=== PATIENT | female | born 1990 | race Caucasian/White ===

== ENCOUNTER 2022-02-25 10:29 | Emergency (ER) | payer OTHER, SELFPAY ==
[2022-02-25 10:53] VITALS: BP 141/82; PULSE 115; RESP 18; TEMP 37.3; O2SAT 98; BMI 21.6
[2022-02-25 11:12] LABS: Appearance Urine Slightly Cloudy (Clear); Bilirubin Urine Negative (Negative); Blood Urine 2+ (Negative); Color Urine Yellow (Yellow); Glucose Urine Negative (Negative); Ketones Urine Negative (Negative); Leukocyte Esterase Urine Negative (Negative); Nitrite Urine Negative (Negative); Protein Urine Negative (Negative); Urobilinogen Urine 0.2 (0.2-1.0); pH Urine 6.5 (5.0-8.5)
[2022-02-25 11:22] LABS: RBC Urine 0-2 (0-2); Squamous Epithelial Cell Urine Moderate (None-Few); WBC Urine 0-2 (0-5)
--- NOTE | 2022-02-25 11:33 | CRLHL7_ITS ---
For Patients: As a result of the Century Cures Act, medical imaging exams and procedure reports are released immediately into your electronic medical record. You may view this report before your referring provider. If you have questions, please contact your health care provider. INDICATION: Recent lithotripsy, pain, dysuria. TECHNIQUE: CT abdomen and pelvis without contrast. Coronal and sagittal reformats were generated. COMPARISON: CT of the abdomen and pelvis from 01/26/2019. FINDINGS: Lower chest: Unremarkable. Liver: Unremarkable. Gallbladder and bile ducts: Surgically absent gallbladder. Normal caliber bile ducts. Spleen: Unremarkable. Pancreas: Unremarkable. Adrenal glands: Unremarkable. No nodules. Kidneys and Ureters: Interpolar calcification in the left kidney measures approximately 3 mm (2/54). Punctate calcification lies in the lower pole of the left kidney (3/42). Lymph Nodes and Retroperitoneum: Unremarkable. Vasculature: Unremarkable. GI tract: Unremarkable. Normal in caliber. Normal appendix. Peritoneum/Abdominal Wall: Unremarkable. No free air or free fluid. Pelvic Viscera: The uterus is retroflexed. Bladder: Unremarkable. Bones: Unremarkable for age. IMPRESSION: Left renal calculi. No obstructive uropathy. Please note that all CT scans at this facility use dose modulation, iterative reconstruction, and/or weight-based dosing when appropriate to reduce radiation dose to as low as reasonably achievable. Dictated by Kashif Lanza MD @ 02/25/2022 1:10:32 PM (Electronically Signed)
--- NOTE | 2022-02-25 11:35 | ED.GENADULT ---
HPI - General Adult General Chief complaint: Flank Pain Stated complaint: needs CT after kidney stones surgery Time Seen by Provider: 02/25/22 11:22 History of Present Illness HPI narrative: This 31-year-old female comes in reporting left flank pain and fever. She had lithotripsy done 6 days ago for left-sided ureteral calculus. She states that she developed a fever after this and has been taking a sulfa antibiotic. She contacted her urologist who instructed her to come in for a CT scan today. The patient states that she did have a fever this morning and took some Tylenol. Related Data Home Medications Medication Instructions Recorded Confirmed fluoxetine 10 mg capsule 10 mg PO DAILY 02/25/22 02/25/22 Previous Rx's Medication Instructions Recorded ketorolac 10 mg tablet 10 mg PO TID 5 days #15 tabs 02/25/22 ondansetron HCl 4 mg tablet 4 mg PO Q6H #20 tabs 02/25/22 Allergies Allergy/AdvReac Type Severity Reaction Status Date / Time nitrofurantoin Allergy Mild throat Verified 02/25/22 11:01 swelling Ketorolac tromethamine Allergy Mild ithcy Uncoded 02/25/22 11:01 Review of Systems Status of ROS: Reports: 10 or more systems reviewed and unremarkable except as noted in History and below Narrative: Constitutional: No weight gain or loss. Eyes: No discharge. No vision changes. HENT: No congestion, no sore throat, no ear pain. Cardiovascular: No chest pain, no palpitations. Respiratory: No shortness of breath, no wheezes, no cough. Gastrointestinal: No vomiting, no diarrhea. She reports left-sided flank and abdominal pain. Genitourinary: No dysuria, no hematuria. Musculoskeletal: Normal range of motion. Skin: No rashes, no pruritis. Neurological: No dizziness, weakness, sensory change, speech change. Endo/Heme/Allergies: No bruising or bleeding. No polydipsia. Pysch: no suicidality, no anxiety, no insomnia. All other systems reviewed and are negative. PFSH PFSH Social History Smoking Status: Never smoker How often do you have a drink containing alcohol: never How often do you have six or more drinks on one occasion: Never AUDIT-C Alcohol total score: 0 Non-prescribed substance use: denies use Exam Narrative: Exam Narrative: Constitutional: Well-developed, well-nourished, no acute distress. HEENT: Normocephalic, atraumatic. Neck: Normal range of motion. Nontender. Supple. Heart: Regular. No murmurs. Tachycardia. Intact distal pulses. Lungs: Clear to auscultation. No chest discomfort. No wheezes, rhonchi, or rales. Abdomen: Normal bowel sounds. Left flank and abdominal tenderness. No rebound tenderness. Genitalia: Deferred. Back: No midline tenderness. Normal range of motion. Extremities: Normal range of motion. No injury. Skin: Intact. No rash. Warm. No erythema or pallor. Neurologic: No altered sensation. No weakness. Alert and oriented. Psychiatric: No suicidality. No anxiety or depression. No insomnia. Nursing notes and vitals signs are reviewed. Const: Vital Signs, click to edit/add: Vital Signs - 24 hr 02/25/22 10:53 02/25/22 12:48 Temperature 99.2 F Pulse Rate [Right Pulse Oximeter] 115 H 84 Respiratory Rate 18 Blood Pressure [Ri ght Upper Arm] 141/82 H 116/76 Pulse Oximetry 98 98 Oxygen Delivery Me thod Room Air Room Air Course Vital Signs Vital signs: Initial Vital Signs Temperature 99.2 F 02/25/22 10:53 Temperature Source Temporal Artery Scan 02/25/22 10:53 Pulse Rate 115 H 02/25/22 10:53 Respiratory Rate 18 02/25/22 10:53 Blood Pressure 141/82 H 02/25/22 10:53 Blood Pressure Mean 101 02/25/22 10:53 Blood Pressure Position Sitting 02/25/22 10:53 Pulse Oximetry 98 02/25/22 10:53 Oxygen Delivery Method 02/25/22 10:53 Vital Signs Temperature 99.2 F 02/25/22 10:53 Pulse Rate 115 H 02/25/22 10:53 Respiratory Rate 18 02/25/22 10:53 Blood Pressure 141/82 H 02/25/22 10:53 Pulse Oximetry 98 02/25/22 10:53 Oxygen Delivery Method 02/25/22 10:53 Temperature 99.2 F 02/25/22 10:53 Pulse Rate 84 02/25/22 12:48 Respiratory Rate 18 02/25/22 10:53 Blood Pressure 116/76 02/25/22 12:48 Pulse Oximetry 98 02/25/22 12:48 Oxygen Delivery Method 02/25/22 12:48 Medical Decision Making MDM Narrative Medical decision making narrative: This patient comes in with left flank pain and had lithotripsy done 6 days ago. She is still currently taking a sulfa antibiotic. She does report a fever at home but arrives here with normal temperature. Her heart rate was initially elevated but this settled down to 84 beats per minute. She is not tripping triggers of sepsis. She has normal urinalysis without evidence of infection. CT imaging of the abdomen and pelvis shows no sign of uropathy or obstruction. She does have a few small stones in the left kidney. I did contact the clinic where her urologist works. He is currently in surgery today but I did speak with the nurse to relay this information. Patient is encouraged to make a follow-up appointment with this clinic. I advised her to return if worsening symptoms happen. I did provide prescriptions for Toradol and Zofran. She does have oxycodone that she can use if needed. Lab Data Labs: Lab Results 02/25/22 Range/Units 11:05 Urine Color Yellow (Yellow) Urine Appearance Slightly Cloudy A (Clear) Urine pH 6.5 (5.0-8.5) Ur Specific [place] 1.020 (1.000-1.030) Urine Protein Negative (Negative) Urine Glucose (UA) Negative (Negative) Urine Ketones Negative (Negative) Urine Blood 2+ A (Negative) Urine Nitrite Negative (Negative) Urine Bilirubin Negative (Negative) Urine Urobilinogen 0.2 (0.2-1.0) Ur Leukocyte Esterase Negative (Negative) Urine RBC 0-2 (0-2) Urine WBC 0-2 (0-5) Ur Squamous Epith Cells Moderate A (None-Few) Urine Bacteria None (None) Imaging Data CT scan - abdomen: Radiologist's impression: 1. Moderate-size right pleural effusion and small left pleural effusion. 2. Bilateral nonobstructive nephrolithiasis. No hydronephrosis. 3. Urinary bladder wall thickening and inflammation could be due to infectious or radiation cystitis. Discharge Plan Discharge Clinical Impression: Renal colic on left side Patient Disposition: Home, Self-Care Condition: Stable Additional Instructions: Take medication as needed and indicated. Follow up with urology clinic or return if worsening. Prescriptions: New ondansetron HCl 4 mg tablet 4 mg PO Q6H Qty: 20 0RF ketorolac 10 mg tablet 10 mg PO TID 5 Days Qty: 15 0RF No Action fluoxetine 10 mg capsule 10 mg PO DAILY Follow Up/Referrals: Provider,Not a Local [Referring] - Stand Alone Forms: AEGEA Medical Info Instructions
--- OUTSIDE RECORDS SUMMARY | 2022-02-25 11:50 | XMS_ITS | Encounter Summary ---
:1990 Author Organization [facility] Address [address] [place] [address] Care Team Providers Name Role Phone Unavailable Primary Care Provider Unavailable Reason for Visit Reason Onset Date Comments Testing For Upper Respiratory Virus Symptoms 04/10/2020 Encounter Details Date Type Department Care Team Description 04/10/2020 External Outreach Department of Family Anoop Lo Contact With And Medicine, Benigno Spring D.O. (Suspected) Exposure Building, in [address] COVID-19 ([place], [place] Dx) [address] [facility] [address] [place], [place] [phone] [address] (Work) [phone] Social History Tobacco Use Types Packs/Day Years Used Date Smoking Tobacco: Never Sex Assigned at Date Recorded Not on file documented as of this encounter Progress Notes Rolly Lloyd RAyaan. - 04/10/2020 2:44 PM CST Encounter created for symptomatic infectious disease screening with possible COVID, Influenza, and RSV testing. OCHEMISTRY PROFESSOR documented in this encounter Plan of Treatment Not on filedocumented as of this encounter Procedures Procedure Name Priority Date/Time Associated Diagnosis Comme nts SARS CORONAVIRUS-2 Routine 04/10/2020 3:52 PM Contact With And Results for this RNA, V PHYTOCHEMISTRY PROFESSOR (Suspected) Exposure procedu re are in To COVID-19 the results section. documented in this encounter Results SARS Coronavirus-2 RNA, V Symptomatic (04/10/2020 3:52 PM PHYTOCHEMISTRY PROFESSOR) [facility] Method Time Signature SARS-CoV-2 Swab, 04/11/2020 MKTO Specimen Nasopharynx 1:02 PM PHYTOCHEMISTRY PROFESSOR Source SARS CoV-2 Undetected Undetected 04/11/2020 MKTO RNA, TMA 1:02 PM PHYTOCHEMISTRY PROFESSOR Comment: SARS-CoV-2 RNA absent. This result does not rule out COVID-19 in the patient, as the sensitivity of the test depends o n the timing of the specimen collection and the quality of the specim en. Result should be correlated with patient's history and clinical presentat ion. ----ADDITIONAL INFORMATION---- This molecular amplification test was pe rformed using the Aptima SARS-CoV-2 assay ([employer] on the [employer] tem under emergency use authorization (EUA) by the U.S. Food and Drug Administ ration. Fact sheets for this EUA assay can be fo und at the following links: For Healthcare Providers: https://www.Ey[employer] Surveillance a.gov/media/834033/download For Patients: https://www.fda.gov/media/ 370152/download Specimen Anatomical Collection Method Collection Time Receive d Time (Source) Location / / Volume Laterality Varies 04/10/2020 3:52 PM 2:49 (Nasopharynx) PHYTOCHEMISTRY PROFESSOR AM PHYTOCHEMISTRY PROFESSOR Anoop Lo D.O. LAB MICROBIOLOGY - GENERAL O MAHESH Performing Organization Address City/State/ZIP Code Phon e Number [facility]- [address] [place] [address] [place] [address] System in [address] documented in this encounter Visit Diagnoses Diagnosis Contact With And (Suspected) Exposure To COVID-19 - Primary documented in this encounter Additional Health Concerns Infection Onset Date Last Indicated Resolved Time COVID19 Pending 04/10/2020 04/10/2020 04/11/2020 1:03 PM PHYTOCHEMISTRY PROFESSOR documented as of this encounter
--- OUTSIDE RECORDS SUMMARY | 2022-02-25 11:50 | XMS_ITS | Encounter Summary ---
:1990 Author Organization [facility] Address [address] [place] [address] Care Team Providers Name Role Phone Unavailable Primary Care Provider Unavailable Encounter Details Date Type Department Care Team Description 01/31/2019 Clinical Communication Department of Jocelynn Meyers, Urology in .. [place], [place] [address] [place] [address] [phone] Social History Tobacco Use Types Packs/Day Years Used Date Smoking Tobacco: Never Sex Assigned at Date Recorded Not on file documented as of this encounter Miscellaneous Notes Telephone Encounter - Jocelynn Meyers M.D. - 01/31/2019 9:53 PM DEVIL DOG Outside ED provider called regarding right flank pain the patient has had for a week and a half. Shewas initially treated for pyelonephritis, but cultures did not support this so antibiotics were stopped. CT previously demonstrated non obstructing stones as well as ovarian cyst. She represents with persistent pain. She is AVSS, no leukocytosis, urinalysis without concern for infection. Urine is clear but she reports intermittent gross hematuria. Ultrasound demonstrates bilateral jets, no hydro, no stones. Recommended pain control and outpatient urology follow up. CT urogram may give additional insight if there are any anatomic abnormalities of the collecting system. L DOG documented in this encounter Plan of Treatment Not on filedocumented as of this encounter Visit Diagnoses Not on filedocumented in this encounter
--- OUTSIDE RECORDS SUMMARY | 2022-02-25 11:50 | XMS_ITS | Encounter Summary ---
:1990 Author Organization [facility] Address [address] [place] [address] Care Team Providers Name Role Phone Unavailable Primary Care Provider Unavailable Encounter Details Date Type Department Care Team Description 05/08/2015 Hospital Encounter [facility] Lis Marino D.O. [address], [place] [address] (Wo rk) Social History Tobacco Use Types Packs/Day Years Used Date Smoking Tobacco: Never Assessed Sex Assigned at Date Recorded Not on file documented as of this encounter Last Filed Vital Signs Vital Sign Reading Time Taken Comments Blood Pressure 100/72 05/08/2015 2:03 PM BEESWAX BLEACHER Pulse 102 05/08/2015 2:03 PM BEESWAX BLEACHER Temperature - - Respiratory Rate 18 05/08/2015 2:03 PM BEESWAX BLEACHER Oxygen Saturation - - Inhaled Oxygen Concentration - - Weight 54.9 kg (121 lb 0.5 oz) 05/08/2015 2:03 PM BEESWAX BLEACHER Height - - Body Mass Index - - documented in this encounter Progress Notes Tasha Marino DSophia - 05/08/2015 1:54 PM CST [id number] URGENT CARE NOTE HISTORY OF PRESENT ILLNESS Ongoing sinus issues. HISTORY OF PRESENT ILLNESS This is a 24-year-old female who comes to Urgent Care Clinic today with complaints of ongoing issue.She was seen on a 05/03/2015, diagnosed with sinusitis, treated with amoxicillin. She has been on amoxicillin now for 4 full days today is day 5 and does not feel like she is getting any better. She com plains of ongoing ear fullness, cough, fatigue, maxillary facial pressure and pain, subjective fevers, decreased sleep, decreased appetite. She has been able to get down her fluids okay. Just overall feeling achy and run down and just not good. Throat is also sore and irritated/ she is using uwfo-otm-ponyfio Sudafed with minimal improvement in symptoms. Sleep has been dramatically interrupted secondary to her symptoms. Now she has been sick for about 2-1/2 weeks. VITAL SIGNS Temperature 36.9, pulse 102, respirations 16, blood pressure 100/72, weight is 54.9 kg. PHYSICAL EXAMINATION GENERAL: This is a well-appearing 24-year-old female, who appears to be in no acute distress. HEENT: Head is normocephalic, atraumatic. Ears: External auditory canals are clear. Tympanic membranes are pearly edwards with good light reflex. Nares are congested. Posterior pharynx is erythematous. Mouth: Oropharynx is clear. Mucous membranes are moist. NECK: Supple. Anterior cervical lymphadenopathy. HEART: Regular rate and rhythm. No murmur. LUNGS: Clear to auscultation bilaterally. ABDOMEN: Soft, nontender, and nondistended. Positive bowel sounds heard throughout. SKIN: No rashes or erythema seen. IMPRESSION/REPORT/PLAN ASSESSMENT: Acute maxillary sinusitis. PLAN: We will switch over to doxycycline. We will stop the amoxicillin and add prednisone 40 mg daily for 5 days to her regimen to see if that can help. She can continue to use zvwe-ain-afyjagl cough and cold medicines as desired. Re- evaluation if worsening, change or not improving symptoms over the next 48 to 72 hours. Patient was comfortable with our plan, verbalizes agreement. Tasha Marino D.O./pos Electronically Signed By: TASHA MARINO DO On: 05/09/2015 10:04 AM Source: [facility] MHSDOLBEYNONRADSYS Document Id: [id number] WAX BLEACHER documented in this encounter Miscellaneous Notes Miscellaneous - Alexandria Jauregui RDaishaN. 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 Treated with Amoxicillin. Is getting worse. Feels her ears are worse. [place], Sinus pressure, fatigue, throat irritattion, , body aches, cough, chest congestion Onset of Symptoms : 2.5 weeks. Temperature Core : 36.9 DegC(Converted to: 98.4 DegF) Peripheral Pulse Rate : 102 /min (HI) Respiratory Rate : 18 /min Systolic Blood Pressure : 100 mmHg Diastolic Blood Pressure : 72 mmHg NIBP Mean : 81 mmHg BP Location : Right upper extremity Blood Pressure Cuff Size : Regular Actual Weight : 54.9 kg(Converted to: 121 lb 1 oz) Weight Source : Standing scale Dosing Weight Clinic : 54.9 kg ALEXANDRIA JAUREGUI RN - 05/08/2015 14:03 BEESWAX BLEACHER General Info Information Given By : Patient Preferred Communication Mode : Verbal Languages : Congolese Is Patient Female and 13-50 no hysterectomy : Yes Status : Patient denies Are you ? : No ALEXANDRIA JAUREGUI RN - 05/08/2015 14:03 BEESWAX BLEACHER Subjective Pain Symptoms : No ALEXANDRIA JAUREGUI RN - 05/08/2015 14:03 BEESWAX BLEACHER Dependent Habits Exposure to Tobacco Smoke : Other: NEVER Smoking Status : Never smoker Tobacco 2A : No Tobacco Use/Currently Using : No Tobacco Use/Last 30 Days : No Tobacco Use/Last 12 months : No Alcohol Use : No ALEXANDRIA JAUREGUI RN - 05/08/2015 14:03 BEESWAX BLEACHER Allergy (As Of: 05/08/2015 14:07:25 BEESWAX BLEACHER) Allergies (Active) NKA Estimated Onset Date: Unspecified ; Created By: JOELLE OBREGON RN; Reaction Status: Active; Category: Drug ; Substance: NKA ; Type: Allergy ; Updated By: JOELLE OBREGON RN; Reviewed Date: 05/08/2015 14:02 BEESWAX BLEACHER Source: [facility] POWERCHART Document Id: [id number] BEESWAX BLEACHER!32 WAX BLEACHER documented in this encounter Plan of Treatment Not on filedocumented as of this encounter Visit Diagnoses Not on filedocumented in this encounter
--- OUTSIDE RECORDS SUMMARY | 2022-02-25 11:50 | XMS_ITS | Encounter Summary ---
:1990 Author Organization [facility] Address [address] [place] [address] Care Team Providers Name Role Phone Unavailable Primary Care Provider Unavailable Encounter Details Date Type Department Care Team Description 07/25/2015 Hospital Encounter [facility] Yahir Coleman APRN, C.N.P. [address] [place] [address] (Wo rk) Social History Tobacco Use Types Packs/Day Years Used Date Smoking Tobacco: Never Assessed Sex Assigned at Date Recorded Not on file documented as of this encounter Last Filed Vital Signs Vital Sign Reading Time Taken Comments Blood Pressure 112/60 07/25/2015 2:23 PM CDT Pulse 72 07/25/2015 2:23 PM CDT Temperature - - Respiratory Rate 20 07/25/2015 2:23 PM CDT Oxygen Saturation - - Inhaled Oxygen Concentration - - Weight 55.1 kg (121 lb 7.6 oz) 07/25/2015 2:23 PM CDT Height - - Body Mass Index - - documented in this encounter Progress Notes Yahir Coleman APRN, C.N.P. - 07/25/2015 2:18 PM CDT [id number] URGENT CARE CHIEF COMPLAINT/REASON FOR VISIT Abdominal pain, possible kidney stone. HISTORY OF PRESENT ILLNESS Bernardino is a 24-year-old female, who comes into Urgent Care for evaluation of some abdominal pain thathas been present for a few days, but has been somewhat ongoing as well. Her primary care provider chuyita Good, but she is a current college student here, so she has had some visits here and alsohas been followed up at home. Initially, she was seen in the emergency department here, at least 3 weeks ago for some abdominal pain and at that time it was recommended that she follow up with an president ergonomic consulting since they really did not find much wrong with her. She later went into the emergency department in [place], and had a CT scan done that it sounds like was positive for some kidney stones. She does have an appointment to see a urologist, but this is not until August. She does not believe she was ever given anything to pass stones, but tells me she was even hospitalized for a short period of time with some kidney stones and it was believed that she may have passed a stone at one point during her hospitalization. She tells me just today she got a call from her provider in [place], and was informed that her vaginal exam showed bacterial vaginosis and so she is starting on some metronidazole. Right now, she has pain that she rates a 10/10 in her right back area. This does radiate around somewhat to her abdomen and even makes her feel nauseated because the pain is so bad. She tried some ibuprofen this morning and took 400 mg, this was several hours ago and she has not taken anything sincethen. She did drive herself here. ALLERGIES No known drug allergies. PAST MEDICAL HISTORY No chronic problems are noted in our records, but she does tell me that she had a full workup for this type of pain in the past thinking perhaps it was her gallbladder and all of the tests came back negative. She tells me it is still under discussion if this might still be her gallbladder despite negative tests. She is in contact with her primary care provider for this. She is also currently being cared for these kidney stones and has a urology appointment in August. MEDICATIONS She does have some oxycodone and some hydrocodone that she had from previous visits. She did find the oxycodone to be somewhat helpful, but still is quite uncomfortable. PHYSICAL EXAMINATION GENERAL: Bernardino is a 24-year-old female in no distress. VITAL SIGNS: She is afebrile with a temperature of 36.8, heart rate is 72, respiratory rate is 20, blood pressure is 112/60. She weighs 55.1 kg. As noted, she rates the pain in her right flank or back area a 10 on a 0 to 10 scale. THROAT: Shows no erythema. NECK: Supple. HEART: Regular. LUNGS: Are completely clear. BACK: This area is in the entire right flank area and radiates around no abnormalities are noted, with examination of this area across her back. ABDOMEN: Soft and nontender with positive bowel sounds in all quadrants. There is no organomegaly noted. SKIN: Without rashes or other abnormalities. IMPRESSION/REPORT/PLAN Abdominal pain, possible kidney stones. She really did not want to go to the emergency room this evening and is just wondering what else we can do for her. I did obtain an x-ray of her abdomen to look for any kidney stones and none are noted on x-ray. I also obtained a urinalysis and a urine hCG. Urine hCG was negative. Urinalysis shows just a trace of blood. Discussed these results with her. She wasgiven an injection of Toradol intramuscularly while she was here at the clinic and she knows not to take any more ibuprofen this evening. She does have a few pain pills left from a previous visit and Idid give her another prescription for 15 Percocet that she will use sparingly. In addition to this, I did start her on some Flomax 0.4 mg once daily to see if this helps in relieving her symptoms. She is definitely to keep this appointment with the urologist in August, and follow up with her primary care provider as needed. As noted, she is trying to avoid an the emergency room visit, but I did tell her that if symptoms are still not getting better with this she will need to go to the emergency room for further evaluation. Yahir Coleman APRN, C.N.P./pos Electronically Signed By: YAHIR COLEMAN NP On: 07/26/2015 05:55 PM Source: [facility] MHSDOLBEYNONRADSYS Document Id: [id number] Addendum by YAHIR COLEMAN DUSTING AND BRUSHING MACHINE OPERATOR on July 26, 2015 17:56 CDT 25 minutes with patient; 10 uin counseling and coordination of care. Modified by and Electronically Signed by: YAHIR COLEMAN NP On: 07/26/2015 05:56 PM Source: [facility] POWERCHART Document Id: [id number] documented in this encounter Miscellaneous Notes Miscellaneous - Yahir Coleman APRN, C.N.P. - 07/25/2015 3:25 PM CDT Ambulatory Patient Summary [address] [place], [place] [id number] Visit Information Name: BERNARDINO METCALF [facility] Number: [id number] Current Date: 07/25/2015 15:25:57 Physicians Attending Provider: UNKNOWN1, PROVIDER Primary Care Provider: PCP, KEISHA BERNARDINO METCALF has been given the following list of follow-up instructions, medication list, and patient education materials: Follow-up Instructions Your Medications Here is a list of your medications. It is important to take your medications as directed. Use a pillbox or chart to help remind you to take your medications. Please let your doctor or nurse know if you have problems taking your medications. Medication/Strength How to Take Indications/Special Instructions/Comments/Notes for Patient Medication Changes/Routing acetaminophen (Tylenol 325 mg oral tablet) 2 Tablet(s), Oral, every 4 hours as needed for pain citalopram (citalopram 10 mg oral tablet) 1.5 Tablet(s), Oral, once a day cyanocobalamin (Vitamin B-12 1000 mcg oral tablet) 1 Tablet(s), Oral, once a day oxyCODONE-acetaminophen (Percocet 5/325 oral tablet) 1 Tablet(s), Oral, every 6 hours as needed for Pain No more than 4,000mg acetaminophen/24hrs New Routed to [employer] tamsulosin (Flomax 0.4 mg oral capsule) 1 cap, Oral, once a day [facility] [address] [place] [address] Stop Taking the Following Medications: Medication list as of 07-25-15 15:25 Attention: If you have any medications at home that are not on this list, DO NOT take them until youcontact your provider for clarification. Give a copy of your medication list to your primary care provider. Update your medication list any time medications or doses are changed and carry your medication list at all times in case of emergency. Electronically Signed By: YAHIR COLEMAN NP Signed On:25-JUL-2015 15:25:54 Your Allergies & Intolerances Substance Reaction Symptoms Category Comments No Known Allergies Drug Your Problem List Problem Status Onset Comments No Problems found Your Upcoming Appointments Date Time Location Provider No Appointments found Attention: Contact your local Clinic if further appointment detail needed. Consider Using Patient Online Services Patient Online Services is a secure online and Mobile application that lets you: ?? View lab and test results ?? View portions of your medical record including clinical notes, immunizations and discharge summaries ?? Request an appointment or medication refill ?? Review your appointment schedule ?? Send secure messages to your care team Its easy to create an account if you dont have one. Go to [email or web address] and click on Create Your Account. Then, follow the directions to complete the online form. Youll be asked for your [facility] number which you can find at the top of this document. Your Goals/Additional instructions: Source: [facility] POWERCHART Document Id: [id number] Miscellaneous - Yahir Coleman APRN, C.N.P. - 07/25/2015 3:25 PM CDT Ambulatory Discharge Medication List [address] [id number] Visit Information Name: BERNARDINO METCALF [facility] Number: [id number] Visit Date: 07/25/2015 15:25:57 Attending Provider: UNKNOWN1, PROVIDER Primary Care Provider: PCPKEISHA BERNARDINO ISA has been given the following list of medications: Your Medications It is important to take your medications as directed. Use a pill box or chart to help remind you to take your medications. Please let your doctor or nurse know if you have problems taking your medications. Medication/Strength How to Take Indications/Special Instructions/Comments/Notes for Patient Medication Changes/Routing acetaminophen (Tylenol 325 mg oral tablet) 2 Tablet(s), Oral, every 4 hours as needed for pain citalopram (citalopram 10 mg oral tablet) 1.5 Tablet(s), Oral, once a day cyanocobalamin (Vitamin B-12 1000 mcg oral tablet) 1 Tablet(s), Oral, once a day oxyCODONE-acetaminophen (Percocet 5/325 oral tablet) 1 Tablet(s), Oral, every 6 hours as needed for Pain No more than 4,000mg acetaminophen/24hrs New Routed to [employer] tamsulosin (Flomax 0.4 mg oral capsule) 1 cap, Oral, once a day New Routed to [facility] [address] [place] [address] Stop Taking the Following Medications: Medication list as of 07-25-15 15:25 Attention: If you have any medications at home that are not on this list, DO NOT take them until youcontact your provider for clarification. Give a copy of your medication list to your primary care provider. Update your medication list any time medications or doses are changed and carry your medication list at all times in case of emergency. Electronically Signed By: YAHIR COLEMAN DUSTING AND BRUSHING MACHINE OPERATOR Signed On:25-JUL-2015 15:25:54 Additional Information: Source: [facility] POWERCHART Document Id: [id number] Miscellaneous - Shane Canchola, R.N. 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 Ambulatory Intake Additional Information : CT scan was done in [place] on 07/14/15 Temperature Core : 36.8 DegC(Converted to: 98.2 DegF) Peripheral Pulse Rate : 72 /min Respiratory Rate : 20 /min Systolic Blood Pressure : 112 mmHg Diastolic Blood Pressure : 60 mmHg NIBP Mean : 77 mmHg Actual Weight : 55.1 kg(Converted to: 121 lb 8 oz) Dosing Weight Clinic : 55.1 kg SHANE CANCHOLA LPN - 07/25/2015 14:23 CDT General Info Information Given By : Patient Preferred Communication Mode : Verbal Languages : Georgian Is Patient Female and 13-50 no hysterectomy : Yes Status : Patient denies Are you ? : No SHANE CANCHOLA Marquise [facility] - 07/25/2015 14:23 CDT Subjective Pain Symptoms : Yes SHANE CANCHOLA Marquise [facility] - 07/25/2015 14:23 CDT Pain Scale Pain Scale Verbal 0-10 : Open SHANE CANCHOLA Marquise [facility] - 07/25/2015 14:23 CDT Pain Pain Assessment Grid Pain 1 Location : Lower back Laterality : Right Intensity : 10 SHANE CANCHOLA Marquise [facility] - 07/25/2015 14:23 CDT Dependent Habits Exposure to Tobacco Smoke : Other: NEVERn no alcohol. Smoking Status : Never smoker Tobacco 2A : No Tobacco Use/Currently Using : No Tobacco Use/Last 30 Days : No Tobacco Use/Last 12 months : No Alcohol Use : No SHANE CANCHOLA Marquise [facility] - 07/25/2015 14:23 CDT [facility] Document Id: [id number] CDT!37 documented in this encounter Plan of Treatment Not on filedocumented as of this encounter Procedures Procedure Name Priority Date/Time Associated Comments Diagnosis DX ABDOMEN 1 VIEW Routine 07/25/2015 2:51 PM Resu lts for this CDT procedure are i n the results section. TEST, U Routine 07/25/2015 2:45 PM Resu lts for this CDT procedure are i n the results section. URINALYSIS, ROUTINE Routine 07/25/2015 2:45 PM Re sults for this CDT procedure are i n the results section. URINE MICROSCOPIC Routine 07/25/2015 2:45 PM Resu lts for this CDT procedure are i n the results section. documented in this encounter Results DX Abdomen 1 View (07/25/2015 2:51 PM CDT) Anatomical Region Laterality Modality Abdomen N/A Radiographic Imaging Specimen (Source) Anatomical Collection Method Collection Time Re ceived Time Location / / Volume Laterality 07/25/2015 2:51 PM CDT Addenda Addendum by Provider, Sachi Michaud 07/25/2015 2:51 PM CDT RAD^^^MA XR Abdomen 1 View 07/25/2015 14:51:07 Impressions 07/25/2015 3:06 PM CDT Negative Narrative 07/25/2015 3:06 PM CDT EXAM: XR Abdomen 1 View INDICATION: ? right side kidney stone COMPARISON: None. FINDINGS: Unremarkable bowel gas pattern . No masses or unusual calcifications. Bony structures are inta ct. Radiopaque suture material is noted in the right pelvis. Procedure Note Daquan Esqueda D.O. / ProviderRonald M.D. - 08/02/2016 EXAM: XR Abdomen 1 View INDICATION: ? right side kidney stone COMPARISON: None. FINDINGS: Unremarkable bowel gas pattern . No masses or unusual calcifications. Bony structures are inta ct. Radiopaque suture material is noted in the right pelvis. IMPRESSION: Negative Madelyn Garcia RDaishaTDaisha(R)(CT), R.T.(R) IMG DIAGNOSTIC IM AGING PROCEDURES Urine Microscopic (07/25/2015 2:45 PM CDT) P athologist Signature HXUR WBC. Occ-3 HPF POWERCHART HXUR RBC. Occ-2 HPF POWERCHART Squamous Occ-3 HPF POWERCHART Epithelial Specimen Anatomical Collection Method Collection Time Receive d Time (Source) Location / / Volume Laterality Urine, First 07/25/2015 2:45 PM 6 2:45 Voided CDT PM CDT Yahir Coleman APRN, C.N.P. LAB URINE ORDERABLES Performing Organization Address City/State/ZIP Code Phon e Number POWERCHART Test, Qualitative, Urine (07/25/2015 2:45 PM CDT) Patholo gist Method Time Signature HXBeta-hCG Negative Negative POWERCHART Qualitative Urine Specimen (Source) Anatomical Collection Method Collection Time Re ceived Time Location / / Volume Laterality Urine 07/25/2015 2:45 PM CDT Yahir Coleman APRN, C.N.P. LAB URINE ORDERABLES Performing Organization Address City/[facility]/ZIP Code Phon e Number POWERCHART (ABNORMAL) Urinalysis, Routine (07/25/2015 2:45 PM CDT) [facility] gist Method Time Signature HXUr Color Yellow Colorless POWERCHART Clarity Clear Clear POWERCHART Glucose Negative Negative POWERCHART MGDL HXBILIRUBIN Negative Negative POWERCHART Ketones, QL(U) Negative Negative POWERCHART MGDL Specific >=1.030 POWERCHART Horse Shoe, POCT, U HXBLOOD Trace (A) Negative POWERCHART pH, POCT, Urine 5.5 <5.0 POWERCHART Protein, Ur, Dip Negative Negative POWERCHART MGDL Urobilinogen 0.2 0.2 MGDL POWERCHART HXNITRITE Negative Negative POWERCHART Leukocyte Negative Negative POWERCHART Esterase Specimen (Source) Anatomical Collection Method Collection Time Re ceived Time Location / / Volume Laterality Urine, First 07/25/2015 2:45 PM Voided CDT Yahir Coleman APRN, C.N.P. LAB URINE ORDERABLES Performing Organization Address City/State/ZIP Code Phon e Number POWERCHART documented in this encounter Visit Diagnoses Not on filedocumented in this encounter
--- OUTSIDE RECORDS SUMMARY | 2022-02-25 11:50 | XMS_ITS | Encounter Summary ---
:1990 Author Organization [facility] Address [address] [place] [address] Care Team Providers Name Role Phone Unavailable Primary Care Provider Unavailable Encounter Details Date Type Department Care Team Description 12/18/2012 - Hospital Encounter HX [facility] Kimi Mcadasm PT, M.D. 12/29/2012 [facility] [place] [facility] Eddie carmichael [place], [place] [address] (Wo rk) Social History Tobacco Use Types Packs/Day Years Used Date Smoking Tobacco: Never Assessed Sex Assigned at Date Recorded Not on file documented as of this encounter Plan of Treatment Not on filedocumented as of this encounter Visit Diagnoses Not on filedocumented in this encounter
--- OUTSIDE RECORDS SUMMARY | 2022-02-25 11:50 | XMS_ITS | Clinical Summary ---
:1990 Author Organization [facility] Address [address] [place] [address] Care Team Providers Name Role Phone Unavailable Primary Care Provider Unavailable Source Comments Patient records contain information from all sites at [facility]. For routine questions regarding patient records, call [phone] during business hours, M-F 8:00 AM - 5:00 PM Central Time. Record requests for emergency care only can be directed to [phone] at any time.[facility] Social History Tobacco Use Types Packs/Day Years Used Date Smoking Tobacco: Never Sex Assigned at Date Recorded Not on file Last Filed Vital Signs Vital Sign Reading Time Taken Comments Blood Pressure 118/71 07/28/2016 1:38 PM CDT Pulse 114 07/28/2016 1:38 PM CDT Temperature - - Respiratory Rate 16 07/28/2016 1:38 PM CDT Oxygen Saturation - - Inhaled Oxygen Concentration - - Weight 57.4 kg (126 lb 8.7 oz) 07/28/2016 1:38 PM CDT Height 167.6 cm (5' 6) 04/10/2020 4:35 PM BARREL MARKER Body Mass Index - - Plan of Treatment Health Maintenance Due Date Last Done Comments Cervical Cancer Screening 1990 HIV Screening 1990 Hepatitis C Screening 1990 DTaP,Tdap,and Td Vaccines 11/19/2015 11/18/2005, 11/29/1997 , (7 - Tdap) 04/25/1994, Additional history exists Depression Screening 03/31/2021 (Annual PHQ-2) COVID-19 Vaccine (3 - 06/29/2021 05/04/2021, 04/05/2021 Booster for Pfizer series) Influenza Vaccine (#1) 2021 12/25/2017, 11/29/2017, 04/10/2012, Additional history exists Hepatitis B Vaccines Completed 12/26/1993, 06/22/1993, 02/16/1993 Pneumococcal vaccine (0-64 Aged Out No lo nger eligible years) based on patient 's age to complete this topic Insurance Payer Benefit Plan / Subscriber ID Effective Dates Phone Addre ss Type Group MEDICA MEDICA [id number] 2020-Present [phone] [address] [address] [place] [address]
--- OUTSIDE RECORDS SUMMARY | 2022-02-25 11:50 | XMS_ITS | Encounter Summary ---
:1990 Author Organization [facility] Address [address] [place] [address] Care Team Providers Name Role Phone Unavailable Primary Care Provider Unavailable Encounter Details Date Type Department Care Team Description 04/22/2012 Hospital Encounter HX [facility], M.D. [address] [place], [place] [phone] (Wo rk) Social History Tobacco Use Types Packs/Day Years Used Date Smoking Tobacco: Never Assessed Sex Assigned at Date Recorded Not on file documented as of this encounter Last Filed Vital Signs Vital Sign Reading Time Taken Comments Blood Pressure 122/69 04/22/2012 9:24 PM PARAPROFESSIONAL AIDE TEACHER Pulse 78 04/22/2012 9:24 PM PARAPROFESSIONAL AIDE TEACHER Temperature - - Respiratory Rate 16 04/22/2012 9:24 PM PARAPROFESSIONAL AIDE TEACHER Oxygen Saturation - - Inhaled Oxygen Concentration - - Weight - - Height - - Body Mass Index - - documented in this encounter Discharge Summaries Carol Alexandra, R.N. - 04/22/2012 9:27 PM CST ED Discharge Instructions [address] [address] Name: BERNARDINO METCALF Date of : 1990 12:00 AM Visit Date: 04/22/2012 7:43 PM [facility] Number: [id number] Address: [address] [place] [id number] Primary Care Provider: PCP, KEISHA IMPORTANT: [facility] in [place] would like to thank you for allowing us to assist you with your healthcare needs. The following includes patient education materials and information regarding your injury/illness. Chief Complaint: Closed head injury with LOC; HEAD INJ/BLACKED OUT, FELL IN ROOM Follow-Up Instructions: With: Address: When: Follow up with primary care provider Within 1 week Comments: Call for follow up appointment For recheck With: Address: When: Return to Emergency Department Within As Needed Comments: If symptoms worsen For recheck Patient Education Materials: [id number] HEAD INJURY [no wake-up, Adult] You have had a head injury. It does not appear serious at this time. Sometimes symptoms of a more serious problem (concussion, bruising or bleeding in the brain) may appear later. Therefore, watch for the WARNING SIGNS listed below. HOME CARE: 1. During the next 24 hours someone must stay with you to check for the signs below. It is not necessary to stay awake or be awakened during the night. 2. If you have swelling of the face or scalp, apply an ice pack (ice cubes in a plastic bag, wrappedin a towel) for 20 minutes. Do this every 1-2 hours until the swelling starts to go down. 3. You may use acetaminophen (Tylenol) or ibuprofen (Motrin, Advil) to control pain, unless another pain medicine was prescribed. [NOTE: If you have chronic liver or kidney disease or ever had a stomach ulcer or GI bleeding, talk with your doctor before using these medicines.] Do not take aspirin after a head injury. 4. For the next 24 hours: o Do not take alcohol, sedatives or medicines that make you sleepy. o Do not drive or operate machinery. o Avoid strenuous activities. No lifting or straining. 5. If you have had any symptoms of a concussion today (nausea, vomiting, dizziness, confusion, headache, memory loss or if you were knocked out), do not return to sports or any activity that could result in another head injury until all symptoms are gone and you have been cleared by your doctor. A second head injury before fully recovering from the first one can lead to serious brain injury. FOLLOW UP with your doctor if symptoms are not improving after 24 hours, or as directed. [NOTE: A radiologist will review any X-rays or CT scans that were taken. We will notify you of any new findings that may affect your care.] GET PROMPT MEDICAL ATTENTION if any of the following occur: ?? Repeated vomiting ?? Severe or worsening headache or dizziness ?? Unusual drowsiness, or unable to awaken as usual ?? Confusion or change in behavior or speech, memory loss, blurred vision ?? Convulsion (seizure) ?? Increasing scalp or face swelling ?? Redness, warmth or pus from the swollen area Fluid drainage or bleeding from the nose or ears ?? [id number] [employer], [address] [place] [address]. All rights reserved. This information is not intended as a substitute for professional medical care. Always follow your healthcare professional's instructions. ED Tests and Procedures: Order Status Discharge Prescriptions & Home Medications: Medication/Strength Dose Route Frequency Indications/Special Instructions/Comments No Medications found Comment: Attention: If you have any medications at home not on this list, DO NOT take them until you contact your provider for clarification. Medication Reconciliation: Reconciliation is a process of identifying the most accurate list of all medications a patient is taking - including name, dosage, frequency, and route - and using this list to provide to the patient information about how to take those medications. BERNARDINO METCALF or karissaee has reviewed the home m edications you have listed with us. Review the following instructions: You have NOT received any prescriptions and you have told us you are not currently taking any home medications You have NOT received any prescriptions. You have been provided a discharge medications list and you may CONTINUE taking your medications as previously prescribed by your regular providers. You have received the listed prescriptions and BEGIN all listed prescriptions as directed. Since you have listed no home medications, please check with your family doctor if you are taking any other medications. You have received the listed prescriptions and BEGIN all listed prescriptions as directed. Youhave been provided a discharge medications list and you may CONTINUE all home medications as previously prescribed by your regular providers. You have received the listed prescriptions and BEGIN all listed prescriptions as directed. Youhave been provided a discharge medications list. The following CHANGES have been made to your medication list; Otherwise, CONTINUE all home medications as previously prescribed by your regular provider. IMPORTANT: We examined and treated you today on an emergency basis only. This was not a substitute for, or an effort to provide, complete medical care. In most cases, you must let your doctor check youagain. Tell your doctor about any new or lasting problems. We cannot recognize and treat all injuries or illnesses in one Emergency Department visit. If you had special tests, such as EKG's or X- rays, we will review them again within 24 hours. We will call you if there are any new suggestions. Please follow the instructions above carefully. If you are being transferred to another facility your followup plan of care will be determined by the receiving facility. If you are a patient that is being discharged from the Emergency Department after receiving narcotics or other medications that may impair your judgment you may be a risk to yourself or others if you operate a motor vehicle. We recommend that you arrange a ride home with a responsible constitution party. I, BERNARDINO METCALF , or responsible constitution party have received this information and my questions have been answered. I have discussed any challenges I see with this plan with the nurse or physician. Patient Signature or Responsible Republican/Relationship Date Time Provider Signature Date Time Medication Reconciliation: Reconciliation is a process of identifying the most accurate list of all medications a patient is taking - including name, dosage, frequency, and route - and using this list to provide to the patient information about how to take those medications. BERNARDINO METCALF or designee has reviewed the home m edications you have listed with us. Review the following instructions: You have NOT received any prescriptions and you have told us you are not currently taking any home medications You have NOT received any prescriptions. You have been provided a discharge medications list and you may CONTINUE taking your medications as previously prescribed by your regular providers. You have received the listed prescriptions and BEGIN all listed prescriptions as directed. Since you have listed no home medications, please check with your family doctor if you are taking any other medications. You have received the listed prescriptions and BEGIN all listed prescriptions as directed. Youhave been provided a discharge medications list and you may CONTINUE all home medications as previously prescribed by your regular providers. You have received the listed prescriptions and BEGIN all listed prescriptions as directed. Youhave been provided a discharge medications list. The following CHANGES have been made to your medication list; Otherwise, CONTINUE all home medications as previously prescribed by your regular provider. IMPORTANT: We examined and treated you today on an emergency basis only. This was not a substitute for, or an effort to provide, complete medical care. In most cases, you must let your doctor check youagain. Tell your doctor about any new or lasting problems. We cannot recognize and treat all injuries or illnesses in one Emergency Department visit. If you had special tests, such as EKG's or X- rays, we will review them again within 24 hours. We will call you if there are any new suggestions. Please follow the instructions above carefully. If you are being transferred to another facility your followup plan of care will be determined by the receiving facility. If you are a patient that is being discharged from the Emergency Department after receiving narcotics or other medications that may impair your judgment you may be a risk to yourself or others if you operate a motor vehicle. We recommend that you arrange a ride home with a responsible constitution party. TEA Snyder ADRIA ANNE , or responsible constitution party have received this information and my questions have been answered. I have discussed any challenges I see with this plan with the nurse or physician. Patient Signature or Responsible Republican/Relationship Date Time Provider Signature Date Time This document has images extracted. Please consider using [employer] for all your patient education needs. Source: [facility] POWERCHART Document Id: [id number] PROFESSIONAL AIDE TEACHER Carol Alexandra R.N. - 04/22/2012 9:27 PM CST ED Depart [facility] Emergency Department Clinical Discharge Summary PERSON INFORMATION Name BERNARDINO METCALF Age 21 Years 1990 12:00 AM Sex Female Language [place] PCP PCP, ELSEWHERE Marital Status Single Visit Id Visit Reason Closed head injury with LOC; HEAD INJ/BLACKED OUT, FELL IN ROOM Specialty Enc Type Emergency Med Service Emergency Medicine Referred by Track Group [facility] ED Discharge 04/22/2012 9:27 PM Tracking Id [id number] Checkout 04/22/2012 9:27 PM Checkin 04/22/2012 7:43 PM Acuity 3 -Urgent Dispo Type * Discharged to Home or Self Care Arrival 04/22/2012 7:43 PM Reg Status Complete LOS 000 01:44 Address: [address] [place] [address] Comment: PROVIDER INFORMATION Provider Role Provider Contact Time HUA MYLES MD ED Provider 04/22/12 20:44 CAROL ALEXANDRA LINE CONSTRUCTION SUPERINTENDENT Nurse 04/22/12 20:56 DIAGNOSIS Concussion 850.9 Comment: PATIENT EDUCATION INFORMATION Instructions: HEAD INJURY, No Wake-Up (Adult) Follow up: With: Address: When: Follow up with primary care provider Within 1 week Comments: Call for follow up appointment For recheck With: Address: When: Return to Emergency Department Within As Needed Comments: If symptoms worsen For recheck Source: [facility] POWERCHART Document Id: [id number] PROFESSIONAL AIDE TEACHER documented in this encounter Nursing Notes Carol Alexandra, R.N. - 04/22/2012 9:27 PM CST ED Pain Assessment ED Pain Assessment Entered On: 04/22/2012 21:27 PARAPROFESSIONAL AIDE TEACHER Performed On: 04/22/2012 21:27 PARAPROFESSIONAL AIDE TEACHER by CAROL ALEXANDRA RN Pain Assessment Pain Symptoms : Yes Pain Medication Requested : No CAROL ALEXANDRA RN - 04/22/2012 21:27 PARAPROFESSIONAL AIDE TEACHER Source: [facility] POWERCHART Document Id: [id number] PROFESSIONAL AIDE TEACHER Carol Alexandra R.N. - 04/22/2012 9:21 PM CST ED Primary Assessment ED Primary Assessment Entered On: 04/22/2012 21:23 PARAPROFESSIONAL AIDE TEACHER Performed On: 04/22/2012 21:21 PARAPROFESSIONAL AIDE TEACHER by CAROL ALEXANDRA RN Reason For Visit Diagnoses(Active) Closed head injury with LOC Date: 04/22/2012 ; Diagnosis Type: Reason For Visit ; Confirmation: Complaint of ; Clinical Dx: Closed head injury with LOC ; Classification: Medical ; Clinical Service: Emergency medicine ; Code: PNED ; Probability: 0 ; Diagnosis Code: [id number] Concussion 850.9 Date: 04/22/2012 ; Diagnosis Type: Discharge ; Confirmation: Confirmed ; Clinical Dx: Concussion 850.9 ; Classification: Medical ; Clinical Service: Emergency medicine ; Code: ICD-9-CM; Probability: 0 ; Diagnosis Code: 850.9 Triage Chief Complaint Description : PT hit head on vaulted celing at about 3 pm, pt probable LOC pt woke up lying on floor. PT has bump right side of head. Information Given By : Patient Accompanied By : Friend Mode of Arrival ED : Private vehicle Track : Medical CAROL ALEXANDRA RN - 04/22/2012 21:21 PARAPROFESSIONAL AIDE TEACHER Pain Assessment Pain Symptoms : Yes CAROL ALEXANDRA RN - 04/22/2012 21:21 PARAPROFESSIONAL AIDE TEACHER Pain Pain Assessment Grid Pain 1 Location : Head Intensity : 10 CAROL ALEXANDRA RN - 04/22/2012 21:21 PARAPROFESSIONAL AIDE TEACHER Allergy Allergies (Active) NKA Estimated Onset Date: Unspecified ; Created By: JOELLE OBREGON RN; Reaction Status: Active; Category: Drug ; Substance: NKA ; Type: Allergy ; Updated By: JOELLE OBREGON RN; Reviewed Date: 04/22/2012 21:00 PARAPROFESSIONAL AIDE TEACHER Respiratory Airway : Patent Respirations : Unlabored Respiratory Pattern : Regular CAROL ALEXANDRA RN - 04/22/2012 21:21 PARAPROFESSIONAL AIDE TEACHER Cardiovascular Heart Rhythm : Regular Skin Color : Normal for ethnicity Skin Description : Dry Skin Temperature : Warm CAROL ALEXANDRA RN - 04/22/2012 21:21 PARAPROFESSIONAL AIDE TEACHER Neurological Last Well Time Known : Not applicable Level of Consciousness : Alert Orientation : Oriented x 3 Characteristics of Speech : Appropriate for age Loss of Consciousness : Yes Loss of Consciousness Duration : unknown Neuro Detailed Assessment : Yes CAROL ALEXANDRA RN - 04/22/2012 21:21 PARAPROFESSIONAL AIDE TEACHER Neuro Detailed BLAKE : Yes Facial Symmetry : Normal Extremity Movement : Equal Extremity Sensation : Normal Speech Characteristics : Normal CAROL ALEXANDRA RN - 04/22/2012 21:21 PARAPROFESSIONAL AIDE TEACHER ED Psychosocial Affect/Behavior : Calm, Cooperative, Appropriate Domestic Abuse Concerns : None CAROL ALEXANDRA RN - 04/22/2012 21:21 PARAPROFESSIONAL AIDE TEACHER Gastrointestinal Nutrition ED : Adequate CAROL ALEXANDRA RN - 04/22/2012 21:21 PARAPROFESSIONAL AIDE TEACHER Musculoskeletal Fall Prevention Education Provided : Yes CRAOL ALEXANDRA RN - 04/22/2012 21:21 PARAPROFESSIONAL AIDE TEACHER Social Habits Tobacco Use/Currently Using : No Smoking Status : Unknown if ever smoke CAROL ALEXANDRA RN - 04/22/2012 21:21 PARAPROFESSIONAL AIDE TEACHER Source: [email or web address] Document Id: [id number] PROFESSIONAL AIDE TEACHER documented in this encounter ED Notes Carol Alexandra RKilo - 04/22/2012 9:26 PM CST ED Education ED Education Entered On: 04/22/2012 21:27 PARAPROFESSIONAL AIDE TEACHER Performed On: 04/22/2012 21:26 PARAPROFESSIONAL AIDE TEACHER by CAROL ALEXANDRA RN Education ED Education Grid Topics : Importance of follow-up visits, Medication (Comment: OTC pain medications [CAROL ALEXANDRA MRN - 04/22/2012 21:26 PARAPROFESSIONAL AIDE TEACHER] ) Individuals Taught : Patient Barriers to Learning : None evident Teaching Method : Explanation, Printed materials Teaching Evaluation : Able to teach back CAROL ALEXANDRA RN - 04/22/2012 21:26 PARAPROFESSIONAL AIDE TEACHER Source: [email or web address] Document Id: [id number] PROFESSIONAL AIDE TEACHER Carol Alexandra R.N. - 04/22/2012 9:25 PM CST ED Disposition Summary ED Disposition Summary Entered On: 04/22/2012 21:26 PARAPROFESSIONAL AIDE TEACHER Performed On: 04/22/2012 21:25 PARAPROFESSIONAL AIDE TEACHER by CAROL ALEXANDRA LINE CONSTRUCTION SUPERINTENDENT Disposition Summary Accompanied By : Friend Mode of Discharge : Ambulatory Transportation : Private vehicle Printed Discharge Instructions Given to Patient : Yes Patient Status at Discharge from ED : Improved CAROL ALEXANDRA RN - 04/22/2012 21:25 PARAPROFESSIONAL AIDE TEACHER Source: [facility] POWERCHART Document Id: [id number] PROFESSIONAL AIDE TEACHER Hua Myles M.D. - 04/22/2012 8:59 PM CST Closed head injury with LOC Patient: BERNARDINO METCALF Age: 21 years Sex: Female : 1990 Author: HUA MYLES MD Attachments: None Associated Diagnosis: Concussion 850.9 Basic Information Additional information: Chief Complaint from Nursing Triage Note : Chief Complaint Description. 04/22/2012 19:48 PARAPROFESSIONAL AIDE TEACHER Chief Complaint Description Pt states she hit head on vaulted ceiling. Pt states she had positive LOC for few seconds. PT c/o headache now and nausea. History of Present Illness The patient presents with head injury. The onset was 5 hours ago. Type of injury: direct blow. The character of symptoms is pain. Loss of consciousness unknown. Location: right. The course/duration of symptoms is constant and improving. The location where the incident occurred was at home. Risk factors consist of none. Prior episodes: rare. Therapy today: none. Associated symptoms: nausea and now resolved. Associated injury none. Additional history: none. Review of Systems Constitutional symptoms: Negative except as documented in HPI. Skin symptoms: Negative except as documented in HPI. Eye symptoms: Negative except as documented in HPI. ENMT symptoms: Negative except as documented in HPI. Respiratory symptoms: Negative except as documented in HPI. Cardiovascular symptoms: Negative except as documented in HPI. Gastrointestinal symptoms: Negative except as documented in HPI. Genitourinary symptoms Musculoskeletal symptoms: Negative except as documented in HPI. Neurologic symptoms: Negative except as documented in HPI. Hematologic/Lymphatic symptoms: Negative except as documented in HPI. Additional review of systems information: All other systems reviewed and otherwise negative. Health Status Allergies: . Allergic Reactions (Selected) NKA Past Medical/ Family/ Social History Medical history: Negative. Surgical history: . No active procedure history items have been selected or recorded. Family history: Not significant. 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 Physical Examination Vital Signs Vital Signs. 04/22/2012 19:48 PARAPROFESSIONAL AIDE TEACHER Temperature Core 36.7 C Peripheral Pulse Rate 87 /min Respiratory Rate 18 /min SpO2 96 % Systolic Blood Pressure 109 mmHg Diastolic Blood Pressure 83 mmHg Mean Arterial Pressure 92 mmHg SpO2. 04/22/2012 19:48 PARAPROFESSIONAL AIDE TEACHER SpO2 96 % General: Alert and no acute distress. Skin: Warm, dry, pink, intact and no rash. Head: Normocephalic and atraumatic. Neck: Supple, trachea midline and no tenderness. Eye: Pupils are equal, round and reactive to light, extraocular movements are intact and normal conjunctiva. Ears, nose, mouth and throat: Oral mucosa moist. Cardiovascular: Normal peripheral perfusion. Respiratory: Respirations are non-labored and Symmetrical chest wall expansion. Gastrointestinal: Soft, Nontender and Non distended. Back: Nontender, Normal range of motion, Normal alignment and no step-offs. Neurological: Alert and oriented to person, place, time, and situation, No focal neurological deficit observed, CN II-XII intact, normal sensory observed, normal motor observed, normal speech observed,normal coordination observed,steady gait and cerebellar function intact. Psychiatric: Cooperative and appropriate mood & affect. Impression and Plan Diagnosis Concussion 850.9 (Discharge, Emergency medicine, Medical) Plan Condition: Stable. Disposition: Discharged: to home. Patient was given the following educational materials: HEAD INJURY, No Wake-Up (Adult), HEAD INJURY,No Wake-Up (Adult). Follow up with: ; Follow up with primary care provider Within 1 week Call for follow up appointment For recheck; Return to Emergency Department Within As Needed If symptoms worsen For recheck. Counseled: Patient, Regarding diagnosis, Regarding diagnostic results, Regarding treatment plan, Regarding prescription, Patient indicated understanding of instructions, Pt stood up abruptly in her dorm room, hit head on angled ceiling, unclear LOC but cannot recall a brief period of time, unwitnessed. This was 5- 6hrs ago. Had some nausea as well, resolved now, no emesis. Exam as above overall reassuring. Discussed role of imaging in these cases, risks/benefits, and we agree that CT at this time notin her best interest. Safe for d/c home, restrictions and importance of f/u for recheck emphasized, no return to play until cleared by PCP and all symptoms resolved. Return indications emphasized. Notes: Home cares, meds, return indications and f/u discussed at length. . Electronically Signed By: HUA MYLES MD On: 04/23/2012 12:29 AM Modified by and Electronically Signed by: HUA MYLES MD On: 04/23/2012 12:29 AM Source: [facility] POWERCHART Document Id: [id number]} PROFESSIONAL AIDE TEACHER Conversion, Historical Provider Ser - 04/22/2012 7:48 PM CST ED Triage Assessment ED Triage Assessment Entered On: 04/22/2012 19:49 PARAPROFESSIONAL AIDE TEACHER Performed On: 04/22/2012 19:48 PARAPROFESSIONAL AIDE TEACHER by JOELLE OBREGON RN Reason For Visit Diagnoses(Active) Closed head injury with LOC Date: 04/22/2012 ; Diagnosis Type: Reason For Visit ; Confirmation: Complaint of ; Clinical Dx: Closed head injury with LOC ; Classification: Medical ; Clinical Service: Emergency medicine ; Code: PNED ; Probability: 0 ; Diagnosis Code: [id number] Triage Chief Complaint Description : Pt states she hit head on vaulted ceiling. Pt states she had positive LOC for few seconds. PT c/o headache now and nausea. Information Given By : Patient Accompanied By : Alone Mode of Arrival ED : Private vehicle Track : Medical Vital Signs Assessed : Yes JOELLE OBREGON RN - 04/22/2012 19:48 PARAPROFESSIONAL AIDE TEACHER Vital Signs Temperature Core : 36.7C(Converted to: 98.1DegF) Peripheral Pulse Rate : 87/min Respiratory Rate : 18/min Systolic Blood Pressure : 109mmHg Diastolic Blood Pressure : 83mmHg NIBP Mean : 92mmHg SpO2 : 96% Oxygen Therapy : Room air JOELLE OBREGON RN - 04/22/2012 19:48 PARAPROFESSIONAL AIDE TEACHER Pain Assessment Pain Symptoms : Yes JOELLE OBREGON RN - 04/22/2012 19:48 PARAPROFESSIONAL AIDE TEACHER Pain Pain Assessment Grid Pain 1 Location : Head Intensity : 10 JAYA OBREGONRonald Pfeiffer RN - 04/22/2012 19:48 PARAPROFESSIONAL AIDE TEACHER ALEX ALEX Level 1 : No ALXE Level 2 : No ALEX Level 3 : Many JAYA OBREGONRonald Margarette RN - 04/22/2012 19:48 PARAPROFESSIONAL AIDE TEACHER DCP GENERIC CODE Tracking Acuity : 3 -Urgent Tracking Group : [facility] JOELLE Pfeiffer RN - 04/22/2012 19:48 PARAPROFESSIONAL AIDE TEACHER Allergy Allergies (Active) NKA Estimated Onset Date: Unspecified ; Created By: JOELLE OBREGON RN; Reaction Status: Active; Category: Drug ; Substance: NKA ; Type: Allergy ; Updated By: JOELLE OBREGON RN; Reviewed Date: 04/22/2012 19:49 PARAPROFESSIONAL AIDE TEACHER ID Screen Drug Resistant Organism : Carmella JOELLE OBREGON RN - 04/22/2012 19:48 PARAPROFESSIONAL AIDE TEACHER Source: [facility] [employer] Document Id: [id number] documented in this encounter Miscellaneous Notes Miscellaneous - Carol Alexandra RDaishaNDaisha - 04/22/2012 9:27 PM CST Valuables/Belongings Valuables/Belongings Entered On: 04/22/2012 21:27 PARAPROFESSIONAL AIDE TEACHER Performed On: 04/22/2012 21:27 PARAPROFESSIONAL AIDE TEACHER by CAROL ALEXANDRA RN Valuables/Belongings Belongings Sent Home With : pt CAROL ALEXANDRA RN - 04/22/2012 21:27 PARAPROFESSIONAL AIDE TEACHER Source: [facility] [employer] Document Id: [id number] PROFESSIONAL AIDE TEACHER Miscellaneous - Carol Alexandra RKilo - 04/22/2012 7:43 PM CST Facility Charge Ticket Facility Charge Ticket Entered On: 04/22/2012 21:27 PARAPROFESSIONAL AIDE TEACHER Performed On: 04/22/2012 19:43 PARAPROFESSIONAL AIDE TEACHER by CAROL ALEXANDRA RN Facility Charge TVL Level for Facility Charge Ticket : Level 4 Mode of Arrival ED : Private vehicle [place]x Mode of Arrival Interpreted : Standard [place] Process Management : None [place] Order Management : None 30 Minutes Critical Care : No [place] Nursing Assessment : Triage and 1-2 nursing assessments Lynx Disposition : Discharge Lynx Total Points with Diagnosis Control : 7 Lynx Visit Level : 43237 Level 3 CAROL ALEXANDRA RN - 04/22/2012 21:27 PARAPROFESSIONAL AIDE TEACHER Source: [facility] [employer] Document Id: [id number] PROFESSIONAL AIDE TEACHER documented in this encounter Plan of Treatment Not on filedocumented as of this encounter Visit Diagnoses Not on filedocumented in this encounter
--- OUTSIDE RECORDS SUMMARY | 2022-02-25 11:50 | XMS_ITS | Encounter Summary ---
:1990 Author Organization [facility] Address [address] [place] [address] Care Team Providers Name Role Phone Unavailable Primary Care Provider Unavailable Reason for Visit Reason Comments Constipation Encounter Details Date Type Department Care Team Description 02/06/2021 Nurse Triage Department of [facility] Desire Coffey, Constipation Medicine in [facility] [address] [place] [address] [place] [address] [place] [address] Social History Tobacco Use Types Packs/Day Years Used Date Smoking Tobacco: Never Sex Assigned at Date Recorded Not on file documented as of this encounter Miscellaneous Notes Telephone Encounter - Desire Coffey, R.N. - 02/06/2021 11:40 AM ENVIRONMENTAL HEALTH AND SAFETY INTERN Chief Complaint / Reason for Call Patient is a 30 y.o. female calling regarding Constipation. Assessment Concern: Seen yesterday at [facility]. Today only passed small amount of liquid stool after doing enema. Has felt shaky and weak the last 3 hours since doing the enema Present for: Has not had a regular BM for about a month Home cares tried: States yesterday was told to take Mag. Citrate and was told do enema and take 2 tabs senna today if no BM yesterday. Calling to request: Advice The recommended disposition is Go to ED Now (or PCP Triage). Intermittent stomach pain, chest pain and back pain since taking mag citrate last night. Reason for Disposition ? ? [1] Chest pain lasts > 5 minutes AND [2] occurred in past 3 days (72 hours) (Exception: feelsexactly the same as previously diagnosed heartburn and has accompanying sour taste in mouth) Protocols used: CHEST CXRE-PRZRA-YV Care Advice Patient/Caregiver understands and will follow care advice?: Yes, able to teach back GO TO ED NOW (OR PCP TRIAGE): * Have a driver guide. RONMENTAL HEALTH AND SAFETY INTERN documented in this encounter Plan of Treatment Not on filedocumented as of this encounter Visit Diagnoses Not on filedocumented in this encounter
--- OUTSIDE RECORDS SUMMARY | 2022-02-25 11:50 | XMS_ITS | Encounter Summary ---
:1990 Author Organization [facility] Address [address] [place] [address] Care Team Providers Name Role Phone Unavailable Primary Care Provider Unavailable Encounter Details Date Type Department Care Team Description 05/03/2015 Hospital [facility] Calli Bravo, D.ODaisha [address] [facility] [address] [place] [address] (Wo rk) Social History Tobacco Use Types Packs/Day Years Used Date Smoking Tobacco: Never Assessed Sex Assigned at Date Recorded Not on file documented as of this encounter Last Filed Vital Signs Vital Sign Reading Time Taken Comments Blood Pressure 108/58 05/03/2015 2:18 PM SENIOR ANALYST Pulse 68 05/03/2015 2:18 PM SENIOR ANALYST Temperature - - Respiratory Rate - - Oxygen Saturation - - Inhaled Oxygen Concentration - - Weight 56.1 kg (123 lb 10.9 oz) 05/03/2015 2:18 PM SENIOR ANALYST Height - - Body Mass Index - - documented in this encounter Progress Notes Jamel Taveras, D.O. - 05/03/2015 2:10 PM CST [id number] CHIEF COMPLAINT/REASON FOR VISIT Left ear pain and sinus pressure. 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 Now she has developed left-sided ear pain, sinus pressure and also sore throat. She has not had any feverswith this. She has no comorbidities, is not a smoker and has no medical problems. She is on no medications. PHYSICAL EXAMINATION GENERAL: She is in no apparent distress. VITALS: Stable per nurse's notes today. HEENT: TMs are intact bilaterally without erythema. Mucous membranes moist. Pharynx is noninjected. Pain with palpation over left maxillary sinus. NECK: Supple without adenopathy or thyromegaly. HEART: Had a regular rate and rhythm. LUNGS: Clear to auscultation. IMPRESSION/REPORT/PLAN Left maxillary sinusitis. PLAN: Will treat her with a Z-Tristan as she is allergic to AMOXICILLIN. Strep screen today was negative. Encouraged to use a humidifier and push plenty of fluids. Jamel Taveras D.O./pos Electronically Signed By: JAMEL TAVERAS DO On: 05/08/2015 07:47 PM Source: [facility] MHSDOLBEYNONRADSYS Document Id: [id number] OR ANALYST documented in this encounter Miscellaneous Notes Miscellaneous - Tasha Marino D.O. - 05/05/2015 5:56 PM CST Normal Results Letter 05 May 2015 [facility]F [address] [facility] [id number] Dear BERNARDINO METCALF, At your recent visit to the urgent care center, a rapid strep test was done and was negative. Because of that, a throat culture was done as a more definitive study. There was no indication of a Streptococcus A infection on the culture. If you were started on an antibiotic during your visit, please complete it as prescribed and continue the plan of care discussed during your visit. If you have any further questions or problems, please contact our department directly by calling [phone]. Thank you for the opportunity to serve you. Result Name Current Result Rapid Strep Confirmation Review 05/03/2015 Sincerely, TASHA MARINO [address] [facility] [place] [address] Electronic Signature Electronically Signed By: TASHA MARINO DO On: 05 May 2015 This document has images extracted. Source: [facility] POWERCHART Document Id: [id number] Electronically signed by Cesar [facility] Insurance Salesman [id number] at 08/24/2016 9:35 AM CDT Miscellaneous - Vic Campbell M.D. - 05/05/2015 8:39 AM CST Custom Result Letter 05 May 2015 BERNARDINO METCALF [address] [facility] [id number] Dear BERNARDINO METCALF, At your recent visit to the urgent care center, a rapid strep test was done and was negative. Because of that, a throat culture was done as a more definitive study. Please finish the amoxicillin because of the sinus infection you have. There was no indication of a Streptococcus A infection on the culture. If you have any further questions or problems, please contact us or your primary care provider. Thank you for the opportunity to serve you. Sincerely, VIC CAMPBELL [address] [place] [address] Electronic Signature Electronically Signed By: VIC CAMPBELL MD On: 05 May 2015 This document has images extracted. Source: [facility] POWERCHART Document Id: [id number] Miscellaneous - Jamel Taveras DDaishaODaisha - 05/03/2015 2:34 PM CST Ambulatory Patient Summary [facility] [address] [place], [place] [id number] Visit Information Name: BERNARDINO METCALF [facility] Number: [id number] Current Date: 05/03/2015 14:34:06 Physicians Attending Provider: UNKNOWN1, PROVIDER Primary Care Provider: PCP, KEISHA MASONBERNARDINO MAC has been given the following list of [...] every 4 hours as needed for pain amoxicillin (Amoxil 875 mg oral tablet) 1 Tablet(s), Oral, two times a day x 10 day(s) [facility] [address] [place] [address] citalopram (citalopram 10 mg oral tablet) 1.5 Tablet(s), Oral, once a day cyanocobalamin (Vitamin B-12 1000 mcg oral tablet) 1 Tablet(s), Oral, once a day Stop Taking the Following Medications: Medication list as of 05-03-15 14:34 Attention: If you have any medications at home that are not on this list, DO NOT take them until youcontact your provider for clarification. Give a copy of your medication list to your primary care provider. Update your medication list any time medications or doses are changed and carry your medication list at all times in case of emergency. Electronically Signed By: JAMEL TAVERAS DO Signed On:03-MAY-2015 14:33:59 Your Allergies & Intolerances Substance Reaction Symptoms [...] if you dont have one. Go to [email or web address] and click on Create Your Account. Then, follow the directions to complete the online form. Youll be asked for your [facility] number which you can find at the top of this document. Your Goals/Additional instructions: Source: [facility] POWERCHART Document Id: [id number] OR ANALYST Miscellaneous - Jamel Taveras D.O. - 05/03/2015 2:34 PM CST Ambulatory Discharge Medication List [address] [id number] Visit Information Name: BERNARDINO METCALF [facility] Number: [id number] Visit Date: 05/03/2015 14:34:04 Attending Provider: UNKNOWN1, PROVIDER Primary Care Provider: [...] every 4 hours as needed for pain amoxicillin (Amoxil 875 mg oral tablet) 1 Tablet(s), Oral, two times a day x 10 day(s) [facility] [address] [place] [address] citalopram (citalopram 10 mg oral tablet) 1.5 Tablet(s), Oral, once a day cyanocobalamin (Vitamin B-12 1000 mcg oral tablet) 1 Tablet(s), Oral, once a day Stop Taking the Following Medications: Medication list as of 05-03-15 14:34 Attention: If you have any medications at home that are not on this list, DO NOT take them until youcontact your provider for clarification. Give a copy of your medication list to your primary care provider. Update your medication list any time medications or doses are changed and carry your medication list at all times in case of emergency. Electronically Signed By: JAMEL TAVERAS DO Signed On:03-MAY-2015 14:33:59 Additional Information: Source: [facility] POWERCHART Document Id: [id number] OR ANALYST Miscellaneous - Jose Ramon Obando, L.P.N. - 05/03/2015 2:18 PM CST Adult Registered Midwife Intake/History Adult Registered Midwife Intake/History Entered On: 05/03/2015 14:21 SENIOR ANALYST Performed On: 05/03/2015 14:18 SENIOR ANALYST by ESCALANTE-WAHAB, JOSE RAMON C QUALITY ASSURANCE TECHNICIAN Intake Chief Complaint : started 1 wk ago, headaches, left ear pain, sore throat, sinus pressure on left, prone to sinus infections. 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 fever x 2 days. Temperature Core : 37.0 DegC(Converted to: 98.6 DegF) Peripheral Pulse Rate : 68 /min Systolic Blood Pressure : 108 mmHg Diastolic Blood Pressure : 58 mmHg NIBP Mean : 75 mmHg BP Location : Right upper extremity Actual Weight : 56.1 kg(Converted to: 123 lb 11 oz) Dosing Weight Clinic : 56.1 kg JOSE RAMON OBANDO LPN - 05/03/2015 14:18 SENIOR ANALYST General Info Information Given By : Patient Preferred Communication Mode : Verbal Languages : Serbian Is Patient Female and 13-50 no hysterectomy : Yes Status : Patient denies Are you ? : No JOSE RAMON OBANDO LPN - 05/03/2015 14:18 SENIOR ANALYST Subjective Pain Symptoms : Yes JOSE RAMON OBANDO LPN - 05/03/2015 14:18 SENIOR ANALYST Pain Scale Pain Scale Verbal 0-10 : Open JOSE RAMON OBANDO LPN - 05/03/2015 14:18 SENIOR ANALYST Pain Pain Assessment Grid Pain 1 Location : Throat (Comment: head and ear [JOSE RAMON OBANDO LPN - 05/03/2015 14:18 SENIOR ANALYST] ) Laterality : Left Intensity : 8 JOSE RAMON OBANDO LPN - 05/03/2015 14:18 SENIOR ANALYST Dependent Habits Smoking Status : Never smoker Tobacco 2A : No Tobacco Use/Currently Using : No Tobacco Use/Last 30 Days : No Tobacco Use/Last 12 months : No JOSE RAMON OBANDO LPN - 05/03/2015 14:18 SENIOR ANALYST [facility] [employer] Document Id: [id number] SENIOR ANALYST!34 OR ANALYST documented in this encounter Plan of Treatment Not on filedocumented as of this encounter Procedures Procedure Name Priority Date/Time Associated Diagnosis Comme nts RAPID STREP A Routine 05/03/2015 2:26 PM Results for this SCREEN SENIOR ANALYST procedure are i n the results section. RAPID STREP A Routine 05/03/2015 2:26 PM Results for this SCREEN SENIOR ANALYST procedure are i n the results section. documented in this encounter Results Rapid Strep A Screen (05/03/2015 2:26 PM SENIOR ANALYST) [facility] Method Time Signature HXRapid Strep POWERCHART Confirmation HXPre Negative for POWERCHART Group A Strep by culture. HXFinal Negative for POWERCHART Group A Strep by culture. Specimen Anatomical Collection Method Collection Time Receive d Time (Source) Location / / Volume Laterality Throat 05/03/2015 2:26 PM 6 2:26 SENIOR ANALYST PM SENIOR ANALYST Kevin Kahn D.O. LAB MICROBIOLOGY - GENERAL O RDIZABELLA Performing Organization Address City/[facility] Code Phon e Number POWERCHART Rapid Strep A Screen (05/03/2015 2:26 PM SENIOR ANALYST) [facility] Method Time Signature HXStrep A POWERCHART Screen Rapid HXFinal Negative for POWERCHART Strep Group A by rapid screen. HXFinal Culture POWERCHART confirmation to follow. Specimen (Source) Anatomical Collection Method Collection Time Re ceived Time Location / / Volume Laterality Throat 05/03/2015 2:26 PM SENIOR ANALYST Kevin Kahn D.O. LAB MICROBIOLOGY - GENERAL O RDIZABELLA Performing Organization Address City/State/[facility] Code Phon e Number POWERCHART documented in this encounter Visit Diagnoses Not on filedocumented in this encounter
--- OUTSIDE RECORDS SUMMARY | 2022-02-25 11:50 | XMS_ITS | Encounter Summary ---
:1990 Author Organization [facility] Address [address] [place] [address] Care Team Providers Name Role Phone Unavailable Primary Care Provider Unavailable Encounter Details Date Type Department Care Team Description 04/10/2020 Admin Visit Department of Family Medicine, [address] [address] [facility] [phone] Social History Tobacco Use Types Packs/Day Years Used Date Smoking Tobacco: Never Sex Assigned at Date Recorded Not on file documented as of this encounter Last Filed Vital Signs Vital Sign Reading Time Taken Comments Blood Pressure - - Pulse - - Temperature - - Respiratory Rate - - Oxygen Saturation - - Inhaled Oxygen Concentration - - Weight - - Height 167.6 cm (5' 6) 04/10/2020 4:35 PM VENDING MACHINE FILLER Body Mass Index - - documented in this encounter Plan of Treatment Not on filedocumented as of this encounter Visit Diagnoses Not on filedocumented in this encounter Additional Health Concerns Infection Onset Date Last Indicated Resolved Time COVID19 Pending 04/10/2020 04/10/2020 04/11/2020 1:03 PM VENDING MACHINE FILLER documented as of this encounter
--- OUTSIDE RECORDS SUMMARY | 2022-02-25 11:50 | XMS_ITS | Encounter Summary ---
:1990 Author Organization [facility] Address [address] [place] [address] Care Team Providers Name Role Phone Unavailable Primary Care Provider Unavailable Encounter Details Date Type Department Care Team Description 05/19/2013 Hospital Encounter HX [facility] Josh Kimble M.D. [address] [place], [place] [address] (Wo rk) Social History Tobacco Use Types Packs/Day Years Used Date Smoking Tobacco: Never Assessed Sex Assigned at Date Recorded Not on file documented as of this encounter Plan of Treatment Not on filedocumented as of this encounter Procedures Procedure Name Priority Date/Time Associated Comments Diagnosis POCT MONONUCLEOSIS Routine 05/19/2013 4:49 PM Res ults for this SCREEN BANQUET SET UP PERSON procedure are i n the results section. documented in this encounter Results Mononucleosis Screen, POCT (05/19/2013 4:49 PM BANQUET SET UP PERSON) [facility] Method Time Signature Infectious POWERCHART [place] Test, S HXFinal Negative POWERCHART HXFinal Reference: POWERCHART Negative Specimen (Source) Anatomical Collection Method Collection Time Re ceived Time Location / / Volume Laterality Blood 05/19/2013 4:49 PM BANQUET SET UP PERSON Historical Provider LAB POCT ORDERABLES-MANUAL Performing Organization Address City/State/ZIP Code Phon e Number POWERCHART documented in this encounter Visit Diagnoses Not on filedocumented in this encounter
--- OUTSIDE RECORDS SUMMARY | 2022-02-25 11:50 | XMS_ITS | Encounter Summary ---
:1990 Author Organization [facility] Address [address] [place] [address] Care Team Providers Name Role Phone Unavailable Primary Care Provider Unavailable Encounter Details Date Type Department Care Team Description 07/28/2016 Hospital Encounter HX NO MAPPING Kathy Moss M.D. [address] [place] [address] [place], [place] [address] (Wo rk) Social History Tobacco Use Types Packs/Day Years Used Date Smoking Tobacco: Never Sex Assigned at Date Recorded Not on file documented as of this encounter Miscellaneous Notes Miscellaneous - Conversion, Historical Provider Ser - 07/28/2016 11:59 PM CDT Coding Summary-Paper Based CODING DATE: 08/07/2016 FINAL [facility] STATUS: * Discharged to Home or Self Care PAYOR: Commercial Insurance ADMIT DX: REASON FOR VISIT DX: FINAL DX: PRINCIPAL: J02.9 Acute pharyngitis, unspecified SECONDARY: PROCEDURES DOCTOR NAME DATE NOTE: The code number assigned matches the documented diagnosis and / or procedure in the patient's chart. However, the narrative phrase printed from the coding software may appear abbreviated, or result in slightly different terminology. Coded By: KALPESH IQBAL Date Saved: 08/07/2016 11:05 am Source: [facility] Document Id: [id number] documented in this encounter Plan of Treatment Not on filedocumented as of this encounter Visit Diagnoses Not on filedocumented in this encounter
--- OUTSIDE RECORDS SUMMARY | 2022-02-25 11:50 | XMS_ITS | Encounter Summary ---
:1990 Author Organization [facility] Address [address] [place] [address] Care Team Providers Name Role Phone Unavailable Primary Care Provider Unavailable Encounter Details Date Type Department Care Team Description 03/08/2021 Admin Visit Department of Family Medicine, [address] [address] [facility] [phone] Social History Tobacco Use Types Packs/Day Years Used Date Smoking Tobacco: Never Sex Assigned at Date Recorded Not on file documented as of this encounter Plan of Treatment Not on filedocumented as of this encounter Visit Diagnoses Not on filedocumented in this encounter Additional Health Concerns Infection Onset Date Last Indicated Resolved Time COVID19 Pending 03/07/2021 03/08/2021 03/08/2021 10:04 PM CONTACT ASSEMBLER documented as of this encounter
--- OUTSIDE RECORDS SUMMARY | 2022-02-25 11:50 | XMS_ITS | Encounter Summary ---
:1990 Author Organization [facility] Address [address] [place] [address] Care Team Providers Name Role Phone Unavailable Primary Care Provider Unavailable Reason for Visit Reason Comments COVID Inquiry Encounter Details Date Type Department Care Team Description 04/10/2020 Clinical Communication Central Appointment [facility] Office in [address] [address] Social History Tobacco Use Types Packs/Day Years Used Date Smoking Tobacco: Never Sex Assigned at Date Recorded Not on file documented as of this encounter Miscellaneous Notes Telephone Encounter - Abhishek Chambers - 04/10/2020 2:40 PM CST COVID-19 Nurse Line Screening ASSESSMENT Combo COVID + Upper Respiratory Infection (URI) Screening Select the most appropriate pathway: : Adult Have you had close contact* with a person who has a LABORATORY CONFIRMED case of COVID-19 in the past 14 days?: No (Continue Screening) In the last 48 hours, have you had a fever* OR symptoms that are unrelated to a preexisting illness?: New chills, New headache, New cough, Fever, New sore throat Have you received a COVID-19 vaccine in the last 72 hours? : No vaccine received (Continue Screening) Do you have any of the following urgent symptoms?: No urgent symptoms noted (Continue Screening) Do you have any of the following respiratory syntonical virus (RSV) complications? : No complications noted (Continue Screening) Are all the following symptoms present: temperature of 100.0 degrees Fahrenheit or greater, muscle aches or headache AND a cough?: No all symptoms are not present (End Screening) Symptom Onset Date of symptom onset: 04/08/20 Testing Recommendation Endpoint Is testing recommended? : Recommended to test PLAN Endpoint recommendation: Screening positive, testing indicated, advised to be swabbed for COVID-19 Only , sent to [facility] at [address] [place] [address]. The entrance is on the north side of the building. You must schedule an appointment for testing at this location. Please call [phone] during the hours of 7am to 7:30 pm (M-F) or 8am to 4:30pm (Sat and Sun) for an appointment time. Testing hours are Daily 9 am to 5 pm. When you arrive at the testing site: Remain in your vehicle and check-in by phone using the same appointment line number. and Please avoid using public transportation per CDC recommendation. If you do not have personal transportation please self-quarantine until a personal transpo rtation option is available. Care Points: -Wash hands frequently with soap and water for at least 20 seconds -If soap and water are not available, use a hand office support clerk -Avoid touching your eyes, nose and mouth. -Clean and disinfect high-touch surfaces routinely. -Wear a mask over your nose and mouth. A cloth face cover is not a substitute for social distancing -Continue to keep about 6 feet between yourself and others. -Avoid public areas and public transportation. -Find new ways to connect with family and friends, get support and share feelings. -Seek emergent care if any of the following occur Trouble breathing Bluish lips or face Persistent pain or pressure in the chest New confusion or inability to rouse. -Notify your regular care provider of any new or worsening symptoms. Symptomatic Carepoints: Separate yourself from others and stay in a specific sick room if able. Avoid sharing personal or household items. Rest. Hydrate. Take Acetaminophen/Ibuprofen as needed to control fever and muscles aches. Use over the counter medications as needed for other symptoms. Education: Not applicable Patient agreeable to plan of care: Yes The following references were used: [facility] novel coronavirus (COVID- 19) resources OSIVE OPERATOR documented in this encounter Plan of Treatment Not on filedocumented as of this encounter Visit Diagnoses Not on filedocumented in this encounter
--- OUTSIDE RECORDS SUMMARY | 2022-02-25 11:50 | XMS_ITS | Encounter Summary ---
:1990 Author Organization [facility] Address [address] [place] [address] Care Team Providers Name Role Phone Unavailable Primary Care Provider Unavailable Encounter Details Date Type Department Care Team Description 07/03/2015 Hospital Encounter HX [facility], M.D. [address] [place] [address] [phone] (Wo rk) Social History Tobacco Use Types Packs/Day Years Used Date Smoking Tobacco: Never Assessed Sex Assigned at Date Recorded Not on file documented as of this encounter Last Filed Vital Signs Vital Sign Reading Time Taken Comments Blood Pressure 117/72 07/03/2015 8:02 PM CDT Pulse 79 07/03/2015 4:33 PM CDT Temperature - - Respiratory Rate 20 07/03/2015 4:33 PM CDT Oxygen Saturation - - Inhaled Oxygen Concentration - - Weight 54.7 kg (120 lb 9.5 oz) 07/03/2015 4:33 PM CDT Height - - Body Mass Index - - documented in this encounter Discharge Summaries Yola Ambrose R.N. - 07/03/2015 8:35 PM CDT ED Discharge Instructions [facility] [address] [place] [address] Name: BERNARDINO METCALF Date of : 1990 12:00 AM Visit Date: 07/03/2015 4:28 PM [facility] Number: [id number] Address: [address] [place] [phone] Primary Care Provider: PCP, ELSEWHERE IMPORTANT: [facility] in [place] would like to thank you for allowing us to assist you with your healthcare needs. The following includes patient education materials and information regarding your injury/illness. Diagnosis: Cervicitis Follow-Up Instructions: With: Address: When: АННА WALKER [address] [place] [address] [phone] [facility] (1) Within As Needed With: Address: When: ELSEWHERE PCP Within As Needed Your Upcoming Appointments: Date Time Location Provider No Appointments found Patient Education Materials: Irregular Vaginal Bleeding This is a condition in which bleeding occurs at unexpected times of the month. The bleeding may be heavier or advance agent than usual. Heavy bleeding may lead to anemia. If severe enough, anemia may cause you to look pale and feel weak or fatigued. You might have shortness of breath even with little exertion. The female hormones produced in your body every month may be out of balance. This imbalance leads tobleeding. Causes could include an ovarian cyst, emotional stress, pelvic infection. Failure to ovulate during your last cycle may also cause this problem. Home Care: ?? If bleeding is heavy, rest and avoid heavy exertion. ?? You may use acetaminophen (Tylenol) or ibuprofen (Motrin, Advil) to control pain, unless another pain medicine was prescribed. [NOTE: If you have chronic liver or kidney disease or ever had a stomach ulcer or GI bleeding, talk with your doctor before using these medicines.] ?? Iron supplements may be prescribed for anemia. It takes about 4-6 weeks for the iron to correct the anemia. Take the medicine as directed. See your doctor for a repeat blood test after you finish the iron treatment. ?? If hormones were prescribed to control your bleeding, take them exactly as directed. If you were prescribed a medicine called Provera (medroxyprogesterone), the bleeding should stop while you are taking it. Another period will start a few days after you finish the medicine. Follow Up with your doctor, or as advised, within the next 1-2 days if heavy bleeding continues. Otherwise, follow up within the next 1-2 weeks. Get Prompt Medical Attention if any of the following occur: ?? Bleeding becomes heavy (soaking one pad an hour for three hours) ?? Fever of 100.4?F (38?C) or higher, or as directed by your healthcare provider ?? Increase in abdominal pain ?? Weakness, dizziness or fainting ?? [phone] Donald Cardoza, [address] [place] [address], [place] [address]. All rights reserved. This information is not intended as a substitute for professional medical care. Always follow your healthcare professional's instructions. STD, (Cervicitis) [Female, Chlamydia Vs Gc: Treated] You have an infection in the cervix (the opening to the uterus). This is due to an infection with a bacteria (either Chlamydia or Gonorrhea). This is a sexually transmitted disease (STD) and is highly contagious. It is passed by sexual contact with an infected partner. Women with an infection in the cervix, may have no symptoms or only mild symptoms early in the disease. Therefore, it is possible to pass this infection without knowing you have it. When symptoms do occur, they usually appear 2 days to 3 weeks after exposure. There may be a vaginaldischarge. There may also be pain or burning when passing urine. If the infection spreads to the Fallopian tubes it causes pelvic inflammatory disease (PID). PID causes symptoms of lower abdominal pain and fever. If not treated, Chlamydia or Gonorrhea can cause infertility (unable to have children) by scarring the Fallopian tubes. PID also increases the risk of ectopic in the future. This infection can be treated and cured. A culture test may be taken to confirm the diagnosis. Treatment is with antibiotic medicine. Home Care: Your sexual partner must be treated at the same time, even if there are no symptoms. Your partner should contact their own doctor or go to an urgent care clinic or the Public Health Department to be examined and treated. Avoid sexual activity until both you and your partner have completed all antibiotic medicine, and you have been told by your doctor that you are no longer contagious. Take all medicines until they are finished; otherwise, symptoms may recur. Learn about safe sex practices and use these in the future. The safest sex is with a partner who hastested negative and only has sex with you. Condoms offer protection from spreading some sexually transmitted diseases including Gonorrhea, Chlamydia and HIV, but are not a guarantee. Follow Up with your doctor or as advised by our staff. If a culture test was taken, you may call us in three days for the results, or as directed. Another culture test should be taken 4-6 weeks after treatment to be sure the infection has cleared. Follow up with your doctor or the Public Health Department for complete STD screening, including HIV testing. For more information about STD's, contact the National STD Hotline: . Get Prompt Medical Attention if any of the following occur: ?? No improvement after three days of treatment ?? New or increasing lower abdominal pain or back pain ?? Unexpected vaginal bleeding ?? Weakness, dizziness or fainting ?? Repeated vomiting ?? Inability to urinate due to pain ?? Rash or joint pain ?? Painful open sores around the outer vagina ?? Enlarged painful lymph nodes (lumps) in the groin ?? [id number] Donald Cardoza, [address] [place] [address]. All rights reserved. This information is not intended as a substitute for professional medical care. Always follow your healthcare professional's instructions. Consider Using Patient Online Services Patient Online [...] if you dont have one. Go to [email or web address] click on Create Your Account. Then, follow the directions to complete the online form. Youll be asked for your [facility] number which you can find at the top of this document. ED Tests and Procedures: Order Status Automated Diff-5 Part Completed US Pelvic Canceled Comprehensive Metabolic Panel Completed Beta hCG Qualitative Urine Completed Chlamydia/GC by Nucleic Acid Amp Ordered Chlamydia by Nucleic Acid Amp Ordered GC by Nucleic Acid Amp Ordered Urinalysis with Microscopic Completed Wet Prep Examination Completed CBC (includes Auto Differential) Completed US Pelvic And Endovaginal Completed Discharge Prescriptions & Home Medications: Medication/Strength Dose Route Frequency Indications/Special Instructions/Comments/Notes ondansetron (Zofran ODT 4 mg oral tablet, disintegrating) 4 mg Oral every 8 hours as needed for Nausea HYDROcodone-acetaminophen (HYDROcodone-acetaminophen 5 mg-325 mg oral tablet) 1 to 2 tablets Oral every 6 hours as needed for Pain No more than 4,000mg acetaminophen/24hrs cyanocobalamin (Vitamin B-12 1000 mcg oral tablet) 1,000 mcg Oral once a day citalopram (citalopram 10 mg oral tablet) 15 mg Oral once a day acetaminophen (Tylenol 325 mg oral tablet) 2 tab(s) Oral every 4 hours as needed for pain Comment: Attention: If you have any medications at home not on this list, DO NOT take them until you contact your provider for clarification. Give a copy of your medication list to your primary care provider. Update your medication list any time medications or doses are changed and carry your medication list at all times in case of emergency. IMPORTANT: We examined and treated you today [...] nurse or physician. Patient Signature or Responsible Libertarian/Relationship Date Time Provider Signature Date Time IMPORTANT: We examined and treated you today [...] nurse or physician. Patient Signature or Responsible Libertarian/Relationship Date Time Provider Signature Date Time This document has images extracted. Please consider using [employer] for all your patient education needs. Source: [facility] POWERCHART Document Id: [id number] Yola Ambrose R.N. - 07/03/2015 8:35 PM CDT ED Depart Summary [facility] Emergency Department Clinical Discharge Summary PERSON INFORMATION Name BERNARDINO METCALF Age 24 Years 1990 12:00 AM Sex Female Language [place] PCP PCP, ELSEWHERE Marital Status Single Visit Id Visit Reason Abdominal pain; ABDOMINAL PAIN Specialty Enc Type Emergency Med Service Emergency Medicine Referred by Barbie ONOFRE ED Discharge 07/03/2015 8:20 PM Tracking Id [id number] Checkout 07/03/2015 8:20 PM Checkin 07/03/2015 4:28 PM Acuity 3 -Urgent Dispo Type * Discharged to Home or Self Care Arrival 07/03/2015 4:28 PM Reg Status Complete LOS 000 03:52 Address: [address] [place] [address] [phone] Comment: PROVIDER INFORMATION Provider Role Provider Contact Time MARCO RIVERS ED [employer] Operator 07/03/15 16:48 CHRISTINA ARRIAGA MAILING JOGGER Nurse 07/03/15 16:52 BORA FAJARDO MD ED Provider 07/03/15 17:05 YOLA AMBROSE MAILING JOGGER Nurse 07/03/15 19:05 SAIDA ALMARAZ ED Gas Pumping Station Operator 07/03/15 19:08 DIAGNOSIS Cervicitis Comment: PATIENT EDUCATION INFORMATION Instructions: DYSFUNCTIONAL UTERINE BLEEDING; CERVICITIS (STD), Treated Follow up: With: Address: When: АННА WALKER [address] [place] [phone] Business (1) Within As Needed With: Address: When: ELSEWHERE PCP Within As Needed Source: [employer] Document Id: [id number] LUBRICATOR documented in this encounter ED Notes Yola Ambrose R.N. - 07/03/2015 8:34 PM CDT ED Pain Assessment ED Pain Assessment Entered On: 07/03/2015 20:34 CDT Performed On: 07/03/2015 20:34 CDT by YOLA AMBROSE RN Pain Assessment Pain Symptoms : No YOLA AMBROSE RN - 07/03/2015 20:34 CDT Source: [employer] Document Id: [id number] CDT!3 Yola Ambrose R.N. - 07/03/2015 8:33 PM CDT ED Disposition Summary ED Disposition Summary Entered On: 07/03/2015 20:33 CDT Performed On: 07/03/2015 20:33 CDT by YOLA AMBROSE RN ED Disposition Summary Present in Room During Exam/Procedure : Significant other Mode of Discharge : Ambulatory Transportation : Private vehicle Printed Discharge Instructions Given to Patient : Yes YOLA AMBROSE RN - 07/03/2015 20:33 CDT Source: [employer] Document Id: [id number] CDT!6 Yola Ambrose R.N. - 07/03/2015 8:33 PM CDT ED Education ED Education Entered On: 07/03/2015 20:34 CDT Performed On: 07/03/2015 20:33 CDT by YOLA AMBROSE RN Education ED Education Grid Topics : Medication, Nutrition/Diet, Pain management, Plan of care Individuals Taught : Patient Barriers to Learning : None evident Teaching Method : Explanation, Printed materials Teaching Evaluation : Able to teach back, Verbalizes understanding YOLA AMBROSE RN - 07/03/2015 20:33 CDT Source: [employer] Document Id: [id number] CDT!9 Yola Ambrose R.N. - 07/03/2015 7:53 PM CDT ED Nurse Reassess ED Nurse Reassess Entered On: 07/03/2015 20:56 CDT Performed On: 07/03/2015 19:53 CDT by YOLA AMBROSE RN Pain Assessment Pain Symptoms : No YOLA AMBROSE RN - 07/03/2015 20:54 CDT /OB Reassess /OB Note : denies pain or nausea. pt is resting. pt tolerated po challenge with water. [facility] RN - 07/03/2015 20:54 CDT Source: [employer] Document Id: [id number] CDT!5 Christina Arriaga R.N. - 07/03/2015 6:56 PM CDT ED Nurse Reassess ED Nurse Reassess Entered On: 07/03/2015 18:56 CDT Performed On: 07/03/2015 18:56 CDT by CHRISTINA ARRIAGA RN Pain Assessment Pain Symptoms : Yes CHRISTINA ARRIAGA RN - 07/03/2015 18:56 CDT GI Reassess GI Patient Stated Symptoms : Abdominal pain, Nausea CHRISTINA ARRIAGA RN - 07/03/2015 18:56 CDT Source: [facility] [employer] Document Id: [id number] CDT!5 Christina Arriaga R.N. - 07/03/2015 6:00 PM CDT ED Treatments and Procedures ED Treatments and Procedures Entered On: 07/03/2015 18:00 CDT Performed On: 07/03/2015 18:00 CDT by CHRISTINA ARRIAGA RN Peripheral IV Peripheral IV Assess/Intervention Grid Peripheral IV #1 IV Activity : Start, Saline lock Number of Attempts : 1 Date of Insertion : 07/03/2015 CDT IV Site : Wrist Laterality : Left Catheter Size : 20 Catheter Type : Over the needle Site Condition : No complications Drainage Description : None CHRISTINA ARRIAGA RN - 07/03/2015 18:00 CDT [facility] Document Id: [id number] CDT!13 Bora Fajardo M.D. - 07/03/2015 5:13 PM CDT Abdominal pain Document Contains Addenda Patient: BERNARDINO METCALF Age: 24 years Sex: Female : 1990 Author: BORA FAJARDO MD Attachments: None I, Madelin Perez, am scribing for and in the presence of, Bora Fajardo MD Basic Information Time seen: Date & time 07/03/2015 17:11:00. History source: Patient. Arrival mode: Private vehicle. History limitation: None. Additional information: Chief Complaint from Nursing Triage Note : Chief Complaint Description 07/03/2015 16:33 CDT Chief Complaint Description had menses for 2 days which was unusal, scheduled for US tomorrow but feels pain increased today and notes when urinating has had brownish flecks, cramping snce tues, and increased pain noted sat also . History of Present Illness The patient presents with abdominal pain. The onset was 1 weeks ago. The course/duration of symptomsis constant and worsening. The degree at onset was minimal. The Location of pain at onset was left, lower and abdominal. The degree at present is moderate. The Location of pain at present is left, lower and abdominal. Radiating pain: none. The exacerbating factor is none. The relieving factor is none.Therapy today: none. Risk factors consist of none. Associated symptoms: nausea, diarrhea, denies chest pain, denies vomiting, denies back pain, denies shortness of breath, denies fever and denies chills. Patient reports one week of LLQ abdominal pain and was seen for this on 06/28. States that labs obtained at that time, however, no US or or pelvic exam done. Patient was referred to this ED due to continued pain and for possible US, notes brownish colored discharge when wiping and states menses was very short in duration. Patient has had a past hx of renal lithiasis and ovarian cysts noted upon imaging at that time, denies any urinary sxs. Patient is currently on oral contraceptives and denies any concerns for STI or . Patient does note L adnexal discomfort w/ insertion of tampon. Review of Systems Constitutional symptoms: No fever or no chills. Respiratory symptoms: No shortness of breath. Cardiovascular symptoms: No chest pain. Gastrointestinal symptoms: Abdominal pain, nausea and diarrhea (last week, not at present), but no vomiting or no constipation. Genitourinary symptoms: Dysuria, but no vaginal bleeding or no vaginal discharge. Additional review of systems information: All other systems reviewed and otherwise negative. Health Status Allergies: Allergic Reactions (Selected) NKA. Menstrual history: Last menstrual period: Date 06/27/2015. Past Medical/ Family/ Social History Medical history: renal lithiasis, non-symptomatic ovarian cysts. Surgical history: Negative. Family history: Not significant. Social history: Alcohol use: Denies, Tobacco use: Denies, Drug use: Denies, Family/social situation:Unmarried. Physical Examination Vital Signs: Vital Signs 07/03/2015 16:33 CDT Temperature Core 37.0 DegC Peripheral Pulse Rate 79 /min Respiratory Rate 20 /min SpO2 98 % Systolic Blood Pressure 134 mmHg Diastolic Blood Pressure 80 mmHg Mean Arterial Pressure 98 mmHg BP Location Left upper , Measurements 07/03/2015 16:33 CDT Dosing Weight 54.70 kg Actual Weight 54.7 kg Weight Source Standing scale , SpO2 07/03/2015 16:33 CDT SpO2 98 % . General: Alert and no acute distress. Skin: Warm, dry and intact. Head: Normocephalic and atraumatic. Neck: Supple and trachea midline. Eye: Extraocular movements are intact and normal conjunctiva. Ears, nose, mouth and throat: Oral mucosa moist. Cardiovascular: Regular rate and rhythm. Respiratory: Lungs are clear to auscultation, respirations are non-labored, breath sounds are equal and Symmetrical chest wall expansion. Gastrointestinal: Soft and Nontender. Genitourinary: Speculum exam: Cervix (closed, circumferential erythema, mild CMT), L adnexal tenderness w/ no mass or lesions noted. Neurological: Alert and oriented to person, place, time, and situation and No focal neurological deficit observed. Psychiatric: Cooperative and appropriate mood & affect. Medical Decision Making Documents reviewed:Emergency department nurses' notes (triage records from current visit), prior records. Results review:Lab results : Lab View 07/03/2015 18:34 CDT UA Color Yellow UA Clarity Clear UA Spec Grav 1.023 UA pH 7.0 UA Protein Negative UA Glucose Negative UA Ketones Negative UA Bili Negative UA Urobilinogen 1.0 mg/dL UA Blood Trace UA Nitrite Negative UA Leuk Est Negative UR WBC None Seen /HPF UR RBC None Seen /HPF UR Squamous Epi Cells Occ-3 /HPF U Beta-hCG Ql Negative 07/03/2015 17:59 CDT Wet Prep Review 07/03/2015 17:36 CDT Hgb 13.8 g/dL Hct 41.3 % WBC 5.7 x10(9)/L RBC 4.72 x10(12)/L MCV 87.5 fL RDW 11.6 % LOW Platelet 263 x10(9)/L Neutro Absolute 3.15 10(9)/L Lymph Absolute 1.84 x10(9)/L [place] Absolute 0.49 x10(9)/L Eos Absolute 0.17 x10(9)/L Baso Absolute 0.01 x10(9)/L Sodium Lvl 139 mmol/L Potassium Lvl 4.1 mmol/L Chloride 102 mmol/L CO2 26 mmol/L AGAP 11 mmol/L Alkaline Phosphatase 46 U/L Glucose Lvl 97 mg/dL Creatinine 0.7 mg/dL EGFR (MDRD) >60 mL/min/SA EGFR (MDRD) >60 mL/min/SA BUN 13 mg/dL Calcium Lvl 9.7 mg/dL Protein Total 8.0 g/dL HI Albumin Lvl 4.5 g/dL AST 27 U/L ALT 25 U/L Bili Total 0.2 mg/dL . Radiology results:Ultrasound, ABDOMEN/PELVIS, reviewed radiologist's report, interpretation: FINDINGS: The uterus appears to be both anteverted and anteflexed, measuring about 7.8 x 5.1 x 2.7 cm. The myometrium is normal in appearance. The endometrial stripe has a normal homogeneous appearance and a normal thickness of 5 mm or less. A trace amount of free fluid is present in pelvic cul-de-sac, likely physiologic. Both ovaries are normal in size / appearance and contain normal Doppler flow. Several presumed physiologic tiny subcentimeter bilateral ovarian follicles are observed. IMPRESSION: No acute process identified. Signature Line Final Dictated: 07/03/2015 6:59 pm JORGE COTTON MD. Impression and Plan Plan Condition: Stable. Counseled: Patient, Regarding diagnosis, Regarding diagnostic results, Regarding treatment plan, Patient indicated understanding of instructions. Patient is a 24-year-old female presenting with pelvic pain, left adnexal discomfort. Laboratory studies show no significant abnormalities, normal white blood cell count, normal liver tests, lipase study, urine negative for infection, test negative, wet prep was also negative. Clinical examin ation shows evidence of cervicitis, and erythema in a circumferential nature on the patient's cervix, minimal tenderness, left adnexal tenderness. Patient does have small amount of brown clotting discharge in the vaginal vault. Ultrasound findings showed no acute alternative etiology of her symptoms, no evidence of hemorrhage from ovary, endometrial thickness, and no evidence of ovarian torsion. Patient does have small cyst on bilateral ovaries, unclear significance. At this time a chlamydia and gonorrhea testing are pending, we did empirically treat with intramuscular Rocephin and oral azithromycin, we have encouraged her outpatient OB followup with her OB doctor for definitive outpatient care management, she received pain control in the emergency department, Toradol, Vicodin, and Zofran for nausea control, discharged home with Vicodin and Zofran with plan for outpatient followup. FINAL DIAGNOSIS: Cervicitis, dysfunctional uterine bleeding. Disposition: Home with outpatient DIRECT CARE PROVIDER followup. Addendum I personally performed the services described in this documentation and as scribed in my presence; it is both accurate and complete. Electronically Signed By: BORA FAJARDO MD On: 07/03/2015 08:00 PM Modified by and Electronically Signed by: MADELIN PEREZ On: 07/03/2015 06:02 PM Source: [facility] POWERCHART Document Id: [id number]} Christina Arriaga R.N. - 07/03/2015 5:03 PM CDT ED Primary Assessment Document Has Been Updated ED Primary Assessment Entered On: 07/03/2015 17:11 CDT Performed On: 07/03/2015 17:03 CDT by CHRISTINA ARRIAGA RN Reason For Visit (As Of: 07/03/2015 17:11:43 CDT) Diagnoses(Active) Abdominal pain Date: 07/03/2015 ; Diagnosis Type: Reason For Visit ; Confirmation: Complaint of ; Clinical Dx: Abdominal pain ; Classification: Medical ; Clinical Service: Emergency medicine ; Code: PNED ; Probability: 0 ; Diagnosis Code: [id number] Triage Mode of Arrival ED : Private vehicle Track : Medical Languages : [place] [employer] Assessed : Yes Treatments Prior to Arrival : None Are you ? : No Is Patient Female and 13-50 no hysterectomy : Yes Status : Patient denies CHRISTINA ARRIAGA RN - 07/03/2015 17:03 CDT Ramana Coma Eye Opening Response [place] : Spontaneously Best Verbal Response Ramana : Oriented Best Motor Response [place] : Obeys simple commands Ramana Coma Score : 15 CHRISTINA ARRIAGA RN - 07/03/2015 17:03 CDT Pain Assessment Pain Symptoms : Yes CHRISTINA ARRIAGA RN - 07/03/2015 17:03 CDT Pain Scale Pain Scale Verbal 0-10 : Open CHRISTINA ARRIAGA RN - 07/03/2015 17:03 CDT Pain Pain Assessment Grid Pain 1 Location : Abdomen Intensity : 8 CHRISTINA ARRIAGA RN - 07/03/2015 17:03 CDT Respiratory Airway : Patent Respirations : Unlabored Respiratory Pattern : Regular Oxygen Therapy : Room air Respiratory Detailed Assessment : Yes CHRISTINA ARRIAGA RN - 07/03/2015 17:03 CDT Resp Detailed Respiratory Patient Stated Symptoms : None Distress : None Cough : None Respiratory Note : denies fevr or chills, resp even and easy. CHRISTINA ARRIAGA RN - 07/03/2015 17:03 CDT Cardiovascular Heart Rhythm : Regular Skin Color : Normal for ethnicity Skin Description : Normal Skin Temperature : Warm Cardiovascular Detailed Assessment : Yes CHRISTINA ARRIAGA RN - 07/03/2015 17:03 CDT CV Detailed CV Patient Stated Symptoms : Chest pain Nail Bed Color : [place] Capillary Refill : Less than 2 seconds CHRISTINA ARRIAGA RN - 07/03/2015 17:03 CDT Neurological Last Well Time Known : Not applicable Level of Consciousness : Alert Orientation : Oriented x 3 Characteristics of Speech : Appropriate for age Neuro Patient Stated Symptoms : None Gait : Steady CHRISTINA ARRIAGA RN - 07/03/2015 17:03 CDT ED Psychosocial Affect/Behavior : Calm, Cooperative, Appropriate Domestic Abuse Concerns : None Behavioral Health Screen/Safety Assmt : No CHRISTINA ARRIAGA RN - 07/03/2015 17:03 CDT Gastrointestinal Nutrition ED : Adequate GI Detailed Assessment : Yes CHRISTINA ARRIAGA RN - 07/03/2015 17:03 CDT GI Detailed GI Patient Stated Symptoms : Nausea CHRISTINA ARRIAGA RN - 07/03/2015 17:03 CDT /OB Assessment Patient Stated Symptoms : None Sexually Active : Yes Contraception Used : Yes Note : pt statesshe seen her PMD in [place] on as she got her mense on friday and itcontinued until with lots of cramping and left sided throbbing pain. states her menses are usually regular,. and she usually only has cramping one day. c/o (Comment: feeling nauseated and tired. states she could not get in for an US unitl tomorrow and her PMD stated if the pain got worse, which pt states it did to go to the ED. patient also reports her urine is Different, its like flaky and hot. denies burning, states it does not feel like a UTI. states she had been on control up until 6 months ago to try to regulate her menses. [CHRISTINA ARRIAGA JRN - 07/03/2015 17:03 CDT] ) CHRISTINA ARRIAGA RN - 07/03/2015 17:03 CDT Musculoskeletal Fall Prevention Education Provided : NA Activity Jonathan : Walks frequently Ambulatory Devices : None Musculoskeletal Patient Stated Symptoms : None CHRISTINA ARRIAGA RN - 07/03/2015 17:03 CDT Social Habits Exposure to Tobacco Smoke : Other: NEVER Smoking Status : Never smoker Tobacco 2A : No Tobacco Use/Currently Using : No Tobacco Use/Last 30 Days : No Tobacco Use/Last 12 months : No CHRISTINA ARRIAGA RN - 07/03/2015 17:03 CDT Source: [facility] POWERCHART Document Id: [id number] CDT!78 Alysia Kaminski R.N. - 07/03/2015 4:33 PM CDT ED Triage Assessment Document Has Been Updated ED Triage Assessment Entered On: 07/03/2015 16:37 CDT Performed On: 07/03/2015 16:33 CDT by ALYSIA KAMINSKI RN Reason For Visit (As Of: 07/03/2015 16:37:44 CDT) Diagnoses(Active) Abdominal pain Date: 07/03/2015 ; Diagnosis Type: Reason For Visit ; Confirmation: Complaint of ; Clinical Dx: Abdominal pain ; Classification: Medical ; Clinical Service: Emergency medicine ; Code: PNED ; Probability: 0 ; Diagnosis Code: [id number] Triage Chief Complaint Description : had menses for 2 days which was unusal, scheduled for US tomorrow but feels pain increased today and notes when urinating has had brownish flecks, cramping snce tues, and increased pain noted sat also Information Given By : Patient Present in Room During Exam/Procedure : Alone Mode of Arrival ED : Private vehicle Track : Medical Languages : [place] Vital Signs Assessed : Yes GCS Assessed : Yes Treatments Prior to Arrival : None Are you ? : No Is Patient Female and 13-50 no hysterectomy : Yes Status : Patient denies ALYSIA KAMINSKI RN - 07/03/2015 16:33 CDT Vital Signs Temperature Core : 37.0 DegC(Converted to: 98.6 DegF) Peripheral Pulse Rate : 79 /min Respiratory Rate : 20 /min Systolic Blood Pressure : 134 mmHg Diastolic Blood Pressure : 80 mmHg NIBP Mean : 98 mmHg BP Location : Left upper extremity SpO2 : 98 % Oxygen Therapy : Room air Actual Weight : 54.7 kg Actual Weight Conversion to Pounds : 120.34 lb Weight Source : Standing scale ALYSIA KAMINSKI RN - 07/03/2015 16:33 CDT Ramana Coma Eye Opening Response Ramana : Spontaneously Best Verbal Response Ramana : Oriented Best Motor Response Ramana : Obeys simple commands Ramana Coma Score : 15 ALYSIA KAMINSKI RN - 07/03/2015 16:33 CDT Pain Assessment Pain Symptoms : Yes ALYSIA KAMINSKI RN - 07/03/2015 16:33 CDT Pain Scale Pain Scale Verbal 0-10 : Open ALYSIA KAMINSKI RN - 07/03/2015 16:33 CDT Pain Pain Assessment Grid Pain 1 Location : Abdomen Intensity : 8 ALYSIA KAMINSKI RN - 07/03/2015 16:33 CDT ALEX ALEX Level 1 : No ALEX Level 2 : No ALEX Level 3 : Many Vital Signs ALEX : No ALYSIA KAMINSKI RN - 07/03/2015 16:33 CDT DCP GENERIC CODE Tracking Acuity : 3 -Urgent Tracking Group : [facility] ALYSIA KAMINSKI RN - 07/03/2015 16:33 CDT Allergy (As Of: 07/03/2015 16:37:44 CDT) Allergies (Active) NKA Estimated Onset Date: Unspecified ; Created By: JOELLE OBREGON RN; Reaction Status: Active; Category: Drug ; Substance: NKA ; Type: Allergy ; Updated By: JOELLE OBREGON RN; Reviewed Date: 05/08/2015 14:02 CAR LUBRICATOR ID Screen Drug Resistant Organism : No ALYSIA KAMINSKI RN - 07/03/2015 16:33 CDT Immunizations Immunizations Current : Yes Influenza : None ALYSIA KAMINSKI RN - 07/03/2015 16:33 CDT Source: [facility] [employer] Document Id: [id number] CDT!54 documented in this encounter Miscellaneous Notes Miscellaneous - Yola Ambrose R.N. - 07/03/2015 8:34 PM CDT Valuables/Belongings Valuables/Belongings Entered On: 07/03/2015 20:34 CDT Performed On: 07/03/2015 20:34 CDT by YOLA AMBROSE RN Valuables/Belongings Comment : all belongings sent home with patient YOLA AMBROSE RN - 07/03/2015 20:34 CDT Source: [facility] [employer] Document Id: [id number] CDT!3 Miscellaneous - Conversion, Historical Provider Ser - 07/03/2015 8:20 PM CDT Coding Summary-Paper Based CODING DATE: 07/11/2015 FINAL [facility] STATUS: * Discharged to Home or Self Care PAYOR: Commercial Insurance ADMIT DX: R10.32 Left lower quadrant pain REASON FOR VISIT DX: R10.32 Left lower quadrant pain FINAL DX: PRINCIPAL: N72 Inflammatory disease of cervix uteri SECONDARY: N93.8 Other specified abnormal uterine and vaginal bleeding R19.7 Diarrhea, unspecified R30.0 Dysuria PROCEDURES DOCTOR NAME DATE NOTE: The code number assigned matches the documented diagnosis and / or procedure in the patient's chart. However, the narrative phrase printed from the coding software may appear abbreviated, or result in slightly different terminology. Coded By: REANNA MAI Date Saved: 07/11/2015 10:00 pm Source: [facility] POWERCHART Document Id: [id number] Miscellaneous - Yola Ambrose, RDaishaN. - 07/03/2015 4:28 PM CDT Facility Charge Ticket 2.0 11.0 DX Facility Charge Ticket 2.0 11.0 DX Entered On: 07/03/2015 20:35 CDT Performed On: 07/03/2015 16:28 CDT by YOLA AMBROSE RN Facility Charge Ticket 2.0 11.0 DX ED Other Charges : Standard ED Encounter TVL Level Translated RTF : Abdominal pain TVL:4 TVL Level for Facility Charge Ticket : Level 4 Arrival Mode Calc : 1 Mode of Arrival ED : Private vehicle [facility] Mode of Arrival Interpreted : Standard [facility] Process Management : None Order Management RTF : Laboratory Comprehensive Metabolic Panel,07/03/15 17:17,BORA FAJARDO MD Completed Beta hCG Qualitative Urine,07/03/15 17:17,BORA FAJARDO MD Completed Urinalysis with Microscopic,07/03/15 17:17,BORA FAJARDO MD Completed Wet Prep Examination,07/03/15 17:17,BORA FAJARDO MD Completed CBC (includes Auto Differential),07/03/15 17:18,BORA FAJARDO MD Completed Automated Diff-5 Part,07/03/15 17:41,BORA FAJARDO MD Completed Chlamydia/GC by Nucleic Acid Amp,07/03/15 17:17,BORA FAJARDO MD Ordered Chlamydia by Nucleic Acid Amp,07/03/15 17:17,BORA FAJARDO MD Ordered GC by Nucleic Acid Amp,07/03/15 17:17,BORA FAJARDO MD Ordered CT / MRI / Ultrasound US Pelvic And Endovaginal,07/03/15 18:08,BORA FAJARDO MD Completed [facility] Order Management : CT/MRI/Ultrasound, Lab tests 30 Minutes Critical Care : No Nursing Notes RTF : Triage Forms ED Triage Assessment,07/03/15 16:33,ALYSIA KAMINSKI RN Nursing Notes ED Primary Assessment,07/03/15 17:03,CHRISTINA ARRIAGA MAILING JOGGER Nurse Reassess,07/03/15 18:56,CHRISTINA ARRIAGA MAILING JOGGER Pain Assessment,07/03/15 20:34,YOLA AMBROSE RN [facility] Nursing Assessment : Triage and 3-5 nursing assessments [facility] Disposition : Discharge [facility] Total Points with Diagnosis Control : 11 [facility] Visit Level : 00996 Level 4 Treatments Prior to Arrival : None YOLA AMBROSE RN - 07/03/2015 20:34 CDT Source: [facility] POWERCHART Document Id: [id number] CDT!18 documented in this encounter Plan of Treatment Not on filedocumented as of this encounter Procedures Procedure Name Priority Date/Time Associated Comments Diagnosis TEST, U Routine 07/03/2015 6:34 PM Resu lts for this CDT procedure are i n the results section. URINALYSIS WITH Routine 07/03/2015 6:34 PM Result s for this MICROSCOPIC CDT procedure are i n the results section. US PELVIS TRANSVAGINAL Routine 07/03/2015 6:19 PM Results for this AND TRANSABDOMINAL CDT procedure are in the results section. CHLAMYDIA/GONORRHOEAE Routine 07/03/2015 5:59 PM Results for this AMPLIFIED RNA CDT procedure are in the results section. CHLAMYDIA TRACHOMATIS Routine 07/03/2015 5:59 PM Results for this AMPLIFIED RNA CDT procedure are in the results section. WET PREP EXAM, Routine 07/03/2015 5:59 PM Results for this UROGENITAL CDT procedure are i n the results section. AUTOMATED DIFFERENTIAL, Routine 07/03/2015 5:36 PM Results for this B CDT procedure are i n the results section. CBC WITH DIFFERENTIAL, Routine 07/03/2015 5:36 PM Results for this B CDT procedure are i n the results section. COMPREHENSIVE METABOLIC Routine 07/03/2015 5:36 PM Results for this PANEL, S/P CDT procedure are i n the results section. documented in this encounter Results (ABNORMAL) Urinalysis, Complete, Includes Microscopic (07/03/2015 6:34 PM CDT) [facility] Method Time Signature HXUr Color Yellow Yellow POWERCHART Clarity Clear Clear POWERCHART Glucose Negative Negative POWERCHART HXBILIRUBIN Negative Negative POWERCHART Ketones, QL(U) Negative Negative POWERCHART Specific 1.023 1.001 - POWERCHART Clay, POCT, U 1.035 HXBLOOD Trace (A) Negative POWERCHART pH, POCT, Urine 7.0 POWERCHART Protein, Ur, Dip Negative Negative POWERCHART Urobilinogen 1.0 0.2 MGDL POWERCHART HXNITRITE Negative Negative POWERCHART Leukocyte Negative Negative POWERCHART Esterase HXUR WBC. None Seen None Seen POWERCHART HPF HXUR RBC. None Seen None Seen POWERCHART HPF Squamous Occ-3 (A) None Seen POWERCHART Epithelial HPF Specimen (Source) Anatomical Collection Method Collection Time Re ceived Time Location / / Volume Laterality Urine, First 07/03/2015 6:34 PM Voided CDT Bora Fajardo M.D. LAB URINE ORDERABLES Performing Organization Address City/State/ZIP Code Phon e Number POWERCHART Test, Qualitative, Urine (07/03/2015 6:34 PM CDT) [facility] gist Method Time Signature HXBeta-hCG Negative Negative POWERCHART Qualitative Urine Specimen (Source) Anatomical Collection Method Collection Time Re ceived Time Location / / Volume Laterality Urine 07/03/2015 6:34 PM CDT Bora Fajardo M.D. LAB URINE ORDERABLES Performing Organization Address City/State/ZIP Code Phon e Number POWERCHART US Pelvis Transvaginal and Transabdominal (07/03/2015 6:19 PM CDT) Anatomical Region Laterality Modality Pelvis N/A Ultrasound Specimen (Source) Anatomical Collection Method Collection Time Re ceived Time Location / / Volume Laterality 07/03/2015 6:19 PM CDT Addenda Addendum by Provider, Sachi Michaud 07/03/2015 6:19 PM CDT RAD^^^MA US Pelvic And Endovaginal 07/03/2015 18:19:07 Impressions 07/03/2015 7:06 PM CDT No acute process identified. Narrative 07/03/2015 7:06 PM CDT HISTORY: Left adnexal pain. Technique: Transabdominal and transvagin al grayscale and Doppler pelvic ultrasound imaging was performed. COMPARISON: None. FINDINGS: The uterus appears to be both anteverted and anteflexed, measuring about 7.8 x 5.1 x 2.7 cm. The myometrium is normal in appearance. The endometrial stripe has a normal homogene ous appearance and a normal thickness of 5 mm or less. A trace amount of free fluid is present in pelvic cul-de-sac, likely physiologic. Both ovaries are normal in size / appearance and contain normal Doppler flow. Several presumed ph ysiologic tiny subcentimeter bilateral ovarian follicles are observed . Procedure Note Jorge Cotton M.D. / Provider, Cailin tovar M.D. - 08/02/2016 HISTORY: Left adnexal pain. Technique: Transabdominal and transvagin al grayscale and Doppler pelvic ultrasound imaging was performed. COMPARISON: None. FINDINGS: The uterus appears to be both anteverted and anteflexed, measuring about 7.8 x 5.1 x 2.7 cm. The myometrium is normal in appearance. The endometrial stripe has a normal homogene ous appearance and a normal thickness of 5 mm or less. A trace amount of free fluid is present in pelvic cul-de-sac, likely physiologic. Both ovaries are normal in size / appearance and contain normal Doppler flow. Several presumed ph ysiologic tiny subcentimeter bilateral ovarian follicles are observed . IMPRESSION: No acute process identified. Elenita Sterling R.V.T., RKevinMDaishaS. IMG US PROCEDURES Chlamydia / Gonorrhoeae Amplified RNA (07/03/2015 5:59 PM CDT) Component Value Ref Test Analysis Performed At [employer] Method Time Signature HX GC by Nucleic POWERCHART Acid Amplification HXFinal Negative for POWERCHART Neisseria gonorrhea by RNA amplification . HXFinal Reference: POWERCHART Negative HXFinal If you POWERCHART submitted a female urine sample, please note it is a Laboratory Developed Test. Specimen (Source) Anatomical Collection Method Collection Time Re ceived Time Location / / Volume Laterality Cervix/Endocervix 07/03/2015 5:59 PM CDT Bora aFjardo M.D. LAB MICROBIOLOGY - GENERAL O RDERABLES Performing Organization Address City/State/ZIP Code Phon e Number POWERCHART Chlamydia Trachomatis Amplified RNA (07/03/2015 5:59 PM CDT) Component Value Ref Test Analysis Performed At [facility] Method Time Signature HXChlamydia by POWERCHART Nucleic Acid Amplification HXFinal Negative for POWERCHART Chlamydia trachomatis by RNA amplification. HXFinal Reference: POWERCHART Negative HXFinal If you POWERCHART submitted a female urine sample, please note it is a Laboratory Developed Test. Specimen (Source) Anatomical Collection Method Collection Time Re ceived Time Location / / Volume Laterality Cervix/Endocervix 07/03/2015 5:59 PM CDT Bora Fajardo M.D. LAB MICROBIOLOGY - GENERAL O RDERABLES Performing Organization Address [facility] Phon e Number POWERCHART Wet Prep Exam, Urogenital (07/03/2015 5:59 PM CDT) P athologist Signature HXWet Prep POWERCHART HXFinal No yeast, POWERCHART Trichomonas , clue cells, or sperm seen. Specimen (Source) Anatomical Collection Method Collection Time Re ceived Time Location / / Volume Laterality Vagina 07/03/2015 5:59 PM CDT Bora Fajardo M.D. LAB MICROBIOLOGY - GENERAL O RDERABLES Performing Organization Address [facility] Phon e Number POWERCHART (ABNORMAL) CBC with Differential (07/03/2015 5:36 PM CDT) Analysis Performed At Patho logist Time Signature Leukocytes 5.7 3.5 - 10.5 POWERCHART X109L Erythrocytes 4.72 3.90 - POWERCHART 5.03 [id number] Hemoglobin 13.8 12.0 - POWERCHART 15.5 GDL Hematocrit 41.3 34.9 - POWERCHART 44.5 MCV 87.5 81.6 - POWERCHART 98.3 FL HX RDW 11.6 (L) 11.9 - POWERCHART 15.5 Platelet Count 263 150 - 450 POWERCHART X109L Specimen (Source) Anatomical Collection Method Collection Time Re ceived Time Location / / Volume Laterality Blood 07/03/2015 5:36 PM CDT Bora Fajardo M.D. LAB BLOOD ADD-ON Performing Organization Address [facility] Phon e Number POWERCHART Automated Differential (07/03/2015 5:36 PM CDT) P athologist Signature Absolute 3.15 1.70 - POWERCHART Neutrophils 7.00 109L Lymphocytes 1.84 0.90 - POWERCHART 2.90 X109L Monocytes 0.49 0.30 - POWERCHART 0.90 X109L Eosinophils 0.17 0.05 - POWERCHART 0.50 X109L Absolute 0.01 0.00 - POWERCHART Basophil 0.30 X109L Specimen Anatomical Collection Method Collection Time Receive d Time (Source) Location / / Volume Laterality Blood 07/03/2015 5:36 PM 6 5:36 CDT PM CDT Bora Fajardo M.D. LAB BLOOD ADD-ON Performing Organization Address City/State/ZIP Code Phon e Number POWERCHART (ABNORMAL) CMP (Comprehensive Metabolic Panel) (07/03/2015 5:36 PM CDT) [facility] gist Method Time Signature Total Protein, S 8.0 (H) 6.3 - 7.9 POWERCHART GDL Albumin, S 4.5 3.5 - 5.2 POWERCHART GDL CO2 Total 26 22 - 29 POWERCHART MMOLL Glucose 97 70 - 140 POWERCHART MGDL BUN (Blood Urea 13 6 - 24 POWERCHART Nitrogen), S MGDL Creatinine 0.7 0.6 - 1.1 POWERCHART MGDL Calcium, Total, S 9.7 8.6 - 10.3 POWERCHART MGDL Alkaline 46 35 - 105 POWERCHART Phosphatase, S UL Aspartate 27 8 - 43 UL POWERCHART Aminotransferase (AST), S Alanine 25 7 - 45 UL POWERCHART Amniotransferase, LD Bilirubin, Total, S 0.2 <=1.2 MGDL POWERCHAR T Anion Gap 11 7 - 15 POWERCHART MMOLL Sodium, S 139 135 - 145 POWERCHART MMOLL Potassium, S 4.1 3.5 - 5.1 POWERCHART MMOLL Chloride, S 102 98 - 107 POWERCHART MMOLL eGFR Black/ >60 >=60 POWERCHART Japanese MLMINSA HXeGFR (MDRD) >60 >=60 POWERCHART MLMINSA Comment: Results are in mL/min/1.73m squared CKD Stage I: ? GFR > 90 CKD Stage II: ?GFR 60 to 89 CKD Stage III: ? GFR 30 to 59 CKD Stage IV: ? GFR 15 to 29 CKD Stage V: ?GFR < 15 or Dialysi s Specimen (Source) Anatomical Collection Method Collection Time Re ceived Time Location / / Volume Laterality Blood 07/03/2015 5:36 PM CDT Bora Fajardo M.D. LAB BLOOD ADD-ON Performing Organization Address City/State/ZIP Code Phon e Number POWERCHART documented in this encounter Visit Diagnoses Not on filedocumented in this encounter
--- OUTSIDE RECORDS SUMMARY | 2022-02-25 11:50 | XMS_ITS | Encounter Summary ---
:1990 Author Organization [facility] Address [address] [place] [address] Care Team Providers Name Role Phone Unavailable Primary Care Provider Unavailable Encounter Details Date Type Department Care Team Description 07/28/2016 Hospital Encounter HX [facility] Bennie Moss M.D. [address] [place] [address] [address] [place], [place] [address] (Wo rk) Social History Tobacco Use [...] 8.7 oz) 07/28/2016 1:38 PM CDT Height - - Body Mass Index - - documented in this encounter Progress Notes Blayne Moss M.D. - 07/28/2016 1:32 PM CDT [id number] CHIEF COMPLAINT/REASON FOR VISIT Sore throat. HISTORY OF PRESENT ILLNESS Blayne is a very pleasant 25-year-old woman with no significant past medical history who presents forevaluation of 5 days of sore throat. She reports that about 5 days ago, she began to have a sore throat associated with whole body myalgias. Additionally, she has had a nonproductive cough. She feels that the sore throat is getting worse. She has also had some nonproductive cough. She has had subjective fever in the past couple days with a T-max of 100.2 degrees Fahrenheit. She also reports some night sweats. No weight loss. She reports mild maxillary sinus pain/pressure, although denies headaches or tooth pain. She has been able to tolerate oral intake just fine. She denies any abdominal pain or di arrhea. She has taken Advil Cold/Sinus and Tylenol, which has not helped much. 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 She did not get a flu shot this year. SYSTEMS REVIEW Fourteen-point review of system was done and was negative except as in HPI. MEDICATIONS Reviewed in the EMR. ALLERGIES No known drug allergies. VITAL SIGNS Temperature 36.9, pulse 114, blood pressure 118/71, weight 57.4 kg, saturating 99% on room air. PHYSICAL EXAMINATION GENERAL: She is a young, age-appropriate appearing woman in no apparent distress. EYES: No scleral icterus. ENT: Moist mucous membranes. Tympanic membranes visualized and are normal. There is mild tonsillar erythema without exudates. LYMPHATIC: No lymphadenopathy appreciated. HEART: Regular rate and rhythm. LUNGS: Clear to auscultation bilaterally without wheeze or crackles. ABDOMEN: Soft, nontender, nondistended, normoactive bowel sounds present. EXTREMITIES: There is no lower extremity edema present. NEUROLOGIC: No gross abnormalities noted. PSYCHIATRIC: Alert and oriented x3, normal affect. DIAGNOSTICS Obtained a rapid stress test, which was negative. IMPRESSION/REPORT/PLAN Viral pharyngitis. I believe that her symptoms and physical exam is consistent with viral pharyngitis. Considering that she has had symptoms for the past 5 days, I do believe that the rapid strep test is a true negative considering the amount of time that she has had symptoms. Additionally, due to hermyalgias, I believe that this is most likely viral in origin rather than bacterial. We discussed symptomatic measures including ongoing Tylenol intake, ibuprofen as needed on a limited basis, increase fluid intake. Discussed with her that if she begins to have a fever, she should not go to work at daycare. She should come back for evaluation in the next 5 to 7 days if her symptoms do not improve or sh e begins to have a fever. She understands and agrees with above plan. PATIENT EDUCATION Ready to learn, no apparent learning barriers were identified; learning preferences include listening. Explained diagnosis and treatment plan; patient expressed understanding of the content. Blayne Moss M.D./aos Electronically Signed By: BLAYNE MOSS MD On: 07/30/2016 11:21 AM Source: [facility] MHSDOLBEYNONRADSYS Document Id: [id number] documented in this encounter Procedure Notes Jessy Torres L.P.N. - 07/28/2016 1:46 PM CDT Rapid Strep A Screen POC Rapid Strep A Screen POC Entered On: 07/28/2016 13:49 CDT Performed On: 07/28/2016 13:46 CDT by JESSY TORRES LPN Rapid Strep A Screen POC Rapid Strep A Screen POC : Negative Internal Positive QC : Pass JESSY TORRES LPN - 07/28/2016 13:46 CDT Source: [facility] POWERCHART Document Id: [id number]!4 documented in this encounter Nursing Notes Blayne Moss M.D. - 07/28/2016 1:59 PM CDT Ambulatory Patient Education The following Patient Education Materials have been given to the patient: Patient Education Materials: Ambulatory PHARYNGITIS, Viral Ambulatory Viral Pharyngitis (Sore Throat) Your throat pain is due to an infection called Viral Pharyngitis, commonly known as Sore Throat.This is a contagious illness. It is spread through the air by coughing, kissing or by touching others after touching your mouth or nose. Symptoms include throat pain worse with swallowing, aching all over, headache and fever. Unlike strep throat, which is a bacterial infection, this illness does not require treatment with an antibiotic. Home Care: If your symptoms are severe, rest at home for the first 2-3 days. Children: Use acetaminophen (Tylenol) for fever, fussiness or discomfort. In infants over six monthsof age, you may use ibuprofen (Children's Motrin) instead of Tylenol. [NOTE: If your child has chronic liver or kidney disease or ever had a stomach ulcer or GI bleeding, talk with your génesis doctor before using these medicines.] (Aspirin should never be used in anyone under 18 years of age who is ill with a fever. It may cause severe liver damage.) Adults: You may use acetaminophen (Tylenol) or ibuprofen (Motrin, Advil) to control pain or fever, unless another medicine was prescribed. [NOTE: If you have chronic liver or kidney disease or ever hada stomach ulcer or GI bleeding, talk with your doctor before using these medicines.] Throat lozenges or sprays (Chloraseptic and others) will reduce pain. Gargling with warm salt water will also reduce throat pain. Dissolve 1/2 teaspoon of salt in 1 glass of warm water. This is especially useful just before meals. Follow Up with your doctor or as directed by our staff if you are not improving over the next week. Get Prompt Medical Attention if any of the following occur: ?? Fever over 100.5??F (38.0??C) oral, or over 101.5??F (38.6??C) rectal for more than three days ?? New or worsening ear pain, sinus pain or headache ?? Painful lumps in the back of your neck ?? Unable to swallow liquids or open your mouth wide due to throat pain ?? Trouble breathing or noisy breathing ?? Muffled voice ?? New rash ?? [id number] [place] [address]. All rights reserved. This information is not intended as a substitute for professional medical care. Always follow your healthcare professional's instructions. This document has images extracted. Please consider using [employer] for all your patient education needs. Source: [facility] POWERCHART Document Id: [id number] documented in this encounter Miscellaneous Notes Miscellaneous - Blayne Moss M.D. - 07/28/2016 1:59 PM CDT Ambulatory Patient Summary [address] [id number] Visit Information Name: BLAYNE METCALF [facility] Number: [id number] Current Date: 07/28/2016 13:59:28 Physicians Attending Provider: BLAYNE MOSS MD Primary Care Provider: PCPKEISHA BLAYNE METCALF has been given the following list [...] Take Indications/Special Instructions/Comments/Notes for Patient Medication Changes/Routing *acetaminophen (Tylenol 325 mg oral tablet) 2 Tablet(s), Oral, every 4 hours as needed for pain citalopram (citalopram 10 mg oral tablet) 1.5 Tablet(s), Oral, once a day *cyanocobalamin (Vitamin B-12 1000 mcg oral tablet) 1 Tablet(s), Oral, once a day *oxyCODONE-acetaminophen (Percocet 5/325 oral tablet) 1 Tablet(s), Oral, every 6 hours as needed forPain No more than 4,000mg acetaminophen/24hrs *tamsulosin (Flomax 0.4 mg oral capsule) 1 cap, Oral, once a day * You have let us know that you are not taking this medication as listed. Please talk with your primary care provider or the health care provider who prescribed the medication as soon as possible. Stop Taking the Following Medications: Medication list as of 07-28-16 13:59 Attention: If you have any medications at home that are not on this list, DO NOT take them until youcontact your provider for clarification. Give a copy of your medication list to your primary care provider. Update your medication list any time medications or doses are changed and carry your medication list at all times in case of emergency. Electronically Signed By: Signed On: Your Allergies & Intolerances Substance Reaction Symptoms Category Comments No Known Allergies Drug Your Problem List Problem Status Onset Comments No Problems found Your Upcoming Appointments Date Time Location Provider No Appointments found Attention: Contact your local Clinic if further appointment detail needed. Viral Pharyngitis (Sore Throat) Your throat pain is due to an infection called Viral Pharyngitis, commonly known as Sore Throat.This is a contagious illness. It is spread through the air by coughing, kissing or by touching others after touching your mouth or nose. Symptoms include throat pain worse with swallowing, aching all over, headache and fever. Unlike strep throat, which is a bacterial infection, this illness does not require treatment with an antibiotic. lainHome Care: If your symptoms are severe, rest at home for the first 2-3 days. Children: Use acetaminophen (Tylenol) for fever, fussiness or discomfort. In infants over six monthsof age, you may use ibuprofen (Children's Motrin) instead of Tylenol. [NOTE: If your child has chronic liver or kidney disease or ever had a stomach ulcer or GI bleeding, talk with your génesis doctor before using these medicines.] (Aspirin should never be used in anyone under 18 years of age who is ill with a fever. It may cause severe liver damage.) Adults: You may use acetaminophen (Tylenol) or ibuprofen (Motrin, Advil) to control pain or fever, unless another medicine was prescribed. [NOTE: If you have chronic liver or kidney disease or ever hada stomach ulcer or GI bleeding, talk with your doctor before using these medicines.] Throat lozenges or sprays (Chloraseptic and others) will reduce pain. Gargling with warm salt water will also reduce throat pain. Dissolve 1/2 teaspoon of salt in 1 glass of warm water. This is especially useful just before meals. Follow Up with your doctor or as directed by our staff if you are not improving over the next week. Get Prompt Medical Attention if any of the following occur: ?? Fever over 100.5?F (38.0?C) oral, or over 101.5?F (38.6?C) rectal for more than threedays ?? New or worsening ear pain, sinus pain or headache ?? Painful lumps in the back of your neck ?? Unable to swallow liquids or open your mouth wide due to throat pain ?? Trouble breathing or noisy breathing ?? Muffled voice ?? New rash ?? [id number] [facility], [address] [place] [address], [place] [address]. All rights reserved. This information is not [...] if you dont have one. Go to [email or web address] and click on Create Your Account. Then, follow the directions to complete the online form. Youll be asked for your [facility] number which you can find at the top of this document. Your Goals/Additional instructions: This document has images extracted. Please consider using [employer] for all your patient education needs. Source: [facility] POWERCHART Document Id: [id number] Miscellaneous - Blayne Moss M.D. - 07/28/2016 1:59 PM CDT Ambulatory Discharge Medication List [address] [id number] Visit Information Name: BLAYNE METCALF [facility] Number: [id number] Current Date: 07/28/2016 13:59:28 Attending Provider: BLAYNE MOSS MD Primary Care Provider: PCP, IGLESIA HERNÁNDEZEllie MOSS has been given the following list of medications: Your Medications It is important to take your medications as directed. Use a pill box or chart to help remind you to take your medications. Please let your doctor or nurse know if you have problems taking your medications. Medication/Strength How to Take Indications/Special Instructions/Comments/Notes for Patient Medication Changes/Routing *acetaminophen (Tylenol 325 mg oral tablet) 2 Tablet(s), Oral, every 4 hours as needed for pain citalopram (citalopram 10 mg oral tablet) 1.5 Tablet(s), Oral, once a day *cyanocobalamin (Vitamin B-12 1000 mcg oral tablet) 1 Tablet(s), Oral, once a day *oxyCODONE-acetaminophen (Percocet 5/325 oral tablet) 1 Tablet(s), Oral, every 6 hours as needed forPain No more than 4,000mg acetaminophen/24hrs *tamsulosin (Flomax 0.4 mg oral capsule) 1 cap, Oral, once a day * You have let us know that you are not taking this medication as listed. Please talk with your primary care provider or the health care provider who prescribed the medication as soon as possible. Stop Taking the Following Medications: Medication list as of 07-28-16 13:59 Attention: If you have any medications at home that are not on this list, DO NOT take them until youcontact your provider for clarification. Give a copy of your medication list to your primary care provider. Update your medication list any time medications or doses are changed and carry your medication list at all times in case of emergency. Electronically Signed By: Signed On: Additional Information: Source: [facility] POWERCHART Document Id: [id number] Miscellaneous - Jessy Torres L.P.N. 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 Entered On: 07/28/2016 13:41 CDT Performed On: 07/28/2016 13:38 CDT by JESSY TORRES LPN Intake Chief Complaint : sore throat Onset of Symptoms : 5 days Temperature Oral : 36.9 DegC(Converted to: 98.4 DegF) Peripheral Pulse Rate : 114 /min (HI) Respiratory Rate : 16 /min Systolic Blood Pressure : 118 mmHg Diastolic Blood Pressure : 71 mmHg NIBP Mean : 87 mmHg BP Location : Right upper extremity Blood Pressure Cuff Size : Regular SpO2 : 99 % Actual Weight : 57.4 kg(Converted to: 126 lb 9 oz) Dosing Weight Clinic : 57.4 kg JESSY TORRES LPN - 07/28/2016 13:38 CDT General Info Information Given By : Patient Preferred Communication Mode : Verbal Languages : Macanese Is Patient Female and 13-50 no hysterectomy : Yes Status : Patient denies Are you ? : No JESSY TORRES LPN - 07/28/2016 13:38 CDT Subjective Pain Symptoms : Yes JESSY TORRES LIZZY - 07/28/2016 13:38 CDT Pain Scale Pain Scale Verbal 0-10 : Open JESSY TORRES LIZZY - 07/28/2016 13:38 CDT Pain Pain Assessment Grid Pain 1 Location : Throat JESSY TORRES LIZZY - 07/28/2016 13:38 CDT Dependent Habits Exposure to Tobacco Smoke : Other: NEVERn no alcohol. Smoking Status : Never smoker Tobacco 2A : No Tobacco Use/Currently Using : No Tobacco Use/Last 30 Days : No Tobacco Use/Last 12 months : No JESSY TORRES LIZZY - 07/28/2016 13:38 CDT Source: [facility] POWERCHART Document Id: [id number] documented in this encounter Plan of Treatment Not on filedocumented as of this encounter Procedures Procedure Name Priority Date/Time Associated Diagnosis Comme nts RAPID STREP A Routine 07/28/2016 1:45 PM Results for this SCREEN CDT procedure are i n the results section. documented in this encounter Results Rapid Strep A Screen (07/28/2016 1:45 PM CDT) [facility] Method Time Signature HXRapid Strep POWERCHART Confirmation HXPre Negative for POWERCHART Group A Strep by culture. HXFinal Negative for POWERCHART Group A Strep by culture. Specimen (Source) Anatomical Collection Method Collection Time Re ceived Time Location / / Volume Laterality Throat 07/28/2016 1:45 PM CDT Blayne Moss M.D. LAB MICROBIOLOGY - GENERAL O RDERABLES Performing Organization Address City/State/ZIP Code Phon e Number POWERCHART documented in this encounter Visit Diagnoses Not on filedocumented in this encounter
--- OUTSIDE RECORDS SUMMARY | 2022-02-25 11:50 | XMS_ITS | Encounter Summary ---
:1990 Author Organization [facility] Address [address] [place] [address] Care Team Providers Name Role Phone Unavailable Primary Care Provider Unavailable Encounter Details Date Type Department Care Team Description 07/25/2020 Orders Only [facility] Sa vera Olsen M.D. [address] [place] [address] [phone] (Wo rk) Social History Tobacco Use Types Packs/Day Years Used Date Smoking Tobacco: Never Sex Assigned at Date Recorded Not on file documented as of this encounter Plan of Treatment Not on filedocumented as of this encounter Visit Diagnoses Not on filedocumented in this encounter
--- OUTSIDE RECORDS SUMMARY | 2022-02-25 11:51 | XMS_ITS | Clinical Summary ---
:1990 Author Organization [employer] [facility] [place] [address] Care Team Providers Name Role Phone Terri Sullivan Primary Care Provider [phone] Allergies Active Allergy Reactions Severity Noted Date Comments Nitrofurantoin Throat Swelling/Closing High 06/19/2020 Ketorolac Itching Low 04/24/2016 Itch with IV To radol. Does fine with Octavia sands Medications Medication Sig Dispensed Refills Start Date End Date Status FLUoxetine (PROZAC) Take 1 Capsule (10 90 Capsule 0 02/05/2022 Active 10 mg mg) by mouth once capsuleIndications: daily. Anxiety PNV 19/iron Take by mouth. 0 Act kamilla ps,heme/folic/dha ( MV & MIN ORAL) oxyCODONE-acetaminoph Take 1 Tablet by 12 Tablet 0 02/19/2022 Active en (PERCOCET) 5-325 mouth every 6 mg per hours if needed tabletIndications: for Pain. Max Bilateral acetaminophen nephrolithiasis dose: 4000mg in 24 hrs. oxybutynin XL Take 1 Tablet (10 10 Tablet 0 02/19/2022 Active (DITROPAN XL) 10 mg mg) by mouth once CR tabletIndications: daily. Bilateral nephrolithiasis tamsulosin (FLOMAX) Take 1 Capsule 10 Capsule 0 02/19/2022 Active 0.4 mg (0.4 mg) by mouth capsuleIndications: once daily after a Bilateral meal. nephrolithiasis trimethoprim-sulfamet Take 1 Tablet by 6 Tablet 0 02/22/2022 Active hoxazole, 160-800 mg, mouth two times 2 (BACTRIM DS, SEPTRA daily for 3 days. DS) tabIndications: Acute cystitis without hematuria phenazopyridine Take 1 Tablet (200 6 Tablet 0 02/19/202201/30 (PYRIDIUM) 200 mg mg) by mouth three 2 tabletIndications: times daily for 2 Bilateral days. nephrolithiasis Active Problems Problem Noted Date Chiari malformation type I 01/26/2015 Overview: Mild per MRI on 12/25/14 Anxiety 10/12/2014 Bilateral nephrolithiasis Resolved Problems Problem Noted Date Resolved Date Depression 10/12/2014 01/14/2022 Right shoulder subacromial bursitis 06/24/201212/29 Long head biceps tendinitis on right 06/24/2012 Cervical disk inflammation with radicular pain 06/24/2012 01/14/2022 Trochanteric bursitis 10/30/2009 01/14/2022 Popliteal Artery Entrapment 03/08/2009 01/14/2022 Lumbago 01/04/2009 01/14/2022 LEG PAIN 12/08/2008 01/14/2022 Encounters Date Type Specialty Care Team Description 02/25/2022 Telephone Terri Sullivan Procedure ( CT OF KIDNEYS) BETTY Feng 02/22/2022 Orders Only Kiel Hagan <No scans a ttached> MD Jaspreet 02/19/2022 Anesthesia Event Grant Jimenez MD [facility], [facility] 02/19/2022 Surgery Zander Gallegos CYSTOSCOPY, LE FT MD Alex URETEROSCOPY, l aser stby 02/19/2022 Hospital Encounter Zander Gallegos l nephrolithiasis MD Alex (Primary Dx) 02/19/2022 Travel 02/18/2022 Travel 02/15/2022 Orders Only Lab, [facility] 02/15/2022 Nurse/Clinic Staff Testing ( Preop covid) Only 02/15/2022 Travel 02/05/2022 Ancillary Procedure 02/05/2022 Office Visit Terri Sullivan Anxiety (Di scBETTY Arriaga medication opti ons); Preoperative Ex am (Kidney stones) 02/05/2022 Travel 01/14/2022 Office Visit Terri Sullivan Urinary Pro blem (BETTY Torres hard color and bad odor. Noticed some bl ood) 01/14/2022 Travel 12/28/2021 Refill Terri Sullivan Refill Requ BETTY Yates (Topiramate) from Last 3 Months Immunizations Name Administration Dates Next Due DTP 11/29/1997, 04/25/1994, 06/22/1993, 04/16/1993, 02/16/1993 DTaP 11/18/2005 Hepatitis B, Unspecified 12/26/1993, 06/22/1993, 02/16/1993 Hib Conjugate, Unspecified 04/25/1994, 06/22/1993, 4, 02/16/1993 Human Papilloma Virus Vaccine 04/06/2013, 09/08/2012, 2011 Influenza, IIV3 (Age >=3 years) 04/10/2012 Influenza, IIV4 11/29/2017 Influenza, IIV4 (=>6mos) MDV 12/25/2017 MMR 11/29/1997, 04/25/1994 Meningococcal Vaccine (Menveo) 03/27/2012 Oral Polio Vaccine 11/29/1997, 12/26/1993, 04/16/1993, 02/16/1993 Polio Virus, Unspecified 11/29/1997, 12/26/1993, 04/16/1993, 02/16/1993 Varicella Vaccine 03/31/1994 Family History Medical History Relation Name Comments Good Health Father Heart Disease Maternal Grandfather Good Health Mother Cancer Paternal Aunt stomach Heart Disease Paternal Grandfather Cancer-breast Paternal Grandmother Relation Name Status Comments Father Maternal Grandfather Mother Paternal Aunt Paternal Grandfather Paternal Grandmother Social History Tobacco Use Types Packs/Day Years Used Date Never Smoker Smokeless Tobacco: Never Used Tobacco Cessation: Counseling Given: Yes Alcohol Use Standard Drinks/Week Comments Yes 0 (1 standard drink = 0.6 oz pure alcoho l) Alcohol Habits Answer Date Recorded How often do you have a drink containing alcohol? 2-4 times a month 11/08/2019 How many drinks containing alcohol do you have on a 1 or 2 11/08/2019 typical day when you are drinking? How often do you have six or more drinks on one Never 11/08/2019 occasion? Comment: Not asked Sex Assigned at Date Recorded Not on file COVID-19 Exposure Response Date Recorded In the last 10 days, have you been in contact with No / Unsu re 02/19/2022 5:46 AM PARK MANAGER someone who was confirmed or suspected to have Coronavirus/COVID-19? Obstetrics History Para Term AB IAB SAB Ectopic Multiple Living Live Births 0 0 0 0 0 0 0 0 0 0 0 Last Filed Vital Signs Vital Sign Reading Time Taken Comments Blood Pressure 132/78 02/19/2022 12:00 PM PARK MANAGER Pulse 86 02/19/2022 12:00 PM PARK MANAGER Temperature 36.6 ??C (97.9 ??F) 02/19/2022 12:00 PM PARK MANAGER Respiratory Rate 16 02/19/2022 12:00 PM PARK MANAGER Oxygen Saturation 92% 02/19/2022 12:00 PM PARK MANAGER Inhaled Oxygen Concentration - - Weight 59 kg (130 lb) 02/19/2022 7:00 AM PARK MANAGER Height 165.1 cm (5' 5) 02/19/2022 7:00 AM PARK MANAGER Body Mass Index 21.63 02/19/2022 7:00 AM PARK MANAGER Plan of Treatment Upcoming Encounters Date Type Specialty Care Team Description 03/12/2022 Office Visit Terri Sullivan PA [address] [facility] [place] [address] (Wo rk) Health Maintenance Due Date Last Done Comments Tdap 12/18/2003 Tetanus booster 2012 COVID-19 vaccine series (3 - 06/29/2021 05/04/2021, 022 Booster for Pfizer series) Influenza for age 9-49 11/29/2021 12/25/2017, 11/29/2017, 04/10/2012 BMI (ht and wt on same day) for 01/01/2022 01/01/2021, 10/2020, age 18+ 06/14/2020, Additional history exists Pap test for age 21-65 02/03/2022 02/03/2019, 07/20/2015 Depression screening for age 12+ 10/09/2022 10/09/2021, 03/2019, 09/29/2019, Additional history exists HIV for age 15-65 Completed 12/06/2020, 04/06/2013, 09/08/2012 Hepatitis C screening for age Completed 12/06/2020 18-79 Medical Devices Implanted Type Area Carbon Coater Machine Operator Device Shelf Model / Identifier Expiration Serial / Date Lot Stent Uret [id number] Marcos - [id number] Right: A pplied Medical 08/20/2021 [id number] / Implanted: Qty: 1 on 04/05/2019 by Zander Gallegos MD at [facility] [employer] / [id number] Procedures Procedure Name Priority Date/Time Associated Comments Diagnosis XR RETROGRADE Routine 02/19/2022 8:22 AM Results for this PYELOGRAM W/WO KUB PARK MANAGER procedure are in the results section. STONE ANALYSIS Today 02/19/2022 8:09 AM Results for this PARK MANAGER procedure are i n the results section. ENDOTRACHEAL TUBE Routine 02/19/2022 7:55 AM Resu lts for this PARK MANAGER procedure are i n the results section. ENDOTRACHEAL TUBE Routine 02/19/2022 7:55 AM Resu lts for this PARK MANAGER procedure are i n the results section. ENDOTRACHEAL TUBE Routine 02/19/2022 7:55 AM Resu lts for this PARK MANAGER procedure are i n the results section. CYSTOSCOPY Tier 2 02/19/2022 7:22 AM Kidney Stones RETROGRADES PARK MANAGER Case Notes C-ARM, HOLMIUM, FLEXIBLE URE TEROSCOPE URETEROSCOPY Tier 2 02/19/2022 7:22 AM PARK MANAGER Kidney Stones Case Notes C-ARM, HOLMIUM, FLEXIBLE URE TEROSCOPE URINE Preop 02/19/2022 6:13 AM Result s for this PARK MANAGER procedure are i n the results section. HCG BETA Routine 02/15/2022 9:50 AM Preop examination Resu lts for this QUANT, PARK MANAGER procedure ar e in the results section. COVID 19 Routine 02/15/2022 9:30 AM Preop general Results for this PARK MANAGER physical exam procedure are in the results section. COVID 19 COLLECTION Routine 02/15/2022 9:30 AM Preop general R esults for this PARK MANAGER physical exam procedure are in the results section. CT ABDOMEN PELVIS YULI 02/05/2022 10:02 AM Flank pain Res ults for this STONE PROTOCOL WO PARK MANAGER procedure are in the results section. URINE Routine 02/05/2022 8:28 AM Flank pain Result s for this PARK MANAGER procedure are i n the results section. URINE CULTURE Add On 01/14/2022 1:57 PM Acute UTI Results for this CDT procedure are i n the results section. URINALYSIS Routine 01/14/2022 1:57 PM Abnormal urine color R esults for this MICROSCOPIC CDT procedure are i n the results section. UA W/ SEDIMENT EXAM Routine 01/14/2022 1:57 PM Abnormal urine color Results for this REFLEXED PER CDT procedure are i n CRITERIA the results section. from Last 3 Months Results XR RETROGRADE PYELOGRAM W/WO KUB (02/19/2022 8:22 AM PARK MANAGER) Anatomical Region Laterality Modality KIDNEYS, Abdomen Digital Radiography Specimen (Source) Anatomical Location Collection Method / Collectio n Time Received Time / Laterality Volume Narrative 02/19/2022 7:52 AM PARK MANAGER 30 seconds fluoroscopy time was provided. ??See operative/procedure report for further information. Zander Gallegos MD GENERAL IMAGING STONE ANALYSIS (02/19/2022 8:09 AM PARK MANAGER) P athologist Signature Source Comment 02/25/2022 [facility] 10:08 AM [facility] (CET) Comment: Left Kidney Color Brown 02/25/2022 10:08 AM PARK MANAGER [facility] (CET) Size 2x1 mm 02/25/2022 10:08 AM PARK MANAGER [facility] (CET) Comment: Multiple pieces received. ??Dimensions o f the largest piece reported. Weight 5 mg 02/25/2022 10:08 AM PARK MANAGER [facility] (CE T) Composition Comment 02/25/2022 10:08 AM PARK MANAGER LAB ORP [facility] (CE T) Comment: Percentage (Represents the % co mposition) Calcium Oxalate Monoh 50 % 02/25/2022 10:08 A M PARK MANAGER [facility] (CET) Calcium Oxalate Dihyd 30 % 02/25/2022 10:08 A M [facility] Hydroxyapatite 20 % 02/25/2022 10:08 AM [facility] (CET) Comment Comment 02/25/2022 10:08 AM [facility] (CET) Comment: Stone was not received cleaned or dry: S tone embedded in gel. Calcium phosphate (hydroxyl form) includ es hydroxyapatite, amorphous calcium phosphate, and whitloc kite. Hydroxyapatite is the most common of the calcium phosph ate salts found in human kidney stones. Comment Comment 02/25/2022 10:08 AM [facility] (CE T) Comment: Calculus received wet. Wet calculi must be dried before analysis, which delays reporting of resu lts. Leaving calculi wet (such as water, saline, blood, urine ) may lead to changes in composition. Photo Comment 02/25/2022 10:08 AM [facility] (CET) Comment: Photograph will follow under a separate cover Comment: Comment 02/25/2022 10:08 AM [facility] (CE T) Comment: Physician questions regarding Calculi An alysis contact [facility] at: [phone]. Please note: Comment 02/25/2022 10:08 AM [facility] LAB [facility] (CE T) Comment: Calculi report will follow via computer, mail or gym attendant delivery. Disclaimer: Comment 02/25/2022 10:08 AM [facility] Comment: This test was developed and its performa nce characteristics determined by [facility]. ??It has not been cleared or approved by the Food and Drug Administration. Specimen Anatomical Collection Method Collection Time Receive d Time (Source) Location / / Volume Laterality Calculi (stone) CALCULUS SPECIMEN Non-Blood / 02/19/2022 8:09 AM 1 04/21/2021 8:32 / Unknown Unknown PARK MANAGER AM [facility] Narrative [facility] (CET) - 02/25/2022 10:08 AM [facility] Performed at: ??01 - [facility] [address] [place] [address] Erlinda Barba, [place] ??[id number] Senior Cyber Intelligence Analyst: Vinh Torres PhD, Phone: ?? [phone] Zander Gallegos MD SEND OUTS Performing Organization Address City/State/ZIP Code Phon e Number [facility] [address], [place] [address] ESOTERIC TESTING (CET) HCHG TUBE PR1, HCHG STYLET PR1, HCHG MOUTHPIECE PR1 (02/19/2022 7:55 AM PARK MANAGER) Narrative Luigi Chakraborty CRNA - 02/19/2022 7 :55 AM PARK MANAGER Luigi Chakraborty CRNA ? 02/19/2022 ??7:55 AM Procedure: ETT Patient location during procedure: OR ETT Properties Mask Ventilation: easy Final Technique: direct laryngoscopy Type: straight Location: oral Cuffed: yes Tube Size: 7.0 mm Stylet: yes Laryngoscope Blade: Wynn Blade Size: 2 Cormack-Lehane Grade View: 1 Insertion Attempts: 1 Placement Verification: auscultation, en d tidal CO2 and symmetrical chest wall movement Assessment: pharynx clear, atraumatic an d dentition unchanged Secured at: 22 Measured From: teeth Tooth guard used and removed: yes Difficulty: 0 (not difficult) Electronically signed by Luigi Chakraborty CRNA ? Luigi Chakraborty CRNA ANESTHESIA PX NOTE ORDERABLE S Urine (02/19/2022 6:13 AM PARK MANAGER)Only the most recent of2 resultswithin the time period is included. Analysis Performed At Patho logist Time Signature ,URIN Negative Negative 02/19/2022 [facility] 6:43 AM PARK MANAGER LABORATORY-TEVIN TRAL LABORATORY Specimen Anatomical Collection Method Collection Time Receive d Time (Source) Location / / Volume Laterality Urine URINE SPECIMEN / Non-Blood / 02/19/2022 6:13 AM 02/19 6:34 Unknown Unknown PARK MANAGER AM PARK MANAGER Jenelle HERNÁNDEZ URINE Performing Organization Address City/State/ZIP Code Phon e Number [facility] [address] [place] [address] LABORATORY-CENTRAL 2000 LABORATORY HCG BETA QUANT, (02/15/2022 9:50 AM PARK MANAGER) athologist Signature HCG BETA <1 mIU/mL 02/17/2022 [facility] QUANT,PREGNANC 2:19 PM PARK MANAGER LABORATORY-CE NT Y RAL LABORATORY Specimen Anatomical Collection Method / Collection Time Recei erica Time (Source) Location / Volume Laterality Blood BLOOD SPECIMEN / Venipuncture / 02/15/2022 9:50 2021 9:50 Unknown Unknown AM PARK MANAGER AM PARK MANAGER Narrative [facility] LABORATORY-CENTRAL LABORAT ORY - 02/17/2022 2:19 PM PARK MANAGER Expected Value for Healthy Non- premenopausal women <5mIU/mL ? FOR GESTATIONAL ASSESSMENT-See Range Table Below ? Weeks Post LMP ?Approximate HCG Range: ? (Last Menstrual Period) ?3-4 ?? Weeks ? (9-130) ?4-5 ?? Weeks ? (75-2600) ?5-6 ?? Weeks ? (850-52679) ?6-7 ?? Weeks ? (4000-261885) ?7-12 ??Weeks ? (01689-071464) ?12-16 Weeks ? (83710-452766) ?16-29 Weeks ? (1400-57258) ?29-41 Weeks ? ([phone]) Terri HERNÁNDEZ CHEMISTRY Performing Organization Address City/State/[facility] Code Phon e Number [facility] [address] [place] [address] LABORATORY-CENTRAL 2000 LABORATORY COVID 19 (02/15/2022 9:30 AM PARK MANAGER) Analysis Performed At [facility] Time Signature COVID 19 Negative Negative 02/17/2022 [facility] 1:23 AM PARK MANAGER LABORATORY-TEVIN MOLECULAR TRAL LABORATORY Specimen Anatomical Location / Collection Method Collection Esdras e Received Time (Source) Laterality / Volume Other SPECIMEN FROM Non-Blood / 02/15/2022 9:30 02/16/2022 7:13 NASOPHARYNGEAL Unknown AM PARK MANAGER AM PARK MANAGER STRUCTURE / Unknown Narrative [facility] LABORATORY-CENTRAL LABORAT ORY - 02/17/2022 1:23 AM PARK MANAGER All PCR tests are subject to false negative result due to variability in viral load and collection te chnique. A negative result does not rule out a SARS-CoV-2 infection. Clinical correlation required. This test has been authorized by FDA und er an Emergency Use Authorization (EUA). This test is only authorized for the duration of time the declaration that circumstances exist justifying the authorizati on of the emergency use of in vitro diag nostic tests for detection of SARS-CoV-2 virus and/or diagnosis of COVID-19 infection under section 564(b)(1) of the Act, 21 U.S.C. 360bbb-3(b) (1), unless the authorization is terminated or revoked sooner. Terri EHRNÁNDEZ MICROBIOLOGY Performing Organization Address City/State/ZIP Code Phon e Number [facility] [address] [place] [address] LABORATORY-CENTRAL 2000 LABORATORY COVID 19 COLLECTION (02/15/2022 9:30 AM PARK MANAGER) [facility] gist Method Time Signature TESTING [facility] 02/16/2022 [facility] LABORATORY Laboratory 7:13 AM PARK MANAGER LABORATORY-CE NTRAL LABORATORY Comment: Specimen submitted to [facility] for testing. Specimen Anatomical Location / Collection Method Collection Esdras e Received Time (Source) Laterality / Volume Other SPECIMEN FROM Non-Blood / 02/15/2022 9:30 02/15/2022 NASOPHARYNGEAL Unknown AM PARK MANAGER 10:03 AM PARK MANAGER STRUCTURE / Unknown Terri HERNÁNDEZ SEND OUTS Performing Organization Address City/[facility]/ZIP Code Phon e Number [facility] [address] [place] [address] LABORATORY-CENTRAL [address] ABDOMEN PELVIS STONE PROTOCOL WO (02/05/2022 10:02 AM PARK MANAGER) Anatomical Region Laterality Modality Abdomen, Pelvis, AORTA, LIVER, SPLEEN Co mputed Tomography Specimen (Source) Anatomical Collection Method Collection Time Re ceived Time Location / / Volume Laterality 02/05/2022 11:34 AM PARK MANAGER Impressions 02/05/2022 11:34 AM PARK MANAGER 1. Two stable 3 mm nonobstructing left renal stones. 2. Postsurgical change right upper quadr ant and right lower quadrant. 3. Possible colonic constipation. 4. Mild upper lumbar curve convex toward s the right may be partly positional. Please note that all CT scans at this [facility] use dose modulation, iterative reconstruction, and/or weight-based dosing when appropriate to reduce radiation dose to as low as reasonably achievable. Dictated by Toan Nickerson MD @ Nov ??8 2 022 11:34AM (Electronically Signed) ?? Narrative 02/05/2022 11:34 AM PARK MANAGER For Patients: ??As a result of the 21st Century Cures Act, medical imaging exams and procedure report s are released immediately into your [facility] medical record. ??You may view this report before your referring provider. ??If you have questions, please contact your health care provider. INDICATION: Flank pain. Suspected kidney stone. Prio r history of urinary tract calculi and previous stone removal. Prior cholecystectomy and appendectomy. TECHNIQUE: Noncontrast CT of the abdomen and pelvis . COMPARISON: October 09, 2021. FINDINGS: Again noted are 2 tiny adjacent nonobstr ucting stones mid-lower left kidney measuring up to 3 mm, image 66 and 67 series 300 entirely unchanged. No stones in the right kidney. No stones along the course of the ureters or urinary bladder. Absent appendix and gallbladder. The unenhanced liver, spleen, pancreas, and adrenal glands are unremarkable. Normal caliber abdominal aorta and iliac arteries. Normal inferior vena cava. There is no evidence for small or large bowel obstruction or ileus. There may be mild colonic constipation. Please correlate clinically. There is no evidence for lymphadenopathy . Minimal free pelvic fluid on the right l ikely physiologic. Normal uterus and ovaries. No adnexal masses. Calcified pelvic phleboliths. Clinically the lung bases Procedure Note Toan Nickerson MD - 02/05/2022Formatti ng of this note might be different from the original. For Patients: As a result of the ntury Cures Act, medical imaging exams and procedure reports are released immediately into your electronic medical record. You may view this report before your referring provider. If you have questions, please contact [facility] care provider. INDICATION: Flank pain. Suspected kidney stone. Prio r history of urinary tract calculi and previous stone removal. Prior cholecystectomy and appendectomy. TECHNIQUE: Noncontrast CT of the abdomen and pelvis . COMPARISON: October 09, 2021. FINDINGS: Again noted are 2 tiny adjacent nonobstr ucting stones mid-lower left kidney measuring up to 3 mm, image 66 and 67 series 300 entirely unchanged. No stones in the right kidney. No stones along the course of the ureters or urinary bladder. Absent appendix and gallbladder. The unenhanced liver, spleen, pancreas, and adrenal glands are unremarkable. Normal caliber abdominal aorta and iliac arteries. Normal inferior vena cava. There is no evidence for small or large bowel obstruction or ileus. There may be mild colonic constipation. Please correlate clinically. There is no evidence for lymphadenopathy . Minimal free pelvic fluid on the right l ikely physiologic. Normal uterus and ovaries. No adnexal masses. Calcified pelvic phleboliths. Clinically the lung bases IMPRESSION: 1. Two stable 3 mm nonobstructing left r enal stones. 2. Postsurgical change right upper quadr ant and right lower quadrant. 3. Possible colonic constipation. 4. Mild upper lumbar curve convex toward s the right may be partly positional. Please note that all CT scans at this [facility] use dose modulation, iterative reconstruction, and/or weight-based dosing when appropriate to reduce radiation dose to as low as reasonably achievable. Dictated by Toan Nickerson MD @ Feb 05 11:34AM (Electronically Signed) Terri HERNÁNDEZ CT (ABNORMAL) URINALYSIS MICROSCOPIC (01/14/2022 1:57 PM CDT) [facility] gist Method Time Signature RBC 3-5 (A) 0-2, None 01/14/2022 [facility] Seen /HPF 2:16 PM CDT [facility] WBC 6-10 (A) 0-2, 3-5, 01/14/2022 [facility] None Seen 2:16 PM CDT [facility] BACTERIA Moderate (A) None 01/14/2022 [facility] Seen, 2:16 PM CDT [facility] Rare, Few CLINIC Bacteria/ HPF EPITHELIAL Moderate (A) None 01/14/2022 [facility] CELLS Seen, Few 2:16 PM CDT [facility] Epi/HPF CLINIC Mucus Present 01/14/2022 [facility] 2:16 PM CDT [facility] Specimen Anatomical Collection Method Collection Time Receive d Time (Source) Location / / Volume Laterality Urine URINE SPECIMEN / Non-Blood / 01/14/2022 1:57 PM 01/14 2:03 Unknown Unknown CDT PM CDT Terri HERNÁNDEZ URINE Performing Organization Address City/State/ZIP Code Phon e Number [facility] [address] [place] [address] URINE CULTURE (01/14/2022 1:57 PM CDT) athologist Signature CULTURE No growth 01/16/2022 [facility] (<1,000 11:20 AM CDT LABORATORY-CENT CFU/mL) RAL LABORATORY Specimen Anatomical Collection Method Collection Time Receive d Time (Source) Location / / Volume Laterality Urine URINE SPECIMEN / Non-Blood / 01/14/2022 1:57 PM 01/14 2:03 Unknown Unknown CDT PM CDT Terri HERNÁNDEZ MICROBIOLOGY Performing Organization Address City/State/ZIP Code Phon e Number [facility] [address] [place] [address] LABORATORY-CENTRAL 1999 LABORATORY (ABNORMAL) UA W/ SEDIMENT EXAM REFLEXED PER CRITERIA (01/14/2022 1:57 PM CDT) [facility] Method Time Signature COLOR Yellow Yellow Color 01/14/2022 [facility] 2:16 PM T [facility] CLARITY Slightly Clear 01/14/2022 [facility] Cloudy (A) Clarity 2:16 PM [facility] SPECIFIC 1.025 1.010, 01/14/2022 [facility] GRAVITY,URINE 1.015, 2:16 PM [facility] 1.020, 1.025 [facility] PH,URINE 6.5 6.0, 7.0, 01/14/2022 [facility] 8.0, 5.5, 2:16 PM [facility] 6.5, 7.5, CLINIC 8.5 UROBILINOGEN, Normal Normal EU/dl 01/14/2022 [facility] H QUALITATIVE 2:16 PM [facility] PROTEIN, 30 (A) Negative 01/14/2022 [facility] URINE mg/dL 2:16 PM [facility] GLUCOSE, Negative Negative 01/14/2022 [facility] URINE mg/dL 2:16 PM [facility] KETONES,URINE 15 (A) Negative 01/14/2022 [facility] mg/dL 2:16 PM [facility] BILIRUBIN,URI Abnormal (A) Negative 01/14/2022 [facility] H NE 2:16 PM [facility] Comment: A variety of metabolites and/or medications may result in a positive bilirubin result. Clinical correlation i s recommended. OCCULT BLOOD,URINE Negative Negative 01/14/2022 2:16 PM [facility] NITRITE Negative Negative 01/14/2022 2:16 PM [facility] LEUKOCYTE ESTERASE Negative Negative 01/14/2022 2:16 PM [facility] Specimen Anatomical Collection Method Collection Time Receive d Time (Source) Location / / Volume Laterality Urine URINE SPECIMEN / Non-Blood / 01/14/2022 1:57 PM 01/14 2:03 Unknown Unknown CDT PM CDT Terri HERNÁNDEZ URINE Performing Organization Address City/State/ZIP Code Phon e Number [facility] [address] [facility] [place] [address] from Last 3 Months Insurance Payer Benefit Plan / Subscriber ID Effective Dates Phone Addre ss Type Group MEDICA MEDICA CHOICE [id number] 2019-Present [address] [address] [place] [address] (Home) [place] [id number] Advance Directives Latest Code Status on File Code Status Date Activated Date Inactivated Comments Full Code 02/19/2022 6:23 AM 02/19/2022 2:50 PM Code Status Discussion: Unable to Assess Preferences, Provid er to review later Full Code 04/08/2019 6:00 PM 04/09/2019 8:16 PM Full Code 04/08/2019 6:00 PM 04/08/2019 6:00 PM Full Code 04/05/2019 8:10 AM 04/05/2019 4:19 PM Care Teams Registration Rep Relationship Specialty Start Date End Date Terri Sullivan PA PCP - General Family Practice 09/05/10 [address] [facility] [place] [address]
--- OUTSIDE RECORDS SUMMARY | 2022-02-25 11:51 | XMS_ITS ---
:1990 Author Allergies Code Code System Name Reaction Severity Status Onset NKDA ? Medications Name Status Start Date Stop Date ? ? cephalexin 500 mg capsule Completed ? 2020 citalopram 10 mg tablet Active ? Not avai lable TAKE 1 TABLET BY MOUTH EVERY MORNING IN ADDITION TO 20 MG TABLET FOR TOTAL OF 30 MG citalopram 20 mg tablet Active ? Not avai lable TAKE 1 TABLET BY MOUTH EVERY MORNING IN ADDITION TO 10 MG TABLET FOR TOTAL OF 30 MG DAILY clindamycin HCl 300 mg capsule Completed ? 0 10/10/2020 cyclobenzaprine 10 mg tablet Completed ? TAKE 1 TABLET BY MOUTH AT BEDTIME NEEDED FOR MUSCLE SPASM Estarylla 0.25 mg-35 mcg tablet Active ? Not available TAKE 1 TABLET BY MOUTH EVERY DAY fluconazole 150 mg tablet Completed ? 2020 TK 1 T PO NOW THEN TK 1 T IN 3 DAYS hydroxyzine HCl 25 mg tablet Completed ? TK 1 T PO HS PRA ketorolac 10 mg tablet Completed ? Lessina 0.1 mg-20 mcg tablet Active ? Not available TAKE 1 TABLET BY MOUTH EVERY DAY lorazepam 0.5 mg tablet Completed ? 10/11/19 21 TAKE 1 OR 2 TABLETS BY MOUTH ONE TIME F OR 1 DOSE TAKE 1/2 TO 1 HOURS BEFORE MRI methylprednisolone 4 mg tablets in a dose pack Completed ? 10/10/2020 [facility] nitrofurantoin monohydrate/macrocrystals 100 mg capsule Complete d ? 10/10/2020 prednisone 20 mg tablet Completed ? 10/11/19 21 sulfamethoxazole 800 mg-trimethoprim 160 mg tablet Completed ? 10/10/2020 TK 1 T PO Q 12 H topiramate 25 mg tablet Active ? Not avai lable tretinoin 0.025 % topical gel Completed ? APPLY EXTERNALLY TO THE AFFECTED AREA AT BEDTIME Problems None recorded. Procedures Date Name Performed by ? 03/31/2017 Open Stone Operation on Kidney or Renal Information not available Pelvis 03/31/2017 Tonsillectomy Information not avai lable 03/31/2014 Lumpectomy of Breast Information not stepahny ilable 03/31/2014 Cholecystectomy Information not avai lable 03/31/2010 Appendectomy Information not avai lable 03/31/2009 Reconstruction of Popliteal Artery Infor segundo not available Notes: PAES 03/31/2007 Extraction of [place] Tooth Information n ot available 10/19/2020 US, Pelvis, Transabdominal + Transvagina l [id number] [place] [address] (Work Place) Results Lab Results Date Name Specimen Result Interpretation Description Value Range Status Address ? 10/10/2020 Pap, LB + CERVIX&CERVIX ? Case Report see ? Complete [place] [facility] hr note [facility] - Lab: [address], [place] ? Hemoglobin ? Fingerstick 12.6 12 ? [id number] (Hb), Hemoglobin g/dL .0 ale_bu rnsvil Fingerstick, -1 le: [address] [facility] Blood 5. [place] [address] [place] [address]/ [address], [place] Past Encounters 10/19/2020 Break-through Bleeding Luz Duffy MD: [address] [facility] Jess goodman, [address] [address], Ph. 10/19/2020 Abnormal Uterine Bleeding Luz Duffy MD: [address] [facility] [address] [phone], Ph. 10/10/2020 Gynecologic Examination; Surveillance of Contraception; Break-through Bleeding Kimmy Cortez CNM: [address] [facility] Jess gilbert, [address] [address], Ph. Social History Tobacco Smoking Status Never Smoker Vaccine List None recorded. Plan of Care Reminders Provider Appointments None recorded. ? ? Lab None recorded. ? ? Referral None recorded. ? ? Procedures None recorded. ? ? Surgeries None recorded. ? ? Imaging None recorded. ? ? Vitals 10/19/2020 09:30AM G_OFFICE VISIT Height Weight BMI Blood Pressure 5 ft 6 in 124 lbs 20 kg/m2 106/72 mm[Hg] 10/10/2020 03:45PM G_NEW PT ANNUAL Height Weight BMI Blood Pressure 5 ft 6 in 122.4 lbs 19.8 kg/m2 110/72 mm[Hg]
[2022-02-25 12:48] VITALS: BP 116/76; PULSE 84; O2SAT 98
--- NOTE | 2022-02-25 12:49 | ED.NURSE ---
Pt reports 8/10 LLQ abd pain. Pt states she does not want anything for the pain at this time.
== END 2022-02-25 14:14 | disposition home or self-care (01) ==
PROVIDERS: Emergency Provider Emergency Medicine Emergency Medical Services; PCP Physician Assistant Medical
DX: N23 Unspecified renal colic (principal)
CPT/HCPCS: 74176; 81001; 99284

== ENCOUNTER 2022-04-29 12:38 | Outpatient (CLI) | payer OTHER, SELFPAY ==
--- NOTE | 2022-04-29 13:00 | CRLHL7_ITS ---
For Patients: As a result of the Century Cures Act, medical imaging exams and procedure reports are released immediately into your electronic medical record. You may view this report before your referring provider. If you have questions, please contact your health care provider. INDICATION: Evaluate size and dates TECHNIQUE: Ultrasound OB pelvis transvaginal. Real time edwards scale imaging of the pelvis was performed. COMPARISON: None FINDINGS: Present within the endometrial canal is a 0.4 millimeter oval hypoechoic area with a thick echogenic rim. Findings most likely represents a gestational sac. No evidence for yolk sac or pole. No cardiac activity demonstrated. No evidence for subchorionic hemorrhage. The cervix is closed. The myometrium appears normal. The ovaries are of normal size. Small amount of free fluid in the pelvis. IMPRESSION: 4.4 millimeter intrauterine gestational sac. No evidence for yolk sac or pole. No evidence for cardiac activity. Gestational sac size consistent with a gestational age of 5 weeks 0 days and estimated due date of 12/30/2022. Correlate with beta HCG levels and serial ultrasounds for further evaluation. Dictated by Alfonzo Lima MD @ 04/30/2022 8:36:15 AM (Electronically Signed)
== END 2022-04-29 12:39 | disposition home or self-care (01) ==
LOC: US 12:39
PROVIDERS: PCP Physician Assistant Medical; Visit Provider Advanced Practice Midwife
DX: Z34.91 Encounter for supervision of normal pregnancy, unspecified, first trimester (principal); Z3A.01 Less than 8 weeks gestation of pregnancy
CPT/HCPCS: 76817; 84702; 87491; 87591

== ENCOUNTER 2022-05-01 08:25 | Outpatient (CLI) | payer OTHER, SELFPAY ==
[2022-05-01 11:34] LABS: Hepatitis B Surface Antigen* Negative (Negative)
[2022-05-01 11:45] LABS: HIV 1/2/P24 Combo Screen* Negative (Negative)
[2022-05-01 11:51] LABS: Hepatitis C Virus Antibody* Negative (Negative)
[2022-05-03 02:25] LABS: Rapid Plasma Reagin (RPR) Non Reactive (Non Reactive)
[2022-05-03 02:32] LABS: Varicella-Zoster Virus Ab, IgG 526.9 IV
[2022-05-03 02:37] LABS: Rubella Antibody IgG 64.4 IU/mL
== END 2022-05-01 08:26 | disposition home or self-care (01) ==
PROVIDERS: Advanced Practice Midwife; PCP Physician Assistant Medical; Visit Provider Advanced Practice Midwife
DX: Z34.81 Encounter for supervision of other normal pregnancy, first trimester (principal); Z3A.09 9 weeks gestation of pregnancy
CPT/HCPCS: 84702; 86592; 86703; 86762; 86787; 86803; 86850; 86900; 86901; 87086; 87340

== ENCOUNTER 2022-05-13 12:58 | Outpatient (CLI) | payer OTHER, SELFPAY ==
--- NOTE | 2022-05-13 13:00 | CRLHL7_ITS ---
For Patients: As a result of the Cures Act, medical imaging exams and procedure reports are released immediately into your electronic medical record. You may view this report before your referring provider. If you have questions, please contact your health care provider. INDICATION: Dating and viability. COMPARISON: OB ultrasound 04/29/2022. TECHNIQUE: Real-time edwards-scale imaging of the pelvis was performed. FINDINGS: Sonographic imaging demonstrates a single living intrauterine gestation. The embryo has a regular cardiac rate measuring 128 beats per minute. The embryo`s crown-rump length measurement of 0.8 cm corresponds to a gestational age of 6 weeks 5 days with a sonographic due date of 01/01/2023. There is a normal-appearing yolk sac. The placenta has not yet developed. No evidence of a perigestational hemorrhage. The right ovary measures 2.8 x 2.5 x 2.6 cm and the left ovary measures 3.4 x 1.6 x 2.4 cm. There is a 2.8 cm corpus luteum in the right ovary. No free fluid in the cul-de-sac. IMPRESSION: Single living intrauterine gestation with crown rump length 0.8 cm which corresponds to a gestational age of 6 weeks 5 days with a sonographic due date of 01/01/2023. Dictated by Gabbie Berrios MD @ 05/13/2022 10:42:39 PM (Electronically Signed)
== END 2022-05-13 12:59 | disposition home or self-care (01) ==
LOC: US 12:58
PROVIDERS: PCP Physician Assistant Medical; Visit Provider Advanced Practice Midwife
DX: Z34.91 Encounter for supervision of normal pregnancy, unspecified, first trimester (principal); Z3A.01 Less than 8 weeks gestation of pregnancy
CPT/HCPCS: 76817

== ENCOUNTER 2022-07-16 09:45 | Outpatient (CLI) | payer OTHER, SELFPAY | END 2022-07-16 09:46 | disposition home or self-care (01) | LOC: NFLDREF 09:47 | PROVIDERS: PCP Physician Assistant Medical; Visit Provider Obstetrics & Gynecology | DX: Z34.92 Encounter for supervision of normal pregnancy, unspecified, second trimester (principal); Z3A.16 16 weeks gestation of pregnancy | CPT/HCPCS: 87086 ==

== ENCOUNTER 2022-09-13 10:06 | Outpatient (CLI) | payer OTHER, SELFPAY ==
--- NOTE | 2022-09-13 10:00 | CRLHL7_ITS ---
For Patients: As a result of the Century Cures Act, medical imaging exams and procedure reports are released immediately into your electronic medical record. You may view this report before your referring provider. If you have questions, please contact your health care provider. CLINICAL HISTORY: Pain and swelling right lower extremity TECHNIQUE: A compression venous ultrasound exam was performed of the right lower extremity using edwards-scale imaging, color Doppler and spectral Doppler analysis. FINDINGS: Sonographic imaging of the right lower extremity demonstrates normal compressibility and color Doppler venous blood flow within the common femoral vein, deep femoral vein, and the proximal greater saphenous vein. Within the thigh, the femoral vein is patent and compressible. At a lower level, the popliteal and posterior tibial veins also show normal compressibility and color Doppler venous blood flow. Limited imaging of the contralateral groin demonstrates a normal spectral waveform and color Doppler venous blood flow within the left common femoral vein. IMPRESSION: Normal venous ultrasound exam. No evidence of deep vein thrombosis within the right lower extremity. Dictated by Maty Mcdonnell MD @ 09/13/2022 11:30:30 AM (Electronically Signed)
== END 2022-09-13 10:07 | disposition home or self-care (01) ==
LOC: US 10:07
PROVIDERS: PCP Physician Assistant Medical; Visit Provider Obstetrics & Gynecology
DX: R60.0 Localized edema (principal)
CPT/HCPCS: 93971

== ENCOUNTER 2022-10-11 08:49 | Outpatient (CLI) | payer OTHER, SELFPAY ==
--- NOTE | 2022-10-11 09:30 | CRLHL7_ITS ---
For Patients: As a result of the Century Cures Act, medical imaging exams and procedure reports are released immediately into your electronic medical record. You may view this report before your referring provider. If you have questions, please contact your health care provider. INDICATION: Third trimester scan, evaluate growth. COMPARISON: 08/13/2022 TECHNIQUE: Real time edwards scale imaging of the fetus was performed. FINDINGS: Sonographic imaging demonstrates a single living intrauterine gestation. Fetus demonstrates a regular cardiac rate of 142 beats per minute. Fetus has a breech position. The placenta lies anteriorly. Amniotic fluid volume appears normal and there is a single deepest vertical pocket: 4.2 cm. The estimated weight is 1222gm which lies at the 36th %. On the prior OB ultrasound exam dated 08/13/2022 the estimated weight was at the 74th%. BPD 68th percentile. HC 74th percentile. AC 42nd percentile. FL 17th percentile. The HC/AC ratio measures 1.15 range (0.99-1.21). IMPRESSION: Sonographic gestational age 29 weeks 0 days and sonographic due date 12/27/2022. Sonographic age 4 days ahead of the clinical age. Estimated weight 36th percentile. Abdominal circumference 42nd percentile. Previously noted area of increased echogenicity adjacent to the internal cervical os is no longer present. Dictated by Alfonzo Dee MD @ 10/11/2022 10:14:52 AM (Electronically Signed)
== END 2022-10-11 08:50 | disposition home or self-care (01) ==
LOC: US 08:49
PROVIDERS: PCP Physician Assistant Medical; Visit Provider Obstetrics & Gynecology
DX: Z34.93 Encounter for supervision of normal pregnancy, unspecified, third trimester (principal); Z3A.29 29 weeks gestation of pregnancy
CPT/HCPCS: 76816; 86592

== ENCOUNTER 2022-10-23 09:24 | Emergency (ER) | payer OTHER, SELFPAY ==
[2022-10-23] VITALS (8 sets, daily range): BP systolic 103–118; BP diastolic 67–76; PULSE 81–93; RESP 12–18; TEMP 36.9; O2SAT 97–100; BMI 24.5
--- NOTE | 2022-10-23 09:55 | CRLHL7_ITS ---
For Patients: As a result of the Century Cures Act, medical imaging exams and procedure reports are released immediately into your electronic medical record. You may view this report before your referring provider. If you have questions, please contact your health care provider. INDICATION: Shortness of breath, TECHNIQUE: CT chest PE was acquired with 95 cc Isovue 370 intravenous contrast. COMPARISON: None. FINDINGS: Heart and vasculature: Contrast opacification of the pulmonary arterial tree is adequate. No sign of pulmonary embolism. Heart size is normal. Thoracic aorta and pulmonary artery are normal in caliber. Lungs and pleural: No suspicious nodules or infiltrates. No pleural effusions, pleural thickening, or pneumothorax. Lymph nodes/mediastinum: No mediastinal, hilar, or axillary adenopathy. Chest wall: No masses. Upper abdomen: Status post cholecystectomy. Bones: Unremarkable for age. IMPRESSION: Unremarkable chest CTA. No evidence of pulmonary embolus. Please note that all CT scans at this facility use dose modulation, iterative reconstruction, and/or weight-based dosing when appropriate to reduce radiation dose to as low as reasonably achievable. Dictated by Dar Vail MD @ 10/23/2022 11:25:43 AM (Electronically Signed)
--- NOTE | 2022-10-23 10:01 | ED.GENADULT ---
HPI - General Adult General Time Seen by Provider: 10:01 Date Seen: 10/23/22 Chief complaint: Chest Pain Stated complaint: chest pain, 30weeks+1day Time Seen by Provider: 10/23/22 09:25 Source: patient Mode of arrival: ambulatory Limitations: no limitations History of Present Illness HPI narrative: Patient is a pleasant 31-year-old female G1 para 0 who presents with 30 and half weeks estimated gestational age with decreased movement, some anterior substernal chest discomfort that is somewhat tender to palpation that radiates through to her upper back. She stated today this started about 730, she did not wake up with it, came on fairly suddenly. She has had no diaphoresis no nausea vomiting. She has had no history of bleeding or clotting problems. Does have history of anxiety, and pelvic pain. She sees Dr. Siddiqui present in fact saw Dr. Solares yesterday and things are going well with the . She denies a contraction feeling, vaginal discharge or bleeding. She has do not notice decreased movement as well but some moves movement. Doppler tones are 130-140. Patient has had no cardiac history or pulmonary history. She has had no cough fever chills. She does not feel more stress or anxiety than baseline. Related Data Home Medications Medication Instructions Recorded Confirmed citalopram 20 mg tablet 20 mg PO QDAY 04/29/22 10/21/22 prenat.vits,javi,[id number] 1 tab PO QDAY 04/29/22 10/21/22 docusate sodium 100 mg capsule 100 mg PO BID PRN 07/04/22 10/21/22 (Colace) Allergies Allergy/AdvReac Type Severity Reaction Status Date / Time ketorolac [From Toradol] Allergy Mild Rash Verified 10/23/22 10:48 nitrofurantoin Allergy Mild throat Verified 10/23/22 10:48 swelling Review of Systems Status of ROS: Reports: 6 or more systems reviewed and unremarkable except as noted in History and below [facility] Medical History 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 - Other specified disorders of arteries and arterioles (ICD-10) Multiple kidney stones ?N20.0 - Calculus of kidney (ICD-10) Migraine headache ?G43.909 - Migraine, unspecified, not intractable, without status migrainosus (ICD-10) Calculus of kidney ?N20.0 - Calculus of kidney (ICD-10) Surgical History History of lumpectomy of left breast ?Z98.890 - Other specified postprocedural states (ICD-10) History of cholecystectomy ?Z90.49 - Acquired absence of other specified parts of digestive tract (ICD-10) History of appendectomy ?Z90.49 - Acquired absence of other specified parts of digestive tract (ICD-10) Family History Father Alcohol dependence Paternal Grandmother Breast cancer Maternal Grandmother Heart disease Stroke Maternal Grandfather Heart disease Social History Smoking Status: Never smoker Do you use any of these nicotine containing products: None Second hand tobacco smoke exposure: No How often do you have a drink containing alcohol: never How often do you have six or more drinks on one occasion: Never AUDIT-C Alcohol total score: 0 Non-prescribed substance use: denies use Little interest or pleasure in doing things: not at all Feeling down, depressed, or hopeless: not at all service: No Exam Narrative: Exam Narrative: Objective: Vital signs unremarkable O2 sat is 98% on room air In general patient is alert oriented noncyanotic appears to be in no distress Chest is clear no rales or wheezing Heart rhythm regular heart murmur There is palpable chest pain along her sternum Abdomen is gravid, she reports mildly ?tense?. Nontender. heart tones are 130-140 as mention check by nursing staff Extremities are no edema Neurologic nonfocal Const: Vital Signs, click to edit/add: Vital Signs - 24 hr 10/23/22 09:28 10/23/22 09:32 10/23/22 10:00 Temperature 98.4 F Pulse Rate Pulse Rate [Pulse Oximeter] 93 92 Respiratory Rate 18 18 Blood Pressure Blood Pressure [Le ft Upper Arm] 118/76 Pulse Oximetry 98 98 98 Oxygen Delivery Me thod Room Air Room Air 10/23/22 10:31 10/23/22 11:02 10/23/22 11:30 Temperature Pulse Rate 87 85 87 Pulse Rate [Pulse Oximeter] Respiratory Rate 14 12 Blood Pressure 109/71 103/67 Blood Pressure [Le ft Upper Arm] Pulse Oximetry 97 98 100 Oxygen Delivery Me thod 10/23/22 11:45 10/23/22 12:00 Temperature Pulse Rate 81 84 Pulse Rate [Pulse Oximeter] Respiratory Rate Blood Pressure Blood Pressure [Le ft Upper Arm] Pulse Oximetry 100 99 Oxygen Delivery Me thod Course Vital Signs Vital signs: Initial Vital Signs Temperature 98.4 F 10/23/22 09:28 Temperature Source Temporal Artery Scan 10/23/22 09:28 Pulse Rate 93 10/23/22 09:28 Pulse Rhythm Regular 10/23/22 09:28 Respiratory Rate 18 10/23/22 09:28 Blood Pressure Position Supine 10/23/22 09:28 Pulse Oximetry 98 10/23/22 09:28 Oxygen Delivery Method Room Air 10/23/22 09:28 Vital Signs Temperature 98.4 F 10/23/22 09:28 Pulse Rate 93 10/23/22 09:28 Respiratory Rate 18 10/23/22 09:28 Pulse Oximetry 98 10/23/22 09:28 Oxygen Delivery Method Room Air 10/23/22 09:28 Temperature 98.4 F 10/23/22 09:28 Pulse Rate 84 10/23/22 12:00 Respiratory Rate 12 10/23/22 11:02 Blood Pressure 103/67 10/23/22 11:02 Pulse Oximetry 99 10/23/22 12:00 Oxygen Delivery Method Room Air 10/23/22 10:00 Medical Decision Making MDM Narrative Medical decision making narrative: [age] year white female primary with 30 and half weeks estimated gestational age with decreased movement, chest pain radiating to the back slight shortness of breath. I think at this point after discussing with Dr. Chen FANG we will manage and rule out PE, rule out acute coronary syndrome, and have OB nurse come down and do a nonstress test. I will discuss with Dr. Solares again at completion of her workup. Risks and benefits of CT scanning and radiation exposure discussed with mom and she was willing to proceed. Will do a cardiac enzyme as well. Cardiac monitoring. Addendum: 12:04 p.m.. Patient seems to be feeling a bit better, she had a reassuring NST. Her CT scan of her chest was negative for PE or other pathology. Her electrolytes and labs look reassuring. At this point I think it is safer to go home, recheck with Dr. Chen kearney was in agreement and she can return any problems or concerns. I recommend she engage in light activity today, drink plenty of fluids, and update OB in the next 2-3 days with symptoms or problems, return to ED sooner if issues or concerns. Lab Data Labs: Lab Results 10/23/22 10/23/22 Range/Units 10:10 11:40 WBC 8.74 (4.50-11.00) K/uL RBC 3.92 L (4.00-5.20) m/uL Hgb 12.2 (12.0-16.0) gm/dL Hct 34.9 (33.0-51.0) % MCV 89 (80-100) fL MCH 31 (26-34) pg MCHC 35 (32-36) gm/dL RDW Coeff of John 12.3 (11.5-15.5) % Plt Count 202 (140-440) K/uL Neut % (Auto) 76.9 H (42.0-72.0) % Lymph % (Auto) 14.8 L (20-44) % [place] % (Auto) 6.6 (0.0-11.0) % Eos % (Auto) 0.7 (0.0-7.0) % Baso % (Auto) 0.1 (0.0-3.0) % Neut # (Auto) 6.70 (1.7-7.0) K/uL Lymph # (Auto) 1.30 (0.90-2.90) K/uL [place] # (Auto) 0.60 (0.00-0.90) K/UL Eos # (Auto) 0.06 (0.00-0.50) K/uL Baso # (Auto) 0.01 (0.00-0.30) K/uL Abs Immat Gran (auto) 0.08 (0.00-0.30) K/uL Imm/Tot Granulo (auto) 0.9 % Sodium 134 L (135-149) mmol/L Potassium 3.6 (3.6-5.1) mmol/L Chloride 106 (96-114) mmol/L Carbon Dioxide 21 (20-32) mmol/L BUN 4 L (5-24) mg/dL Creatinine 0.5 (0.5-1.5) mg/dL Estimated Creat Clear 149.39 Estimated GFR 130 ml/min Glucose 100 (60-115) mg/dL Calcium 8.4 (8.4-10.6) mg/dL Total Bilirubin 0.3 (0.1-1.5) mg/dL Direct Bilirubin 0.0 (0.0-0.5) mg/dL AST 24 (12-35) U/L ALT 16 (4-35) U/L Alkaline Phosphatase 81 (40-150) U/L Troponin I < 0.01 L (0.01-0.04) ng/mL C-Reactive Protein 0.9 (0.5-1.0) mg/dL Total Protein 6.1 (6.0-8.3) g/dL Albumin 3.2 L (3.3-5.0) g/dL POC Troponin I 0.01 0.01 (0.01-0.04) ng/ml Discharge Plan Discharge Clinical Impression: Decreased movement, Chest pain Patient Disposition: Home, Self-Care Condition: Stable Additional Instructions: Light activity today, drink plenty of fluids, Tylenol as needed for discomfort, update OB in the next 2-3 days problems or concerns, return to ED any time any issues. Activity Level: Light activity Discharge Diet: Regular Prescriptions: No Action prenat.vits,javi,[id number]-blyhj Tablet 1 tab PO QDAY citalopram 20 mg tablet 20 mg PO QDAY docusate sodium [Colace] 100 mg capsule 100 mg PO BID PRN Follow Up/Referrals: Terri Sullivan PA-C [Primary Care Provider] - Stand Alone Forms: [facility] Info Instructions
[2022-10-23] MEDS: 0.9 % SODIUM CHLORIDE 1000 ml 1,000 ML 1200 ML IV (10:15)
[2022-10-23 10:32] LABS: Troponin, Point-of-Care* 0.01 ng/ml (0.01-0.04)
[2022-10-23 10:33] LABS: Basophils Absolute Auto 0.01 K/uL (0.00-0.30); Basophils Percent Auto 0.1 % (0.0-3.0); Eosinophils Absolute Auto 0.06 K/uL (0.00-0.50); Eosinophils Percent Auto 0.7 % (0.0-7.0); Hematocrit 34.9 % (33.0-51.0); Hemoglobin* 12.2 gm/dL (12.0-16.0); Immature Granulocytes Abs Auto 0.08 K/uL (0.00-0.30); Immature Granulocytes Pct Auto 0.9 %; Lymphocytes Percent Auto 14.8 % (20-44); Mean Corpuscular HGB Conc 35 gm/dL (32-36); Mean Corpuscular Hemoglobin 31 pg (26-34); Mean Corpuscular Volume 89 fL (80-100); Monocytes Percent Auto 6.6 % (0.0-11.0); Neutrophils Percent Auto 76.9 % (42.0-72.0); Platelet Count* 202 K/uL (140-440); RDW Coefficient of Variation % 12.3 % (11.5-15.5); Red Blood Count 3.92 m/uL (4.00-5.20); White Blood Count* 8.74 K/uL (4.50-11.00)
[2022-10-23 10:35] LABS: Slide Review Reflex No
[2022-10-23 10:48] LABS: Albumin* 3.2 g/dL (3.3-5.0); Chloride* 106 mmol/L (96-114)
[2022-10-23 10:49] LABS: Potassium* 3.6 mmol/L (3.6-5.1); Sodium* 134 mmol/L (135-149)
[2022-10-23 10:51] LABS: Creatinine* 0.5 mg/dL (0.5-1.5); Est. Creatinine Clearance* 149.39; Estimated Glomerular Filt Rate 130 ml/min
[2022-10-23 10:52] LABS: Alanine Aminotransferase* 16 U/L (4-35); Alkaline Phosphatase* 81 U/L (40-150); Aspartate Amino Transferase* 24 U/L (12-35); Bilirubin Total* 0.3 mg/dL (0.1-1.5); Blood Urea Nitrogen* 4 mg/dL (5-24); Calcium* 8.4 mg/dL (8.4-10.6); Carbon Dioxide* 21 mmol/L (20-32); Glucose* 100 mg/dL (60-115); Total Protein* 6.1 g/dL (6.0-8.3)
[2022-10-23 10:55] LABS: C Reactive Protein* 0.9 mg/dL (0.5-1.0)
[2022-10-23 11:21] LABS: Troponin I* < 0.01 ng/mL (0.01-0.04)
--- NOTE | 2022-10-23 11:40 | ED.NURSE ---
OB RN at bedside.
[2022-10-23 11:55] LABS: Troponin, Point-of-Care* 0.01 ng/ml (0.01-0.04)
--- NOTE | 2022-10-23 12:35 | PC.OBNST ---
NST Note NST Note Start: 10/23/22 12:27 Freq: ONCE Status: Active Protocol: Document 10/23/22 12:34 AMY (Rec: 10/23/22 12:35 Tayler [id number]) NST Note 1 EDC 12/31/22 Gestational Age In Weeks & Days 30 Weeks & 1 Days Patient Presented with Complaint(s) of Other Other Complaints In ED for SOB, chest pain and decreased FM. Reactive Yes Appropriate for Gestational Age Yes SUDEEP Andrew RN Date 10/23/22 Reactive Yes Appropriate for Gestational Age Yes SUDEEP Hartman RNC Date 10/23/22 OB NST charge Yes Complete NST Note via Write Note Yes The provider's electronic signature indicates the NST is reactive/appropriate for gestational age. *Note to provider: If an addendum is required, open the patient's chart and click on the note under the Nurse/Allied Health tab.
== END 2022-10-23 12:10 | disposition home or self-care (01) ==
PROVIDERS: Emergency Provider Family Medicine; PCP Physician Assistant Medical
DX: O36.8130 Decreased fetal movements, third trimester, not applicable or unspecified (principal); R07.9 Chest pain, unspecified; Z3A.30 30 weeks gestation of pregnancy
CPT/HCPCS: 36415; 59025; 71260; 80048; 80076; 84484; 85025; 86140; 93005; 94761; 96360; 99284; 99285; J7030; Q9967

== ENCOUNTER 2022-11-13 10:52 | Outpatient (CLI) | payer OTHER, SELFPAY ==
[2022-11-13 11:08] VITALS: PULSE 94; O2SAT 97
[2022-11-13 11:13] VITALS: BP 124/74; PULSE 87; RESP 16; TEMP 36.8
[2022-11-13] MEDS: NIFEdipine 10 MG CAPSULE PO (11:26)
[2022-11-13 12:25] LABS: Appearance Urine Slightly Cloudy (Clear); Bilirubin Urine Negative (Negative); Blood Urine 1+ (Negative); Color Urine Yellow (Yellow); Glucose Urine Negative (Negative); Ketones Urine Negative (Negative); Leukocyte Esterase Urine 3+ (Negative); Nitrite Urine Negative (Negative); Protein Urine Trace (Negative); pH Urine 6.5 (5.0-8.5)
[2022-11-13 12:32] LABS: Amphetamine Screen Urine Negative (Negative); Barbiturate Screen Urine Negative (Negative); Benzodiazepines Screen Urine Negative (Negative); Cannabinoid Screen Urine Negative (Negative); Cocaine Screen Urine Negative (Negative); Methadone Screen Urine Negative (Negative); Methamphetamines Screen Urine Negative (Negative); Opiate Screen Urine Negative (Negative); Oxycodone Screen Urine Negative (Negative); Phencyclidine Screen Urine Negative (Negative); Tricyclic Antidepressant Urine Negative (Negative)
[2022-11-13 12:33] LABS: RBC Urine 0-2 (0-2); Squamous Epithelial Cell Urine Few (None-Few)
--- NOTE | 2022-11-13 14:15 | PC.OBNST ---
NST Note NST Note Start: 11/13/22 11:08 Freq: ONCE Status: Active Protocol: Document 11/13/22 14:12 EGM (Rec: 11/13/22 14:14 EG [id number]) NST Note 1 Para (# of births) 0 EDC 12/31/22 Gestational Age In Weeks & Days 33 Weeks & 1 Days Patient Presented with Complaint(s) of Contractions/cramping Other Complaints R/O labor Reactive Yes Appropriate for Gestational Age Yes SUDEEP Gould, RN Date 11/13/22 Reactive Yes Appropriate for Gestational Age Yes SUDEEP Carranza, SUDEEP Date 11/13/22 OB NST charge Yes Complete NST Note via Write Note Yes The provider's electronic signature indicates the NST is reactive/appropriate for gestational age. *Note to provider: If an addendum is required, open the patient's chart and click on the note under the Nurse/Allied Health tab.
--- NOTE | 2022-11-13 22:04 | PM.OBLDTN ---
OB - Triage/Final Diagnosis Visit Information Date Seen: 11/13/22 Date of evaluation: 11/13/22 Narrative: The patient is a 31 year old 1 para 0 at 33 1/7 weeks gestation by certain LMP, who presents with contractions and newly diagnosed cervical change. She was sent over to the clinic for further monitoring, IV fluid hydration, and UA/UC. A wet prep it already been done in the clinic, which was negative. A fibronectin swab was also obtained in the clinic, which was negative. She received betamethasone 12 mg IM in the clinic before being sent to the center. Please see my clinic note dated 11/13/2022 for details. Reason for evaluation: threatened labor (Pre term) Evaluation Cervical dilation (cm): 1 Cervical effacement (%): 20 Laboratory results: Laboratory Tests 11/13/22 11/13/22 Range/Units 12:07 11:08 Urine Color Yellow (Yellow) Urine Appearance Slightly Cloudy A (Clear) Urine pH 6.5 (5.0-8.5) Ur Specific Clark 1.020 (1.000-1.030) Urine Protein Trace A (Negative) Urine Glucose (UA) Negative (Negative) Urine Ketones Negative (Negative) Urine Blood 1+ A (Negative) Urine Nitrite Negative (Negative) Urine Bilirubin Negative (Negative) Urine Urobilinogen 1.0 (0.2-1.0) Ur Leukocyte Esterase 3+ A (Negative) Urine RBC 0-2 (0-2) Urine WBC 10-25 A (0-5) Ur Squamous Epith Cells Few (None-Few) Urine Bacteria None (None) Urine Opiates Screen Negative (Negative) Ur Oxycodone Screen Negative (Negative) Urine Methadone Screen Negative (Negative) Ur Propoxyphene Screen Negative (Negative) Ur Barbiturates Screen Negative (Negative) U Tricyclic Antidepress Negative (Negative) Ur Phencyclidine Scrn Negative (Negative) Ur Amphetamines Screen Negative (Negative) U Methamphetamines Scrn Negative (Negative) U Benzodiazepines Scrn Negative (Negative) Urine Cocaine Screen Negative (Negative) U Marijuana (THC) Screen Negative (Negative) Vital signs: Vital Signs - 24 hr 11/13/22 11:08 11/13/22 11:13 11/13/22 11:13 Temperature 98.3 F Pulse Rate 87 Respiratory Rate 16 Blood Pressure 124/74 Pulse Oximetry 97 Fetus (Single) Heart Rate Baseline: 140 Senior Care Variability: Moderate (6-25) Monitor Accelerations: Present Monitor Decelerations: None Station: -3 Final Diagnosis (1) UTI in : Status: Acute Problem details: Will empirically treat with amoxicillin 500 mg p.o. t.i.d. while urine culture is pending. (2) labor in third trimester: Status: Acute Problem details: Signs symptoms of labor were reviewed. fibronectin negative. Prescription sent for nifedipine 10 mg q.6 hours. Follow-up in [facility] tomorrow for 2nd betamethasone injection and re-evaluation.
--- NOTE | 2023-01-01 18:31 | PC.OBNST ---
NST Note NST Note Start: 11/13/22 11:08 Freq: ONCE Status: Discharge Protocol: Document 11/13/22 14:12 EGM (Rec: 11/13/22 14:14 EG [id number]) NST Note 1 Para (# of births) 0 EDC 12/31/22 Gestational Age In Weeks & Days 33 Weeks & 1 Days Patient Presented with Complaint(s) of Contractions/cramping Other Complaints R/O labor Reactive Yes Appropriate for Gestational Age Yes SUDEEP Gould, RN Date 11/13/22 Reactive Yes Appropriate for Gestational Age Yes SUDEEP Carranza, SUDEEP Date 11/13/22 OB NST charge Yes Complete NST Note via Write Note Yes The provider's electronic signature indicates the NST is reactive/appropriate for gestational age. *Note to provider: If an addendum is required, open the patient's chart and click on the note under the Nurse/Allied Health tab.
== END 2022-11-13 13:15 | disposition home or self-care (01) ==
LOC: OB OUT 10:53 → OB 10:54
PROVIDERS: PCP Physician Assistant Medical; Visit Provider Obstetrics & Gynecology
DX: O60.03 Preterm labor without delivery, third trimester (principal); O23.43 Unspecified infection of urinary tract in pregnancy, third trimester; Z3A.33 33 weeks gestation of pregnancy
CPT/HCPCS: 59025; 80306; 81003; 81015; 84112; 87086; 99213; A9270

== ENCOUNTER 2022-11-14 11:40 | Outpatient (CLI) | payer OTHER, SELFPAY ==
[2022-11-14 12:44] LABS: Fetal Fibronectin* Negative (Negative)
== END 2022-11-14 11:41 | disposition home or self-care (01) ==
LOC: NFLDREF 11:40
PROVIDERS: PCP Physician Assistant Medical; Visit Provider Physician Assistant
DX: O60.03 Preterm labor without delivery, third trimester (principal)
CPT/HCPCS: 84112

== ENCOUNTER 2022-11-18 10:09 | Outpatient (CLI) | payer OTHER, SELFPAY ==
[2022-11-18 11:29] LABS: Fetal Fibronectin* Negative (Negative)
== END 2022-11-18 10:10 | disposition home or self-care (01) ==
LOC: NFLDREF 10:09
PROVIDERS: PCP Physician Assistant Medical; Visit Provider Obstetrics & Gynecology
DX: O60.03 Preterm labor without delivery, third trimester (principal)
CPT/HCPCS: 84112

== ENCOUNTER 2022-11-22 13:22 | Outpatient (CLI) | payer OTHER, SELFPAY ==
[2022-11-22 13:32] VITALS: RESP 16; TEMP 36.8
[2022-11-22 13:33] VITALS: PULSE 112; O2SAT 96
[2022-11-22 13:38] VITALS: PULSE 102; O2SAT 97
[2022-11-22 13:43] VITALS: BP 124/77; PULSE 102
[2022-11-22 13:53] VITALS: BP 134/88; PULSE 115
[2022-11-22 14:26] LABS: Appearance Urine Clear (Clear); Bilirubin Urine Negative (Negative); Blood Urine Negative (Negative); Color Urine Yellow (Yellow); Glucose Urine Negative (Negative); Ketones Urine Negative (Negative); Leukocyte Esterase Urine 3+ (Negative); Nitrite Urine Negative (Negative); Protein Urine 1+ (Negative); Specific Gravity Urine 1.025 (1.000-1.030)
[2022-11-22 14:39] LABS: Bacteria Urine Moderate; RBC Urine 0-2 (0-2); Squamous Epithelial Cell Urine Few (None-Few); WBC Clumps Urine Few
[2022-11-22 14:40] LABS: Amorphous Sediment Urine Few; Fine Granular Casts Urine Few
--- NOTE | 2022-11-22 15:01 | CRLHL7_ITS ---
For Patients: As a result of the Cures Act, medical imaging exams and procedure reports are released immediately into your electronic medical record. You may view this report before your referring provider. If you have questions, please contact your health care provider. INDICATION: History of nephrolithiasis. . TECHNIQUE: Ultrasound renal and bladder complete. Isaac-scale and color Doppler sonographic images were acquired of the kidneys and urinary bladder. COMPARISON: 01/31/2019. FINDINGS: Right kidney: 10.7 x 4.4 x 5.1 cm. 1.1 cm renal cortical thickness. Left kidney: 11.9 x 5.0 x 4.1 cm. 1.1 cm renal cortical thickness. Normal echotexture and cortex. No suspicious masses, stones, or hydronephrosis. Bladder: No significant incidental findings. Color Doppler images demonstrate bilateral ureteral jets. IMPRESSION: No evidence of nephrolithiasis or hydronephrosis. Dictated by Doni Oconnell MD @ 11/22/2022 4:04:18 PM (Electronically Signed)
[2022-11-22] MEDS: NIFEdipine 10 MG CAPSULE PO (15:07)
[2022-11-22] MEDS: LACTATED RINGERS 1000 ML 1,000 ML IV (15:19)
[2022-11-22 15:45] LABS: Blood Urea Nitrogen* 9 mg/dL (5-24); Creatinine* 0.5 mg/dL (0.5-1.5); Estimated Glomerular Filt Rate 130 ml/min
--- NOTE | 2023-01-01 18:25 | PC.OBNST ---
NST Note NST Note Start: 11/22/22 13:28 Freq: ONCE Status: Discharge Protocol: Document 11/22/22 16:38 MMB (Rec: 11/22/22 16:39 MMB [id number]) NST Note 1 Para (# of births) 0 EDC 12/31/22 Gestational Age In Weeks & Days 34 Weeks & 3 Days Patient Presented with Complaint(s) of Contractions/cramping Reactive Yes Appropriate for Gestational Age Yes RN Margarette Montoya RN Date 11/22/22 Reactive Yes Appropriate for Gestational Age Yes RN Ronald Rao RN Date 11/22/22 OB NST charge Yes Complete NST Note via Write Note Yes The provider's electronic signature indicates the NST is reactive/appropriate for gestational age. *Note to provider: If an addendum is required, open the patient's chart and click on the note under the Nurse/Allied Health tab.
== END 2022-11-22 16:25 | disposition home or self-care (01) ==
LOC: OB OUT 13:23 → OB 13:23
PROVIDERS: PCP Physician Assistant Medical; Visit Provider Obstetrics & Gynecology
DX: O47.03 False labor before 37 completed weeks of gestation, third trimester (principal); Z3A.33 33 weeks gestation of pregnancy
CPT/HCPCS: 36415; 59025; 76775; 81003; 81015; 82565; 84520; 87086; 99213; A9270; J7120

== ENCOUNTER 2022-11-28 08:43 | Outpatient (CLI) | payer OTHER, SELFPAY ==
--- NOTE | 2022-11-28 08:45 | CRLHL7_ITS ---
For Patients: As a result of the Century Cures Act, medical imaging exams and procedure reports are released immediately into your electronic medical record. You may view this report before your referring provider. If you have questions, please contact your health care provider. INDICATION: HX LABOR COMPARISON: 08/13/2022 TECHNIQUE: Real time edwards scale imaging of the fetus was performed. FINDINGS: Sonographic imaging demonstrates a single living intrauterine gestation. Fetus demonstrates a regular cardiac rate of 131 beats per minute. Fetus has a vertex position. The placenta lies anteriorly. Amniotic fluid volume appears normal and there is a single deepest vertical pocket: 7.7 cm. The estimated weight is 2481gm which lies at the 30th %. On the prior OB ultrasound exam dated 08/13/2022 the estimated weight was at the 74th%. The BPD 67th percentile. HC 33rd percentile. AC 58th percentile. FL less than 3rd percentile. The HC/AC ratio measures 1.02 range (0.93-1.11). Endovaginal measurements of the cervix performed which measures 3.8 cm. No funneling with pressure. IMPRESSION: Sonographic gestational age 34 weeks 6 days and sonographic due date 01/03/2023. Good correlation with dates. Estimated weight 30th percentile. Abdominal circumference 58th percentile. Cervix is closed and measures 3.8 cm. Femur length less than 3rd percentile. Dictated by Alfonzo Dee MD @ 11/28/2022 3:27:04 PM (Electronically Signed)
== END 2022-11-28 08:44 | disposition home or self-care (01) ==
LOC: US 08:44
PROVIDERS: PCP Physician Assistant Medical; Visit Provider Obstetrics & Gynecology
DX: O09.213 Supervision of pregnancy with history of pre-term labor, third trimester (principal); Z3A.34 34 weeks gestation of pregnancy
CPT/HCPCS: 76816; 76817; 87081; 87653

== ENCOUNTER 2022-12-09 14:00 | Inpatient (IN) | payer OTHER, SELFPAY ==
[2022-12-09] VITALS (8 sets, daily range): BP systolic 112–136; BP diastolic 56–84; PULSE 71–100; RESP 16–18; TEMP 36.6–37.1; O2SAT 98
[2022-12-09 10:50] LABS: Amnisure Rom* Negative
[2022-12-09 11:47] LABS: Hematocrit 39.5 % (33.0-51.0); Hemoglobin* 13.4 gm/dL (12.0-16.0); Mean Corpuscular HGB Conc 34 gm/dL (32-36); Mean Corpuscular Hemoglobin 30 pg (26-34); Mean Corpuscular Volume 89 fL (80-100); Platelet Count* 222 K/uL (140-440); Red Blood Count 4.45 m/uL (4.00-5.20); White Blood Count* 10.88 K/uL (4.50-11.00)
[2022-12-09 11:49] LABS: Slide Review Reflex No
[2022-12-09 12:13] LABS: INR 0.89 (0.91-1.10); Prothrombin Time 12.6 Seconds
[2022-12-09 12:14] LABS: Fibrinogen* 511 mg/dL (200-450); Partial Thromboplastin Time* 26 Seconds (23-33)
[2022-12-09] MEDS: hydrOXYzine pamoate 25 MG CAPSULE 100 MG PO (21:05)
[2022-12-10 02:41] VITALS: BP 129/73; PULSE 74; RESP 12; TEMP 36.7
[2022-12-10 06:55] VITALS: BP 106/58; PULSE 90; RESP 16; TEMP 37
--- NOTE | 2022-12-10 08:35 | W.PM.LDBA ---
Subjective History of Present Illness Time Seen by Provider: 12:00 Date Seen: 12/09/22 Narrative: Patient is being admitted to Labor and Delivery for vaginal bleeding, regular contractions and possible rupture of membrane. She is a 31 year old at 36w6d gestation. Patient's has been complicated by labor requiring previous admission. She received BMZ x2 on 11/13/2022. She was also on a short course of nifedipine for tocolysis. She stopped this at 35 weeks. Since then, she's been having frequent contractions. Currently, she alfred q 3 minutes. She's coming in because she lost her mucous plug with small amount of bleeding associated with it. She did not have a big gush of fluid but reports everything felt wet. Continued active movement. Denies abnormal vaginal discharge. Specific Issues/Plans G1 : Isai 1. Anxiety Managed by Lorin Deal at [facility], declined therapy referral at [facility]. Citalopram 20mg daily Dosage increased to 40 mg p.o. daily on 12/04/2022 2. Hx of Migraines w/o aura 3. Hx of lumpectomy in left breast 4. FAS: Inderterminate area of hypoechoic material within the gestational sac adjacent to the internal cervical os measuring 2.0 cm. Follow-up in the 3rd trimester recommended. - Plan to repeat US at 28 weeks: 10/11/2022: Breech, single deepest pocket of amniotic fluid 4.2 cm, BPD: 68 percentile, HC: 74 percentile, AC: 42 percentile, FL: 17 percentile, EFW: 1222 g, 36 percentile. No evidence of hypoechoic material within gestational sac adjacent to internal os seen on previous ultrasound. - 11/28/2022 single deepest pocket of amniotic fluid 7.7 cm, BPD: 67 percentile, HC: 33 percentile, AC: A 58th percentile, femur length less than the 3rd percentile, EFW 2481 g, 30th percentile 5. Pre term contractions. Cervical change noted on 11/13/2022 UA/UC obtained on 11/13/2022: UA suspicious for UTI. Empiric antibiotic therapy initiated with amoxicillin 500 mg p.o. t.i.d.. fibronectin negative on 11/13/2022. Betamethasone 12 mg IM administered on 11/13/2022. Second dose to be administered on 11/14/2022. Nifedipine 10 mg p.o. q.6 hours prescribed on 11/13/2022. Continue until 35 weeks gestation. Pap due COVID: fully vaccinated, not boosted Flu: declines TDAP given 10/21/22 OB - Problem Based A/P Additional Plan (1) Vaginal bleeding in : Status: Acute Plan - Suspect that vaginal bleeding related to cervical change and labor - Will admit overnight for continuous monitoring due to frequency of contraction and patient's discomfort. Recheck in the AM to assess labor progression or PRN per clinical situation. - Will draw CBC and coag Delivery/Labor/Induction Plan Plan: expectant management OB Result Labs Labs: - Amnisure negative OB Exam Physical Exam Vital signs: Temp Pulse Resp BP Pulse Ox 98.6 F 90 16 106/58 L 98 12/10/22 06:55 12/10/22 06:55 12/10/22 06:55 12/10/22 06:55 12/09/22 10:19 Detailed Labor and Delivery Exam Patient Gravid: Yes Dilation (cm): 2 Effacement (%): 50 Cervix position: mid Consistency: medium Contraction Frequency: Q3 minutes Contraction intensity: Moderate Fetus (Single) Station: -3 Amniotic Membrane Status: intact Heart Rate Baseline: 130 Monitor Accelerations: Present Monitor Decelerations: None Clinical Product Manager Variability: Moderate (6-25) Additional Findings Additional findings: Membrane palpably intact. Moderate amount of blood/mucous on glove after cervical exam. No brisk bleeding
--- NOTE | 2022-12-10 10:43 | W.PM.OBO ---
OB Outpatient HPI History of Present Illness Date Seen: 12/10/22 History of Present Illness: 31 year old at 37.0 weeks gestation by LMP, LEE , presents with questionable leaking fluid last evening. After her cervical check she did have an increase in vaginal bleeding so it was decided to observe overnight. She does have a history of contractions with cervical change at 33 weeks. She was started on Nifedipine which was discontinued at 35 weeks. Over night she did continue to contract but was able to sleep with Vistaril. She states that after she woke up the contractions felt stronger. We had a lengthy discussion about vaginal bleeding at the end of , early labor vs active labor, when to be seen and evaluated, and when an elective IOL would be appropriate. I did encourage her to call or be seen for concerns or changes. Her partner had questions about work restrictions. We discussed normal precautions. She does desire to continue working as she is able and feels that her work will be able to accommodate if needed. 1. Anxiety Managed by Lorin Deal at [facility], declined therapy referral at [facility]. Citalopram 20mg daily Dosage increased to 40 mg p.o. daily on 12/04/2022 2. Hx of Migraines w/o aura 3. Hx of lumpectomy in left breast 4. FAS: Indeterminate area of hypoechoic material within the gestational sac adjacent to the internal cervical os measuring 2.0 cm. Follow-up in the 3rd trimester recommended. - Plan to repeat US at 28 weeks: 10/11/2022: Breech, single deepest pocket of amniotic fluid 4.2 cm, BPD: 68 percentile, HC: 74 percentile, AC: 42 percentile, FL: 17 percentile, EFW: 1222 g, 36 percentile. No evidence of hypoechoic material within gestational sac adjacent to internal os seen on previous ultrasound. - 11/28/2022 single deepest pocket of amniotic fluid 7.7 cm, BPD: 67 percentile, HC: 33 percentile, AC: A 58th percentile, femur length less than the 3rd percentile, EFW 2481 g, 30th percentile 5. Pre term contractions. Cervical change noted on 11/13/2022 UA/UC obtained on 11/13/2022: UA suspicious for UTI. Empiric antibiotic therapy initiated with amoxicillin 500 mg p.o. t.i.d.. fibronectin negative on 11/13/2022. Betamethasone 12 mg IM administered on 11/13/2022. Second dose to be administered on 11/14/2022. Nifedipine 10 mg p.o. q.6 hours prescribed on 11/13/2022. Continue until 35 weeks gestation. Baby moving naturally: Yes Bleeding: No (no longer bleeding. Old brown blood noted with SVE but no bright red blood ) Contractions: Yes Leaking fluid: No Discharge: No Meds Home Medications and Allergies Home Medications Medication Instructions Recorded Confirmed Type prenat.vits,javi,nyq-oyyb-vorkn 1 tab PO QDAY 04/29/22 12/09/22 History docusate sodium 100 mg capsule 100 mg PO BID PRN 07/04/22 12/09/22 History (Colace) Allergies Allergy/AdvReac Type Severity Reaction Status Date / Time ketorolac [From Toradol] Allergy Mild Rash Verified 12/09/22 16:31 nitrofurantoin Allergy Mild throat Verified 12/09/22 16:31 swelling [facility] Medical History 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 - Other specified disorders of arteries and arterioles (ICD-10) Multiple kidney stones ?N20.0 - Calculus of kidney (ICD-10) Migraine headache ?G43.909 - Migraine, unspecified, not intractable, without status migrainosus (ICD-10) Calculus of kidney ?N20.0 - Calculus of kidney (ICD-10) Surgical History History of lumpectomy of left breast ?Z98.890 - Other specified postprocedural states (ICD-10) History of cholecystectomy ?Z90.49 - Acquired absence of other specified parts of digestive tract (ICD-10) History of appendectomy ?Z90.49 - Acquired absence of other specified parts of digestive tract (ICD-10) Family History Father Alcohol dependence Paternal Grandmother Breast cancer Maternal Grandmother Heart disease Stroke Maternal Grandfather Heart disease Social History Smoking Status: Never smoker Do you use any of these nicotine containing products: None Second hand tobacco smoke exposure: No How often do you have a drink containing alcohol: never How often do you have six or more drinks on one occasion: Never AUDIT-C Alcohol total score: 0 Non-prescribed substance use: denies use Little interest or pleasure in doing things: not at all Feeling down, depressed, or hopeless: not at all service: No History History 1 Elective abortions 0 Para 0 Spontaneous abortions 0 Hx # Term Pregnancies 0 Ectopic pregnancies Hx # Pregnancies 0 Multiple births Number of Living Children 0 OB - H&P: Exam Physical Exam Vital signs: Temp Pulse Resp BP Pulse Ox 98.6 F 90 16 106/58 L 98 12/10/22 06:55 12/10/22 06:55 12/10/22 06:55 12/10/22 06:55 12/09/22 10:19 Narrative: Psychiatric:? Alert and oriented x3? HEENT:? Normocephalic, atraumatic? Neck:? Supple without adenopathy or thyromegaly? Lungs:? Clear to auscultation bilaterally? Heart:? Regular rate and rhythm, no murmur, rub or gallop? Abdomen:? Soft, nontender, and gravid? Extremities:? No edema or erythema? Pelvic: SVE unchanged from pervious exams? Membrane status:? intact? Labs Labs Laboratory Tests 12/09/22 12/09/22 Range/Units 11:36 10:33 WBC 10.88 (4.50-11.00) K/uL RBC 4.45 (4.00-5.20) m/uL Hgb 13.4 (12.0-16.0) gm/dL Hct 39.5 (33.0-51.0) % MCV 89 (80-100) fL MCH 30 (26-34) pg MCHC 34 (32-36) gm/dL Plt Count 222 (140-440) K/uL INR 0.89 L (0.91-1.10) APTT 26 (23-33) Seconds Fibrinogen 511 H (200-450) mg/dL Membrane Rupture Negative Assessment and Plan Assessment and plan (1) Vaginal bleeding in : Problem comment: not bleeding at discharge Status: Acute (2) : Status: Acute Plan Discharge home. Labor and bleeding precaution reviewed. Follow up with previously schedule appointment.
--- NOTE | 2022-12-10 16:42 | PC.OBNST ---
NST Note NST Note Start: 12/09/22 10:01 Freq: ONCE Status: Cancelled Protocol: Document 12/10/22 09:00 JARAD (Rec: 12/10/22 16:42 JARAD [id number]) NST Note 1 Para (# of births) 0 EDC 12/31/22 Gestational Age In Weeks & Days 37 Weeks & 0 Days Patient Presented with Complaint(s) of Vaginal bleeding Reactive Yes Appropriate for Gestational Age Yes SUDEEP Crawford RN Date 12/10/22 Reactive Yes Appropriate for Gestational Age Yes SUDEEP Hicks RN Date 12/10/22 OB NST charge Yes Complete NST Note via Write Note Yes The provider's electronic signature indicates the NST is reactive/appropriate for gestational age. *Note to provider: If an addendum is required, open the patient's chart and click on the note under the Nurse/Allied Health tab.
== END 2022-12-10 09:05 | disposition home or self-care (01) | DRG 831 ==
LOC: OB OUT 16:38 → OB 16:38
PROVIDERS: Admitting Provider Obstetrics & Gynecology; PCP Physician Assistant Medical; Visit Provider Obstetrics & Gynecology
DX: O46.93 Antepartum hemorrhage, unspecified, third trimester (principal); O60.03 Preterm labor without delivery, third trimester; O99.343 Other mental disorders complicating pregnancy, third trimester; F41.9 Anxiety disorder, unspecified; Z3A.36 36 weeks gestation of pregnancy
CPT/HCPCS: 36415; 59025; 84112; 85027; 85384; 85610; 85730; A9270

== ENCOUNTER 2022-12-11 09:14 | Outpatient (CLI) | payer OTHER, SELFPAY ==
--- NOTE | 2022-12-11 09:59 | CRLHL7_ITS ---
For Patients: As a result of the Century Cures Act, medical imaging exams and procedure reports are released immediately into your electronic medical record. You may view this report before your referring provider. If you have questions, please contact your health care provider. INDICATION: History of labor COMPARISON: 11/28/2022 TECHNIQUE: Real-time edwards-scale imaging of the pelvis was performed. FINDINGS: heart rate 157 beats per minute. Single deepest pocket amniotic fluid 7.5 cm. Placenta is anterior. position is cephalic. IMPRESSION: Normal amniotic fluid. Normal anterior placenta. Dictated by Alfonzo Dee MD @ 12/11/2022 10:55:51 AM (Electronically Signed)
[2022-12-11 10:17] LABS: Amnisure Rom* Negative
--- NOTE | 2022-12-11 12:00 | PC.OBNST ---
NST Note NST Note Start: 12/11/22 09:44 Freq: ONCE Status: Active Protocol: Document 12/11/22 11:35 CUDDYH (Rec: 12/11/22 11:59 CUDDY [id number]) NST Note 1 Para (# of births) 0 EDC 12/31/22 Gestational Age In Weeks & Days 37 Weeks & 1 Days Patient Presented with Complaint(s) of Contractions/cramping,Leaking fluid,Decreased movement Reactive Yes Appropriate for Gestational Age Yes RN Anais Rao RN Date 12/11/22 Reactive Yes Appropriate for Gestational Age Yes SUDEEP Santos RN Date 12/11/22 OB NST charge Yes Complete NST Note via Write Note Yes The provider's electronic signature indicates the NST is reactive/appropriate for gestational age. *Note to provider: If an addendum is required, open the patient's chart and click on the note under the Nurse/Allied Health tab.
== END 2022-12-11 11:35 | disposition home or self-care (01) ==
LOC: NFLDREF 09:15 → OB 11:18 → NFLDREF 11:23 → OB 11:23
PROVIDERS: PCP Physician Assistant Medical; Visit Provider Obstetrics & Gynecology
DX: Z34.93 Encounter for supervision of normal pregnancy, unspecified, third trimester (principal); Z3A.37 37 weeks gestation of pregnancy
CPT/HCPCS: 59025; 76815; 84112; 85384; 99213

== ENCOUNTER 2022-12-25 07:01 | Inpatient (IN) | payer OTHER, SELFPAY ==
[2022-12-25] VITALS (73 sets, daily range): BP systolic 110–150; BP diastolic 57–89; PULSE 65–116; RESP 16; TEMP 36.6–37.1; O2SAT 95–100; BMI 25.7
--- NOTE | 2022-12-25 07:54 | P.LDBA_ITS ---
Subjective History of Present Illness Time Seen by Provider: 07:54 Date Seen: 12/25/22 Narrative: Patient is being admitted to Labor and Delivery for elective induction of labor. She is a 32 year old at 39w1d gestation. Her full history and physical was dictated by Dr. Vieyra on 12/11/2022. Please see this for details. Blayne is feeling well today with no acute concerns. Notes ongoing intermittent contractions. No vaginal bleeding or leaking of fluids. Endorses active movement. Specific Issues/Plans H&P by [facility] on 12/11/22- heart/lung exam done at 38 week visit. G1 : Isai 1. Anxiety * Managed by Lorin Deal at [facility], declined therapy referral at [facility]. * Citalopram 20mg daily * Dosage increased to 40 mg p.o. daily on 12/04/2022 2. Hx of Migraines w/o aura 3. Hx of lumpectomy in left breast 4. FAS: Inderterminate area of hypoechoic material within the gestational sac adjacent to the internal cervical os measuring 2.0 cm. Follow-up in the 3rd trimester recommended. - Plan to repeat US at 28 weeks: 10/11/2022: Breech, single deepest pocket of amniotic fluid 4.2 cm, BPD: 68 percentile, HC: 74 percentile, AC: 42 percentile, FL: 17 percentile, EFW: 1222 g, 36 percentile. No evidence of hypoechoic material within gestational sac adjacent to internal os seen on previous ultrasound. - 11/28/2022 single deepest pocket of amniotic fluid 7.7 cm, BPD: 67 percentile, HC: 33 percentile, AC: A 58th percentile, femur length less than the 3rd percentile, EFW 2481 g, 30th percentile 5. Pre term contractions. Cervical change noted on 11/13/2022 * UA/UC obtained on 11/13/2022: UA suspicious for UTI. Empiric antibiotic therapy initiated with amoxicillin 500 mg p.o. t.i.d.. * fibronectin negative on 11/13/2022. * Betamethasone 12 mg IM administered on 11/13/2022. Second dose to be administered on 11/14/2022. * Nifedipine 10 mg p.o. q.6 hours prescribed on 11/13/2022. Continue until 35 weeks gestation. Pap due COVID: fully vaccinated, not boosted Flu: declines TDAP given 10/21/22 OB - Problem Based A/P Additional Plan (1) : Problem details: Frequent contractions without active labor Status: Acute (2) Anxiety: Status: Acute (3) contractions: Status: Acute Plan - Admit to Labor and delivery for induction of labor. Start induction with Pitocin per exam by Dr. Celestin on 12/23. - Plan to start penicillin for GBS prophylaxis. Patient notes history of nausea with antibiotics, thus we will proceed with Zofran prophylactically. - BT A positive - Anticipate next exam in 4 hours, sooner as clinically indicated. Discussed likely plan to proceed with amniotomy at that time. Patient seen and evaluated alongside Dr. Vieyra who is in agreement with the above assessment and plan. OB Result Labs Labs: Blood type A positive GBS positive OB Exam Physical Exam Vital signs: Pulse BP Pulse Ox 100 124/89 97 12/25/22 07:18 12/25/22 07:18 12/25/22 07:18 Narrative: General: Alert and oriented, in no acute distress Abdomen: Gravid Pelvic: Exam deferred as recently completed by Dr. Celestin. 380/-2 by her exam on 12/23. NST: Reactive. Baseline of 135 beats per minute, accelerations present. Decelerations absent. Annabel about once every 10 minutes per toco.
[2022-12-25] MEDS: ONDANSETRON 2 MG/ML inj 4 MG IV ×3 (08:46→16:47)
[2022-12-25] MEDS: AMPICILLIN 2 GM in 0.9 % SODIUM CHLORIDE Mini-bag 100 ML IVPB (08:48)
[2022-12-25] MEDS: LACTATED RINGERS 1000 ML 1,000 ML 125 ML IV ×2 (08:49→12:20)
[2022-12-25] MEDS: OXYTOCIN 30 unit/500 ML in NS 30 UNIT/500 ML BAG IVPB (09:24)
[2022-12-25] MEDS: ROPIVACAINE 0.2% 100 ml 100 ML 12 MG EPIDURAL (12:15)
--- NOTE | 2022-12-25 12:26 | P.ANBPRC_ITS ---
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 - Other specified disorders of arteries and arterioles (ICD-10) Multiple kidney stones ?N20.0 - Calculus of kidney (ICD-10) Migraine headache ?G43.909 - Migraine, unspecified, not intractable, without status migrainosus (ICD-10) Calculus of kidney ?N20.0 - Calculus of kidney (ICD-10) Surgical History History of lumpectomy of left breast ?Z98.890 - Other specified postprocedural states (ICD-10) History of cholecystectomy ?Z90.49 - Acquired absence of other specified parts of digestive tract (ICD- 10) History of appendectomy ?Z90.49 - Acquired absence of other specified parts of digestive tract (ICD- 10) Family History Father Alcohol dependence Paternal Grandmother Breast cancer Maternal Grandmother Heart disease Stroke Maternal Grandfather Heart disease Social History What is your current living situation?: I presently have a place to live Problems where you live: no known problems In the past 12 months, utilities in danger of being shut off: no In past 12 months, lack of transportation kept you from medical appts, meetings, work, or getting things needed for daily living: no In the past 12 mos, have been you worried that your food would run out before you had money to buy more?: never true In the past 12 mos, the food you bought just didn't last and you didn't have money to buy more?: never true Smoking Status: Never smoker Do you use any of these nicotine containing products: None Second hand tobacco smoke exposure: No How often do you have a drink containing alcohol: never How often do you have six or more drinks on one occasion: Never AUDIT-C Alcohol total score: 0 Non-prescribed substance use: denies use How often does anyone, including family, friends and others, physically hurt you : never How often does anyone, including family, friends and others, insult or talk down to you: never How often does anyone, including family, friends and others, threaten you with harm: never How often does anyone, including family, friends and others, scream or curse at you: never Little interest or pleasure in doing things: not at all Feeling down, depressed, or hopeless: not at all service: No Meds Home Medications and Allergies Home Medications Medication Instructions Recorded Confirmed Type prenat.vits,javi,gek-[id number] 1 tab PO QDAY 04/29/22 12/25/22 History docusate sodium 100 mg capsule 100 mg PO BID PRN 07/04/22 12/25/22 History (Colace) Allergies Allergy/AdvReac Type Severity Reaction Status Date / Time ketorolac [From Toradol] Allergy Mild Rash Verified 12/23/22 08:09 nitrofurantoin Allergy Mild throat Verified 12/23/22 08:09 swelling Results Vital Signs Vital Signs: Last Vital Signs Temp 98 F 12/25/22 11:26 Pulse 98 12/25/22 12:25 BP 133/84 12/25/22 12:25 Pulse Ox 98 12/25/22 12:21 Weight: 70.216 kg Height: 165.1 cm Anesthesia Procedures Epidural Insertion Patient Location: OB Start Time: 11:45 Stop Time: 12:15 Start Date: 12/25/22 Stop Date: 12/25/22 Reason for Block: procedure for pain Patient Position: sitting Performed By: Lucina Stout Preanesthetic Checklist: IV checked, risks and benefits discussed, monitors and equipment checked, timeout performed and anesthesia consent Prep: chlorhexidine gluconate Monitoring: blood pressure monitoring, continuous pulse oximetry and heart rate Approach: midline Vertebral Space: lumbar (1-5) Epidural Technique: BLADIMIR saline Needle Type: Tuohy needle Injection Technique: continuous catheter Needle gauge: 17 Needle Length (cm): 10 cm Needle Insertion Depth (cm): 6 Catheter Gauge: 19 Catheter Type: multi-orifice Catheter at skin depth (cm): 12 Test Dose Result: negative and lidocaine 1.5% with epinephrine 1 to 200,000
[2022-12-25] MEDS: AMPICILLIN 1 GM in 0.9 % SODIUM CHLORIDE Mini-bag 100 ML IVPB ×2 (12:47→16:48)
--- NOTE | 2022-12-25 14:37 | PM.OBPNL ---
Subjective Time Seen by Provider: 13:10 Date Seen: 12/25/22 Narrative: Okay, comfortable with epidural Objective Vital Signs: Last Vital Signs Temp 98 F 12/25/22 11:26 Pulse 75 12/25/22 14:25 BP 113/71 12/25/22 14:25 Pulse Ox 98 12/25/22 13:51 Pelvic Exam Dilation (cm): 5 Effacement (%): 90 Station: -1 Contractions Monitor mode: External Contraction pattern: Regular Contraction intensity: Moderate Pitocin Rate (mU/min): 5 Assessment Assessment: induction ongoing Station: -1 Amniotic Membrane Status: AROM Status: Category l Heart Rate Baseline: 130 Monitor Accelerations: Present Monitor Decelerations: None Plan Plan: 1. Continue Oxytocin titration. 2. Continue antibiotics per protocol 3. Comfortable with epidural. 4. Will re check cervix in 4 hours, sooner if any significant clinical changes
--- NOTE | 2022-12-25 18:07 | W.PM.OBVAGDE ---
OB Procedure Vag Delivery Mother Details Mother Details: The patient is a 32 year-old, 1, Para 0, admitted on 12/25/22 at 39 1/7 weeks Days gestation for elective IOL. GBS positive status, received 2 doses of antibiotics prior to delivery. : 1 Para: 1 Weeks Gestation: 39.1 Admission Date: 12/25/22 Additional Details Amniotic Membrane Status: AROM Amniotic Membrane Rupture Date: 12/25/22 Amniotic Membrane Rupture Time: 13:08 Amniotic Membrane Fluid Description: Clear Analgesia/Anesthesia Type: Epidural Waterbirth: No Pitcoin: Yes Intrapartal Events: Labor Induction Induction Method: per pitocin protocol and AROM Delivery augmentation: pitocin Labor Onset: 13:00 Complete: 17:01 Pushin:15 Heart: heart tones during second stage were category, with pushing we had a couple of contractions where heart rate dipped to the 70s, oxytocin was stopped, patient was moved towards a side and scalp stimulation performed with excellent recovery/accelerations afterwards. Delivery Details Delivery Date: 12/25/22 Delivery Time: 17:33 Route of delivery: Gender: Female Viability: Alive; Heart Rate Present Position at Delivery: OA Delivery Details: Delivered over intact perineum via spontaneous vaginal delivery. was placed on maternal abdomen.? Cord was clamped and cut after a 30-60 second delay. Nose and mouth were bulb suctioned.? Infant weight pending. 1 Minute Interval Total Score: 7 5 Minute Interval Total Score: 9 Additional Details Shoulder Dystocia: No Placenta Delivery Time: 17:40 Placental Delivery Description: Spontaneous Delivery repair: Vicryl Procedure Done: Global Blood Loss: 218 Laceration: Vaginal - 2nd Degree Episiotomy Description: None Blood Loss Measurement Type: QBL Bakri Used: No Sponge/Need Count Correct: Yes Cord Vessel Description: 3 Vessels, Nuchal Cord and Delivered through Event Summary Status: Mother and infant were stable after delivery. Disposition: floor
[2022-12-25] MEDS: IBUPROFEN 600 MG TABLET PO ×2 (19:15→23:27)
[2022-12-25 19:30] LABS: Basophils Percent Auto 0.1 % (0.0-3.0); Eosinophils Percent Auto 0.2 % (0.0-7.0); Hematocrit 38.9 % (33.0-51.0); Immature Granulocytes Pct Auto 0.3 %; Lymphocytes Percent Auto 7.5 % (20-44); Mean Corpuscular HGB Conc 33 gm/dL (32-36); Mean Corpuscular Hemoglobin 30 pg (26-34); Mean Corpuscular Volume 89 fL (80-100); Monocytes Percent Auto 5.9 % (0.0-11.0); Platelet Count* 228 K/uL (140-440); RDW Coefficient of Variation % 12.5 % (11.5-15.5); Red Blood Count 4.36 m/uL (4.00-5.20); White Blood Count* 21.88 K/uL (4.50-11.00)
[2022-12-25 19:40] LABS: Slide Review Reflex No
[2022-12-25 19:46] LABS: Alanine Aminotransferase* 18 U/L (4-35); Aspartate Amino Transferase* 30 U/L (12-35); Blood Urea Nitrogen* 6 mg/dL (5-24); Creatinine* 0.6 mg/dL (0.5-1.5); Est. Creatinine Clearance* 123.37; Estimated Glomerular Filt Rate 124 ml/min
[2022-12-25] MEDS: ACETAMINOPHEN 500 MG TABLET 1000 MG PO (22:03)
[2022-12-26] MEDS: CITALOPRAM HYDROBROMIDE 20 MG TABLET 40 MG PO ×2 (00:03→21:43)
[2022-12-26 04:10] VITALS: PULSE 88; RESP 16; TEMP 36.6; O2SAT 97
[2022-12-26] MEDS: ACETAMINOPHEN 500 MG TABLET 1000 MG PO ×2 (04:13→16:30)
[2022-12-26 07:38] LABS: Hemoglobin* 12.4 gm/dL (12.0-16.0)
[2022-12-26 08:19] VITALS: BP 121/80; PULSE 75; RESP 16
[2022-12-26] MEDS: IBUPROFEN 600 MG TABLET PO ×3 (09:20→21:44)
[2022-12-26] MEDS: DOCUSATE SODIUM 100 MG CAPSULE PO (09:21)
--- NOTE | 2022-12-26 10:10 | P.OBPN_ITS ---
OB - PN:Subj Subjective Time Seen by Provider: 10:10 Date Seen: 12/26/22 Patient comments OB post-: no complaints, pain well controlled, tolerating diet and flatus present infant status: and doing well [place] feeding status: exclusively Narrative: Patient feeling well this morning, able to sleep between feedings overnight but does still feels slightly tired, lochia minimal, with some difficulty on latching and continues to work with nursing and staff, mood stable, voiding spontaneously, no headache, changes or blurriness in spots in vision, no upper abdominal pain OB - PN: Obj Exam Physical Exam: Vital signs: Temp Pulse Resp BP Pulse Ox O2 Del Method 97.9 F 75 16 121/80 97 Room Air 12/26/22 04:10 12/26/22 08:19 12/26/22 08:19 12/26/22 08:19 12/26/22 04:10 12/26/22 08:19 Constitutional: Constitutional: no acute distress and cooperative Routine Abdominal Exam: Abdominal: Present distended and soft; Absent guarding or tenderness Fundus: Present firm Routine Extremities Exam: Extremities: Present pedal edema Routine Psychiatric Exam: Psychiatric: Present normal affect and normal thought process OB - PN: Obj Data Labs Labs: Laboratory Results - last 24 hr 12/25/22 12/26/22 19:14 06:56 WBC 21.88 H RBC 4.36 Hgb 13.0 12.4 Hct 38.9 MCV 89 MCH 30 MCHC 33 RDW Coeff of John 12.5 Plt Count 228 Neut % (Auto) 86.0 H Lymph % (Auto) 7.5 L Amador % (Auto) 5.9 Eos % (Auto) 0.2 Baso % (Auto) 0.1 Neut # (Auto) 18.80 H Lymph # (Auto) 1.60 Amador # (Auto) 1.30 H Eos # (Auto) 0.00 Baso # (Auto) 0.00 Abs Immat Gran (auto) 0.10 Imm/Tot Granulo (auto) 0.3 BUN 6 Creatinine 0.6 Estimated Creat Clear 123.37 Estimated GFR 124 AST 30 ALT 18 OB - PN: A/P Delivery Assessment and Plan (1) : Problem details: Delivered Status: Acute (2) Anxiety: Problem details: Stable Status: Acute Assessment and Plan: Continue citalopram (3) (normal spontaneous vaginal delivery): Status: Acute Plan 32-year-old now 001 day 1 status post , uncomplicated Plan day: 1 Plan: routine care Comments: Plan discharge home on day 2
[2022-12-26 12:27] VITALS: BP 113/75; PULSE 87; RESP 16
[2022-12-26 16:21] VITALS: BP 120/77; RESP 16
[2022-12-27 01:00] VITALS: BP 124/79; PULSE 87; RESP 16; TEMP 36.6; O2SAT 98
[2022-12-27] MEDS: ACETAMINOPHEN 500 MG TABLET 1000 MG PO ×2 (05:19→11:27)
[2022-12-27 08:00] VITALS: BP 117/83; PULSE 76; RESP 16; TEMP 36.8; O2SAT 97
[2022-12-27] MEDS: IBUPROFEN 600 MG TABLET PO (08:54)
[2022-12-27] MEDS: DOCUSATE SODIUM 100 MG CAPSULE PO (08:55)
--- NOTE | 2022-12-27 10:01 | PM.OBDSVD1 ---
DS: Providers Provider Time Seen by Provider: 10:02 Date Seen: 12/27/22 Date of admission: 12/25/22 07:01 Primary care physician: Terri Sullivan PA-C Admitting Clinician: Christy Vieyra MD Consults: Anesthesiology Attending Physician on discharge: Christy Vieyra MD Date of Discharge: 12/27/22 DS: Diagnosis Discharge Diagnosis (1) (normal spontaneous vaginal delivery): Status: Acute (2) Anxiety: Status: Acute Problem details: Stable, continue home citalopram Exam Const: Vital Signs, click to edit/add: Vital Signs - 24 hr 12/26/22 12:27 12/26/22 16:21 12/27/22 01:00 Temperature 97.9 F Pulse Rate [Pulse Oximeter] 87 87 Respiratory Rate 16 16 16 Blood Pressure [Ri ght Arm] 113/75 120/77 124/79 Pulse Oximetry 98 Oxygen Delivery Me thod Room Air Room Air Room Air Common normals: no apparent distress and oriented x3 General appearance: cooperative, comfortable and well kempt GI: Common normals: soft to palpation and non-tender Inspection: abdominal distension Palpation: soft; no guarding Other: Fundus firm below umbilicus Neuro: Common normals: oriented x3 Psych: Appearance: well kempt OB - DS: Summary Hospital Course Hospital Course: The patient is a 32 year old G 1 P 0 at 39 weeks 3 days gestation that was admitted to the Center on 12/25/22 for induction of labor. She had an uncomplicated vaginal delivery, see delivery summary for details. She delivered a viable female infant. She is breast feeding with some formula supplementation due to difficulty latching, working with and will follow up outpatient. the patient has done well. Mood stable on home citalopram. On day 2 she was meeting all goals for discharge home with . Peripartum Data Infant delivery method: Vaginal Laceration description: Perineal - 2nd Degree Episiotomy description: None complications: none [place] Gender: Female Infant Discharge Plan: Home Status at Discharge Functional status at discharge: independent ambulation Overall status at discharge: patient is progressing back to baseline Time Spent with Patient Time attestation: Total time spent providing and/or coordinating discharge services: Time spent: Greater than 30 minutes Discharge Plan Discharge Disposition: Home, Self-Care Date of Admission: 12/25/22 07:01 Attending Provider on Discharge: Bora Miller Primary Care Provider: Terri Sullivan Condition: Stable Anticipated Discharge Date/Time: 12/27/22 11:06 Discharge Medications: New acetaminophen 500 mg Tablet 1,000 mg PO Q6H PRNQty: 30 0RF ibuprofen 600 mg Tablet 600 mg PO Q6H PRNQty: 30 0RF Continued prenat.vits,javi,tgs-wjit-ncigs Tablet 1 tab PO QDAY docusate sodium [Colace] 100 mg capsule 100 mg PO BID PRN citalopram 40 mg tablet 40 mg PO QDAY Qty: 90 1RF Discontinued hydroxyzine pamoate [Vistaril] 25 mg capsule 25 - 50 mg PO QHS Qty: 14 0RF Discharge Orders: Discharge Order (Routine); Ordered 12/27/22 Ordered By: Bora Miller Patient Education: OB Over the Counter Medication Information, OB Vaginal/Breast Feeding Additional Instructions: Schedule follow-up appointment in clinic at 2 weeks and 6 weeks after discharge from the hospital Nothing in the vagina for 6 weeks: No sex, no tampons, use only a pad. Call for vaginal bleeding soaking more than 1 pad per hour for more than 2 hours, fevers 100.4F or higher for more than 1 hour, foul-smelling discharge, increasing pain and cramping not controlled by pain medications, persistent nausea vomiting, signs of preeclampsia including unrelenting headache, spots or sparkles in vision, constant upper abdominal pain, signs of heart conditions including while at rest persistent dizziness, shortness of breath, chest pressure, chest pain, palpitations, signs of mood disorders including persistent feelings of sadness, hopelessness, depression, anxiety for more than 2 weeks. Discharge Diet: Regular Follow Up Appointments: Terri Sullivan, PABrennenC [Primary Care Provider] - Forms: MyHealth Info Instructions DS:Data Additional Comments Additional comments: Hemoglobin 12 point
[2022-12-27 11:28] VITALS: BP 114/77; PULSE 83; RESP 16; TEMP 36.7
== END 2022-12-27 13:01 | disposition home or self-care (01) | DRG 807 ==
PROVIDERS: Admitting Provider Obstetrics & Gynecology; PCP Physician Assistant Medical; Visit Provider Obstetrics & Gynecology
DX: O99.824 Streptococcus B carrier state complicating childbirth (principal); Z37.0 Single live birth; O60.23X0 Term delivery with preterm labor, third trimester, not applicable or unspecified; O70.1 Second degree perineal laceration during delivery; R03.0 Elevated blood-pressure reading, without diagnosis of hypertension; O99.344 Other mental disorders complicating childbirth; F41.9 Anxiety disorder, unspecified; Z3A.39 39 weeks gestation of pregnancy
CPT/HCPCS: 01967; 36415; 82565; 84450; 84460; 84520; 85018; 85025; A9270; J0290; J2371; J2405; J2795; J7120; S0020

== ENCOUNTER 2023-01-01 12:22 | Outpatient (CLI) | payer OTHER, SELFPAY ==
--- NOTE | 2023-01-01 17:00 | W.PM.LAC.MC ---
Consult Note - Mom Date of Visit Date of visit: 01/01/23 engineering consultant: Mary Lucio Visit Code: Visit Patient's Information Phone number: [phone] : 1 Para: 1 Allergies ketorolac [From Toradol] Allergy (Mild, Verified 01/07/23 13:09) Rash nitrofurantoin Allergy (Mild, Verified 01/07/23 13:09) throat swelling Mother's Medical History: Medical History Delivery Information Delivery type: Vaginal Weeks Gestation: 39.1 Gestational Age: AGA Weight: 2.985 kg Discharge Weight: 2.776 kg Baby's Information Baby's Age at Visit: 7 days Baby's Provider or Clinic: Dr. Nicole Jaundice: No Reason for Consult Reason for Consult: nipple shield, concern for choking at breast, pumping questions Past Experience Past Experience: No Current Frequency of Day Feedings: every 2.5 - 3 hours Frequency of Night Feedings: every 2 - 2.5 hours Both Breasts: Yes (mom offers) Suck: fairly strong Latch: wide Length of Time: 15 - 30 minutes Pumping Pumping: No Supplementing EMB Supplement: No Formula Supplement: No Baby Elimination Number of Wet Diapers a Day: every feeding Number of BM a Day: at least every other feeding, yellow and seedy Breast/Nipple Condition Breast Information: WNL Maternal Nipple Condition - Left: Short Maternal Nipple Condition - Right: Short Sore Nipples: No Onsite Pre-Feed weight: 2.872 kg Post-Feed weight: 2.946 kg Milk Transferred (mL): 74 Assessments/Interventions Assessments/Interventions: Met with mom and this now 7 day old ex- term AGA baby for consult. Mom is using a nipple shield and has concerns baby sometimes has a hard time with her flow, as she chokes and comes off the breast. She also has questions re: pumping. Mom reports baby nurses every 2 - 3 hours and she offers both sides, but recently baby has only wanted one side. Nursing sessions last 15 - 30 minutes and mom reports she sees milk in the shield after feeding. Mom hasn't started pumping or offering bottles. Breasts WNL- symmetrical with rounded lower quadrants, intramammary distance < 1.5 inches. Nipples are somewhat short but everted and don't flatten or retract on compression, no damage noted. Baby has lost weight since her NB visit on 12/31 (38 grams) but she's only 4% below BW at 7 DOL. Mom denies any caput/cephalohematoma at delivery and reports baby has equal ROM when turning her head and moving her extremities. Baby's upper frenulum is a little thick and tight as it's hard to flange her upper lip and her gums beverley, no suck blister noted. Her palate is WNL, she has a fairly strong suck on a finger. Her tongue consistently extends past the gum line but there is some canoeing when lateralizing. The lower frenulum appears to be WNL. Mom latched baby to the right side with the shield and baby had a wide latch, taking in almost all of the areola. After about a minute the shield was removed and mom was verbally coached on how to hold baby in the cross cradle position and sandwich her breast, pointing nipple to nose. Baby was unable to latch without the shield however, so after a few minutes mom reapplied it and baby finished nursing. We tried again on the left side without success. Baby finished the session on the left side, transferring 74 ml. Baby didn't have trouble with mom's flow at this feeding, but mom was given suggestions to help slow the flow. Mom was measured and a smaller flange size was suggested. Handout given. Plan: 1. Suggested mom continue nursing ALD but not to let baby go past 3 - 4 hours. Try nursing her without the shield a few times/day but if she or baby get frustrated ok to finish the feeding with it. Encouraged her to offer both sides at each feeding and reviewed the importance of seeing milk in the shield after nursing. 2. No medical need to supplement and suggested she wait about a month before introducing a bottle, especially b/c she's using a nipple shield. 3. No medical need to pump, can start pumping once/day or every few days when baby is about a month old. 4. Reviewed with mom different stretches she can do for herself and baby. 5. Reviewed that the difference/loss in weight is most likely d/t different scales and since the baby nursed so well there's no need for concern. Baby will f/u in two weeks for another pre and post weight check. Meds Home Medications and Allergies Home Medications Medication Instructions Recorded Confirmed Type prenat.vits,javi,fbg-ivps-plcut 1 tab PO QDAY 04/29/22 01/07/23 History Allergies Allergy/AdvReac Type Severity Reaction Status Date / Time ketorolac [From Toradol] Allergy Mild Rash Verified 01/07/23 13:09 nitrofurantoin Allergy Mild throat Verified 01/07/23 13:09 swelling
== END 2023-01-01 12:23 | disposition home or self-care (01) ==
LOC: OB LAC 12:22
PROVIDERS: PCP Physician Assistant Medical; Visit Provider Obstetrics & Gynecology
DX: Z39.1 Encounter for care and examination of lactating mother (principal)
CPT/HCPCS: 99211

== ENCOUNTER 2023-07-16 19:04 | Emergency (ER) | payer BC, SELFPAY ==
[2023-07-16 19:11] VITALS: BP 135/70; PULSE 89; RESP 18; TEMP 36.9; O2SAT 99; BMI 20.8
[2023-07-16 19:49] LABS: Appearance Urine Clear (Clear); Bilirubin Urine Negative (Negative); Blood Urine Negative (Negative); Color Urine Yellow (Yellow); Glucose Urine Negative (Negative); Ketones Urine Negative (Negative); Leukocyte Esterase Urine Negative (Negative); Nitrite Urine Negative (Negative); Protein Urine Negative (Negative); Specific Gravity Urine 1.025 (1.000-1.030); Urobilinogen Urine 0.2 (0.2-1.0)
[2023-07-16 19:59] LABS: RBC Urine 0-2 (0-2); Squamous Epithelial Cell Urine Few (None-Few)
[2023-07-16 20:09] VITALS: RESP 16; O2SAT 99
--- NOTE | 2023-07-16 20:09 | US_ITS ---
Patient: BERNARDINO GARCIA Facility:?[facility] Patient ID:?[id number] Site Patient ID:?[id number]. Site :?[id number] Study:?US-Pelvis PELVIS TV-07/16/2023 9:44:53 PM Ordering Physician:?SONAL CHAN M.D. Final Report: INDICATION: Lower abdominal pain, spotting. TECHNIQUE: Ultrasound pelvis transvaginal for better assessment or to better visualize the endometrium. Real-time sonographic images with spectral and color Doppler imaging of the ovaries were obtained. COMPARISON: None. FINDINGS: Uterus: 7.7 x 4.5 x 5.5 cm. Mildly heterogenous echotexture of the myometrium, can be seen in the setting of adenomyosis. No masses. Multiple echogenic foci in the lower uterine segment may represent foci of air or calcifications. Endometrium: Transvaginal imaging was performed to better evaluate the endometrium. Endometrial thickness measures 5 mm. No sign of endometrial mass or fluid. Right ovary measures 5.3 x 2.0 x 3.6 cm and left ovary measures 2.5 x 1.3 x 1.8 cm. There is a right ovarian complex cyst measuring 4.5 x 1.9 x 1.9 cm. Normal arterial and venous blood flow is demonstrated in both ovaries. Cul-de-sac: Moderate free fluid. IMPRESSION: 1. Complex right adnexal cyst measuring 4.5 cm, likely hemorrhagic cyst. Give the free fluid in the pelvis, this may have ruptured. 2. Multiple echogenic foci in the lower uterine segment may be related to foci of gas or small calcifications. 3. Heterogenous echotexture of the myometrium. Can be seen in the setting of adenomyosis but is non-specific. 4. AT a minimum, recommend ultrasound in 14 days to ensure evolution of hemorrhagic cyst. Dictated by Carlos Alberto Blanc MD @ 07/16/2023 10:32:30 PM Signed by:?Carlos Alberto Blanc MD @07/16/2023 10:32:30 PM (Electronic Signature)
[2023-07-16 20:15] VITALS: TEMP 36.9
[2023-07-16] MEDS: KETOROLAC 10 MG TABLET PO (20:15)
[2023-07-16] MEDS: diphenhydrAMINE 25 MG CAPSULE PO (20:15)
[2023-07-16 20:23] LABS: Ur HCG Qualitative* Negative (Negative)
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
--- OUTSIDE RECORDS SUMMARY | 2023-07-16 20:36 | XMS_ITS | Clinical Summary ---
Author Name Unknown Organization [employer] [facility] Address [place], [place] [address] Care Team Providers Care Healthcare Management Name Role Phone Terri Sullivan Primary Care Provider Allergies Active Allergy Reactions Criticality Noted Date Comments Nitrofurantoin Throat Swelling/Closing High 06/20/19 21 Ketorolac Itching Low 04/24/2016 Itch with IV Toradol. Does fine with Benadryl Medications Medication Sig Dispensed Refills Start Date End Date Status PNV 19/iron ps,heme/folic/dha ( MV & MIN ORAL) Take by mouth. Active citalopram (CELEXA) 40 mg tabletIndications:Anx iety Take 1 Tablet (40 mg) by mouth every morning. 90 Tablet 3 05/20/2023 Active busPIRone (BUSPAR) 10 mg tabletIndications:Anx iety Take 1 Tablet (10 mg) by mouth two times daily. 180 Tablet 1 05/20/2023 Active levonorgestrel-ethiny l estrad, 0.1mg-20mcg, (ALESSE-28) 0.1-20 mg-mcg tabletIndications:Men orrhagia with irregular cycle Take 1 Tablet by mouth once daily. 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 [address] [place] [address] 06/24/2023 Travel 06/18/[address] [facility] [address] [place] [address] Jenelle Cohn, R.T. (ARRT) <No scans attached> 05/30/[address] [facility] [address] [place] [address] Terri Sullivan PA Questions 05/20/2023 8:10 AM LITHOGRAPHING MACHINE OPERATOR Office Visit [facility] [address] [place] [address] Terri Sullivan PA Vaginal Problem (Heavy bleeding and cramping x 6 weeks, has now stopped x 2 weeks but still having cramping) 05/20/2023 Travel from Last 3 Months Immunizations Name Administration Dates Next Due DTP 11/29/1997, 5,06/22/1993,04/16/1993, 02/16/1993 DTaP 11/18/2005 Hepatitis B, Unspecified 12/26/1993,06/22/1993,1 1992 Hib Conjugate, Unspecified 04/25/1994,06/22/1993 ,04/16/1993,02/16/1993 Human Papilloma Virus Vaccine 04/06/2013, 013,03/27/2012 Influenza, IIV3 (Age >=3 years) 04/10/2012 Influenza, IIV4 11/29/2017 Influenza, IIV4 (=>6mos) MDV 12/25/2017 MMR 11/29/1997,04/25/1994 Meningococcal Vaccine (Menveo) 03/27/2012 Oral Polio Vaccine 11/29/1997,12/26/1993, 994,02/16/1993 Polio Virus, Unspecified 11/29/1997,12/26/1993,0 04/16/1993,02/16/1993 Varicella Vaccine 03/31/1994 Family History Medical History Relation Name Comments Good Health Father Heart Disease Maternal Grandfather Good Health Mother Cancer Paternal Aunt stomach Heart Disease Paternal Grandfather Cancer-breast Paternal Grandmother Relation Name Status Comments Father Maternal Grandfather Mother Paternal Aunt Paternal Grandfather Paternal Grandmother Social History Tobacco Use Types Packs/Day Years Used Date Smoking Tobacco: Never Smokeless Tobacco: Never Tobacco Cessation:Counseling Given: Yes Alcohol Use Standard Drinks/Week Comments Yes 0 (1 standard drink = 0.6 oz pur e alcohol) PHQ-2 Answer Date Recorded PHQ-2 TOTAL SCORE 0 10/09/2021 Social Connections Answer Date Recorded Frequency of Communication with Friends and Fami ly 0 05/20/2023 Financial Resource Strain Answer Date R ecorded Difficulty of Paying Living Expenses 3 05/20/2023 Difficulty of Paying Living Expenses Not on file 05/20/2023 Food Insecurity Answer Date Recorded Worried About Running Out of Food in the Last Ye ar 1 05/20/2023 Transportation Needs Answer Date Record ed Lack of Transportation (Medical) 1 05/20/2023 Housing Stability Answer Date Recorded Unable to Pay for Housing in the Last Year 1 05/20/2023 Sex and Gender Information Value Date Recorded Sex Assigned at Not on file Gender Identity Not on file Sexual Orientation Not on file Obstetrics History Para Term AB IAB SAB Ectopic Multiple Livin g Live Births 0 0 0 0 0 0 0 0 0 0 0 Last Filed Vital Signs Vital Sign Reading Time Taken Comments Blood Pressure 103/71 05/20/2023 8:09 AM LITHOGRAPHING MACHINE OPERATOR Pulse 98 05/20/2023 8:09 AM LITHOGRAPHING MACHINE OPERATOR Temperature 36.6 ??C (97.9 ??F) 02/19/2022 12:[address] Respiratory Rate 16 02/19/2022 12:00 PM LITHOGRAPHING MACHINE OPERATOR Oxygen Saturation 98% 04/14/2023 2:09 PM LITHOGRAPHING MACHINE OPERATOR Inhaled Oxygen Concentration - - Weight 58.5 kg (129 lb) 05/20/2023 8:09 AM LITHOGRAPHING MACHINE OPERATOR Height 165.1 cm (5' 5) 02/19/2022 7:00 AM LITHOGRAPHING MACHINE OPERATOR Body Mass Index 21.47 02/19/2022 7:00 AM LITHOGRAPHING MACHINE OPERATOR Plan of Treatment Health Maintenance Due Date Last Done Comments Tdap 12/18/2003 Tetanus booster 2012 BMI (ht and wt on same day) for age 18+ 01/01/2022 01/01/2021, 12/06/2020, 06/14/2020, Additional history exists Depression screening for age 12+ 10/09/2022 10/09/2021, 09/29/2019, 09/29/2019, Additional history exists COVID-19 vaccine series (2022- season) 2022 05/04/2021, 04/05/2021 Influenza for age 9-49 11/30/2023 8, 11/29/2017, 04/10/2012 Pap test for age 21-65 02/11/2026 3, 02/11/2023, 02/03/2019, Additional history exists HIV for age 15-65 Completed 12/06/2020, , 09/08/2012 Hepatitis C screening for age 18-79 Completed 12/06/2020 Pneumococcal series for age 6-64 Aged Out No longer eligible based on patient's age to complete this topic Medical Devices Implanted Type Area Chart Computer Device Identifier Shelf Expiration Date Model / Serial / Lot Stent Uret [id number] [employer] - [id number] Implanted:Qty: 1 on 04/05/2019 by Zander Gallegos MD at [facility] Right: [employer] 08/20/2021 [id number] / / [id number] Procedures Procedure Name Priority Date/Time Associated Diagnosis Comments US PELVIS COMPLETE TA AND TV Routine 06/24/2023 11:52 AM CDT Pelvic pain Dyspareunia in female FLOAT PHLEBOTOMIST THIN PREP PAP SCREEN IMAGED Routine 02/11/2023 12:00 PM LITHOGRAPHING MACHINE OPERATOR ANTI HIV 1/2 Routine 12/06/2020 4:18 PM CDT Screen for STD (sexually transmitted disease) ANTI HCV Routine 12/06/2020 4:18 PM CDT Screen for STD (sexually transmitted disease) from Last 3 Months or Most Recently Relevant to Health Maintenance Results * US PELVIS COMPLETE TA AND TV (06/24/2023 11:52 AM CDT) Anatomical Region Laterality Modality Pelvis Ultrasound 06/25/2023 6:43 AM CDT Impressions 06/25/2023 6:43 AM CDT Right ovarian simple cyst. Normal blood flow to both ovaries. Minimal amount of free fluid in the pelvis. Dictated by Taylor Ayala MD @ 06/25/2023 6:43:03 AM (Electronically Signed) Narrative 06/25/2023 6:43 AM CDT For Patients: ??As a result of the Cures Act, medical imaging exams and procedure reports are released immediately into your electronic medical record. ??You may view this report before your referring provider. ??If you have questions, please contact your health care provider. CLINICAL HISTORY: Pelvic pain TECHNIQUE: Real time, edwards scale images were acquired of the pelvis using a transabdominal and transvaginal approach. Color Doppler analysis was performed of the ovaries. FINDINGS: The uterus measures 6.2 x 3.9 x 5.4 centimeters endometrium measures 3 millimeters. The right ovary measures 3.5 x 2.3 x 2.2 centimeters a 1.8 centimeters simple right ovarian cyst. Normal blood flow to the right ovary. Left ovary measures 2.9 x 1.2 x 2.1 centimeters normal blood flow a color Doppler to the left ovary. Minimal amount of free fluid. Procedure Note Taylor Ayala MD - 06/25/2023 For Patients: As a result of the Cures Act, medical imagingexams and procedure reports are released immediately into your electronicmedical record. You may view this report before your referring provider.If you have questions, please contact your health care provider. CLINICAL HISTORY: Pelvic pain TECHNIQUE: Real time, edwards scale images were acquired of the pelvis using atransabdominal and transvaginal approach. Color Doppler analysis wasperformed of the ovaries. FINDINGS: The uterus measures 6.2 x 3.9 x 5.4 centimeters endometrium measures 3millimeters. The right ovary measures 3.5 x 2.3 x 2.2 centimeters a 1.8 centimeterssimple right ovarian cyst. Normal blood flow to the right ovary. Leftovary measures 2.9 x 1.2 x 2.1 centimeters normal blood flow a colorDoppler to the left ovary. Minimal amount of free fluid. IMPRESSION: Right ovarian simple cyst. Normal blood flow to both ovaries. Minimalamount of free fluid in the pelvis. Dictated by Taylor Ayala MD @ 06/25/2023 6:43:03 AM (Electronically Signed) Terri HERNÁNDEZ * FLOAT PHLEBOTOMIST THIN PREP PAP SCREEN IMAGED (02/11/2023 12:00 PM LITHOGRAPHING MACHINE OPERATOR) Case Report Gynecologic Cytology Report ? Case: [id number] ? Authorizing Provider: ??Christy Vieyra ??Collected: ? 02/11/2023 1200 ? MD Margarette ? Ordering Location: ? [facility] ?Received: ?02/13/2023 0846 ? First Screen: ?Silvestre Young ? Rescreen: ?Ambreen Coleman ? Specimen: ?FLOAT PHLEBOTOMIST ThinPrep Vial Screening, Cervical ? 02/26/2023 12:40 PM [facility] INTERPRETATION/ RESULT NEGATIVE FOR INTRAEPITHELIAL LESION OR MALIGNANCY (NIL) (none) 02/26/2023 12:40 PM [facility] IMEN ADEQUACY Satisfactory for evaluation Endocervical component present 02/26/2023 12:40 PM LITHOGRAPHING MACHINE OPERATOR [facility] HPV REQUEST HPV and PAP 02/26/2023 12:40 PM LITHOGRAPHING MACHINE OPERATOR [facility] Last Pap Date 02/03/2019 02/26/2023 12:40 PM [facility] Last Pap Result NIL 12:40 PM LITHOGRAPHING MACHINE OPERATOR [facility] Abnormal Pap or Dexter Bx in last 5 years No 02/26/2023 12:40 PM LITHOGRAPHING MACHINE OPERATOR [facility] Menstrual Status 02/26/2023 12:40 PM [facility] Dexter Bx Done Today No 02/26/2023 12:40 PM [facility] Additional Information 02/26/2023 12:40 PM [facility] Comment: Interpreted at [facility] - [address], [place] [address] Automated Review Successful 02/26/2023 12:40 PM LITHOGRAPHING MACHINE OPERATOR [facility] Comment:Specimen processed s uccessfully by automated client integration manager device, ThinPrep Imaging System, [employer] ANCILLARY TESTING FLOAT PHLEBOTOMIST HPV Ordered, Please see separate report 02/26/2023 12:40 PM LITHOGRAPHING MACHINE OPERATOR [facility] Note The pap test is a screening technique, not a diagnostic procedure. It is used primarily to screen for squamous cancers and precursor lesions. Published studies have shown that it is subject to both false negative and false positive results. The pap test should not be used as the sole means to diagnose or exclude pre-malignant and malignant lesions. 02/26/2023 12:40 PM LITHOGRAPHING MACHINE OPERATOR [facility] Other (Cervical) 02/11/2023 12:00 PM LITHOGRAPHING MACHINE OPERATOR 02/13/2023 8:46 AM LITHOGRAPHING MACHINE OPERATOR Christy Vieyra MD PATHOLOGY/ CYTOLOGY [facility] [address] [place] [address], [place] * ANTI HCV (12/06/2020 4:18 PM CDT) HEPATITIS C ANTIBODY Non-React kamilla Non-React kamilla 12/07/2020 3:20 PM CDT [facility] Comment:Antibodies to HCV no t detected; does not exclude the possibility of exposure to HCV. Blood BLOOD SPECIMEN / Unknown Butterfly / Unknown 12/06/2020 4:18 PM CDT 12/06/2020 4:18 PM CDT Andres Peterson MD SEND OUTS [facility] [address] [place] [address], * ANTI HIV 1/2 (12/06/2020 4:18 PM CDT) HIV-1/HIV-2 ANTIBODY Non-Reacti ve Non-Reacti ve 12/07/2020 3:23 PM CDT [facility] Comment:HIV-1 p24 and HIV-1/ HIV-2 Ab not detected. Blood BLOOD SPECIMEN / Unknown Butterfly / Unknown 12/06/2020 4:18 PM CDT 12/06/2020 4:18 PM CDT Andres Peterson MD SEND OUTS [facility] [address] [place] [address], from Last 3 Months or Most Recently Relevant to Health Maintenance Advance Directives * Full Code (Latest Code Status on File) Date Activated Date Inactivated Comments 02/19/2022 6:23 AM 02/19/2022 2:50 PM Question Answer Comments Code Status Discussion: Unable to Assess Preferences, Provider to review later * Full Code Date Activated Date Inactivated Comments 04/08/2019 6:00 PM 04/09/2019 8:16 PM * Full Code Date Activated Date Inactivated Comments 04/08/2019 6:00 PM 04/08/2019 6:00 PM * Full Code Date Activated Date Inactivated Comments 04/05/2019 8:10 AM 04/05/2019 4:19 PM Care Teams Healthcare Management Relationship Specialty Start Date End Date Terri Sullivan PA [address] [place] [address] PCP - General Family Practice 09/05/10
--- NOTE | 2023-07-16 21:44 | ED.GENADULT ---
HPI - General Adult General Chief complaint: Unspecified Complaint, Adult Stated complaint: Sudden Cramping, bleeding, pain Time Seen by Provider: 07/16/23 19:23 History of Present Illness HPI narrative: This 32-year-old female comes in reporting rather sudden onset of severe pain in her lower abdomen that occurred about an hour prior to arrival. She also reports some small amount of spotting midcycle. She delivered a baby 6 months ago and is not . She did have some midcycle symptoms a month or 2 ago. She did have an ultrasound and there was evidence of a follicle on the right ovary. She does have a history of kidney stones but denies any dysuria or flank pain. Related Data Home Medications Medication Instructions Recorded Confirmed buspirone 10 mg tablet 10 mg PO BID 07/16/23 07/16/23 Previous Rx's Medication Instructions Recorded citalopram 40 mg tablet 40 mg PO QDAY #90 tabs 12/04/22 acetaminophen 500 mg tablet 1,000 mg (2 x 500 mg) PO Q6H PRN 12/27/22 #30 tabs ibuprofen 600 mg tablet 600 mg PO Q6H PRN #30 tabs 12/27/22 norethindrone (contraceptive) 0.35 0.35 mg PO QDAY #84 tabs 05/06/23 mg tablet Allergies Allergy/AdvReac Type Severity Reaction Status Date / Time ketorolac [From Toradol] Allergy Mild Rash Verified 07/16/23 19:14 nitrofurantoin Allergy Mild throat Verified 07/16/23 19:14 swelling Review of Systems Status of ROS: Reports: 10 or more systems reviewed and unremarkable except as noted in History and below Narrative: Constitutional: No fevers, no weight gain or loss. Eyes: No discharge. No vision changes. HENT: No congestion, no sore throat, no ear pain. Cardiovascular: No chest pain, no palpitations. Respiratory: No shortness of breath, no wheezes, no cough. Gastrointestinal: No vomiting, no diarrhea. Abdominal pain as described above. Genitourinary: No dysuria, no hematuria. Musculoskeletal: Normal range of motion. Skin: No rashes, no pruritis. Neurological: No dizziness, weakness, sensory change, speech change. Endo/Heme/Allergies: No bruising or bleeding. No polydipsia. Pysch: no suicidality, no anxiety, no insomnia. All other systems reviewed and are negative. 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 - Other specified disorders of arteries and arterioles (ICD-10) Multiple kidney stones ?N20.0 - Calculus of kidney (ICD-10) Migraine headache ?G43.909 - Migraine, unspecified, not intractable, without status migrainosus (ICD-10) Calculus of kidney ?N20.0 - Calculus of kidney (ICD-10) Surgical History History of lumpectomy of left breast ?Z98.890 - Other specified postprocedural states (ICD-10) History of cholecystectomy ?Z90.49 - Acquired absence of other specified parts of digestive tract (ICD-10) History of appendectomy ?Z90.49 - Acquired absence of other specified parts of digestive tract (ICD-10) Family History Father Alcohol dependence Paternal Grandmother Breast cancer Maternal Grandmother Heart disease Stroke Maternal Grandfather Heart disease Social History What is your current living situation?: I presently have a place to live Problems where you live: no known problems In the past 12 months, utilities in danger of being shut off: no In past 12 months, lack of transportation kept you from medical appts, meetings, work, or getting things needed for daily living: no In the past 12 mos, have been you worried that your food would run out before you had money to buy more?: never true In the past 12 mos, the food you bought just didn't last and you didn't have money to buy more?: never true Smoking Status: Never smoker Do you use any of these nicotine containing products: None Second hand tobacco smoke exposure: No How often do you have a drink containing alcohol: never How often do you have six or more drinks on one occasion: Never AUDIT-C Alcohol total score: 0 Non-prescribed substance use: denies use How often does anyone, including family, friends and others, physically hurt you: never How often does anyone, including family, friends and others, insult or talk down to you: never How often does anyone, including family, friends and others, threaten you with harm: never How often does anyone, including family, friends and others, scream or curse at you: never Little interest or pleasure in doing things: not at all Feeling down, depressed, or hopeless: several days service: No Exam Narrative: Exam Narrative: Constitutional: Well-developed, well-nourished, no acute distress. HEENT: Normocephalic, atraumatic. Neck: Normal range of motion. Nontender. Supple. Heart: Regular. No murmurs. Normal rate. Intact distal pulses. Lungs: Clear to auscultation. No chest discomfort. No wheezes, rhonchi, or rales. Abdomen: Normal bowel sounds. Nontender. No rebound tenderness. Genitalia: Deferred. Back: No midline tenderness. Normal range of motion. Extremities: Normal range of motion. No injury. Skin: Intact. No rash. Warm. No erythema or pallor. Neurologic: No altered sensation. No weakness. Alert and oriented. Psychiatric: No suicidality. No anxiety or depression. No insomnia. Nursing notes and vitals signs are reviewed. Const: Vital Signs, click to edit/add: Vital Signs - 24 hr 07/16/23 19:11 07/16/23 20:15 Temperature 98.5 F 98.5 F Pulse Rate [Right Pulse Oximeter] 89 Respiratory Rate 18 Blood Pressure [Ri ght Upper Arm] 135/70 Pulse Oximetry 99 Oxygen Delivery Me thod Room Air Course Vital Signs Vital signs: Initial Vital Signs Temperature 98.5 F 07/16/23 19:11 Temperature Source Temporal Artery Scan 07/16/23 19:11 Pulse Rate 89 07/16/23 19:11 Respiratory Rate 18 07/16/23 19:11 Blood Pressure 135/70 07/16/23 19:11 Blood Pressure Mean 91 07/16/23 19:11 Blood Pressure Position Sitting 07/16/23 19:11 Pulse Oximetry 99 07/16/23 19:11 Oxygen Delivery Method Room Air 07/16/23 19:11 Vital Signs Temperature 98.5 F 07/16/23 19:11 Pulse Rate 89 07/16/23 19:11 Respiratory Rate 18 07/16/23 19:11 Blood Pressure 135/70 07/16/23 19:11 Pulse Oximetry 99 07/16/23 19:11 Oxygen Delivery Method Room Air 07/16/23 19:11 Temperature 98.5 F 07/16/23 20:15 Pulse Rate 89 07/16/23 19:11 Respiratory Rate 18 07/16/23 19:11 Blood Pressure 135/70 07/16/23 19:11 Pulse Oximetry 99 07/16/23 19:11 Oxygen Delivery Method Room Air 07/16/23 19:11 Medications Administered Medications: Generic Name Dose Route Start Last Admin Trade Name Mike PRN Reason Stop Dose Admin Diphenhydramine HCl 25 mg 07/16/23 20:11 07/16/23 20:15 Diphenhydramine 25 Mg Capsule PO 07/16/23 20:12 25 mg ONCE ONE Administration Ketorolac Tromethamine 10 mg 07/16/23 20:09 07/16/23 20:15 Ketorolac 10 Mg Tablet PO 07/16/23 20:10 10 mg ONCE ONE Administration Medical Decision Making [facility] Narrative Medical decision making narrative: This patient comes in with lower abdominal pain and that is suspicious for hemorrhagic ovarian cyst. Urinalysis is obtained and shows no sign of infection or hematuria. The patient has normal vital signs. She did receive an oral dose of Toradol and Benadryl. This provided some minimal relief. An ultrasound of the pelvis is obtained transvaginally and shows evidence of free fluid in the cul-de-sac typical of a hemorrhagic cyst. The patient is okay to return home and did receive [facility] prescriptions for Toradol and [place]. I advised her to follow-up with OBGYN Clinic for ongoing management return if worsening. Lab Data Labs: Lab Results 07/16/23 07/16/23 Range/Units 19:43 20:09 Urine Color Yellow (Yellow) Urine Appearance Clear (Clear) Urine pH 7.0 (5.0-8.5) Ur Specific Milnor 1.025 (1.000-1.030) Urine Protein Negative (Negative) Urine Glucose (UA) Negative (Negative) Urine Ketones Negative (Negative) Urine Blood Negative (Negative) Urine Nitrite Negative (Negative) Urine Bilirubin Negative (Negative) Urine Urobilinogen 0.2 (0.2-1.0) Ur Leukocyte Esterase Negative (Negative) Urine RBC 0-2 (0-2) Urine WBC 2-5 (0-5) Ur Squamous Epith Cells Few (None-Few) Urine Bacteria None (None) Urine HCG, Qual Negative (Negative) Discharge Plan Discharge Clinical Impression: Ovarian cyst rupture Patient Disposition: Home, Self-Care Condition: Stable Additional Instructions: Take medication as needed and indicated. Follow-up with OBGYN clinic or return if symptoms are persistent or worsening. Prescriptions: No Action citalopram 40 mg tablet 40 mg PO QDAY Qty: 90 1RF acetaminophen 500 mg Tablet 1,000 mg PO Q6H PRNQty: 30 0RF ibuprofen 600 mg Tablet 600 mg PO Q6H PRNQty: 30 0RF buspirone 10 mg tablet 10 mg PO BID norethindrone (contraceptive) 0.35 mg tablet 0.35 mg PO QDAY Qty: 84 0RF Follow Up/Referrals: Terri Sullivan PA-C [Primary Care Provider] - Stand Alone Forms: [employer] Info Instructions
[2023-07-16 21:46] VITALS: TEMP 36.9
[2023-07-16 22:00] VITALS: BP 125/68; PULSE 74; RESP 18; TEMP 36.9; O2SAT 99
[2023-07-16 22:01] VITALS: BP 125/68; PULSE 74; RESP 18; TEMP 36.9
== END 2023-07-16 22:01 | disposition home or self-care (01) ==
PROVIDERS: Emergency Provider Emergency Medicine Emergency Medical Services; PCP Physician Assistant Medical
DX: N83.201 Unspecified ovarian cyst, right side (principal)
CPT/HCPCS: 76830; 81001; 81025; 93976; 99284; A9270

== ENCOUNTER 2023-07-25 08:42 | Outpatient (CLI) | payer BC, SELFPAY ==
--- OUTSIDE RECORDS SUMMARY | 2023-07-25 08:45 | XMS_ITS | Clinical Summary ---
Author Name Unknown Organization [facility] Address [place], [place] [address] Care Team Providers Care Stable Helper Name Role Phone Terri Sullivan Primary Care [...] Encounters Date Type Department Care Team Description 07/18/2023 Orders Only [facility] Staff, Other Clinical 1 scan: (1-Ord) [facility] 07/18/2023 Orders Only [facility] Staff, Other Clinical 1 scan: (1-Ord) [facility] 07/16/2023 Orders Only [facility] Scanner 1 scan: (1-Ord) [place], PELVIC TRANSVAGINAL, 07/16/2023 06/24/2023 11:15 AM CDT Ancillary Procedure [facility] [address] [place] [address] 06/24/2023 Travel 06/18/2023 Orders Only [address] [address] Jenelle Cohn, R.TDaisha (ARRT) <No scans attached> 05/30/[address] [address] Terri Sullivan PA Questions 05/20/2023 8:10 AM BEVEL MILL OPERATOR Office Visit [facility] [address] [place] [address] Terri Sullivan PA Vaginal Problem (Heavy bleeding [...] Comments Blood Pressure 103/71 05/20/2023 8:09 AM BEVEL MILL OPERATOR Pulse 98 05/20/2023 8:09 AM BEVEL MILL OPERATOR Temperature 36.6 ??C (97.9 ??F) 02/19/2022 12:[address] Respiratory Rate 16 02/19/2022 12:00 PM BEVEL MILL OPERATOR Oxygen Saturation 98% 04/14/2023 2:09 PM BEVEL MILL OPERATOR Inhaled Oxygen Concentration - - Weight 58.5 kg (129 lb) 05/20/2023 8:09 AM BEVEL MILL OPERATOR Height 165.1 cm (5' 5) 02/19/2022 7:00 AM BEVEL MILL OPERATOR Body Mass Index 21.47 02/19/2022 7:00 AM BEVEL MILL OPERATOR Plan of Treatment Health Maintenance Due Date Last Done Comments Tdap 12/18/2003 Tetanus booster 2012 BMI (ht and wt on same day) for age 18+ 01/01/2022 01/01/2021, 12/06/2020, 06/14/2020, Additional history exists Depression screening for age 12+ 10/09/2022 10/09/2021, 09/29/2019, 09/29/2019, Additional history exists COVID-19 vaccine series ( season) 2022 05/04/2021, 04/05/2021 Influenza for age 9-49 11/30/2023 8, 11/29/2017, 04/10/2012 Pap test for age 21-65 02/11/2026 3, 02/11/2023, 02/03/2019, Additional history exists HIV for age 15-65 Completed 12/06/2020, , 09/08/2012 Hepatitis C screening for age 18-79 Completed 12/06/2020 Pneumococcal series for age 6-64 Aged Out No longer eligible based on patient's age to complete this topic Medical Devices Implanted Type Area Metal Organ Pipe Maker Device Identifier Shelf Expiration Date Model / Serial / Lot Stent Uret [id number] [facility] [id number] Implanted:Qty: 1 on 04/05/2019 by Zander Gallegos MD at [facility] Right: [employer] 08/20/2021 [id number] / / [id number] Procedures Procedure Name Priority Date/Time Associated Diagnosis Comments SCAN CORRESP-LABORATORY RESULTS 07/18/2023 9:15 AM CDT SCAN CORRESP-IMAGING 07/18/2023 9:15 AM CDT SCAN-ULTRASOUND REPORT 07/16/2023 12:00 AM CDT US PELVIS COMPLETE TA AND TV Routine 06/24/2023 11:52 AM CDT Pelvic pain Dyspareunia in female MANAGER INTERVENTIONAL THIN PREP PAP SCREEN IMAGED Routine 02/11/2023 12:00 PM BEVEL MILL OPERATOR ANTI HIV 1/2 Routine 12/06/2020 4:18 PM CDT Screen for STD (sexually transmitted disease) ANTI HCV Routine 12/06/2020 4:18 PM CDT Screen for STD (sexually transmitted disease) from Last 3 Months or Most Recently Relevant to Health Maintenance Results * SCAN CORRESP-LABORATORY RESULTS (07/18/2023 9:15 AM CDT) Narrative 07/18/2023 9:15 AM CDT Ordered by an unspecified provider. Other Clinical Staff OTHER * SCAN CORRESP-IMAGING (07/18/2023 9:15 AM CDT) Anatomical Region Laterality Modality Other Narrative 07/18/2023 9:15 AM CDT Ordered by an unspecified provider. Other Clinical Staff OTHER * SCAN-ULTRASOUND REPORT (07/16/2023 12:00 AM CDT) Anatomical Region Laterality Modality Other Scanner OTHER * US PELVIS COMPLETE TA AND TV [...] 06/25/2023 6:43:03 AM (Electronically Signed) Terri HERNÁNDEZ US * MANAGER INTERVENTIONAL THIN PREP PAP SCREEN IMAGED (02/11/2023 12:00 PM BEVEL MILL OPERATOR) Case Report Gynecologic Cytology Report ? Case: [id number] ? Authorizing Provider: ??Christy Vieyra ??Collected: ? 02/11/2023 1200 ? M, MD ? Ordering Location: ? [facility] ?Received: ?02/13/2023 0846 ? First Screen: ?Silvestre Young ? Rescreen: ?Ambreen Coleman ? Specimen: ?MANAGER INTERVENTIONAL ThinPrep Vial Screening, Cervical ? 02/26/2023 12:40 PM BEVEL MILL OPERATOR [facility] INTERPRETATION/ RESULT NEGATIVE FOR INTRAEPITHELIAL LESION OR MALIGNANCY (NIL) (none) 02/26/2023 12:40 PM [facility] IMEN ADEQUACY Satisfactory for evaluation Endocervical component present 02/26/2023 12:40 PM BEVEL MILL OPERATOR [facility] HPV REQUEST HPV and PAP 02/26/2023 12:40 PM BEVEL MILL OPERATOR [facility] Last Pap Date 02/03/2019 02/26/2023 12:40 PM [facility] Last Pap Result NIL 12:40 PM BEVEL MILL OPERATOR [facility] Abnormal Pap or [place] Bx in last 5 years No 02/26/2023 12:40 PM [facility] Menstrual Status 02/26/2023 12:40 PM [facility] [place] Bx Done Today No 02/26/2023 12:40 PM [facility] Additional Information 02/26/2023 12:40 PM [facility] Comment: Interpreted at [facility], Central Laboratory - [address], [place] [address] Automated Review Successful 02/26/2023 12:40 PM [facility] Comment:Specimen processed s uccessfully by automated asbestos worker device, ThinPrep Imaging System, [employer] ANCILLARY TESTING MANAGER INTERVENTIONAL HPV Ordered, Please see separate report 02/26/2023 12:40 PM [facility] Note The pap test is a screening technique, not a diagnostic procedure. It is used primarily to screen for squamous cancers and precursor lesions. Published studies have shown that it is subject to both false negative and false positive results. The pap test should not be used as the sole means to diagnose or exclude pre-malignant and malignant lesions. 02/26/2023 12:40 PM BEVEL MILL OPERATOR [facility] Other (Cervical) 02/11/2023 12:00 PM BEVEL MILL OPERATOR 02/13/2023 8:46 AM BEVEL MILL OPERATOR Christy Vieyra MD PATHOLOGY/ CYTOLOGY [facility] [address] [place] [address], [place] * ANTI HCV (12/06/2020 4:18 PM CDT) HEPATITIS C ANTIBODY Non-React kamilla Non-React kamilla 12/07/2020 3:20 PM CDT [facility] Comment:Antibodies to HCV no t detected; does not exclude the possibility of exposure to HCV. Blood BLOOD SPECIMEN / Unknown Butterfly / Unknown 12/06/2020 4:18 PM CDT 12/06/2020 4:18 PM CDT Andres Peterson MD SEND OUTS Performing Organization Address City/[facility]/ZIP Co de Phone Number [facility] [address] [place] [address], [place] * ANTI HIV 1/2 (12/06/2020 4:18 PM CDT) Pathologist [facility] HIV-1/HIV-2 ANTIBODY Non-Reacti ve Non-Reacti ve 12/07/2020 3:23 PM CDT [facility] Comment:HIV-1 p24 and HIV-1/ HIV-2 Ab not detected. Blood BLOOD SPECIMEN / Unknown Butterfly / Unknown 12/06/2020 4:18 PM CDT 12/06/2020 4:18 PM CDT Andres Peterson MD SEND OUTS [facility] [address] [place] [address], [place] from Last 3 Months or Most Recently [...] 8:10 AM 04/05/2019 4:19 PM Care Teams Stable Helper Relationship Specialty Start Date End Date Terri Sullivan PA [address] [place] [address] PCP - General Family Practice 09/05/10
--- OUTSIDE RECORDS SUMMARY | 2023-07-25 08:45 | XMS_ITS | Data Portability ---
Author Name Unknown Address [address] [place], [place] [address] Phone [phone] Organization [facility] API DEVELOPER, [id number] Address [address] [place] [address] Assessment Encounter Date Assessment Date Assessment LastModified [...] (Hb), fingerstick , blood 2020 021 [email or web address] [id number] , [address] [place] [address], [address], [place], [address], 17:57:16 pap, LB + reflex HR HPV 2020 021 [facility], [address] [place], [address], 13:21:35 Referral None recorded. Procedures None recorded. Surgeries None recorded. Imaging US, pelvis, transabdomi nal + transvagina l 2020 021 [email or web address] [id number] venita_carina, [address], [place], [address], 11:32:49 Medication Orders Sprintec (28) 0.25 mg-35 mcg tablet 2020 021 [id number], [address] [place], [place], [id number], 13:10:36 Patient TargetsNo targets recorded. Patient InstructionsNo instructions recorded. Reason for Referral None Reported. Results Created Date Observation Date Name Description Value Unit Range Abnormal Flag LastModifiedBy Organization Detail LastModifiedTime 10/10/2020 hemog lobin (Hb), finge rstic k, blood fingerstick hemoglobin 12.6 g/dL 12.0-1 5.0 Not Available [id number] le_tyrone [address] [facility] [address], [place], [address], 10/10/2020 16:29:09 10/11/19 21 10/10/2020 PAP TEST WITH HPV-H R REFLE X case report see note Not Available [facility] [address] [place], [address], 10/23/2020 13:21:35 10/20/1910/19/2020 US, pelvi s, trans abdom inal + trans vagin al No observ ation record ed. tereso Ron [address], [place], [address], 10/26/2020 09:21:21 Result Notes None recorded. Procedures Surgical History Date Name Laterality Status Provider Name and Address Organization Details Recorded Time 10/11/19 21 Date of Last Pap Smear completed JIMMIE Rosales API DEVELOPER 10/23/2020 13:39:08 03/31/19 18 Tonsillectomy completed JIMMIE Dominguez API DEVELOPER 10/10/2020 16:21:42 03/31/19 18 open stone operation on kidney or renal pelvis completed Mary Will null, [facility] 10/10/2020 16:30:10 03/31/19 15 Cholecystectomy completed Mary Will null, [facility] 10/10/2020 16:21:08 03/31/19 15 lumpectomy of breast completed Mary Will null, [facility] 10/10/2020 16:22:02 03/31/19 11 Appendectomy completed Mary Will null, [facility] 10/10/2020 16:20:54 03/31/19 10 reconstruction of popliteal artery completed Mary Will null, [facility] 10/10/2020 16:31:34 03/31/19 08 extraction of wisdom tooth completed Mary Will null, [facility] 10/10/2020 16:21:51 Imaging Results Imaging Date Name Status LastModified by Organization Details LastModified Time 10/19/2020 US, pelvis, transabdominal + transvaginal completed uepfel [address], [place], [address], 10/26/2020 09:21:21 Procedure Notes None recorded. Medical [...] Address Organization Details Last Updated DateTime 10/10/2020 02400.71 g 19.8 kg/m2 167.64 cm 110 mm[Hg] 72 mm[Hg] JIMMIE Dominguez API DEVELOPER 16:29:05 Date Recorded Body height Body mass index (BMI) Body weight Systolic blood pressure Diastolic blood pressure Provider Name and Address Organization Details Last Updated DateTime 10/19/2020 167.64 cm 20 kg/m2 05339.45 g 106 mm[Hg] 72 mm[Hg] JIMMIE Dominguez API DEVELOPER 10:41:00 Social History Question Answer Notes LastModified by Organizat ion Details LastModified Time Tobacco Smoking Status Never Smoker JIMMIE Dominguez - Prempriti API DEVELOPER 10/10/2020 16:25:27 Do You Have An Advance [...] Encounter Closed Date Diagnosis/Indication Diagnosis SNOMED-CT Code [id number] JIMMIE BUCHANAN CNM [id number] [facility] [address] [facility] ,[address] JIMMIE [place]ORES [id number] 10/10/2020 16:02:51 10/16/2020 11:02:25 Gynecologic examination [id number] Surveillan ce of contraception [id number] Break-thro ugh bleeding [id number] FATOUMATA SANTA MD [id number] [place] [address] [facility] ,[address] JIMMIE [place] [id number] 10/19/2020 09:52:23 10/19/2020 11:32:49 Abnormal uterine bleeding [id number] FATOUMATA SANTA MD [id number] [place] [address] [place] ,[address] JIMMIE FLORES [address] 10/19/2020 10:37:32 10/19/2020 14:28:34 Break-through bleeding [id number] Health Concerns Section Related Observation LastModified by Organization Detai ls LastModified Time None Recorded Concern Status LastModified by Organization Details LastModified Time None Recorded Advance Directives Directive N: Payers Encounter Date Sequence Insurance Name Policy Number Policy Tabares Covered Member ID Tabares Member ID Guarantor Name 10/19/2020 1 [employer] - [employer] - CHOICE PLUS ([place]) [id number] Blayne Keenan [id number] Blayne Keenan 10/19/2020 1 [employer] - [employer] - CHOICE PLUS [place]) [id number] Blayne Keenan [id number] Blayne Keenan 10/10/2020 1 [employer] CHO[employer] - [employer] - CHOICE PLUS (POS) [id number] Blayne Keenan [id number] Blayne Keenan Notes Date Note Type Note [...] has no additional complaints. JIMMIE BUCHANAN CNM [address] [facility],[address], [place], [address], General Blood API DEVELOPER 10/14/2020 20:39:33 10/19/2020 text/html HPI Notes: 29yo [...] [place] [address] [facility],[address], [place], [address], General Blood API DEVELOPER 10/19/2020 13:15:35 OBGyn Episode No OBEpisode recorded.
--- NOTE | 2023-07-25 09:00 | US_ITS ---
Patient: BERNARDINO GARCIA Facility:?[facility] Patient ID:?[id number] Site Patient ID:?[id number]. Site :?1992 Study:?US-Pelvis TV-07/25/2023 9:31:42 AM Ordering Physician:Sue Beltran Final Report: INDICATION: Follow up ovarian cyst TECHNIQUE: Transabdominal and transvaginal scanning was performed. Transvaginal scanning was performed to optimally evaluate the endometrium and adnexa. Ovarian blood flow was evaluated with color-flow and pulsed Doppler. COMPARISON: Pelvic ultrasound of 07/16/2023 FINDINGS: The uterus is normal in size and shape. The uterus measures 6.5 x 5.1 x 4.0 cm. No myometrial mass is evident. The endometrial stripe is normal in thickness at 4 mm. A mildly complicated 2.3 x 1.6 x 1.5 cm right ovarian cyst is demonstrated, decreased from 4.5 x 1.9 x 1.9 cm previously. The right ovary measures 3.4 x 3.1 x 2.1 cm and left 3.3 x 1.6 x 1.5 cm. Ovarian blood flow is demonstrated with color-flow and pulsed Doppler. No adnexal mass is evident. A trace of free fluid is noted in the cul-de-sac. IMPRESSION: Mildly complicated 2.3 x 1.6 x 1.5 cm right ovarian cyst, decreased from 4.5 x 1.9 x 1.9 cm previously. Dictated by Alex Garcia MD @ 07/25/2023 3:50:36 PM Signed by:?Alex Garcia MD @07/25/2023 3:50:36 PM (Electronic Signature)
== END 2023-07-25 08:43 | disposition home or self-care (01) ==
LOC: US 08:43
PROVIDERS: PCP Physician Assistant Medical; Visit Provider Obstetrics & Gynecology
DX: N83.201 Unspecified ovarian cyst, right side (principal)
CPT/HCPCS: 76830; 93976

== ENCOUNTER 2023-07-28 13:16 | Outpatient (CLI) | payer BC, SELFPAY ==
--- OUTSIDE RECORDS SUMMARY | 2023-07-28 13:17 | XMS_ITS | Clinical Summary ---
Author Name Unknown Organization [facility] Address [place], [place] [address] Care Team Providers Care Firefighter Name Role Phone Terri Sullivan Primary Care [...] Department Care Team Description 07/18/2023 Orders Only [facility] Staff, Other Clinical 1 scan: (1-Ord) [facility] 07/18/2023 Orders Only [facility] Staff, Other Clinical 1 scan: (1-Ord) [facility] 07/16/2023 Orders Only [facility] Scanner 1 scan: (1-Ord) [place], PELVIC TRANSVAGINAL, 07/16/2023 06/24/2023 11:15 AM CDT Ancillary Procedure [facility] [address] [place] [address] 06/24/2023 Travel 06/18/2023 Orders Only [address] [address] Jenelle Cohn, R.TDaisha (ARRT) <No scans attached> 05/30/[address] [address] Terri Sullivan PA Questions 05/20/2023 8:10 AM PHYSICAL SECURITY SPECIALIST Office Visit [facility] [address] [place] [address] Terri Sullivan PA Vaginal Problem (Heavy bleeding [...] Comments Blood Pressure 103/71 05/20/2023 8:09 AM PHYSICAL SECURITY SPECIALIST Pulse 98 05/20/2023 8:09 AM PHYSICAL SECURITY SPECIALIST Temperature 36.6 ??C (97.9 ??F) 02/19/2022 12:[address] Respiratory Rate 16 02/19/2022 12:00 PM PHYSICAL SECURITY SPECIALIST Oxygen Saturation 98% 04/14/2023 2:09 PM PHYSICAL SECURITY SPECIALIST Inhaled Oxygen Concentration - - Weight 58.5 kg (129 lb) 05/20/2023 8:09 AM PHYSICAL SECURITY SPECIALIST Height 165.1 cm (5' 5) 02/19/2022 7:00 AM PHYSICAL SECURITY SPECIALIST Body Mass Index 21.47 02/19/2022 7:00 AM PHYSICAL SECURITY SPECIALIST Plan of Treatment Health Maintenance Due Date [...] this topic Medical Devices Implanted Type Area Manager Patient Device Identifier Shelf Expiration Date Model / Serial / Lot Stent Uret [id number] [facility] - [id number] Implanted:Qty: 1 on 04/05/2019 by Zander Gallegos MD at [facility] Right: [employer] 08/20/2021 [id number]# / / [id number] Procedures Procedure Name Priority Date/Time Associated Diagnosis Comments SCAN CORRESP-LABORATORY RESULTS 07/18/2023 9:15 AM CDT SCAN CORRESP-IMAGING 07/18/2023 9:15 AM CDT SCAN-ULTRASOUND REPORT 07/16/2023 12:00 AM CDT US PELVIS COMPLETE TA AND TV Routine 06/24/2023 11:52 AM CDT Pelvic pain Dyspareunia in female MEDIA MARKETING MANAGER THIN PREP PAP SCREEN IMAGED Routine 02/11/2023 12:00 PM PHYSICAL SECURITY SPECIALIST ANTI HIV 1/2 Routine 12/06/2020 4:18 PM [...] AM (Electronically Signed) Terri HERNÁNDEZ US * MEDIA MARKETING MANAGER THIN PREP PAP SCREEN IMAGED (02/11/2023 12:00 PM PHYSICAL SECURITY SPECIALIST) Case Report Gynecologic Cytology Report ? Case: [id number] ? Authorizing Provider: ??Christy Vieyra ??Collected: ? 02/11/2023 1200 ? M, MD ? Ordering Location: ? [facility] ?Received: ?02/13/2023 0846 ? First Screen: ?Silvestre Young ? Rescreen: ?Ambreen Coleman ? Specimen: ?MEDIA MARKETING MANAGER ThinPrep Vial Screening, Cervical ? 02/26/2023 12:40 PM PHYSICAL SECURITY SPECIALIST [facility] INTERPRETATION/ RESULT NEGATIVE FOR INTRAEPITHELIAL LESION OR MALIGNANCY (NIL) (none) 02/26/2023 12:40 PM [facility] IMEN ADEQUACY Satisfactory for evaluation Endocervical component present 02/26/2023 12:40 PM PHYSICAL SECURITY SPECIALIST [facility] HPV REQUEST HPV and PAP 02/26/2023 12:40 PM PHYSICAL SECURITY SPECIALIST [facility] Last Pap Date 02/03/2019 02/26/2023 12:40 PM [facility] Last Pap Result NIL 12:40 PM PHYSICAL SECURITY SPECIALIST [facility] Abnormal Pap or [employer] Bx in last 5 years No 02/26/2023 12:40 PM [facility] Menstrual Status 02/26/2023 12:40 PM [facility] [employer] Bx Done Today No 02/26/2023 12:40 PM [facility] Additional Information 02/26/2023 12:40 PM [facility] Comment: Interpreted at [facility], Central Laboratory - [address], [place] [address] Automated Review Successful 02/26/2023 12:40 PM [facility] Comment:Specimen processed s uccessfully by automated wind turbine installer device, ThinPrep Imaging System, [employer] ANCILLARY TESTING MEDIA MARKETING MANAGER HPV Ordered, Please see separate report 02/26/2023 12:40 PM [facility] Note The pap test is a screening technique, not a diagnostic procedure. It is used primarily to screen for squamous cancers and precursor lesions. Published studies have shown that it is subject to both false negative and false positive results. The pap test should not be used as the sole means to diagnose or exclude pre-malignant and malignant lesions. 02/26/2023 12:40 PM PHYSICAL SECURITY SPECIALIST [facility] Other (Cervical) 02/11/2023 12:00 PM PHYSICAL SECURITY SPECIALIST 02/13/2023 8:46 AM PHYSICAL SECURITY SPECIALIST Christy Vieyra MD PATHOLOGY/ CYTOLOGY [facility] [address] [place] [address], [place] * ANTI HCV (12/06/2020 4:18 PM CDT) HEPATITIS C ANTIBODY Non-React kamilla Non-React kamilla 12/07/2020 3:20 PM CDT [facility] Comment:Antibodies to HCV no t detected; does not exclude the possibility of exposure to HCV. Blood BLOOD SPECIMEN / Unknown Butterfly / Unknown 12/06/2020 4:18 PM CDT 12/06/2020 4:18 PM CDT Andres Peterson MD SEND OUTS Performing Organization Address City/[facility]/ZIP Co de Phone Number [facility] [address] [place] [address], [place] * ANTI HIV 1/2 (12/06/2020 4:18 PM CDT) Pathologist [facility] HIV-1/HIV-2 ANTIBODY Non-Reacti ve Non-Reacti ve 12/07/2020 3:23 PM CDT [facility] Comment:HIV-1 p24 and HIV-1/ HIV-2 Ab not detected. Blood BLOOD SPECIMEN / Unknown Butterfly / Unknown 12/06/2020 4:18 PM CDT 12/06/2020 4:18 PM CDT Andres Peterson MD SEND OUTS [facility] [address] [place] [address], [place] from Last 3 Months or Most [...] 8:10 AM 04/05/2019 4:19 PM Care Teams Firefighter Relationship Specialty Start Date End Date Terri Sullivan PA [address] [place] [address] PCP - General Family Practice 09/05/10
[2023-07-28 16:04] LABS: Chlamydia DNA Amplified* NOT DETECTED (No Detected); GC DNA Amplified* NOT DETECTED (No Detected)
== END 2023-07-28 13:17 | disposition home or self-care (01) ==
LOC: NFLDREF 13:16
PROVIDERS: PCP Physician Assistant Medical; Visit Provider Obstetrics & Gynecology
DX: R10.2 Pelvic and perineal pain (principal)
CPT/HCPCS: 87491; 87591

== ENCOUNTER 2024-04-30 10:01 | Emergency (ER) | payer BC, SELFPAY ==
--- OUTSIDE RECORDS SUMMARY | 2024-04-30 10:03 | XMS_ITS | Clinical Summary ---
Author Organization [employer] [facility] [employer] Address [place], [place] [address] Care Team Providers Care Chicken Boner Name Role Phone Terri Sullivan Primary Care Provider Allergies Active Allergy Reactions Criticality Noted Date Comments Nitrofurantoin Throat Swelling/Closing High 06/20/19 21 Ketorolac Itching Low 04/24/2016 Itch with IV Toradol. Does fine with Benadryl Medications PNV 19/iron ps,heme/folic/dh a ( MV & MIN ORAL) Take by mouth. Active citalopram (CELEXA) 40 mg tabletIndication s:Anxiety Take 1 Tablet (40 mg) by mouth every morning. 90 Tablet 3 05/20/2023 Active busPIRone (BUSPAR) 10 mg tabletIndication s:Anxiety Take 1 Tablet (10 mg) by mouth two times daily. 180 Tablet 1 05/20/2023 Active levonorgestrel-e thinyl estrad, 0.1mg-20mcg, (ALESSE-28) 0.1-20 mg-mcg tabletIndication s:Menorrhagia with irregular cycle Take 1 Tablet by mouth once daily. 84 Tablet 3 05/20/2023 Active Active Problems Problem Noted Date Diagnosed Date Chiari malformation type I 01/26/2015 Overview (01/26/2015): Mild per MRI on 12/25/14 Anxiety 10/12/2014 Bilateral nephrolithiasis Resolved Problems Problem Noted Date Diagnosed Date Resolved Date Depression 10/12/2014 01/14/2022 Right shoulder subacromial bursitis 06/24/2012 01/14/2022 Long head biceps tendinitis on right 06/24/2012 01/14/2022 Cervical disk inflammation w ith radicular pain 06/24/2012 01/14/2022 Trochanteric bursitis 10/30/20092021 Popliteal Artery Entrapment 03/08/2009 01/14/2022 Lumbago 01/04/2009 01/14/2022 LEG PAIN 12/08/2008 01/14/2022 Immunizations Name Administration Dates Next Due DTP 11/29/1997, 5,06/22/1993,04/16,02/16/1993 DTaP 11/18/2005 Hepatitis B, Unspecified 12/26/1993,06/22/1993,1 1992 Hib Conjugate, Unspecified 04/25/1994,,04/16/1993,02/16 Human Papilloma Virus Vaccine 04/06/2013, 013,03/27/2012 Influenza, IIV3 (Age >=3 years) 04/10/2012 Influenza, IIV4 11/29/2017 Influenza, IIV4 (=>6mos) MDV 12/25/2017 MENINGOCOCCAL VACCINE 2 VIAL 2MO-55YO (MENVEO) 03/27/2012 MMR 11/29/1997,04/25/1994 Oral Polio Vaccine 11/29/1997, 4,04/16/1993,02/16 Polio Virus, Unspecified 11/29/1997,11/30,04/16/1993,02/16 Varicella Vaccine 03/31/1994 Family History Medical History [...] 0 10/09/2021 Social Connections Answer Date Recorded Do you often feel lonely or isolated from those around you? 0 05/20/2023 Financial Resource Strain Answer Date R ecorded Difficulty of Paying Living Expenses 3 05/20/2023 Difficulty of Paying Living Expenses Not on file 05/20/2023 Food Insecurity Answer Date Recorded Do you worry your food will run out before you are able to buy more? 1 05/20/2023 Transportation Needs Answer Date Record ed Does lack of transportation keep you from medica l appointments? 1 05/20/2023 Does lack of transportation keep you from work, meetings or getting things that you need? 1 05/20/2023 Housing Stability Answer Date Recorded What is your housing situation today? 1 05/20/2023 Utilities Answer Date Recorded Do you have trouble paying f or utilities (for example, heat, electricity, water, phone)? 1 05/20/2023 Comments No Sex and Gender Information Value Date Recorded Sex Assigned at Not on file Legal Sex Female 5:26 AM OFFICE ADMINISTRATOR Gender Identity Not on file Sexual Orientation Not on file Obstetrics History Para Term AB IAB SAB Ectopic Multiple Livin g Live Births 0 0 0 0 0 0 0 0 0 0 0 Last Filed Vital Signs Vital Sign Reading Time Taken Comments Blood Pressure 103/71 05/20/2023 8:09 AM OFFICE ADMINISTRATOR Pulse 98 05/20/2023 8:09 AM OFFICE ADMINISTRATOR Temperature 36.6 C (97.9 F) 02/19/2022 12:00 PM OFFICE ADMINISTRATOR Respiratory Rate 16 02/19/2022 12:00 PM OFFICE ADMINISTRATOR Oxygen Saturation 98% 04/14/2023 2:09 PM OFFICE ADMINISTRATOR Inhaled Oxygen Concentration - - Weight 58.5 kg (129 lb) 05/20/2023 8:09 AM OFFICE ADMINISTRATOR Height 165.1 cm (5' 5) 02/19/2022 7:00 AM OFFICE ADMINISTRATOR Body Mass Index 21.47 02/19/2022 7:00 AM OFFICE ADMINISTRATOR Plan of Treatment Health Maintenance Due Date Last Done Comments Tdap 12/18/2003 Tetanus booster 2012 BMI (ht and wt on same day) for age 18+ 01/01/2022 01/01/2021, 12/06/2020, 06/14/2020, Additional history exists Depression screening for age 12+ 10/09/2022 10/09/2021, 09/29/2019, 09/29/2019, Additional history exists COVID-19 vaccine series ( season) 2023 05/04/2021, 04/05/2021 Influenza for age 9-49 11/30/2023 8, 11/29/2017, 04/10/2012 Pap test for age 21-65 02/11/2026 3, 02/11/2023, 02/03/2019, Additional history exists HIV for age 15-65 Completed 12/06/2020, , 09/08/2012 Hepatitis C screening for age 18-79 Completed 12/06/2020 Pneumococcal series for age 6-49 Aged Out No longer eligible based on patient's age to complete this topic Medical Devices Implanted Type Area Silviculture Forester Device Identifier Shelf Expiration Date Model / Serial / Lot Stent Uret [id number] Silhouette - [id number] Implanted:Qty: 1 on 04/05/2019 by Zander Gallegos MD at [facility] Right: [employer] 08/20/2021 [id number] / / [id number] Procedures Procedure Name Priority Date/Time Associated Diagnosis Comments CLAIM ANALYST THIN PREP PAP SCREEN IMAGED Routine 02/11/2023 12:00 PM OFFICE ADMINISTRATOR ANTI HIV 1/2 Routine 12/06/2020 4:18 PM CDT Screen for STD (sexually transmitted disease) ANTI HCV Routine 12/06/2020 4:18 PM CDT Screen for STD (sexually transmitted disease) from Last 3 Months or Most Recently Relevant to Health Maintenance Results * CLAIM ANALYST THIN PREP PAP SCREEN IMAGED (02/11/2023 12:00 PM OFFICE ADMINISTRATOR) Case Report Gynecologic Cytology Report Case: [id number] Authorizing Provider: Christy Vieyra Collected: 02/11/2023 1200 MMD Ordering Location: [facility] Received: 02/13/2023 0846 First Screen: Silvestre Young Rescreen: Ambreen Coleman Specimen: CLAIM ANALYST ThinPrep Vial Screening, Cervical 02/26/2023 12:40 PM OFFICE ADMINISTRATOR [facility] Campus Shift [facility] INTERPRETATION/ RESULT NEGATIVE FOR INTRAEPITHELIAL LESION OR MALIGNANCY (NIL) (none) 02/26/2023 12:40 PM OFFICE ADMINISTRATOR [facility] IMEN ADEQUACY Satisfactory for evaluation Endocervical component present 02/26/2023 12:40 PM OFFICE ADMINISTRATOR [facility] HPV REQUEST HPV and PAP 02/26/2023 12:40 PM OFFICE ADMINISTRATOR [facility] Last Pap Date 02/03/2019 02/26/2023 12:40 PM OFFICE ADMINISTRATOR [facility] Last Pap Result NIL 12:40 PM OFFICE ADMINISTRATOR [facility] Abnormal Pap or [place] Bx in last 5 years No 02/26/2023 12:40 PM OFFICE ADMINISTRATOR [facility] Menstrual Status 02/26/2023 12:40 PM OFFICE ADMINISTRATOR [facility] [place] Bx Done Today No 02/26/2023 12:40 PM OFFICE ADMINISTRATOR [facility] Additional Information 02/26/2023 12:40 PM OFFICE ADMINISTRATOR [facility] Comment: Interpreted at [facility], Central Laboratory - [address], [place] [address] Automated Review Successful 02/26/2023 12:40 PM OFFICE ADMINISTRATOR [facility] Comment:Specimen processed s uccessfully by automated business consultant device, ThinPrep Imaging System, [employer] ANCILLARY TESTING CLAIM ANALYST HPV Ordered, Please see separate report 02/26/2023 12:40 PM OFFICE ADMINISTRATOR [facility] Note The pap test is a screening technique, not a diagnostic procedure. It is used primarily to screen for squamous cancers and precursor lesions. Published studies have shown that it is subject to both false negative and false positive results. The pap test should not be used as the sole means to diagnose or exclude pre-malignant and malignant lesions. 02/26/2023 12:40 PM OFFICE ADMINISTRATOR [facility] Campus Shift [facility] Other (Cervical) 02/11/2023 12:00 PM OFFICE ADMINISTRATOR 02/13/2023 8:46 AM OFFICE ADMINISTRATOR us Christy Vieyra MD PATHOLOGY/CYTOLOGY Final Result [facility] [address] [place] [address], * ANTI HCV (12/06/2020 4:18 PM CDT) HEPATITIS C ANTIBODY Non-React kamilla Non-React kamilla 12/07/2020 3:20 PM CDT [facility] Comment:Antibodies to HCV no t detected; does not exclude the possibility of exposure to HCV. Blood BLOOD SPECIMEN / Unknown Butterfly / Unknown 12/06/2020 4:18 PM CDT 12/06/2020 4:18 PM CDT us Andres Peterson MD SEND OUTS Final Re sult Performing Organization Address City/[facility]/ZIP Co de Phone Number [facility] [address] [place] [address], * ANTI HIV 1/2 (12/06/2020 4:18 PM CDT) HIV-1/HIV-2 ANTIBODY Non-Reacti ve Non-Reacti ve 12/07/2020 3:23 PM CDT [facility] Comment:HIV-1 p24 and HIV-1/ HIV-2 Ab not detected. Blood BLOOD SPECIMEN / Unknown Butterfly / Unknown 12/06/2020 4:18 PM CDT 12/06/2020 4:18 PM CDT us Andres Peterson MD SEND OUTS Final Re sult [facility] [address] [place] [address], from Last 3 Months or Most Recently Relevant to Health Maintenance Insurance [address] [place] [id number] [facility] Advance Directives * Full Code (Latest Code [...] 8:10 AM 04/05/2019 4:19 PM Care Teams Chicken Boner Relationship Specialty Start Date End Date Terri Sullivan [place] [address] [place] [address] PCP - General Family Practice 09/05/10
[2024-04-30 10:40] VITALS: BP 120/80; PULSE 96; RESP 16; TEMP 37.3; O2SAT 100; BMI 20.8
[2024-04-30 11:18] LABS: Appearance Urine Clear (Clear); Bilirubin Urine Negative (Negative); Blood Urine Negative (Negative); Color Urine Yellow (Yellow); Glucose Urine Negative (Negative); Ketones Urine Negative (Negative); Leukocyte Esterase Urine Trace (Negative); Nitrite Urine Negative (Negative); Protein Urine Trace (Negative); Specific Gravity Urine >= 1.030 (1.000-1.030); Urobilinogen Urine 0.2 (0.2-1.0)
[2024-04-30 11:41] LABS: Bacteria Urine Moderate; Mucus Urine Many; RBC Urine 0-2 (0-2); Squamous Epithelial Cell Urine Many (None-Few)
[2024-04-30 12:52] LABS: Lactate* 0.7 mmol/L (0.5-1.9)
--- OUTSIDE RECORDS SUMMARY | 2024-04-30 12:53 | XMS_ITS | Clinical Summary ---
Author Organization [employer] Address [place], [place] [address] Care Team Providers Care Commercial Loan Coordinator Name Role Phone Terri Sullivan Primary Care [...] on file Legal Sex Female 5:26 AM RETANNED LEATHER ROLLER Gender Identity Not on file Sexual Orientation Not on file Obstetrics History Para Term AB IAB SAB Ectopic Multiple Livin g Live Births 0 0 0 0 0 0 0 0 0 0 0 Last Filed Vital Signs Vital Sign Reading Time Taken Comments Blood Pressure 103/71 05/20/2023 8:09 AM RETANNED LEATHER ROLLER Pulse 98 05/20/2023 8:09 AM RETANNED LEATHER ROLLER Temperature 36.6 C (97.9 F) 02/19/2022 12:00 PM RETANNED LEATHER ROLLER Respiratory Rate 16 02/19/2022 12:00 PM RETANNED LEATHER ROLLER Oxygen Saturation 98% 04/14/2023 2:09 PM RETANNED LEATHER ROLLER Inhaled Oxygen Concentration - - Weight 58.5 kg (129 lb) 05/20/2023 8:09 AM RETANNED LEATHER ROLLER Height 165.1 cm (5' 5) 02/19/2022 7:00 AM RETANNED LEATHER ROLLER Body Mass Index 21.47 02/19/2022 7:00 AM RETANNED LEATHER ROLLER Plan of Treatment Health Maintenance Due Date [...] this topic Medical Devices Implanted Type Area Forming Operator Device Identifier Shelf Expiration Date Model / Serial / Lot Stent Uret [id number] Silhouette - [id number] Implanted:Qty: 1 on 04/05/2019 by Zander Gallegos MD at [facility] Right: [employer] 08/20/2021 [id number] / / [id number] Procedures Procedure Name Priority Date/Time Associated Diagnosis Comments SEALING MACHINE OPERATOR THIN PREP PAP SCREEN IMAGED Routine 02/11/2023 12:00 PM RETANNED LEATHER ROLLER ANTI HIV 1/2 Routine 12/06/2020 4:18 PM CDT Screen for STD (sexually transmitted disease) ANTI HCV Routine 12/06/2020 4:18 PM CDT Screen for STD (sexually transmitted disease) from Last 3 Months or Most Recently Relevant to Health Maintenance Results * SEALING MACHINE OPERATOR THIN PREP PAP SCREEN IMAGED (02/11/2023 12:00 PM RETANNED LEATHER ROLLER) Case Report Gynecologic Cytology Report Case: [id number] Authorizing Provider: Christy Vieyra Collected: 02/11/2023 1200 MMD Ordering Location: [facility] Received: 02/13/2023 0846 First Screen: Silvestre Young Rescreen: Ambreen Coleman Specimen: SEALING MACHINE OPERATOR ThinPrep Vial Screening, Cervical 02/26/2023 12:40 PM RETANNED LEATHER ROLLER [facility] [employer] [facility] INTERPRETATION/ RESULT NEGATIVE FOR INTRAEPITHELIAL LESION OR MALIGNANCY (NIL) (none) 02/26/2023 12:40 PM RETANNED LEATHER ROLLER [facility] IMEN ADEQUACY Satisfactory for evaluation Endocervical component present 02/26/2023 12:40 PM RETANNED LEATHER ROLLER [facility] HPV REQUEST HPV and PAP 02/26/2023 12:40 PM RETANNED LEATHER ROLLER [facility] Last Pap Date 02/03/2019 02/26/2023 12:40 PM RETANNED LEATHER ROLLER [facility] Last Pap Result NIL 12:40 PM RETANNED LEATHER ROLLER [facility] Abnormal Pap or [place] Bx in last 5 years No 02/26/2023 12:40 PM RETANNED LEATHER ROLLER [facility] Menstrual Status 02/26/2023 12:40 PM RETANNED LEATHER ROLLER [facility] [place] Bx Done Today No 02/26/2023 12:40 PM RETANNED LEATHER ROLLER [facility] Additional Information 02/26/2023 12:40 PM RETANNED LEATHER ROLLER [facility] Comment: Interpreted at [facility], Central Laboratory - [address], [place] [address] Automated Review Successful 02/26/2023 12:40 PM RETANNED LEATHER ROLLER [facility] Comment:Specimen processed s uccessfully by automated propellant charge loader device, ThinPrep Imaging System, [facility] ANCILLARY TESTING SEALING MACHINE OPERATOR HPV Ordered, Please see separate report 02/26/2023 12:40 PM RETANNED LEATHER ROLLER [facility] Note The pap test is [...] pre-malignant and malignant lesions. 02/26/2023 12:40 PM RETANNED LEATHER ROLLER [facility] [employer] [facility] Other (Cervical) 02/11/2023 12:00 PM RETANNED LEATHER ROLLER 02/13/2023 8:46 AM RETANNED LEATHER ROLLER us Christy Vieyra MD PATHOLOGY/CYTOLOGY Final Result [facility] [address] [place] [address], * ANTI HCV (12/06/2020 4:18 PM CDT) [...] OUTS Final Re sult Performing Organization Address City/[facility]/ZIP Co de Phone Number [facility] [address] [place] [address], * ANTI HIV 1/2 (12/06/2020 4:18 PM CDT) HIV-1/HIV-2 ANTIBODY Non-Reacti ve Non-Reacti ve 12/07/2020 3:23 PM CDT [facility] Comment:HIV-1 p24 and HIV-1/ HIV-2 Ab not detected. Blood BLOOD SPECIMEN / Unknown Butterfly / Unknown 12/06/2020 4:18 PM CDT 12/06/2020 4:18 PM CDT us Andres Peterson MD SEND OUTS Final Re sult [facility] [address] [place] [address], from Last 3 Months or Most Recently Relevant to Health Maintenance Insurance [address] [place] [id number] [facility] Advance Directives * Full Code (Latest Code [...] 8:10 AM 04/05/2019 4:19 PM Care Teams Commercial Loan Coordinator Relationship Specialty Start Date End Date Terri Sullivan PA [address] [place] [address] PCP - General Family Practice 09/05/10
[2024-04-30 12:56] LABS: Basophils Absolute Auto 0.02 K/uL (0.00-0.30); Basophils Percent Auto 0.3 % (0.0-3.0); Eosinophils Percent Auto 1.5 % (0.0-7.0); Hematocrit 39.3 % (33.0-51.0); Lymphocytes Absolute Auto 2.05 K/uL (0.90-2.90); Lymphocytes Percent Auto 30.5 % (20-44); Mean Corpuscular HGB Conc 33 gm/dL (32-36); Mean Corpuscular Hemoglobin 29 pg (26-34); Mean Corpuscular Volume 87 fL (80-100); Monocytes Percent Auto 6.7 % (0.0-11.0); Neutrophils Absolute Auto 4.11 K/uL (1.7-7.0); Platelet Count* 304 K/uL (140-440); RDW Coefficient of Variation % 11.9 % (11.5-15.5); Red Blood Count 4.53 m/uL (4.00-5.20); White Blood Count* 6.73 K/uL (4.50-11.00)
[2024-04-30 12:57] LABS: Slide Review Reflex No
--- NOTE | 2024-04-30 13:01 | ED.GENADULT ---
HPI - General Adult General Chief complaint: Back Injury/Pain Stated complaint: Possible ectopic preg, or kidney stone Time Seen by Provider: 04/30/24 11:54 Source: patient Mode of arrival: ambulatory Limitations: no limitations History of Present Illness HPI narrative: 33-year-old female presenting today with right-sided flank pain. Pain started approximately 2 weeks ago when it comes and goes. Sometimes radiates a little bit into the anterior abdomen but rarely. Does not radiate into the groin. Patient is she believes around 7 weeks . Has not had her 1st OB appointment yet she denies any vaginal bleeding or discharge. She denies any suprapubic discomfort. No diarrhea or constipation. Patient does have a history of kidney stones with her last episode approximately 2 years ago. Patient takes citalopram, no other medications. She denies any fevers or chills. She endorses nausea but no vomiting. 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 - Other specified disorders of arteries and arterioles (ICD-10) Multiple kidney stones ?N20.0 - Calculus of kidney (ICD-10) Migraine headache ?G43.909 - Migraine, unspecified, not intractable, without status migrainosus (ICD-10) Calculus of kidney ?N20.0 - Calculus of kidney (ICD-10) Surgical History History of lumpectomy of left breast ?Z98.890 - Other specified postprocedural states (ICD-10) History of cholecystectomy ?Z90.49 - Acquired absence of other specified parts of digestive tract (ICD-10) History of appendectomy ?Z90.49 - Acquired absence of other specified parts of digestive tract (ICD-10) Family History Father Alcohol dependence Paternal Grandmother Breast cancer Maternal Grandmother Heart disease Stroke Maternal Grandfather Heart disease Social History What is your current living situation?: I presently have a place to live Problems where you live: no known problems In the past 12 months, utilities in danger of being shut off: no In past 12 months, lack of transportation kept you from medical appts, meetings, work, or getting things needed for daily living: no In the past 12 mos, have been you worried that your food would run out before you had money to buy more?: never true In the past 12 mos, the food you bought just didn't last and you didn't have money to buy more?: never true Smoking Status: Never smoker Do you use any of these nicotine containing products: None Second hand tobacco smoke exposure: No How often do you have a drink containing alcohol: never How often do you have six or more drinks on one occasion: Never AUDIT-C Alcohol total score: 0 Non-prescribed substance use: denies use How often does anyone, including family, friends and others, physically hurt you: never How often does anyone, including family, friends and others, insult or talk down to you: never How often does anyone, including family, friends and others, threaten you with harm: never How often does anyone, including family, friends and others, scream or curse at you: never service: No Exam Narrative: Exam Narrative: Well-nourished well-developed patient in no acute distress. Alert and oriented. Answers questions appropriately. Mood and affect are appropriate. Thoughts are goal oriented and rational. No tangential or magical thinking noted. Patient speaks in full sentences without needing to catch her breath. HEENT: Normocephalic atraumatic. Pupils are equally round reactive to light. Extraocular muscles are intact. Conjunctivae are moist without any icterus noted. Moist mucous membranes. Cardiovascular: Heart is regular rate and rhythm S1 and S2 are present without any murmurs. Lungs: Clear to auscultation bilaterally no wheezes rhonchi or rales are appreciated. Patient takes deep breaths without any discomfort. Abdomen: Soft and nontender nondistended with normal bowel sounds. She does have right-sided CVA tenderness. Extremities: Bilateral lower extremities are without edema. Skin: Well perfused without any obvious rashes. Const: Vital Signs, click to edit/add: Vital Signs - 24 hr 04/30/24 10:40 Temperature 99.1 F Pulse Rate [Right Pulse Oximeter] 96 Respiratory Rate 16 Blood Pressure [Ri ght Upper Arm] 120/80 Pulse Oximetry 100 Oxygen Delivery Me thod Room Air Course Course ED Course: CBC is entirely normal. Normal lactate. A UA shows trace protein and trace leukocyte esterase with many squamous epithelial cells. Chemistries are normal. Normal CRP. Ob ultrasound shows an early at around 5 weeks gestation and a right-sided ovarian cyst. Renal ultrasound does not show any evidence of hydronephrosis. Discussed results with patient. At this time recommend symptomatic treatment with gentle heat, Tylenol and fluid hydration. Vital Signs Vital signs: Initial Vital Signs Temperature 99.1 F 04/30/24 10:40 Temperature Source Temporal Artery Scan 04/30/24 10:40 Pulse Rate 96 04/30/24 10:40 Pulse Rhythm Regular 04/30/24 10:40 Respiratory Rate 16 04/30/24 10:40 Blood Pressure 120/80 04/30/24 10:40 Blood Pressure Mean 93 04/30/24 10:40 Blood Pressure Position Sitting 04/30/24 10:40 Pulse Oximetry 100 04/30/24 10:40 Oxygen Delivery Method Room Air 04/30/24 10:40 Vital Signs Temperature 99.1 F 04/30/24 10:40 Pulse Rate 96 04/30/24 10:40 Respiratory Rate 16 04/30/24 10:40 Blood Pressure 120/80 04/30/24 10:40 Pulse Oximetry 100 04/30/24 10:40 Oxygen Delivery Method Room Air 04/30/24 10:40 Temperature 99.1 F 04/30/24 10:40 Pulse Rate 96 04/30/24 10:40 Respiratory Rate 16 04/30/24 10:40 Blood Pressure 120/80 04/30/24 10:40 Pulse Oximetry 100 04/30/24 10:40 Oxygen Delivery Method Room Air 04/30/24 10:40 Medical Decision Making MDM Narrative Medical decision making narrative: 33-year-old female with flank pain, history of kidney stones, currently . Differential diagnoses includes renal stones, musculoskeletal discomfort. Discussed symptomatic treatment and reasons for follow-up. Lab Data Lab results reviewed: Yes I reviewed the patient's lab results Labs: Lab Results 04/30/24 04/30/24 Range/Units 10:49 12:46 WBC 6.73 (4.50-11.00) K/uL RBC 4.53 (4.00-5.20) m/uL Hgb 13.0 (12.0-16.0) gm/dL Hct 39.3 (33.0-51.0) % MCV 87 (80-100) fL MCH 29 (26-34) pg MCHC 33 (32-36) gm/dL RDW Coeff of John 11.9 (11.5-15.5) % Plt Count 304 (140-440) K/uL Neut % (Auto) 61.0 (42.0-72.0) % Lymph % (Auto) 30.5 (20-44) % Daniels % (Auto) 6.7 (0.0-11.0) % Eos % (Auto) 1.5 (0.0-7.0) % Baso % (Auto) 0.3 (0.0-3.0) % Neut # (Auto) 4.11 (1.7-7.0) K/uL Lymph # (Auto) 2.05 (0.90-2.90) K/uL Daniels # (Auto) 0.50 (0.00-0.90) K/UL Eos # (Auto) 0.10 (0.00-0.50) K/uL Baso # (Auto) 0.02 (0.00-0.30) K/uL Abs Immat Gran (auto) 0.00 (0.00-0.30) K/uL Imm/Tot Granulo (auto) 0.0 % Sodium 136 (135-149) mmol/L Potassium 3.5 L (3.6-5.1) mmol/L Chloride 105 (96-114) mmol/L Carbon Dioxide 23 (20-32) mmol/L Anion Gap 8 (7-15) mEq/L BUN 8 (5-24) mg/dL Creatinine 0.6 (0.5-1.5) mg/dL Estimated Creat Clear 121.60 Estimated GFR 123 ml/min Glucose 95 (60-115) mg/dL Lactate 0.7 (0.5-1.9) mmol/L Calcium 9.0 (8.4-10.6) mg/dL Total Bilirubin 0.3 (0.1-1.5) mg/dL Direct Bilirubin 0.1 (0.0-0.5) mg/dL AST 20 (12-35) U/L ALT 23 (4-35) U/L Alkaline Phosphatase 53 (40-150) U/L C-Reactive Protein < 0.5 L (0.5-1.0) mg/dL Total Protein 7.2 (6.0-8.3) g/dL Albumin 4.2 (3.3-5.0) g/dL Urine Color Yellow (Yellow) Urine Appearance Clear (Clear) Urine pH 6.0 (5.0-8.5) Ur Specific Olpe >= 1.030 (1.000-1.030) Urine Protein Trace A (Negative) Urine Glucose (UA) Negative (Negative) Urine Ketones Negative (Negative) Urine Blood Negative (Negative) Urine Nitrite Negative (Negative) Urine Bilirubin Negative (Negative) Urine Urobilinogen 0.2 (0.2-1.0) Ur Leukocyte Esterase Trace A (Negative) Urine RBC 0-2 (0-2) Urine WBC 5-10 A (0-5) Ur Squamous Epith Cells Many A (None-Few) Urine Bacteria Moderate A (None) Urine Mucus Many A (None) Imaging Data OB ultrasound: Attestation: I have reviewed the pertinent imaging results. Radiologist's impression: Transvaginal pelvic ultrasound. COMPARISON: None. FINDINGS: Intrauterine cystic focus suggesting gestational sac with mean sac diameter of 7 mm corresponding to 5 weeks 3 days. No yolk sac, pole or living intrauterine at this time. Uterus is otherwise homogeneous in echotexture. Right ovary is 5.7 x 2.2 x 3.5 cm. Cystic lesion in the right ovary measuring up to 2.6 cm with peripheral vascularity suggest corpus luteum cyst. Left ovary is 2.9 x 1.4 x 2.4 cm and is within normal limits. Normal-appearing color flow in the left ovary. Small amount of pelvic free fluid. IMPRESSION: 1. Findings suggestive of early intrauterine . No yolk sac or a living intrauterine at this time. Continued beta HCG and ultrasound follow-up recommended as indicated. 2. Suspected corpus luteum cyst in the right ovary measures 2.6 cm. 3. Small pelvic free fluid. Renal ultrasound: Attestation: I have reviewed the pertinent imaging results. Radiologist's impression: INDICATION: Right flank pain TECHNIQUE: Ultrasound renal and bladder complete. Isaac-scale and color Doppler sonographic images were acquired of the kidneys and urinary bladder. COMPARISON: Renal ultrasound 11/22/2022 FINDINGS: Right kidney: 11.1 x 3.9 x 5.4 cm. Normal echotexture and cortex. No suspicious masses or hydronephrosis. Interpolar renal calculus measuring 4 mm. Lower pole renal calculus measuring 7 mm. Left kidney: 11.9 x 5 x 4.9 cm. Normal echotexture and cortex. No suspicious masses, stones, or hydronephrosis. Bladder: Normal in caliber and appearance. Color Doppler images demonstrate bilateral ureteral jets. IMPRESSION: Two new renal calculi measuring up to 7 mm in the right lower pole. No hydronephrosis bilaterally. Discharge Plan Discharge Clinical Impression: Flank pain Patient Disposition: Home, Self-Care Condition: Stable Additional Instructions: Okay to use gentle heat to sore area, do not apply heat for more than 20 minutes at a time and do not apply heat directly to the skin. Okay to use Tylenol as needed/as directed for discomfort. Make sure to stay well hydrated. If you develop vomiting, fevers, or worsening pain then you should return to the ER for follow-up. Prescriptions: No Action citalopram 40 mg tablet 40 mg PO QDAY Qty: 90 1RF Follow Up/Referrals: Terri Sullivan PA-C [Primary Care Provider] - Stand Alone Forms: [employer] Info Instructions
[2024-04-30 13:21] LABS: Albumin* 4.2 g/dL (3.3-5.0); Chloride* 105 mmol/L (96-114); Sodium* 136 mmol/L (135-149)
[2024-04-30 13:22] LABS: Potassium* 3.5 mmol/L (3.6-5.1)
[2024-04-30 13:23] LABS: Creatinine* 0.6 mg/dL (0.5-1.5); Estimated Glomerular Filt Rate 123 ml/min
[2024-04-30 13:24] LABS: Anion Gap 8 mEq/L (7-15); Aspartate Amino Transferase* 20 U/L (12-35); Bilirubin Direct* 0.1 mg/dL (0.0-0.5); Bilirubin Total* 0.3 mg/dL (0.1-1.5); Carbon Dioxide* 23 mmol/L (20-32); Total Protein* 7.2 g/dL (6.0-8.3)
[2024-04-30 13:25] LABS: Alanine Aminotransferase* 23 U/L (4-35); Alkaline Phosphatase* 53 U/L (40-150); Blood Urea Nitrogen* 8 mg/dL (5-24); Glucose* 95 mg/dL (60-115)
[2024-04-30 13:32] LABS: C Reactive Protein* < 0.5 mg/dL (0.5-1.0)
== END 2024-04-30 13:58 | disposition home or self-care (01) ==
PROVIDERS: Emergency Provider Family Medicine; PCP Physician Assistant Medical
DX: R10.9 Unspecified abdominal pain (principal); Z3A.01 Less than 8 weeks gestation of pregnancy
CPT/HCPCS: 36415; 76770; 76817; 80048; 80076; 81001; 81003; 83605; 85025; 86140; 87086; 99283; 99284

== ENCOUNTER 2024-05-08 09:17 | Emergency (ER) | payer BC, SELFPAY ==
--- OUTSIDE RECORDS SUMMARY | 2024-05-08 09:19 | XMS_ITS | Clinical Summary ---
Author Organization [facility] Address [place], [place] [address] Care Team Providers Care Medical And Scientific Illustrator Name Role Phone Terri Sullivan Primary Care [...] Encounters Date Type Department Care Team Description 04/30/2024 Orders Only [facility] Scanner 1 scan: (1-Ord) [facility], RENAL BLADDER, 04/30/2024 04/30/2024 Orders Only [facility] Scanner 1 scan: (1-Ord) [facility], OB TRANSVAGINAL, 04/30/2024 from Last 3 Months Immunizations Name Administration [...] on file Legal Sex Female 5:26 AM CONSUMER SAFETY INSPECTOR Gender Identity Not on file Sexual Orientation Not on file Obstetrics History Para Term AB IAB SAB Ectopic Multiple Livin g Live Births 0 0 0 0 0 0 0 0 0 0 0 Last Filed Vital Signs Vital Sign Reading Time Taken Comments Blood Pressure 103/71 05/20/2023 8:09 AM CONSUMER SAFETY INSPECTOR Pulse 98 05/20/2023 8:09 AM CONSUMER SAFETY INSPECTOR Temperature 36.6 C (97.9 F) 02/19/2022 12:00 PM CONSUMER SAFETY INSPECTOR Respiratory Rate 16 02/19/2022 12:00 PM CONSUMER SAFETY INSPECTOR Oxygen Saturation 98% 04/14/2023 2:09 PM CONSUMER SAFETY INSPECTOR Inhaled Oxygen Concentration - - Weight 58.5 kg (129 lb) 05/20/2023 8:09 AM CONSUMER SAFETY INSPECTOR Height 165.1 cm (5' 5) 02/19/2022 7:00 AM CONSUMER SAFETY INSPECTOR Body Mass Index 21.47 02/19/2022 7:00 AM CONSUMER SAFETY INSPECTOR Plan of Treatment Health Maintenance Due Date Last Done Comments Tdap 12/18/2003 Tetanus booster 2012 BMI (ht and wt on same day) for age 18+ 01/01/2022 01/01/2021, 12/06/2020, 06/14/2020, Additional history exists Depression screening for age 12+ 10/09/2022 10/09/2021, 09/29/2019, 09/29/2019, Additional history exists COVID-19 vaccine series (2023- season) 2023 05/04/2021, 04/05/2021 Influenza for age 9-49 11/30/2023 8, 11/29/2017, 04/10/2012 Pap test for age 21-65 02/11/2026 3, 02/11/2023, 02/03/2019, Additional history exists HIV for age 15-65 Completed 12/06/2020, , 09/08/2012 Hepatitis C screening for age 18-79 Completed 12/06/2020 Pneumococcal series for age 6-49 Aged Out No longer eligible based on patient's age to complete this topic Medical Devices Implanted Type Area Fish Dressing Machine Feeder Device Identifier Shelf Expiration Date Model / Serial / Lot Stent [facility]ret [id number] [facility] [id number] Implanted:Qty: 1 on 04/05/2019 by Zander Gallegos MD at [facility] Right: [employer] Igor 08/20/2021 [id number] / / [id number] Procedures Procedure Name Priority Date/Time Associated Diagnosis Comments SCAN-ULTRASOUND REPORT 04/30/2024 12:00 AM CONSUMER SAFETY INSPECTOR SCAN-ULTRASOUND REPORT 04/30/2024 12:00 AM CONSUMER SAFETY INSPECTOR [employer] THIN PREP PAP SCREEN IMAGED Routine 02/11/2023 12:00 PM CONSUMER SAFETY INSPECTOR ANTI HIV 1/2 Routine 12/06/2020 4:18 PM CDT Screen for STD (sexually transmitted disease) ANTI HCV Routine 12/06/2020 4:18 PM CDT Screen for STD (sexually transmitted disease) from Last 3 Months or Most Recently Relevant to Health Maintenance Results * SCAN-ULTRASOUND REPORT (04/30/2024 12:00 AM CONSUMER SAFETY INSPECTOR) Only the most recent of2 resultswithin the time period is included. Anatomical Region Laterality Modality Other us Scanner OTHER Final Result * [employer] PROFESSOR THIN PREP PAP SCREEN IMAGED (02/11/2023 12:00 PM CONSUMER SAFETY INSPECTOR) Case Report Gynecologic Cytology Report Case: [id number] Authorizing Provider: Christy Vieyra Collected: 02/11/2023 1200 MMD Ordering Location: [facility] Received: 02/13/2023 0846 First Screen: Silvestre Young Rescreen: Ambreen Coleman Specimen: [employer] PROFESSOR ThinPrep Vial Screening, Cervical 02/26/2023 12:40 PM CONSUMER SAFETY INSPECTOR [employer]- ENTRAL [facility]ORAT[facility] INTERPRETATION/ RESULT NEGATIVE FOR INTRAEPITHELIAL LESION OR MALIGNANCY (NIL) (none) 02/26/2023 12:40 PM CONSUMER SAFETY INSPECTOR [facility] IMEN ADEQUACY Satisfactory for evaluation Endocervical component present 02/26/2023 12:40 PM CONSUMER SAFETY INSPECTOR [facility] HPV REQUEST HPV and PAP 02/26/2023 12:40 PM CONSUMER SAFETY INSPECTOR [facility] Last Pap Date 02/03/2019 02/26/2023 12:40 PM CONSUMER SAFETY INSPECTOR [facility] [employer] [facility] Last Pap Result NIL 12:40 PM CONSUMER SAFETY INSPECTOR [facility] [employer] [facility] Abnormal Pap or [place] Bx in last 5 years No 02/26/2023 12:40 PM CONSUMER SAFETY INSPECTOR [facility] Menstrual Status 02/26/2023 12:40 PM CONSUMER SAFETY INSPECTOR [facility] [employer] [facility] [place] Bx Done Today No 02/26/2023 12:40 PM CONSUMER SAFETY INSPECTOR [facility] [employer] [facility] Additional Information 02/26/2023 12:40 PM CONSUMER SAFETY INSPECTOR [facility] Comment: Interpreted at [facility], Central Laboratory - [address], [place] [address] Automated Review Successful 02/26/2023 12:40 PM CONSUMER SAFETY INSPECTOR [facility] ENTR[facility] LAB[facility] Comment:Specimen processed s uccessfully by automated building equipment inspector device, ThinPrep Imaging System, [employer] ANCILLARY TESTING [employer] PROFESSOR HPV Ordered, Please see separate report 02/26/2023 12:40 PM CONSUMER SAFETY INSPECTOR [facility] ENTRMN LABORAT[facility] Note The pap test is a screening technique, not a diagnostic procedure. It is used primarily to screen for squamous cancers and precursor lesions. Published studies have shown that it is subject to both false negative and false positive results. The pap test should not be used as the sole means to diagnose or exclude pre-malignant and malignant lesions. 02/26/2023 12:40 PM CONSUMER SAFETY INSPECTOR [facility] ENTRMN LABORATORY Other (Cervical) 02/11/2023 12:00 PM CONSUMER SAFETY INSPECTOR 02/13/2023 8:46 AM CONSUMER SAFETY INSPECTOR us Christy Vieyra MD PATHOLOGY/CYTOLOGY Final Result [facility] [address] [place] [address], [place] * ANTI HCV (12/06/2020 4:18 PM CDT) Pathologist [facility] HEPATITIS C ANTIBODY Non-React kamilla Non-React kamilla 12/07/2020 3:20 PM CDT [employer] [facility] Comment:Antibodies to HCV no t detected; does not exclude the possibility of exposure to HCV. Blood BLOOD SPECIMEN / Unknown Butterfly / Unknown 12/06/2020 4:18 PM CDT 12/06/2020 4:18 PM CDT us Andres Peterson MD SEND OUTS Final Re sult [facility] [address] [place] [address], [place] * ANTI HIV 1/2 (12/06/2020 4:18 PM CDT) HIV-1/HIV-2 ANTIBODY Non-Reacti ve Non-Reacti ve 12/07/2020 3:23 PM CDT [facility] Comment:HIV-1 p24 and HIV-1/ HIV-2 Ab not detected. Blood BLOOD SPECIMEN / Unknown Butterfly / Unknown 12/06/2020 4:18 PM CDT 12/06/2020 4:18 PM CDT us Andres Peterson MD SEND OUTS Final Re sult [facility] [address] [place] [address], [place] from Last 3 Months or Most Recently Relevant to Health Maintenance Insurance [facility] Advance Directives * Full Code (Latest [...] 8:10 AM 04/05/2019 4:19 PM Care Teams Medical And Scientific Illustrator Relationship Specialty Start Date End Date Terri Sullivan PA [address] [place] [address] PCP - General Family Practice 09/05/10
[2024-05-08 09:22] VITALS: BP 119/74; PULSE 83; RESP 18; TEMP 36.8; O2SAT 98; BMI 21.6
--- NOTE | 2024-05-08 09:24 | CRLHL7_ITS ---
For Patients: As a result of the Century Cures Act, medical imaging exams and procedure reports are released immediately into your electronic medical record. You may view this report before your referring provider. If you have questions, please contact your health care provider. INDICATION: Vaginal bleeding in the setting of . COMPARISON: 04/30/2024 (8 days prior). TECHNIQUE: Endovaginal pelvic ultrasound. FINDINGS: Gestational sac and number: 1 Sac size and shape: Normal shape. No perigestational hemorrhage. Minimal fluid is present within the endometrial cavity adjacent to the inferior aspect of the gestational sac (image 280). Placenta: Not yet developed. Yolk sac: Present. Amniotic fluid: Subjectively normal. heart rate: 102bpm. CRL: 0.5cm. US EGA: 6 weeks 2 days US LEE: 12/30/2024 LMP LEE: 12/25/2024 Uterus: Retroflexed. Right ovary: 2.1 cm anechoic unilocular cyst. Left ovary: Normal. Other: Small volume anechoic rectouterine free pelvic fluid. IMPRESSION: Cobos viable intrauterine with size and dates as above. Incidental findings described in the body of the report. Dictated by Doni Oconnell MD @ 05/08/2024 11:18:17 AM (Electronically Signed)
--- NOTE | 2024-05-08 09:36 | ED.GENADULT ---
HPI - General Adult General Chief complaint: Vaginal Bleeding Stated complaint: possible miscarriage Time Seen by Provider: 05/08/24 09:19 History of Present Illness HPI narrative: Patient is a 33-year-old G2 para wound about 6 weeks estimated estimated gestational age by ultrasound and LMP. Who developed some spotting yesterday and today. Little bit of cramping in her lower abdomen. She has been seen for flank pain in the past. She had an intrauterine last visit here in the ER, and she also had a right ovarian cyst. Patient denies nausea vomiting, headache, leg swelling or edema. Presents to the ED for evaluation. Her 1st child was born vaginally. 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 - Other specified disorders of arteries and arterioles (ICD-10) Multiple kidney stones ?N20.0 - Calculus of kidney (ICD-10) Migraine headache ?G43.909 - Migraine, unspecified, not intractable, without status migrainosus (ICD-10) Calculus of kidney ?N20.0 - Calculus of kidney (ICD-10) Surgical History History of lumpectomy of left breast ?Z98.890 - Other specified postprocedural states (ICD-10) History of cholecystectomy ?Z90.49 - Acquired absence of other specified parts of digestive tract (ICD-10) History of appendectomy ?Z90.49 - Acquired absence of other specified parts of digestive tract (ICD-10) Family History Father Alcohol dependence Paternal Grandmother Breast cancer Maternal Grandmother Heart disease Stroke Maternal Grandfather Heart disease Social History What is your current living situation?: I presently have a place to live Problems where you live: no known problems In the past 12 months, utilities in danger of being shut off: no In past 12 months, lack of transportation kept you from medical appts, meetings, work, or getting things needed for daily living: no In the past 12 mos, have been you worried that your food would run out before you had money to buy more?: never true In the past 12 mos, the food you bought just didn't last and you didn't have money to buy more?: never true Smoking Status: Never smoker Do you use any of these nicotine containing products: None Second hand tobacco smoke exposure: No How often do you have a drink containing alcohol: never How often do you have six or more drinks on one occasion: Never AUDIT-C Alcohol total score: 0 Non-prescribed substance use: denies use How often does anyone, including family, friends and others, physically hurt you: never How often does anyone, including family, friends and others, insult or talk down to you: never How often does anyone, including family, friends and others, threaten you with harm: never How often does anyone, including family, friends and others, scream or curse at you: never service: No Exam Narrative: Exam Narrative: Objective: Patient's vital signs look within normal limits, she is alert orient x3 no distress does not appear pale exam with nurse Hanane present, demonstrates no obvious vaginal bleeding, there is little bit of brown material in the tip of the finger on exam, uterus is nonenlarged and no ovarian tenderness, there is no cervical os opening. No cervical motion tenderness. No leg swelling or edema Const: Vital Signs, click to edit/add: Vital Signs - 24 hr 05/08/24 09:22 Temperature 98.3 F Pulse Rate [Pulse Oximeter] 83 Respiratory Rate 18 Blood Pressure [Le ft Upper Arm] 119/74 Pulse Oximetry 98 Oxygen Delivery Me thod Room Air Course Vital Signs Vital signs: Initial Vital Signs Temperature 98.3 F 05/08/24 09:22 Temperature Source Temporal Artery Scan 05/08/24 09:22 Pulse Rate 83 05/08/24 09:22 Pulse Rhythm Regular 05/08/24 09:22 Respiratory Rate 18 05/08/24 09:22 Blood Pressure 119/74 05/08/24 09:22 Blood Pressure Mean 89 05/08/24 09:22 Blood Pressure Position Supine 05/08/24 09:22 Pulse Oximetry 98 05/08/24 09:22 Oxygen Delivery Method Room Air 05/08/24 09:22 Vital Signs Temperature 98.3 F 05/08/24 09:22 Pulse Rate 83 05/08/24 09:22 Respiratory Rate 18 05/08/24 09:22 Blood Pressure 119/74 05/08/24 09:22 Pulse Oximetry 98 05/08/24 09:22 Oxygen Delivery Method Room Air 05/08/24 09:22 Temperature 98.3 F 05/08/24 09:22 Pulse Rate 83 05/08/24 09:22 Respiratory Rate 18 05/08/24 09:22 Blood Pressure 119/74 05/08/24 09:22 Pulse Oximetry 98 05/08/24 09:22 Oxygen Delivery Method Room Air 05/08/24 09:22 Medical Decision Making MDM Narrative Medical decision making narrative: [age] year white female G2 para 1 at about is 6 weeks estimated gestational age with vaginal brownish material and some bright red spotting. Will check an ultrasound to reconfirm viability, check an HCG, reconfirm her blood type. Have follow-up with OB as needed. Addendum 10:40 a.m.: The patient's ultrasound shows a intrauterine with heartbeat. There does no obvious beau bleeding. Does have a corpus luteum cyst on the right the persist. Patient is A positive on her blood type. 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 Will have her update her regular OB doctor within the next few days. Return sooner problems or concerns. Addendum 11:00 a.m. hCG was 4461 Lab Data Labs: Lab Results 05/08/24 Range/Units 10:00 WBC 5.87 (4.50-11.00) K/uL RBC 4.47 (4.00-5.20) m/uL Hgb 13.1 (12.0-16.0) gm/dL Hct 39.0 (33.0-51.0) % MCV 87 (80-100) fL MCH 29 (26-34) pg MCHC 34 (32-36) gm/dL RDW Coeff of John 12.3 (11.5-15.5) % Plt Count 224 (140-440) K/uL Neut % (Auto) 57.4 (42.0-72.0) % Lymph % (Auto) 32.4 (20-44) % Mcclain % (Auto) 6.5 (0.0-11.0) % Eos % (Auto) 3.2 (0.0-7.0) % Baso % (Auto) 0.2 (0.0-3.0) % Neut # (Auto) 3.37 (1.7-7.0) K/uL Lymph # (Auto) 1.90 (0.90-2.90) K/uL Mcclain # (Auto) 0.40 (0.00-0.90) K/UL Eos # (Auto) 0.19 (0.00-0.50) K/uL Baso # (Auto) 0.01 (0.00-0.30) K/uL Abs Immat Gran (auto) 0.02 (0.00-0.30) K/uL Imm/Tot Granulo (auto) 0.3 % Sodium 138 (135-149) mmol/L Potassium 4.0 (3.6-5.1) mmol/L Chloride 106 (96-114) mmol/L Carbon Dioxide 25 (20-32) mmol/L Anion Gap 7 (7-15) mEq/L BUN 10 (5-24) mg/dL Creatinine 0.6 (0.5-1.5) mg/dL Estimated Creat Clear 122.25 Estimated GFR 123 ml/min Glucose 96 (60-115) mg/dL Calcium 9.0 (8.4-10.6) mg/dL HCG, Quant 4461.00 mIU/mL Blood Type A Positive Discharge Plan Discharge Clinical Impression: Miscarriage, threatened, early Patient Disposition: Home, Self-Care Condition: Stable Additional Instructions: Rest, off work for 1 week no written, update your OB within the next few days. Return if increasing bleeding problems concerns headache or lightheadedness. Activity Level: Light activity Discharge Diet: Regular Prescriptions: No Action citalopram 40 mg tablet 40 mg PO QDAY Qty: 90 1RF Follow Up/Referrals: Terri Sullivan PA-C [Primary Care Provider] - Stand Alone Forms: [employer] Info Instructions
--- OUTSIDE RECORDS SUMMARY | 2024-05-08 09:49 | XMS_ITS | Clinical Summary ---
Author Organization [employer] [facility] Address [place], [place] [address] Care Team Providers Care Boilermaker Fitter Name Role Phone Terri Sullivan Primary Care [...] Department Care Team Description 04/30/2024 Orders Only [facility] Scanner 1 scan: (1-Ord) [facility], RENAL BLADDER, 04/30/2024 04/30/2024 Orders Only [facility] Scanner 1 scan: (1-Ord) [facility], OB TRANSVAGINAL, 04/30/2024 from Last 3 Months [...] on file Legal Sex Female 5:26 AM HIDE BUFFER Gender Identity Not on file Sexual Orientation Not on file Obstetrics History Para Term AB IAB SAB Ectopic Multiple Livin g Live Births 0 0 0 0 0 0 0 0 0 0 0 Last Filed Vital Signs Vital Sign Reading Time Taken Comments Blood Pressure 103/71 05/20/2023 8:09 AM HIDE BUFFER Pulse 98 05/20/2023 8:09 AM HIDE BUFFER Temperature 36.6 C (97.9 F) 02/19/2022 12:00 PM HIDE BUFFER Respiratory Rate 16 02/19/2022 12:00 PM HIDE BUFFER Oxygen Saturation 98% 04/14/2023 2:09 PM HIDE BUFFER Inhaled Oxygen Concentration - - Weight 58.5 kg (129 lb) 05/20/2023 8:09 AM HIDE BUFFER Height 165.1 cm (5' 5) 02/19/2022 7:00 AM HIDE BUFFER Body Mass Index 21.47 02/19/2022 7:00 AM HIDE BUFFER Plan of Treatment Health Maintenance Due Date [...] this topic Medical Devices Implanted Type Area Seat Coverer Device Identifier Shelf Expiration Date Model / Serial / Lot Stent Uret [id number] [facility] - [id number] Implanted:Qty: 1 on 04/05/2019 by Zander Gallegos MD at [employer] Right: [employer] 08/20/2021 [id number] / / [id number] Procedures Procedure Name Priority Date/Time Associated Diagnosis Comments SCAN-ULTRASOUND REPORT 04/30/2024 12:00 AM HIDE BUFFER SCAN-ULTRASOUND REPORT 04/30/2024 12:00 AM HIDE BUFFER PATENT SEARCHER THIN PREP PAP SCREEN IMAGED Routine 02/11/2023 12:00 PM HIDE BUFFER ANTI HIV 1/2 Routine 12/06/2020 4:18 PM CDT Screen for STD (sexually transmitted disease) ANTI HCV Routine 12/06/2020 4:18 PM CDT Screen for STD (sexually transmitted disease) from Last 3 Months or Most Recently Relevant to Health Maintenance Results * SCAN-ULTRASOUND REPORT (04/30/2024 12:00 AM HIDE BUFFER) Only the most recent of2 resultswithin the time period is included. Anatomical Region Laterality Modality Other us Scanner OTHER Final Result * PATENT SEARCHER THIN PREP PAP SCREEN IMAGED (02/11/2023 12:00 PM HIDE BUFFER) Case Report Gynecologic Cytology Report Case: [id number] Authorizing Provider: Christy Vieyra Collected: 02/11/2023 1200 MMD Ordering Location: [facility] Received: 02/13/2023 0846 First Screen: Silvestre Young Rescreen: Ambreen Coleman Specimen: PATENT SEARCHER ThinPrep Vial Screening, Cervical 02/26/2023 12:40 PM HIDE BUFFER [employer] ENTRAL LABORATORY INTERPRETATION/ RESULT NEGATIVE FOR INTRAEPITHELIAL LESION OR MALIGNANCY (NIL) (none) 02/26/2023 12:40 PM [facility]IDE [facility]FFER [facility] IMEN ADEQUACY Satisfactory for evaluation Endocervical component present 02/26/2023 12:40 PM HIDE BUFFER [facility] HPV REQUEST HPV and PAP 02/26/2023 12:40 PM HIDE BUFFER [facility] ENTR[facility] LAB[facility] Last Pap Date 02/03/2019 02/26/2023 12:40 PM HIDE BUFFER [facility] [employer] [facility] ENTRAL LABORAT[facility] Last Pap Result NIL 12:40 PM HIDE BUFFER [facility] [employer] [facility] ENTRAL LABORATORY Abnormal Pap or [place] Bx in last 5 years No 02/26/2023 12:40 PM HIDE BUFFER [facility] Menstrual Status 02/26/2023 12:40 PM HIDE BUFFER [facility] [employer] [facility] ENTRAL LAB[facility]ORY Ryder Bx Done Today No 02/26/2023 12:40 PM HIDE BUFFER [facility] [employer] [facility] ENTRAL LAB[facility] Additional Information 02/26/2023 12:40 PM HIDE BUFFER [facility] [employer] [facility] ENTRAL LABORATORY Comment: Interpreted at [facility] [employer], Central Laboratory - [address], [place] [address] Automated Review Successful 02/26/2023 12:40 PM HIDE BUFFER [employer] ENTRAL LABORATORY Comment:Specimen processed s uccessfully by automated clinical documentation specialist device, ThinPrep Imaging System, [employer] ANCILLARY TESTING PATENT SEARCHER HPV Ordered, Please see separate report 02/26/2023 12:40 PM HIDE BUFFER [employer] ENTRNC LABORATORY Note The pap test is a screening technique, not a diagnostic procedure. It is used primarily to screen for squamous cancers and precursor lesions. Published studies have shown that it is subject to both false negative and false positive results. The pap test should not be used as the sole means to diagnose or exclude pre-malignant and malignant lesions. 02/26/2023 12:40 PM HIDE BUFFER [employer] ENTRNC LABORATORY Other (Cervical) 02/11/2023 12:00 PM HIDE BUFFER 02/13/2023 8:46 AM HIDE BUFFER us Christy Vieyra MD PATHOLOGY/CYTOLOGY Final Result [facility] [address] [place] [address], [place] * ANTI HCV (12/06/2020 4:18 PM CDT) Pathologist [facility] HEPATITIS C ANTIBODY Non-React kamilla Non-React kamilla 12/07/2020 3:20 PM CDT [facility] TRAL LABORATORY Comment:Antibodies to HCV no t detected; does not exclude the possibility of exposure to HCV. Blood BLOOD SPECIMEN / Unknown Butterfly / Unknown 12/06/2020 4:18 PM CDT 12/06/2020 4:18 PM CDT us Andres Peterson MD SEND OUTS Final Re sult [facility] [address] [place] [address], [place] * ANTI HIV 1/2 (12/06/2020 4:18 PM CDT) HIV-1/HIV-2 ANTIBODY Non-Reacti ve Non-Reacti ve 12/07/2020 3:23 PM CDT [facility] TR[facility] Comment:HIV-1 p24 and HIV-1/ HIV-2 Ab not detected. Blood BLOOD SPECIMEN / Unknown Butterfly / Unknown 12/06/2020 4:18 PM CDT 12/06/2020 4:18 PM CDT us Andres Peterson MD SEND OUTS Final Re sult [facility] [address] [place] [address], [place] from Last 3 Months or Most Recently Relevant to Health Maintenance Insurance [facility] Advance Directives * Full Code (Latest [...] 8:10 AM 04/05/2019 4:19 PM Care Teams Boilermaker Fitter Relationship Specialty Start Date End Date Terri Sullivan PA [address] [place] [address] PCP - General Family Practice 09/05/10
[2024-05-08 10:12] LABS: Basophils Absolute Auto 0.01 K/uL (0.00-0.30); Basophils Percent Auto 0.2 % (0.0-3.0); Eosinophils Absolute Auto 0.19 K/uL (0.00-0.50); Eosinophils Percent Auto 3.2 % (0.0-7.0); Hemoglobin* 13.1 gm/dL (12.0-16.0); Immature Granulocytes Abs Auto 0.02 K/uL (0.00-0.30); Immature Granulocytes Pct Auto 0.3 %; Lymphocytes Percent Auto 32.4 % (20-44); Mean Corpuscular HGB Conc 34 gm/dL (32-36); Mean Corpuscular Hemoglobin 29 pg (26-34); Mean Corpuscular Volume 87 fL (80-100); Monocytes Percent Auto 6.5 % (0.0-11.0); Neutrophils Absolute Auto 3.37 K/uL (1.7-7.0); Neutrophils Percent Auto 57.4 % (42.0-72.0); Platelet Count* 224 K/uL (140-440); RDW Coefficient of Variation % 12.3 % (11.5-15.5); Red Blood Count 4.47 m/uL (4.00-5.20); White Blood Count* 5.87 K/uL (4.50-11.00)
[2024-05-08 10:14] LABS: Slide Review Reflex No
[2024-05-08 10:21] LABS: Chloride* 106 mmol/L (96-114); Sodium* 138 mmol/L (135-149)
[2024-05-08 10:24] LABS: Creatinine* 0.6 mg/dL (0.5-1.5); Est. Creatinine Clearance* 122.25; Estimated Glomerular Filt Rate 123 ml/min
[2024-05-08 10:25] LABS: Anion Gap 7 mEq/L (7-15); Blood Urea Nitrogen* 10 mg/dL (5-24); Carbon Dioxide* 25 mmol/L (20-32); Glucose* 96 mg/dL (60-115)
== END 2024-05-08 10:48 | disposition home or self-care (01) ==
PROVIDERS: Emergency Provider Family Medicine; PCP Physician Assistant Medical
DX: O20.0 Threatened abortion (principal)
CPT/HCPCS: 36415; 76817; 80048; 84702; 85025; 86900; 86901; 99283

== ENCOUNTER 2024-05-11 11:59 | Outpatient (CLI) | payer BC, SELFPAY ==
--- NOTE | 2024-05-11 12:15 | CRLHL7_ITS ---
For Patients: As a result of the Century Cures Act, medical imaging exams and procedure reports are released immediately into your electronic medical record. You may view this report before your referring provider. If you have questions, please contact your health care provider. LMP: 03/20/2024. LEE by LMP: 12/25/2024. LEE by US: 12/30/2024. GA: 7w, 0d. Single. INDICATION: Threatened . FINDINGS: CRL: 0.7 cm, 6w 4d. LEE 12/31/2024. FHR: 122 bpm. GESTATIONAL SAC: 0.9 cm. YOLK SAC: 3.2 mm, appears within normal limits. RIGHT OVARY: 3.0 x 1.9 x 2.3 cm. N/V. LEFT OVARY: 3.0 x 1.6 x 2.1 cm. IMPRESSION: 1. Sonographic gestational age 6 weeks 4 days and sonographic due date 12/31/2024. 2. Subchorionic hemorrhage measures 1.6 x 0.7 x 1.5 cm. Previously, the subchorionic hemorrhage measured 3 mm. Alfonzo Dee M.D. Diagnostic Radiologist [email or web address] CHARLES/[email or web address] / bM/Dictated by: Alfonzo Dee MD @ 05/11/2024 2:35:00 PM (Electronically Signed)
== END 2024-05-11 12:00 | disposition home or self-care (01) ==
LOC: US 12:00
PROVIDERS: PCP Physician Assistant Medical; Visit Provider Obstetrics & Gynecology
DX: O20.0 Threatened abortion (principal); O20.9 Hemorrhage in early pregnancy, unspecified; Z3A.01 Less than 8 weeks gestation of pregnancy
CPT/HCPCS: 76817

== ENCOUNTER 2024-05-11 13:32 | Outpatient (CLI) | payer BC, SELFPAY | END 2024-05-11 13:33 | disposition home or self-care (01) | LOC: NFLDREF 13:33 | PROVIDERS: PCP Physician Assistant Medical; Visit Provider Obstetrics & Gynecology | DX: O20.9 Hemorrhage in early pregnancy, unspecified (principal) | CPT/HCPCS: 80053 ==

== ENCOUNTER 2024-05-14 12:45 | Emergency (ER) | payer BC, SELFPAY ==
--- OUTSIDE RECORDS SUMMARY | 2024-05-14 12:48 | XMS_ITS | Clinical Summary ---
Author Organization [employer] [facility] Address [place], [place] [address] Care Team Providers Care Cemetery Workers Supervisor Name Role Phone Terri Sullivan Primary Care [...] Encounters Date Type Department Care Team Description 05/11/2024 Orders Only [facility] Scanner 1 scan: (1-Ord) [facility], OB TRANSVAGINAL, 05/11/2024 05/08/2024 Orders Only [facility] Scanner 1 scan: (1-Ord) [facility], OB TRANSVAGINAL, 05/08/2024 04/30/2024 Orders Only [facility] Scanner 1 scan: (1-Ord) [facility], RENAL BLADDER, 04/30/2024 04/30/2024 Orders Only [facility] Scanner 1 scan: (1-Ord) [facility], OB TRANSVAGINAL, 04/30/2024 from Last 3 Months Immunizations Name Administration Dates Next Due DTP 11/29/1997, 5,06/22/1993,04/16,02/16/1993 DTaP 11/18/2005 Hepatitis B, Unspecified 12/26/1993,06/22/1993,1 1992 Hib Conjugate, Unspecified 04/25/1994,,04/16/1993,02/16 Human Papilloma Virus Vaccine 04/06/2013,2 013,03/27/2012 Influenza, IIV3 (Age >=3 years) 04/10/2012 [...] on file Legal Sex Female 5:26 AM SHOP FIRER/FIREMAN Gender Identity Not on file Sexual Orientation Not on file Obstetrics History Para Term AB IAB SAB Ectopic Multiple Livin g Live Births 0 0 0 0 0 0 0 0 0 0 0 Last Filed Vital Signs Vital Sign Reading Time Taken Comments Blood Pressure 103/71 05/20/2023 8:09 AM SHOP FIRER/FIREMAN Pulse 98 05/20/2023 8:09 AM SHOP FIRER/FIREMAN Temperature 36.6 C (97.9 F) 02/19/2022 12:00 PM SHOP FIRER/FIREMAN Respiratory Rate 16 02/19/2022 12:00 PM SHOP FIRER/FIREMAN Oxygen Saturation 98% 04/14/2023 2:09 PM SHOP FIRER/FIREMAN Inhaled Oxygen Concentration - - Weight 58.5 kg (129 lb) 05/20/2023 8:09 AM SHOP FIRER/FIREMAN Height 165.1 cm (5' 5) 02/19/2022 7:00 AM SHOP FIRER/FIREMAN Body Mass Index 21.47 02/19/2022 7:00 AM SHOP FIRER/FIREMAN Plan of Treatment Health Maintenance Due Date [...] this topic Medical Devices Implanted Type Area Supervisory Clerk Device Identifier Shelf Expiration Date Model / Serial / Lot Stent Uret [id number] [facility] - [id number] Implanted:Qty: 1 on 04/05/2019 by Zander Gallegos MD at [facility] Right: [employer] 08/20/2021 [id number] / / [id number] Procedures Procedure Name Priority Date/Time Associated Diagnosis Comments SCAN-ULTRASOUND REPORT 05/11/2024 12:00 AM SHOP FIRER/FIREMAN SCAN-ULTRASOUND REPORT 05/08/2024 12:00 AM SHOP FIRER/FIREMAN SCAN-ULTRASOUND REPORT 04/30/2024 12:00 AM SHOP FIRER/FIREMAN SCAN-ULTRASOUND REPORT 04/30/2024 12:00 AM SHOP FIRER/FIREMAN RIVER RAFTING GUIDE THIN PREP PAP SCREEN IMAGED Routine 02/11/2023 12:00 PM SHOP FIRER/FIREMAN ANTI HIV 1/2 Routine 12/06/2020 4:18 PM CDT Screen for STD (sexually transmitted disease) ANTI HCV Routine 12/06/2020 4:18 PM CDT Screen for STD (sexually transmitted disease) from Last 3 Months or Most Recently Relevant to Health Maintenance Results * SCAN-ULTRASOUND REPORT (05/11/2024 12:00 AM SHOP FIRER/FIREMAN) Only the most recent of4 resultswithin the time period is included. Anatomical Region Laterality Modality Other us Scanner OTHER Final Result * RIVER RAFTING GUIDE THIN PREP PAP SCREEN IMAGED (02/11/2023 12:00 PM SHOP FIRER/FIREMAN) Case Report Gynecologic Cytology Report Case: [id number] Authorizing Provider: Christy Vieyra Collected: 02/11/2023 1200 MMD Ordering Location: [facility] Received: 02/13/2023 0846 First Screen: Silvestre Young Rescreen: Ambreen Coleman Specimen: RIVER RAFTING GUIDE ThinPrep Vial Screening, Cervical 02/26/2023 12:40 PM SHOP FIRER/FIREMAN [facility] ENTRAL LABORATORY INTERPRETATION/ RESULT NEGATIVE FOR INTRAEPITHELIAL LESION OR MALIGNANCY (NIL) (none) 02/26/2023 12:40 PM SHOP FIRER/FIREMAN [facility] IMEN ADEQUACY Satisfactory for evaluation Endocervical component present 02/26/2023 12:40 PM SHOP FIRER/FIREMAN [facility] ENTRAL LABORAT[facility] HPV REQUEST HPV and PAP 02/26/2023 12:40 PM SHOP FIRER/FIREMAN [facility] ENTRAL LABORATORY Last Pap Date 02/03/2019 02/26/2023 12:40 PM SHOP FIRER/FIREMAN [facility] Last Pap Result NIL 12:40 PM SHOP FIRER/FIREMAN [facility] EN[facility]SC LABORATORY Abnormal Pap or [place] Bx in last 5 years No 02/26/2023 12:40 PM SHOP FIRER/FIREMAN [facility] Menstrual Status 02/26/2023 12:40 [address] SHOP FIRER/FIREMAN [facility] [place] Bx Done Today No 02/26/2023 12:[address] SHOP FIRER/FIREMAN [facility] Additional Information 02/26/2023 12:40 PM [facility] Comment: Interpreted at [facility] - [address], [place] [address] Automated Review Successful 02/26/2023 12:[address] SHOP FIRER/FIREMAN [facility] Comment:Specimen processed s uccessfully by automated fast food attendant device, ThinPrep Imaging System, [employer] ANCILLARY TESTING RIVER RAFTING GUIDE HPV Ordered, Please see separate report 02/26/2023 12:40 [address] SHOP FIRER/FIREMAN [facility] Note The pap test is a screening technique, not a diagnostic procedure. It is used primarily to screen for squamous cancers and precursor lesions. Published studies have shown that it is subject to both false negative and false positive results. The pap test should not be used as the sole means to diagnose or exclude pre-malignant and malignant lesions. 02/26/2023 12:40 [address] SHOP FIRER/FIREMAN [facility] Other (Cervical) 02/11/2023 12:00 PM SHOP FIRER/FIREMAN 02/13/2023 8:46 AM SHOP FIRER/FIREMAN us Christy Vieyra MD PATHOLOGY/CYTOLOGY Final Result [facility] [address] [place] [address], * ANTI HCV (12/06/2020 4:18 PM CDT) HEPATITIS C ANTIBODY Non-React kamilla Non-React kamilla 12/07/2020 3:20 PM CDT [facility] TR[facility] Comment:Antibodies to HCV no t detected; does not exclude the possibility of exposure to HCV. Blood BLOOD SPECIMEN / Unknown Butterfly / Unknown 12/06/2020 4:18 PM CDT 12/06/2020 4:18 PM CDT us Andres Peterson MD SEND OUTS Final Re sult [facility] [address] [place] [address], [place] * ANTI HIV 1/2 (12/06/2020 4:18 PM CDT) HIV-1/HIV-2 ANTIBODY Non-Reacti ve Non-Reacti ve 12/07/2020 3:23 PM CDT [facility] Comment:HIV-1 p24 and HIV-1/ HIV-2 Ab not detected. Blood BLOOD SPECIMEN / Unknown Butterfly / Unknown 12/06/2020 4:18 PM CDT 12/06/2020 4:18 PM CDT us Andres Peterson MD SEND OUTS Final Re sult Performing Organization Address City/[facility]/ZIP Co de Phone Number [facility] [address] [place] [address], from Last 3 Months or Most Recently Relevant to Health Maintenance Insurance [address] [place] [facility] [address] [facility] Advance Directives * Full Code [...] 8:10 AM 04/05/2019 4:19 PM Care Teams Cemetery Workers Supervisor Relationship Specialty Start Date End Date Terri Sullivan PA [facility] [place] [address] PCP - General Family Practice 09/05/10
[2024-05-14 12:51] VITALS: BP 120/76; PULSE 90; RESP 18; TEMP 36.7; O2SAT 98; BMI 21.2
--- NOTE | 2024-05-14 13:24 | ED.GENADULT ---
HPI - General Adult General Chief complaint: Vaginal Bleeding Stated complaint: poss miscarraige Time Seen by Provider: 05/14/24 12:57 Source: patient Mode of arrival: ambulatory Limitations: no limitations History of Present Illness HPI narrative: 33-year-old female coming in today with vaginal bleeding. The patient was seen approximately 1 week ago with similar symptoms, however in the last 24 hour symptoms have worsened. The bleeding is heavier. Cramping has gotten worse as well. She states that she had a gush of blood this morning that soaked through her pad underwear and pants. She then passed a large blood clot. She is unable to quantify how much she is bleeding at this time. She denies feeling dizzy or lightheaded. No chest pain or shortness of breath. Blood type is A positive. This was drawn last week. Related Data Home Medications ?Medication ?Instructions ?Recorded ?Confirmed PNV no.63-iron,carbonyl 27mg-folic 1 cap PO Q24H 05/11/24 05/14/24 acid 800 mcg-dha 200 mg capsule Allergies Allergy/AdvReac Type Severity Reaction Status Date / Time ketorolac (From Toradol) Allergy Mild Rash Verified 05/14/24 12:57 nitrofurantoin Allergy Mild throat Verified 05/14/24 12:57 swelling Review of Systems Status of ROS: Reports: 10 or more systems reviewed and unremarkable except as noted in History and below 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 - Other specified disorders of arteries and arterioles (ICD-10) Multiple kidney stones ?N20.0 - Calculus of kidney (ICD-10) Migraine headache ?G43.909 - Migraine, unspecified, not intractable, without status migrainosus (ICD-10) Calculus of kidney ?N20.0 - Calculus of kidney (ICD-10) Surgical History History of lumpectomy of left breast ?Z98.890 - Other specified postprocedural states (ICD-10) History of cholecystectomy ?Z90.49 - Acquired absence of other specified parts of digestive tract (ICD-10) History of appendectomy ?Z90.49 - Acquired absence of other specified parts of digestive tract (ICD-10) Family History Father Alcohol dependence Paternal Grandmother Breast cancer Maternal Grandmother Heart disease Stroke Maternal Grandfather Heart disease Social History What is your current living situation?: I presently have a place to live Problems where you live: no known problems In the past 12 months, utilities in danger of being shut off: no In past 12 months, lack of transportation kept you from medical appts, meetings, work, or getting things needed for daily living: no In the past 12 mos, have been you worried that your food would run out before you had money to buy more?: never true In the past 12 mos, the food you bought just didn't last and you didn't have money to buy more?: never true Smoking Status: Never smoker Do you use any of these nicotine containing products: None Second hand tobacco smoke exposure: No How often do you have a drink containing alcohol: never How often do you have six or more drinks on one occasion: Never AUDIT-C Alcohol total score: 0 Non-prescribed substance use: denies use How often does anyone, including family, friends and others, physically hurt you: never How often does anyone, including family, friends and others, insult or talk down to you: never How often does anyone, including family, friends and others, threaten you with harm: never How often does anyone, including family, friends and others, scream or curse at you: never service: No Exam Narrative: Exam Narrative: Well-nourished well-developed patient, tearful. Alert and oriented. Answers questions appropriately. Mood and affect are appropriate. Thoughts are goal oriented and rational. No tangential or magical thinking noted. Patient speaks in full sentences without needing to catch her breath. HEENT: Normocephalic atraumatic. Pupils are equally round reactive to light. Extraocular muscles are intact. Conjunctivae are moist without any icterus noted. Moist mucous membranes. Cardiovascular: Heart is regular rate and rhythm S1 and S2 are present without any murmurs. Lungs: Clear to auscultation bilaterally no wheezes rhonchi or rales are appreciated. Abdomen: Soft, nontender and nondistended. Normal bowel sounds. Extremities: Bilateral lower extremities are without edema. Skin: Well perfused. Const: Vital Signs, click to edit/add: Vital Signs - 24 hr 05/14/24 12:51 Temperature 98.0 F Pulse Rate [Pulse Oximeter] 90 Respiratory Rate 18 Blood Pressure [Ri ght Upper Arm] 120/76 Pulse Oximetry 98 Oxygen Delivery Me thod Room Air Course Course ED Course: CBCs unremarkable. Beta hCG levels unfortunately dropped from last week's value. Ultrasound does not show a viable . Vital Signs Vital signs: Initial Vital Signs Temperature 98.0 F 05/14/24 12:51 Temperature Source Temporal Artery Scan 05/14/24 12:51 Pulse Rate 90 05/14/24 12:51 Respiratory Rate 18 05/14/24 12:51 Blood Pressure 120/76 05/14/24 12:51 Blood Pressure Mean 90 05/14/24 12:51 Blood Pressure Position Sitting 05/14/24 12:51 Pulse Oximetry 98 05/14/24 12:51 Oxygen Delivery Method Room Air 05/14/24 12:51 Vital Signs Temperature 98.0 F 05/14/24 12:51 Pulse Rate 90 05/14/24 12:51 Respiratory Rate 18 05/14/24 12:51 Blood Pressure 120/76 05/14/24 12:51 Pulse Oximetry 98 05/14/24 12:51 Oxygen Delivery Method Room Air 05/14/24 12:51 Temperature 98.0 F 05/14/24 12:51 Pulse Rate 90 05/14/24 12:51 Respiratory Rate 18 05/14/24 12:51 Blood Pressure 120/76 05/14/24 12:51 Pulse Oximetry 98 05/14/24 12:51 Oxygen Delivery Method Room Air 05/14/24 12:51 Medical Decision Making MDM Narrative Medical decision making narrative: 33-year-old female at 7 weeks gestation, miscarriage. Lab Data Lab results reviewed: Yes I reviewed the patient's lab results Labs: Lab Results 05/14/24 Range/Units 13:21 WBC 8.18 (4.50-11.00) K/uL RBC 4.21 (4.00-5.20) m/uL Hgb 12.3 (12.0-16.0) gm/dL Hct 36.9 (33.0-51.0) % MCV 88 (80-100) fL MCH 29 (26-34) pg MCHC 33 (32-36) gm/dL RDW Coeff of John 12.1 (11.5-15.5) % Plt Count 215 (140-440) K/uL Neut % (Auto) 66.8 (42.0-72.0) % Lymph % (Auto) 25.4 (20-44) % [place] % (Auto) 5.5 (0.0-11.0) % Eos % (Auto) 1.8 (0.0-7.0) % Baso % (Auto) 0.4 (0.0-3.0) % Neut # (Auto) 5.46 (1.7-7.0) K/uL Lymph # (Auto) 2.08 (0.90-2.90) K/uL [place] # (Auto) 0.40 (0.00-0.90) K/UL Eos # (Auto) 0.15 (0.00-0.50) K/uL Baso # (Auto) 0.03 (0.00-0.30) K/uL Abs Immat Gran (auto) 0.01 (0.00-0.30) K/uL Imm/Tot Granulo (auto) 0.1 % HCG, Quant 3104.10 mIU/mL Imaging Data US - abdomen: Attestation: I have reviewed the pertinent imaging results. Radiologist's impression: Indication: First trimester bleeding. An ultrasound dated May 11, 2024 showed a living intrauterine . Technique: Sonography of the pelvis was performed. The study was performed transvaginally. Grayscale and Doppler imaging was provided. Comparison: May 11, 2024 Findings: There is heterogeneous material within the endometrial canal. No clearly visible gestational sac, yolk sac or pole as was present previously. This is consistent with a nonviable . There is moderate free fluid in the pelvis. The right ovary measures 4.6 x 1.7 x 2.3 centimeters containing a 2.1 x 1.9 x 1.5 centimeter corpus luteum cyst. The left ovary measures 2.6 x 1.7 x 2.3 centimeters. Impression: 1. Heterogeneous material within the endometrial canal without clearly visible gestational sac, yolk sac or pole as was present May 11, 2024. The findings are consistent with a nonviable intrauterine . 2. Free fluid in the cul de sac. 3. Normal-appearing left ovary. Redemonstration of a corpus luteum cyst of in the right ovary. Discharge Plan Discharge Clinical Impression: Spontaneous miscarriage Patient Disposition: Home, Self-Care Condition: Stable Additional Instructions: If bleeding increases to the point where you are soaking 1 pad per hour or more, return to the emergency department. Bleeding should slow down over the next few days. If you develop fever or worsening pain, return to the emergency room. Prescriptions: No Action PNV no.63-iron,[id number]-vct 27 mg iron- 800 mcg-200 mg capsule 1 cap PO Q24H Follow Up/Referrals: Terri Sullivan PA-C [Primary Care Provider] - Stand Alone Forms: [employer] Info Instructions
[2024-05-14 13:30] LABS: Basophils Absolute Auto 0.03 K/uL (0.00-0.30); Basophils Percent Auto 0.4 % (0.0-3.0); Eosinophils Absolute Auto 0.15 K/uL (0.00-0.50); Eosinophils Percent Auto 1.8 % (0.0-7.0); Hematocrit 36.9 % (33.0-51.0); Hemoglobin* 12.3 gm/dL (12.0-16.0); Immature Granulocytes Abs Auto 0.01 K/uL (0.00-0.30); Immature Granulocytes Pct Auto 0.1 %; Lymphocytes Absolute Auto 2.08 K/uL (0.90-2.90); Lymphocytes Percent Auto 25.4 % (20-44); Mean Corpuscular HGB Conc 33 gm/dL (32-36); Mean Corpuscular Hemoglobin 29 pg (26-34); Mean Corpuscular Volume 88 fL (80-100); Monocytes Percent Auto 5.5 % (0.0-11.0); Neutrophils Absolute Auto 5.46 K/uL (1.7-7.0); Neutrophils Percent Auto 66.8 % (42.0-72.0); Platelet Count* 215 K/uL (140-440); RDW Coefficient of Variation % 12.1 % (11.5-15.5); Red Blood Count 4.21 m/uL (4.00-5.20); White Blood Count* 8.18 K/uL (4.50-11.00)
[2024-05-14 13:33] LABS: Slide Review Reflex No
== END 2024-05-14 15:01 | disposition home or self-care (01) ==
PROVIDERS: Emergency Provider Family Medicine; PCP Physician Assistant Medical
DX: O03.9 Complete or unspecified spontaneous abortion without complication (principal)
CPT/HCPCS: 36415; 76817; 84702; 85025; 99284

== ENCOUNTER 2024-05-17 16:32 | Outpatient (CLI) | payer BC, SELFPAY ==
--- NOTE | 2024-05-17 16:45 | CRLHL7_ITS ---
For Patients: As a result of the Century Cures Act, medical imaging exams and procedure reports are released immediately into your electronic medical record. You may view this report before your referring provider. If you have questions, please contact your health care provider. INDICATION: Complete or unspecified spontaneous . TECHNIQUE: Ultrasound pelvis transabdominal and transvaginal for better assessment or to better visualize the endometrium. Real-time sonographic images with spectral and color Doppler imaging of the ovaries were obtained. COMPARISON: May 14, 2024. FINDINGS: Uterus: 8.8 x 4.1 x 6.8 cm. Normal echotexture of the myometrium. No masses. Endometrium: Transvaginal imaging was performed to better evaluate the endometrium. Small heterogeneous area in the fundal endometrium with scant vascularity. Right ovary 4.9 x 2.1 x 2.3 centimeters. Left ovary 3.5 x 1.7 x 2.4 centimeters. Similar small right corpus luteal cyst. No ovarian or adnexal masses. Normal arterial and venous blood flow is demonstrated in both ovaries. Cul-de-sac: Trace free fluid. IMPRESSION: Small heterogeneous area in the fundal endometrium with scant vascularity, possibly retained products of conception in the appropriate clinical setting. Dictated by Zander Bee MD @ 05/17/2024 6:09:18 PM (Electronically Signed)
== END 2024-05-17 16:33 | disposition home or self-care (01) ==
LOC: US 16:33
PROVIDERS: PCP Physician Assistant Medical; Visit Provider Obstetrics & Gynecology
DX: O03.9 Complete or unspecified spontaneous abortion without complication (principal)
CPT/HCPCS: 76830; 85018; 86850; 86900; 86901; J1200; J1885

== ENCOUNTER 2024-05-18 10:22 | Day surgery (SDC) | payer BC, SELFPAY ==
[2024-05-18] VITALS (8 sets, daily range): BP systolic 124–137; BP diastolic 73–84; PULSE 69–130; RESP 14–40; TEMP 36.9; O2SAT 96–100; BMI 21.4
--- OUTSIDE RECORDS SUMMARY | 2024-05-18 10:25 | XMS_ITS | Clinical Summary ---
Author Organization [facility] Address [address] [place] [id number] Care Team Providers Care Registered Nurse Maternal Child Name Role Phone Terri Sullivan Primary Care [...] Encounters Date Type Department Care Team Description 05/14/2024 Orders Only [facility] Scanner 1 scan: (1-Ord) [facility], OB TRANSVAGINAL, 05/14/2024 05/11/2024 Orders Only [facility] Scanner 1 scan: (1-Ord) [facility], OB TRANSVAGINAL, 05/11/2024 05/08/2024 Orders Only [facility] Scanner 1 scan: (1-Ord) [facility], OB TRANSVAGINAL, 05/08/2024 04/30/2024 Orders Only [facility] Scanner 1 scan: (1-Ord) [facility], RENAL BLADDER, 04/30/2024 04/30/2024 Orders Only [facility] Scanner 1 scan: (1-Ord) [facility], OB TRANSVAGINAL, 04/30/2024 from Last 3 Months [...] on file Legal Sex Female 5:26 AM RADIOGRAPHER ANGIOGRAM Gender Identity Not on file Sexual Orientation Not on file Obstetrics History Para Term AB IAB SAB Ectopic Multiple Livin g Live Births 0 0 0 0 0 0 0 0 0 0 0 Last Filed Vital Signs Vital Sign Reading Time Taken Comments Blood Pressure 103/71 05/20/2023 8:09 AM RADIOGRAPHER ANGIOGRAM Pulse 98 05/20/2023 8:09 AM RADIOGRAPHER ANGIOGRAM Temperature 36.6 C (97.9 F) 02/19/2022 12:00 PM RADIOGRAPHER ANGIOGRAM Respiratory Rate 16 02/19/2022 12:00 PM RADIOGRAPHER ANGIOGRAM Oxygen Saturation 98% 04/14/2023 2:09 PM RADIOGRAPHER ANGIOGRAM Inhaled Oxygen Concentration - - Weight 58.5 kg (129 lb) 05/20/2023 8:09 AM RADIOGRAPHER ANGIOGRAM Height 165.1 cm (5' 5) 02/19/2022 7:00 AM RADIOGRAPHER ANGIOGRAM Body Mass Index 21.47 02/19/2022 7:00 AM RADIOGRAPHER ANGIOGRAM Plan of Treatment Health Maintenance Due Date [...] this topic Medical Devices Implanted Type Area Rehabilitation Services Counselor Device Identifier Shelf Expiration Date Model / Serial / Lot Stent Uret [id number] [facility] - [id number] Implanted:Qty: 1 on 04/05/2019 by Zander Gallegos MD at [facility] Right: [employer] Igor 08/20/2021 [id number] / / [id number] Procedures Procedure Name Priority Date/Time Associated Diagnosis Comments SCAN-ULTRASOUND REPORT 05/14/2024 12:00 AM RADIOGRAPHER ANGIOGRAM SCAN-ULTRASOUND REPORT 05/11/2024 12:00 AM RADIOGRAPHER ANGIOGRAM SCAN-ULTRASOUND REPORT 05/08/2024 12:00 AM RADIOGRAPHER ANGIOGRAM SCAN-ULTRASOUND REPORT 04/30/2024 12:00 AM RADIOGRAPHER ANGIOGRAM SCAN-ULTRASOUND REPORT 04/30/2024 12:00 AM RADIOGRAPHER ANGIOGRAM MERCHANDISER SEASONAL THIN PREP PAP SCREEN IMAGED Routine 02/11/2023 12:00 PM RADIOGRAPHER ANGIOGRAM ANTI HIV 1/2 Routine 12/06/2020 4:18 PM CDT Screen for STD (sexually transmitted disease) ANTI HCV Routine 12/06/2020 4:18 PM CDT Screen for STD (sexually transmitted disease) from Last 3 Months or Most Recently Relevant to Health Maintenance Results * SCAN-ULTRASOUND REPORT (05/14/2024 12:00 AM RADIOGRAPHER ANGIOGRAM) Only the most recent of5 resultswithin the time period is included. Anatomical Region Laterality Modality Other us Scanner OTHER Final Result * MERCHANDISER SEASONAL THIN PREP PAP SCREEN IMAGED (02/11/2023 12:00 PM RADIOGRAPHER ANGIOGRAM) Case Report Gynecologic Cytology Report Case: [id number] Authorizing Provider: Christy Vieyra Collected: 02/11/2023 1200 MMD Ordering Location: [facility] Received: 02/13/2023 0846 First Screen: Silvestre Young Rescreen: Ambreen Coleman Specimen: MERCHANDISER SEASONAL ThinPrep Vial Screening, Cervical 02/26/2023 12:40 PM RADIOGRAPHER ANGIOGRAM [facility] INTERPRETATION/ RESULT NEGATIVE FOR INTRAEPITHELIAL LESION OR MALIGNANCY (NIL) (none) 02/26/2023 12:40 PM RADIOGRAPHER ANGIOGRAM [facility] IMEN ADEQUACY Satisfactory for evaluation Endocervical component present 02/26/2023 12:40 PM RADIOGRAPHER ANGIOGRAM [facility] HPV REQUEST HPV and PAP 02/26/2023 12:40 PM RADIOGRAPHER ANGIOGRAM [facility] Last Pap Date 02/03/2019 02/26/2023 12:40 PM RADIOGRAPHER ANGIOGRAM [facility] Last Pap Result NIL 12:40 PM RADIOGRAPHER ANGIOGRAM [facility] Abnormal Pap or [place] Bx in last 5 years No 02/26/2023 12:40 PM RADIOGRAPHER ANGIOGRAM [facility] Menstrual Status 02/26/2023 12:40 PM RADIOGRAPHER ANGIOGRAM [facility] [place] Bx Done Today No 02/26/2023 12:40 PM RADIOGRAPHER ANGIOGRAM [facility] Additional Information 02/26/2023 12:40 PM RADIOGRAPHER ANGIOGRAM [facility] Comment: Interpreted at [facility] - [address], [place] [address] Automated Review Successful 02/26/2023 12:40 PM [facility] Comment:Specimen processed s uccessfully by automated livestock rancher device, ThinPrep Imaging System, [employer] ANCILLARY TESTING MERCHANDISER SEASONAL HPV Ordered, Please see separate report 02/26/2023 12:40 PM RADIOGRAPHER ANGIOGRAM [facility] Note The pap test is a screening technique, not a diagnostic procedure. It is used primarily to screen for squamous cancers and precursor lesions. Published studies have shown that it is subject to both false negative and false positive results. The pap test should not be used as the sole means to diagnose or exclude pre-malignant and malignant lesions. 02/26/2023 12:40 PM RADIOGRAPHER ANGIOGRAM [facility] Other (Cervical) 02/11/2023 12:00 PM RADIOGRAPHER ANGIOGRAM 02/13/2023 8:46 AM RADIOGRAPHER ANGIOGRAM us Christy Vieyra MD PATHOLOGY/CYTOLOGY Final Result [facility] [address] [place] [address], [place] * ANTI HCV (12/06/2020 4:18 PM CDT) HEPATITIS C ANTIBODY Non-React kamilla Non-React kamilla 12/07/2020 3:20 PM CDT [facility] Comment:Antibodies to HCV no t detected; does not exclude the possibility of exposure to HCV. Blood BLOOD SPECIMEN / Unknown Butterfly / Unknown 12/06/2020 4:18 PM CDT 12/06/2020 4:18 PM CDT Andres Peterson MD SEND OUTS Final Re sult [facility] [address] [place] [address], * ANTI HIV 1/2 (12/06/2020 4:18 PM CDT) HIV-1/HIV-2 ANTIBODY Non-Reacti ve Non-Reacti ve 12/07/2020 3:23 PM CDT [facility] Comment:HIV-1 p24 and HIV-1/ HIV-2 Ab not detected. Blood BLOOD SPECIMEN / Unknown Butterfly / Unknown 12/06/2020 4:18 PM CDT 12/06/2020 4:18 PM CDT Andres Peterson MD SEND OUTS Final Re sult Performing Organization Address City/[facility]/ZIP Co de Phone Number [facility] [address] [place] [address], from Last 3 Months or Most Recently Relevant to Health Maintenance Insurance [facility] Advance Directives * Full Code (Latest [...] 8:10 AM 04/05/2019 4:19 PM Care Teams Registered Nurse Maternal Child Relationship Specialty Start Date End Date Terri Sullivan PA [address] [place] [address] PCP - General Family Practice 09/05/10
[2024-05-18] MEDS: LACTATED RINGERS 1000 ML 1,000 ML 100 ML IV (10:50)
[2024-05-18] MEDS: ONDANSETRON 2 MG/ML inj 4 MG IVP (10:55)
[2024-05-18] MEDS: SODIUM CHLORIDE 0.9 % (FLUSH) 10 ML SYRINGE IVF (11:00)
[2024-05-18] MEDS: DOXYCYCLINE HYCLATE 100 MG 200 MG PO (11:04)
[2024-05-18] MEDS: SCOPOLAMINE 1 MG/3 DAY PATCH 1 PATCH TRANSDERMA (11:28)
--- NOTE | 2024-05-18 11:51 | P.ANES_ITS ---
Anesthesia Charges Start Date/Time Anesthesia Start Date: 05/18/24 Anesthesia Start Time: 11:56 Stop Date/Time Anesthesia Stop Date: 05/18/24 Anesthesia Stop Time: 12:42 Coding CPT Codes CPT Codes: ANESTH INC/MISSED AB PROC - 18435 ([id number]) QK - DRY KILN WORKER 2-4 CNCRNT ANES PROC, QX - JAWBONE BREAKER SVMarquise W/ MED DIRECTION, P1 - NORMAL HEALTHY PATIENT
--- NOTE | 2024-05-18 11:51 | W.ANESCHARGE ---
Anesthesia Charges Start Date/Time Anesthesia Start Date: 05/18/24 Anesthesia Start Time: 11:56 Stop Date/Time Anesthesia Stop Date: 05/18/24 Anesthesia Stop Time: 12:42 Coding CPT Codes CPT Codes: ANESTH INC/MISSED AB PROC - 36018 ([id number]) QK - FLARE STITCHER 2-4 CNCRNT ANES PROC, QX - INDUSTRY CONSULTANT SVMarquise W/ MED DIRECTION, P1 - NORMAL HEALTHY PATIENT
--- NOTE | 2024-05-18 12:01 | W.PM.H&PU ---
History & Physical Update History & Physical Update H&P Reviewed and patient assessed: No changes noted
--- NOTE | 2024-05-18 12:22 | SUR.OPER ---
PATIENT QUESTIONS ANSWERED SATISFACTORILY PREOPERATIVELY. PATIENT BROUGHT TO OR #1 PER CART. Patient positioned supine on OR #1 bed.? Perioperative team supported arms bilaterally on arm boards.? Final approval of positioning by surgeon.
--- NOTE | 2024-05-18 12:44 | P.ANES_ITS ---
Anesthesia Charges Start Date/Time Anesthesia Start Date: 05/18/24 Anesthesia Start Time: 11:56 Stop Date/Time Anesthesia Stop Date: 05/18/24 Anesthesia Stop Time: 12:42 Coding CPT Codes CPT Codes: ANESTH VAGINAL PROCEDURES - 16885 ([id number]) P1 - NORMAL HEALTHY PATIENT, QK - CUSTOMER EXPERIENCE PROFESSIONAL 2-4 CNCRNT ANES PROC, QX - BOG WORKER SVMarquise W/ MED DIRECTION
--- NOTE | 2024-05-18 12:44 | W.ANESCHARGE ---
Anesthesia Charges Start Date/Time Anesthesia Start Date: 05/18/24 Anesthesia Start Time: 11:56 Stop Date/Time Anesthesia Stop Date: 05/18/24 Anesthesia Stop Time: 12:42 Coding CPT Codes CPT Codes: ANESTH VAGINAL PROCEDURES - 17226 ([id number]) P1 - NORMAL HEALTHY PATIENT, QK - TURBINE MECHANIC 2-4 CNCRNT ANES PROC, QX - EDUCATIONAL ASSISTANT SVMarquise W/ MED DIRECTION
--- NOTE | 2024-05-18 12:52 | P.GYNPRC_ITS ---
Procedure Note Date of procedure: 05/18/24 Will [facility] bill your pro fee for this procedure?: Yes Complications: None Pathology: specimen obtained, sent to pathology (products of conception) Procedure Description: Preoperative diagnosis: Missed at approximately 6 weeks by measurements of gestational sac Postoperative diagnosis: Same Procedure: Suction uterine curettage Surgeon: Claudia Nuñez MD Anesthesia: Monitored anesthesia care, paracervical block IV fluids: 400 mL crystalloid EBL: 10 mL Urine output: 100 mL Findings: 1. Exam under anesthesia revealed a mobile, anteverted uterus that was consistent in size with 6 weeks' gestation. There are no palpable adnexal masses. 2. Moderate amount of products of conception returned with suction curettage. Complications: None Procedure in detail: Patient was taken to the operating with IV running. She had received a single oral dose of doxycycline in preoperative prophylaxis. She was placed in dorsal lithotomy position. Monitored anesthesia care was administered. She was prepped and draped in the usual sterile fashion. Her bladder was straight catheterized. Exam under anesthesia was performed for the above-noted findings. Speculum was inserted. Cervix was grasped along its anterior lip with an Allis clamp. Paracervical block was performed with a total of 10 mL of 1% lidocaine. The cervix was serially dilated to 6 Yoruba. A size 7 rigid suction cannula was then passed through the cervix to the uterine fundus. Suction was applied, and the suction cannula was withdrawn along the path of insertion. This was rep eated 3 more times, with obvious return of products of conception. A gritty gritty texture was noted throughout with the last past. Minimal tissue was obtained with curettings. Procedure was deemed complete. The Allis clamp was removed from the anterior lip the cervix, and hemostasis was noted. The speculum was then removed from the vagina. Patient tolerated procedure well and was taken recovery area in stable condition.
[2024-05-18] MEDS: fentaNYL 100 MCG/2 ML inj 50 MCG IVP ×2 (12:55→13:03)
[2024-05-18] MEDS: MIDAZOLAM HCL 1 MG/ML inj IVP (13:05)
[2024-05-18] MEDS: HYDROmorphone 0.5 mg/0.5 ml inj IVP (13:24)
[2024-05-18] MEDS: ACETAMINOPHEN 500 MG TABLET 1000 MG PO (13:57)
[2024-05-18] MEDS: hydrOXYzine pamoate 25 MG CAPSULE PO (14:30)
[2024-05-18 14:43] LABS: Basophils Absolute Auto 0.01 K/uL (0.00-0.30); Basophils Percent Auto 0.1 % (0.0-3.0); Eosinophils Absolute Auto 0.01 K/uL (0.00-0.50); Eosinophils Percent Auto 0.1 % (0.0-7.0); Hematocrit 35.1 % (33.0-51.0); Hemoglobin* 11.7 gm/dL (12.0-16.0); Immature Granulocytes Abs Auto 0.01 K/uL (0.00-0.30); Immature Granulocytes Pct Auto 0.1 %; Lymphocytes Percent Auto 12.8 % (20-44); Mean Corpuscular HGB Conc 33 gm/dL (32-36); Mean Corpuscular Hemoglobin 30 pg (26-34); Mean Corpuscular Volume 88 fL (80-100); Monocytes Percent Auto 1.4 % (0.0-11.0); Neutrophils Percent Auto 85.5 % (42.0-72.0); Platelet Count* 215 K/uL (140-440); Red Blood Count 3.97 m/uL (4.00-5.20); White Blood Count* 7.19 K/uL (4.50-11.00)
[2024-05-18 14:45] LABS: Slide Review Reflex No
== END 2024-05-18 15:20 | disposition home or self-care (01) ==
PROVIDERS: PCP Physician Assistant Medical; Visit Provider Obstetrics & Gynecology
PROC: (CPT 59820; principal; 2024-05-18 11:30)
DX: O02.1 Missed abortion (principal); Z3A.01 Less than 8 weeks gestation of pregnancy
CPT/HCPCS: 59820; 00940; 01965; 36415; 85018; 85025; 86850; 86900; 86901; 88305; A9270; J1100; J1171; J1200; J2250; J2405; J2704; J3010; J3490; J7120

== ENCOUNTER 2024-06-07 08:56 | Outpatient (CLI) | payer BC, SELFPAY | END 2024-06-07 08:57 | disposition home or self-care (01) | PROVIDERS: PCP Physician Assistant Medical; Visit Provider Obstetrics & Gynecology | DX: N20.0 Calculus of kidney (principal); R10.9 Unspecified abdominal pain | CPT/HCPCS: 80048; 87086 ==

== ENCOUNTER 2024-06-10 16:28 | Outpatient (CLI) | payer BC, SELFPAY ==
--- NOTE | 2024-06-10 16:45 | CRLHL7_ITS ---
For Patients: As a result of the Century Cures Act, medical imaging exams and procedure reports are released immediately into your electronic medical record. You may view this report before your referring provider. If you have questions, please contact your health care provider. Indication: FLANK PAIN, KIDNEY STONES Technique: Routine noncontrast CT abdomen and pelvis Please note that all CT scans at this facility use dose modulation, iterative reconstruction, and/or weight-based dosing when appropriate to reduce radiation dose to as low as reasonably achievable. Comparison: 02/25/2022 Findings: Lung bases are clear. Unremarkable liver and spleen. Gallbladder absent. Normal adrenal glands. Pancreas normal. There is a stone in the lower pole of the left kidney measuring 2.5 millimeters. Punctate stone in the lower pole of the right kidney measuring less than 2 millimeters. No hydronephrosis or perinephric stranding. Normal ureters. No ureteral stone or hydroureter. No bladder stone. uterus. Left ovarian cyst measures 4.4 cm. Status post appendectomy. Unremarkable right ovary. Mild pelvic free fluid considered physiologic. No bowel obstruction or free air. No abscess. Normal osseous structures. Impression: Small bilateral renal calculi without obstruction. No ureteral stone. Please note that all CT scans at this facility use dose modulation, iterative reconstruction, and/or weight-based dosing when appropriate to reduce radiation dose to as low as reasonably achievable. Dictated by Alfonzo Dee MD @ 06/11/2024 3:32:45 PM (Electronically Signed)
== END 2024-06-10 16:29 | disposition home or self-care (01) ==
PROVIDERS: PCP Physician Assistant Medical; Visit Provider Obstetrics & Gynecology
DX: R10.9 Unspecified abdominal pain (principal); N20.0 Calculus of kidney
CPT/HCPCS: 74176

== ENCOUNTER 2024-07-19 14:09 | Outpatient (CLI) | payer BC, SELFPAY | END 2024-07-19 14:10 | disposition home or self-care (01) | LOC: NFLDREF 07-22 05:53 | PROVIDERS: PCP Physician Assistant Medical; Referring Provider Physician Assistant Medical; Visit Provider Obstetrics & Gynecology | DX: Z20.828 Contact with and (suspected) exposure to other viral communicable diseases (principal) | CPT/HCPCS: 86747 ==

== ENCOUNTER 2024-07-27 12:55 | Outpatient (CLI) | payer BC, SELFPAY ==
--- NOTE | 2024-07-27 13:00 | CRLHL7_ITS ---
For Patients: As a result of the Cures Act, medical imaging exams and procedure reports are released immediately into your electronic medical record. You may view this report before your referring provider. If you have questions, please contact your health care provider. INDICATION: First trimester scan, establish dates. COMPARISON: None. TECHNIQUE: Real-time edwards-scale imaging of the pelvis was performed. FINDINGS: Sonographic imaging demonstrates a single living intrauterine gestation. The embryo demonstrates a regular cardiac rate measuring 117 beats per minute. The embryo`s crown-rump length measurement of 0.5 cm corresponds to a gestational age of 6 weeks 2 days with a sonographic due date of 03/20/2025. There is a normal-appearing yolk sac. There are no gross abnormalities noted within the embryo at this early state of development. The gestational sac has a normal appearance. There is no evidence of a perigestational hemorrhage. The amount of fluid within the sac appears appropriate for gestational age. The cervix is closed. The myometrium appears normal. The ovaries are of normal size. There are no suspicious fluid collections noted in the cul-de-sac. IMPRESSION: Single living intrauterine with sonographic gestational age 6 weeks 2 days and a sonographic due date 03/20/2025. Dictated by Alfonzo Dee MD @ 07/27/2024 10:11:20 PM (Electronically Signed)
== END 2024-07-27 12:56 | disposition home or self-care (01) ==
LOC: US 12:56
PROVIDERS: PCP Physician Assistant Medical; Visit Provider Obstetrics & Gynecology
DX: O26.899 Other specified pregnancy related conditions, unspecified trimester (principal); R10.2 Pelvic and perineal pain; O21.9 Vomiting of pregnancy, unspecified; Z3A.01 Less than 8 weeks gestation of pregnancy
CPT/HCPCS: 76817

== ENCOUNTER 2024-08-12 07:59 | Outpatient (CLI) | payer BC, SELFPAY ==
--- NOTE | 2024-08-12 08:15 | CRLHL7_ITS ---
For Patients: As a result of the Cures Act, medical imaging exams and procedure reports are released immediately into your electronic medical record. You may view this report before your referring provider. If you have questions, please contact your health care provider. OB ULTRASOUND INDICATION: Dating and viability. TECHNIQUE: Real time grayscale imaging of the fetus was performed. Transvaginal. LMP: 06/15/2024. LEE by LMP: 03/22/2025. GA: 8 w, 2 d. Previous US: Yes 07/27/2024. LEE by US: 03/20/2025. CRL: 2.0 cm. 8 w 4 d. LEE: 03/20/2025. FHR: 176 BPM. Gestational sac: 3.1 cm. Appears within normal limits. Yolk sac: 3.6 mm. Appears within normal limits. Right ovary: 3.3 x 2.0 x 1.6 cm. Left ovary: 3.8 x 2.3 x 2.8 cm. CL. COMMENT: Left corpus luteal cyst 2.5 x 1.8 x 1.3 cm. IMPRESSION: Single living intrauterine measuring 8 weeks 4 days and sonographic due date 03/20/2025. Alfonzo Dee M.D. Diagnostic Radiologist [email or web address] CHARLES/estela palmer/Dictated by: Alfonzo Dee MD @ 08/12/2024 10:13:00 AM (Electronically Signed)
== END 2024-08-12 08:00 | disposition home or self-care (01) ==
LOC: US 07:59
PROVIDERS: PCP Physician Assistant Medical; Visit Provider Physician Assistant
DX: Z34.91 Encounter for supervision of normal pregnancy, unspecified, first trimester (principal); O34.81 Maternal care for other abnormalities of pelvic organs, first trimester; N83.12 Corpus luteum cyst of left ovary; Z3A.08 8 weeks gestation of pregnancy
CPT/HCPCS: 76817; 83021; 86592; 86703; 86704; 86706; 86762; 86787; 86803; 86850; 86900; 86901; 87086; 87340; 87491; 87591

== ENCOUNTER 2024-11-16 13:18 | Outpatient (CLI) | payer BC, SELFPAY ==
[2024-11-16 20:38] LABS: Bacterial Vaginosis* Negative (Negative); Candida glab/krus NOT DETECTED (No Detected)
== END 2024-11-16 13:19 | disposition home or self-care (01) ==
PROVIDERS: PCP Physician Assistant Medical; Visit Provider Obstetrics & Gynecology
DX: O26.892 Other specified pregnancy related conditions, second trimester (principal); R10.2 Pelvic and perineal pain; N89.8 Other specified noninflammatory disorders of vagina; R10.9 Unspecified abdominal pain; Z3A.22 22 weeks gestation of pregnancy
CPT/HCPCS: 81513; 87086; 87481; 87661

== ENCOUNTER 2024-12-27 14:02 | Outpatient (CLI) | payer BC, SELFPAY ==
[2024-12-27 14:21] VITALS: BP 117/69; PULSE 93
[2024-12-27 14:23] VITALS: RESP 18; TEMP 36.5
--- NOTE | 2024-12-27 14:47 | CRLHL7_ITS ---
For Patients: As a result of the Century Cures Act, medical imaging exams and procedure reports are released immediately into your electronic medical record. You may view this report before your referring provider. If you have questions, please contact your health care provider. INDICATION: Pelvic cramping. Cervical length evaluation. COMPARISON: 08/12/2024 TECHNIQUE: Focused sonographic evaluation of the cervix was performed utilizing edwards-scale and color Doppler imaging techniques. FINDINGS: The shortest measured cervical length is 2.6 centimeters. There is funneling of the internal cervical os. Partially imaged intrauterine in vertex presentation. Single deepest amniotic fluid pocket measures 5.8 centimeters. heart rate measures 165 beats per minute. There is a anteriorly located placenta. IMPRESSION: The shortest measured cervical length is 2.6 centimeters. There is funneling of the internal cervical os. Dictated by Danish Silva MD @ 12/27/2024 4:34:07 PM (Electronically Signed)
[2024-12-27] MEDS: LACTATED RINGERS 1000 ML 500 ML IV (15:18)
[2024-12-27 15:32] LABS: Amnisure Rom* Negative
[2024-12-27 15:33] LABS: Trichomonas No Trichomonas Seen (None Seen)
[2024-12-27 15:59] LABS: Appearance Urine Clear (Clear)
[2024-12-27] MEDS: LACTATED RINGERS 500 ML 500 ML 1000 ML IV (16:02)
[2024-12-27] MEDS: BETAMETHASONE SOD PHOS/ACETATE 6 MG/ML ML 12 MG IM (16:55)
--- NOTE | 2024-12-27 16:55 | P.OBO_ITS ---
OB Outpatient HPI History of Present Illness Date Seen: 12/27/24 History of Present Illness: 34 year old at 27 6/7 weeks gestation by LMP, LEE 03/22/25 , presents with concerns of uterine contractions. Patient states that this past Friday had a big libertarian for her daughter and was very active, states that by the end of the day she felt crampy but it eventually improved. She was sexually active yesterday and in the nighttime also felt cramping but was able to sleep, since symptoms continued today in the morning and due to previous experience with contractions patient called clinic and it was recommended for her to come in to be evaluated. Denies abnormal vaginal discharge or bleeding, no dysuria, urgency or frequency. No constipation or diarrhea. She does know that she has not been hydrating very well. Baby moving naturally: Yes Bleeding: No Contractions: Yes Leaking fluid: No Discharge: No Heartburn: No Back pain: Yes (Some in her lower back. ) Meds Home Medications and Allergies Home Medications ?Medication ?Instructions ?Recorded ?Confirmed ?Type PNV no.63-iron,carbonyl 27 1 cap PO Q24H 05/11/2411/30 History mg-folic acid 800 mcg-dha 200 mg capsule nifedipine 10 mg capsule 10 mg PO Q6-8H #20 caps 11/30 12/23 Rx Allergies Allergy/AdvReac Type Severity Reaction Status Date / Time ketorolac (From Toradol) Allergy Mild Rash Verified 12/27/24 14:11 nitrofurantoin Allergy Mild throat Verified 12/27/24 14:11 swelling PFSH Medical History (Updated 12/27/24 @ 16:53 by Christy Vieyra MD) Threatened labor ?O47.00 - False labor before 37 completed weeks of gestation, unspecified trimester (ICD-10) labor in third trimester ?O60.03 - labor without delivery, third trimester (ICD-10) 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 - Other specified disorders of arteries and arterioles (ICD-10) Multiple kidney stones ?N20.0 - Calculus of kidney (ICD-10) Migraine headache ?G43.909 - Migraine, unspecified, not intractable, without status migrainosus (ICD-10) Calculus of kidney ?N20.0 - Calculus of kidney (ICD-10) Surgical History (Updated 06/07/24 @ 13:26 by Claudia Nuñez MD) History of lumpectomy of left breast ?Z98.890 - Other specified postprocedural states (ICD-10) History of cholecystectomy ?Z90.49 - Acquired absence of other specified parts of digestive tract (ICD- 10) History of appendectomy ?Z90.49 - Acquired absence of other specified parts of digestive tract (ICD- 10) Family History Father Alcohol dependence Paternal Grandmother Breast cancer Maternal Grandmother Heart disease Stroke Maternal Grandfather Heart disease Social History (Updated 08/12/24 @ 13:05 by Fannie Hubbard PA-C) Narrative: 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 Marital status: . Druze/cultural needs: no. Chemical or radiation exposure: no. Pre- tobacco use: no. Pre- alcohol use: no. Current tobacco use: no. Current alcohol use: no. Recreational drug use: no. Dietary restrictions: no. Blood transfusion acceptable in an emergency: yes. PSYCHOSOCIAL HISTORY: History of depression or currently depressed: no. Current or past physical, emotional, or sexual mistreatment: Denies. Problems that will make it hard to make it to appointments: Denies. What is your current living situation?: I presently have a place to live Problems where you live: no known problems In the past 12 months, utilities in danger of being shut off: no In past 12 months, lack of transportation kept you from medical appts, meetings, work, or getting things needed for daily living: no In the past 12 mos, have been you worried that your food would run out before you had money to buy more?: never true In the past 12 mos, the food you bought just didn't last and you didn't have money to buy more?: never true Smoking Status: Never smoker Do you use any of these nicotine containing products: None Second hand tobacco smoke exposure: No How often do you have a drink containing alcohol: never How often do you have six or more drinks on one occasion: Never AUDIT-C Alcohol total score: 0 Non-prescribed substance use: denies use Caffeine: No How often does anyone, including family, friends and others, physically hurt you : never How often does anyone, including family, friends and others, insult or talk down to you: never How often does anyone, including family, friends and others, threaten you with harm: never How often does anyone, including family, friends and others, scream or curse at you: never Are you using contraception or practicing any form of control: No service: No History History 2 3 Elective abortions 0 Para 1 Spontaneous abortions 1 Hx # Term Pregnancies 1 Ectopic pregnancies 0 Hx # Pregnancies 0 Multiple births 0 Number of Living Children 1 Past Pregnancies Del. Date GA/Weeks Outcome Route wt Inf Gender Labor Lgth Anesthesia Location Provider Compli 12/25/22 39 live - full term 2.892 kg Female 10hrs [facility] 05/14/24 7 spontaneous OB - H&P: Exam Physical Exam Vital signs: Temp Pulse Resp BP 97.7 F 93 18 117/69 12/27/24 14:23 12/27/24 14:21 12/27/24 14:23 12/27/24 14:21 Narrative: NST initially showing uterine irritability. Otherwise, appropriate for gestational age. After US completion started to show more regular uterine contractions, due to his I recommended performance of digital cervical check. Cervix found fingertip and 50% effaced. Wet prep negative, UA negative, AmniSure negative. US did show some funneling with contractions this would not be unexpected and shortest cervical length was found to be 2.7cm during a contraction, but otherwise she had measurements more than 3.5, 4cm. I was unable to collect FFN due to recent intercourse. Labs Labs Laboratory Tests 12/27/24 12/27/24 Range/Units 15:44 14:17 Urine Color Yellow (Yellow) Urine Appearance Clear (Clear) Urine pH 6.5 (5.0-8.5) Ur Specific Rosser 1.025 (1.000-1.030) Urine Protein Negative (Negative) Urine Glucose (UA) Negative (Negative) Urine Ketones Negative (Negative) Urine Blood Negative (Negative) Urine Nitrite Negative (Negative) Urine Bilirubin Negative (Negative) Urine Urobilinogen 1.0 (0.2-1.0) Ur Leukocyte Esterase Negative (Negative) Urine RBC 0-2 (0-2) Urine WBC 0-2 (0-5) Ur Squamous Epith Cells None (None-Few) Urine Bacteria None (None) Membrane Rupture Negative Vaginal Trichomonas No Trichomonas Seen (None Seen) Vaginal Yeast No Yeast Seen (None Seen) Vaginal Clue Cells No Clue Cells Seen (None Seen) Group B Strep DNA Pending Assessment and Plan Assessment and plan (1) uterine contractions: Status: Acute (2) Pelvic pain affecting : Status: Acute Plan At this moment there is no evidence of labor. She did experience premature contractions w/o delivery during her first -symptoms started or were recognized later in the at around 33weeks. Patient was managed with oral nifedipine and delivered at term. Discussed current status and potential risks vs benefits of starting a similar intervention since these contractions have started at an earlier gestational age compared with her first. Discussed the alternative to complete a course of steroids and initiation of nifedipine. First dose of Betamethasone was given today and she will present to clinic tomorrow for second dose. In the meantime will continue nifedipine 10mg every 6-8 hours until we complete steroids and follow up in clinic. We also give her a fluid bolus tonight and she did feel like cramping improved. Recommend to avoid intercourse for the moment, to decrease level of activity-no bed rest-,and to increase hydration at home as well. Will plan to follow up with her in clinic tomorrow for second dose of steroid and re evaluation. She also has her routine 28 week clinic appointment scheduled for this . Patient in agreement with plan.
--- NOTE | 2024-12-27 18:22 | PC.OBNST ---
NST Note NST Note Start: 12/27/24 14:08 Freq: ONCE Status: Active Protocol: Document 12/27/24 18:00 HCR (Rec: 12/27/24 18:22 HCR [id number]) NST Note 3 Para (# of births) 1 EDC 03/22/25 Gestational Age In 27 Weeks & 6 Days Weeks & Days High Risk Factors History of Labor/Delivery Patient Presented Contractions/cramping with Complaint(s) of Reactive Yes Appropriate for Yes Gestational Age SUDEEP Way, RN Date 12/27/24 Reactive Yes Appropriate for Yes Gestational Age SUDEEP Rivas RN Date 12/27/24 OB NST charge Yes Complete NST Note Yes via Write Note The provider's electronic signature indicates the NST is reactive/appropriate for gestational age. *Note to provider: If an addendum is required, open the patient's chart and click on the note under the Nurse/Allied Health tab.
[2024-12-28 12:02] LABS: Strep B DNA Probe POSITIVE (Negative)
[2024-12-28 12:15] LABS: Strep B Susceptibility Needed? No
== END 2024-12-27 18:06 | disposition home or self-care (01) ==
LOC: OB OUT 14:02 → OB 14:03
PROVIDERS: PCP Physician Assistant Medical; Visit Provider Obstetrics & Gynecology
DX: O47.02 False labor before 37 completed weeks of gestation, second trimester (principal); Z3A.27 27 weeks gestation of pregnancy
CPT/HCPCS: 59025; 76815; 76817; 81001; 84112; 87081; 87086; 87210; 87653; G0463; A9270; J0702; J7120

== ENCOUNTER 2025-01-06 09:45 | Outpatient (CLI) | payer BC, SELFPAY ==
[2025-01-06 10:25] LABS: Fetal Fibronectin* POSITIVE (Negative)
== END 2025-01-06 09:46 | disposition home or self-care (01) ==
PROVIDERS: PCP Physician Assistant Medical; Visit Provider Obstetrics & Gynecology
DX: Z34.93 Encounter for supervision of normal pregnancy, unspecified, third trimester (principal); Z3A.29 29 weeks gestation of pregnancy
CPT/HCPCS: 84112; 86592

== ENCOUNTER 2025-01-06 09:49 | Outpatient (CLI) | payer BC, SELFPAY ==
--- NOTE | 2025-01-06 10:15 | CRLHL7_ITS ---
For Patients: As a result of the Century Cures Act, medical imaging exams and procedure reports are released immediately into your electronic medical record. You may view this report before your referring provider. If you have questions, please contact your health care provider. OB ULTRASOUND LMP: 06/15/2024. LEE by LMP: 03/22/2025. GA: 29 w, 2 d. Single. Comparison: 12/27/2024 ultrasound. INDICATION: Cervix check. TECHNIQUE: Real time grayscale imaging of the fetus was performed. Transabdominal and transvaginal. Transvaginal imaging performed to better demonstrate the cervix. CERVIX: Visualized. TA and TV Measurement: 2.4 cm. POSITIONING: Breech. AMNIOTIC FLUID: 5.1 cm. SDP (N: greater than 2 x 1 cm) PLACENTA: Technique: Transabdominal. PLACENTA POSITION: Anterior. DOPPLER: heart rate: 142 bpm. IMPRESSION: Transabdominal and transvaginal imaging performed. The cervix is closed and measures 2.4 cm. No funneling. No previa. Alfonzo Dee M.D. Diagnostic Radiologist [email or web address] CHARLES/estela palmer/Dictated by: Alfonzo Dee MD @ 01/06/2025 11:12:00 AM (Electronically Signed)
== END 2025-01-06 09:50 | disposition home or self-care (01) ==
LOC: US 09:50
PROVIDERS: PCP Physician Assistant Medical; Visit Provider Obstetrics & Gynecology
DX: O47.03 False labor before 37 completed weeks of gestation, third trimester (principal); Z3A.29 29 weeks gestation of pregnancy
CPT/HCPCS: 76815; 76817

== ENCOUNTER 2025-01-06 11:18 | Outpatient (CLI) | payer BC, SELFPAY ==
[2025-01-06 11:51] VITALS: BP 111/62; PULSE 83
--- NOTE | 2025-01-06 12:58 | PC.OBNST ---
NST Note NST Note Start: 01/06/25 11:23 Freq: ONCE Status: Active Protocol: Document 01/06/25 12:56 ALZ (Rec: 01/06/25 12:58 ALZ No Response) NST Note 3 Para (# of births) 1 EDC 03/22/25 Gestational Age In 29 Weeks & 2 Days Weeks & Days Patient Presented Contractions/cramping with Complaint(s) of Reactive Yes Appropriate for Yes Gestational Age SUDEEP Robreson RN Date 01/06/25 Reactive Yes Appropriate for Yes Gestational Age SUDEEP Dietrich RN Date 01/06/25 OB NST charge Yes Complete NST Note Yes via Write Note The provider's electronic signature indicates the NST is reactive/appropriate for gestational age. *Note to provider: If an addendum is required, open the patient's chart and click on the note under the Nurse/Allied Health tab.
== END 2025-01-06 12:42 | disposition home or self-care (01) ==
LOC: OB OUT 11:19 → OB 11:19
PROVIDERS: PCP Physician Assistant Medical; Visit Provider Obstetrics & Gynecology
DX: O47.03 False labor before 37 completed weeks of gestation, third trimester (principal); Z3A.29 29 weeks gestation of pregnancy; Z34.93 Encounter for supervision of normal pregnancy, unspecified, third trimester
CPT/HCPCS: 59025; 84112; 86592; G0463

== ENCOUNTER 2025-01-18 09:28 | Outpatient (CLI) | payer BC, SELFPAY | END 2025-01-18 09:29 | disposition home or self-care (01) | LOC: FRMREF 09:29 | PROVIDERS: PCP Physician Assistant Medical; Visit Provider Obstetrics & Gynecology | DX: O47.03 False labor before 37 completed weeks of gestation, third trimester (principal) | CPT/HCPCS: 87086 ==

== ENCOUNTER 2025-01-21 09:05 | Outpatient (CLI) | payer BC, SELFPAY ==
[2025-01-21 09:23] VITALS: BP 102/64; PULSE 98
[2025-01-21 09:27] VITALS: RESP 16; TEMP 36.6
[2025-01-21] MEDS: ACETAMINOPHEN 500 MG TABLET 1000 MG PO (11:00)
[2025-01-21 11:18] VITALS: BP 114/67; PULSE 75; O2SAT 100
--- NOTE | 2025-01-21 13:01 | PC.OBNST ---
NST Note NST Note Start: 01/21/25 09:17 Freq: ONCE Status: Active Protocol: Document 01/21/25 09:17 [facility] (Rec: 01/21/25 13:00 [facility] [id number]) NST Note 3 Para (# of births) 1 EDC 03/22/25 Gestational Age In 31 Weeks & 3 Days Weeks & Days Patient Presented Contractions/cramping with Complaint(s) of Reactive Yes Appropriate for Yes Gestational Age RN Case RN Date 01/21/25 Reactive Yes Appropriate for Yes Gestational Age RN Luis RN Date 01/21/25 OB NST charge Yes Complete NST Note Yes via Write Note The provider's electronic signature indicates the NST is reactive/appropriate for gestational age. *Note to provider: If an addendum is required, open the patient's chart and click on the note under the Nurse/Allied Health tab.
== END 2025-01-21 12:50 | disposition home or self-care (01) ==
LOC: OB OUT 09:05 → OB 09:05
PROVIDERS: PCP Physician Assistant Medical; Visit Provider Obstetrics & Gynecology
DX: O47.03 False labor before 37 completed weeks of gestation, third trimester (principal); Z3A.31 31 weeks gestation of pregnancy
CPT/HCPCS: 59025; G0463; A9270

== ENCOUNTER 2025-02-09 12:52 | Outpatient (CLI) | payer BC, SELFPAY ==
--- NOTE | 2025-02-09 13:00 | CRLHL7_ITS ---
For Patients: As a result of the Cures Act, medical imaging exams and procedure reports are released immediately into your electronic medical record. You may view this report before your referring provider. If you have questions, please contact your health care provider. OB ULTRASOUND LEE by LMP: 03/22/2025. GA: 34 w, 1 d. Single. Comparison: 01/06/2025, 12/27/2024, 08/12/2024. INDICATION: labor on Tocolytic. TECHNIQUE: Real time grayscale imaging of the fetus was performed. Transabdominal. CERVIX: Not visualized. POSITIONING: Vertex. AMNIOTIC FLUID: 7 cm. SDP (N: greater than 2 x 1 cm) PLACENTA: Technique: Transabdominal. PLACENTA POSITION: Anterior. DOPPLER: heart rate: 124 bpm. BIOMETRY: BPD: 9.1 cm. 37 w, 1 d, >97%. HC: 32.9 cm. 37 w, 3 d, 89%. AC: 32 cm. 35 w, 6 d, 93%. FL: 7 cm. 35 w, 5 d, 79%. FL/AC ratio: 21.73%. HC/AC ratio: 1.03. EFW: 2856g. Weight: 6 lbs., 5 oz. age by this US: 36 w, 4 d. LEE by this US: 03/05/2025. Percentile by LEE: 93%. IMPRESSION: 1. Sonographic gestational age 36 weeks 4 days and sonographic due date 03/05/2025. Sonographic age is 17 days ahead of the clinical age. 2. Estimated weight 93rd percentile. Abdominal circumference 93rd percentile. Biparietal diameter greater than 97th percentile. Alfonzo Dee M.D. Diagnostic Radiologist [email or web address] CHARLES/estela palmer/Dictated by: Alfonzo Dee MD @ 02/09/2025 2:07:00 PM (Electronically Signed)
== END 2025-02-09 12:53 | disposition home or self-care (01) ==
LOC: US 12:52
PROVIDERS: PCP Physician Assistant Medical; Visit Provider Obstetrics & Gynecology
DX: O47.03 False labor before 37 completed weeks of gestation, third trimester (principal); O36.63X0 Maternal care for excessive fetal growth, third trimester, not applicable or unspecified; Z3A.34 34 weeks gestation of pregnancy
CPT/HCPCS: 76816

== ENCOUNTER 2025-02-09 14:54 | Outpatient (CLI) | payer BC, SELFPAY ==
[2025-02-09] MEDS: LACTATED RINGERS 500 ML 500 ML IV (15:00)
[2025-02-09 15:31] VITALS: TEMP 36.8
[2025-02-09 15:34] VITALS: PULSE 77; O2SAT 97
[2025-02-09 15:35] VITALS: BP 126/67; PULSE 78
[2025-02-09 16:29] LABS: Appearance Urine Cloudy (Clear)
--- NOTE | 2025-02-09 21:44 | PC.OBNST ---
NST Note NST Note Start: 02/09/25 16:04 Freq: ONCE Status: Active Protocol: Document 02/09/25 21:40 [facility] (Rec: 02/09/25 21:44 EA No Response) NST Note 3 Para (# of births) 1 EDC 03/22/25 Gestational Age In 34 Weeks & 1 Days Weeks & Days High Risk Factors History of Labor/Delivery Patient Presented Contractions/cramping with Complaint(s) of Reactive Yes Appropriate for Yes Gestational Age RN Penny RN Date 02/09/25 Reactive Yes Appropriate for Yes Gestational Age RN Zee RN Date 02/09/25 OB NST charge Yes Complete NST Note Yes via Write Note The provider's electronic signature indicates the NST is reactive/appropriate for gestational age. *Note to provider: If an addendum is required, open the patient's chart and click on the note under the Nurse/Allied Health tab.
== END 2025-02-09 21:16 | disposition home or self-care (01) ==
LOC: OB OUT 14:55 → OB 14:56
PROVIDERS: PCP Physician Assistant Medical; Visit Provider Obstetrics & Gynecology
DX: O47.03 False labor before 37 completed weeks of gestation, third trimester (principal); Z3A.34 34 weeks gestation of pregnancy; O36.63X0 Maternal care for excessive fetal growth, third trimester, not applicable or unspecified
CPT/HCPCS: 59025; 81001; 81003; 87086; G0463; A9270; J2270; J7120

== ENCOUNTER 2025-02-23 13:37 | Outpatient (CLI) | payer BC, SELFPAY ==
--- NOTE | 2025-02-23 15:00 | CRLHL7_ITS ---
For Patients: As a result of the Century Cures Act, medical imaging exams and procedure reports are released immediately into your electronic medical record. You may view this report before your referring provider. If you have questions, please contact your health care provider. LIMITED OBSTETRICAL ULTRASOUND, 02/23/2025 INDICATION: False labor before 37 weeks. LMP: 06/15/2024. LEE by LMP: 03/22/2025 GESTATIONAL AGE: 36 weeks 1 day TECHNIQUE: Real-time edwards-scale imaging of the fetus was performed transabdominal. FINDINGS: Cervix: Not visualized. Positioning: Vertex. Amniotic Fluid: 23.3 cm AFT, 8.2 cm SDP (normal greater 2 x 1 cm) Technique: Transabdominal. Placenta Position: Anterior. Heart Rate: 149 bpm. IMPRESSION: Amniotic fluid single deepest pocket 8.2 cm. GERALDO 23.3 cm. Alfonzo Dee M.D. Diagnostic Radiologist [email or web address] CHARLES/ras DW/Dictated by: Alfonzo Dee MD @ 02/24/2025 6:09:00 PM (Electronically Signed)
== END 2025-02-23 13:38 | disposition home or self-care (01) ==
PROVIDERS: PCP Physician Assistant Medical; Visit Provider Obstetrics & Gynecology
DX: O47.03 False labor before 37 completed weeks of gestation, third trimester (principal); R82.90 Unspecified abnormal findings in urine; Z3A.36 36 weeks gestation of pregnancy
CPT/HCPCS: 76815; 87086

== ENCOUNTER 2025-03-01 17:34 | Inpatient (IN) | payer BC, SELFPAY ==
[2025-03-01] VITALS (24 sets, daily range): BP systolic 103–144; BP diastolic 60–83; PULSE 66–103; RESP 16; TEMP 36.6–36.9; O2SAT 98–100; BMI 25.6
--- NOTE | 2025-03-01 17:47 | PM.OBHPLI ---
OB - H&P: HPI Labor/Induction History of Present Illness Date Seen: 03/01/25 Chief Complaint: Blayne is a 34 year old 3 para 1 at 37 0/7 weeks gestation by LMP, who presents with contractions and early labor. Chief complaint: Maternity Narrative: Blayne Duran is a 34 year old female at 37 0/7 weeks gestation that presented in early labor. She was rechecked after 2 hours and had made change from 2.5-3-4 cm, 80%, -2. She is supported in labor by her partner, Isai. She is coping well with labor. She is moving and using the birthing ball to help with pain management. Her is otherwise complicated by contractions on 12/28 without cervical change, GBS +, Anxiety, nausea/vomiting. She has received routine care this . This is a patient of the OB team, I seen the patient for admission as the OB was unavailable. Specific Issues/Plans Partner: Isai [place] Complete: Low risk, Girl! All ultrasounds need to be scheduled by [facility] (poor experience with same US tech on 2 occasions) H&P: # contractions w/o labor 12/28/24, history of pre term contractions in previous at 33 weeks, term delivery Perinatology consult: Level 2 and consult complete-see below Betamethasone course completed 12/29/24 On nifedipine 10mg q 6-8 hrs if needed. 01/06/25: Continues to describe contractions, FFN and repeat cervical length: FFN positive, cervical length same. Repeat cervical check fingertip/50%/posterior. #GBS positive swab at 28 weeks Antibiotics for delivery plan to utilize ampicillin per protocol #Anxiety Not controlled at 20 weeks,not sleeping well Short term FU at 22 weeks-improving 01/28/25:Worsening and ready to restart meds, citalopram 20mg ordered # nausea and vomiting Failed Compazine and Reglan. Promethazine at 1st OB # Hep B non immune Thinking about getting vaccinated during Imagin10/29/24: Level 2: Anterior placenta, not previa. 3 vessel umbilical cord, SDP: 4.2cm, AC: 63%, EFW: 78%. Cervical length: 40mm. Normal anatomy, growth parameters normal. Recommendations: Further US as clinically indicated, clinical evaluation of labor signs, administration of corticosteroids if the patient is deemed to be at increased risk of imminent delivery. 12/27- Cervical length 2.6 cm with funneling of internal cervical os. 01/06- Cervical length 2.4 cm without funneling. 02/09 Growth US- EFW 93%ile 02/23 SDP 8.2, GERALDO 23.3. Vaccinations: Covid: declined Flu: declined Tdap: 01/11/25 RSV: 02/09/2025 32 week mental health: 01/28/25 Last pap: [Only high-risk abnormal pap results in problem list] History of Present Dating criteria: based on LMP care: good care Ultrasounds: normal 1st trimester US and normal mid trimester US Labs Blood type: A (+) positive Narrative: Blood type: A+, antibody screen negative.??? Hgb: 11.7??? Platelets (01/06/2025): 242??? Rubella: Immune??? Varicella: Immune? RPR: non-reactive??? HBsAg: non-reactive??? Hep C: negative? HIV: negative??? UC: negative? GC/Chlamydia: negative/negative??? Genetic screening: Genetic Screening? 1hr gtt: ??111? GBS (12/27): positive?? Review of Systems Status of ROS: Reports: 6 or more systems reviewed and unremarkable except as noted in History and below Meds Home Medications and Allergies Home Medications ?Medication ?Instructions ?Recorded ?Confirmed ?Type PNV no.63-iron,carbonyl 27 1 cap PO Q24H 05/11/24 03/01/25 History mg-folic acid 800 mcg-dha 200 mg capsule citalopram 20 mg tablet 20 mg PO QDAY #30 tabs 01/28/25 03/01/25 Rx hydroxyzine pamoate 25 mg capsule 25 - 50 mg PO QHS 02/23/25 03/01/25 History metronidazole 500 mg tablet 500 mg PO BID 7 days #14 tabs 02/23/25 03/01/25 Rx Allergies Allergy/AdvReac Type Severity Reaction Status Date / Time ketorolac (From Toradol) Allergy Mild Rash Verified 03/01/25 13:16 nitrofurantoin Allergy Mild throat Verified 03/01/25 13:16 swelling OB - H&P: Exam Physical Exam: Vital signs: Pulse BP 86 134/81 03/01/25 14:10 03/01/25 14:10 Narrative: Vitals Reviewed Constitutional:? Alert and oriented x3 HEENT:? Normocephalic, atraumatic Neck:? Supple Lungs:? Clear to auscultation bilaterally Heart:? Regular rate and rhythm, no murmur, rub or gallop Abdomen:? Soft, nontender, and gravid. Vertex by Chinmay's, confirmed with cervical exam. Extremities:? No edema or erythema Cervix: 4 cm/80%/-2 station/vertex NST: 130 bpm/moderate variability/15x15 accelerations/no decelerations/contractions every 2-3 minutes; palpate moderate OB - Problem Based A/P Additional Plan (1) Pain during labor: Status: Acute (2) Group B Streptococcus carrier, antepartum: Status: Acute (3) 37 weeks gestation of : Status: Acute Plan ASSESSMENT:? 34 yo at 37 0/7 weeks gestation? complicated by:? Labor type: Spontaneous, Early labor? Category 1 FHR pattern.?? Labor complicated by: none? GBS positive? ? PLAN:? 1. Routine intrapartum cares as ordered. Continue with expectant management? 2. Monitoring per policy, intermittent per policy? 3. Undecided on pain plan. Candidate for analgesia of choice.?? 4. Patient encouraged to reposition and ambulate to promote physiologic labor and .? 5. GBS prophylaxis initiated for GBS positive status. Will treat with antibiotics per protocol. 6. Anticipate ?
[2025-03-01] MEDS: AMPICILLIN 2 GM in 0.9 % SODIUM CHLORIDE Mini-bag 100 ML IVPB (18:09)
[2025-03-01] MEDS: LACTATED RINGERS 1000 ML 1,000 ML 999 ML IV ×2 (18:09→19:35)
[2025-03-01 18:20] LABS: Hematocrit* 40.4 % (33.0-51.0); Hemoglobin* 13.4 gm/dL (12.0-16.0); Immature Granulocytes Pct Auto 0.3 %; Mean Corpuscular HGB Conc 33 gm/dL (32-36); Mean Corpuscular Hemoglobin 29 pg (26-34); Mean Corpuscular Volume 88 fL (80-100); RDW Coefficient of Variation % 13.0 % (11.5-15.5); Red Blood Count* 4.61 m/uL (4.00-5.20); White Blood Count* 11.62 K/uL (4.50-11.00)
[2025-03-01 18:25] LABS: Immature Granulocytes Abs Auto 0.00 K/uL (0.00-0.30); Lymphocytes Absolute Auto 2.30 K/uL (0.90-2.90); Slide Review Reflex No
[2025-03-01] MEDS: CITALOPRAM HYDROBROMIDE 20 MG TABLET PO (21:47)
[2025-03-01] MEDS: AMPICILLIN 1 GM in 0.9 % SODIUM CHLORIDE Mini-bag 100 ML IVPB (21:55)
--- NOTE | 2025-03-01 22:44 | P.OBPN_ITS ---
Subjective Time Seen by Provider: 22:44 Date Seen: 03/01/25 Narrative: Okay Objective Vital Signs: Last Vital Signs Temp 98.4 F 03/01/25 22:01 Pulse 66 03/01/25 21:51 Resp 16 03/01/25 18:15 BP 118/76 03/01/25 21:51 Pelvic Exam Dilation (cm): 7 Effacement (%): 80 Station: -2 Contractions Monitor mode: External Contraction pattern: Regular Contraction intensity: Moderate Assessment Station: -2 Amniotic Membrane Status: AROM Status: Category ll Heart Rate Baseline: 115 Nursing Home Variability: Moderate (6-25) Monitor Accelerations: Present Monitor Decelerations: Variable Plan Plan: Patient has continued to progress on cervical dilation. Has received now 2 doses of Ampicillin for GBS positive status. Interested in AROM for augmentation and she is now 7cm. Requesting epidural. Expect vaginal delivery soon.
[2025-03-01] MEDS: ROPIVACAINE 0.2% 100 ml 100 ML 12 MG EPIDURAL (23:08)
[2025-03-01] MEDS: LIDOCAINE 2% (PF) 5 ML VIAL EPIDURAL (23:08)
--- NOTE | 2025-03-01 23:16 | PM.ANBPRC ---
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 - Other specified disorders of arteries and arterioles (ICD-10) Multiple kidney stones ?N20.0 - Calculus of kidney (ICD-10) Migraine headache ?G43.909 - Migraine, unspecified, not intractable, without status migrainosus (ICD-10) Calculus of kidney ?N20.0 - Calculus of kidney (ICD-10) Surgical History (Updated 06/07/24 @ 13:26 by Claudia Nuñez MD) History of lumpectomy of left breast ?Z98.890 - Other specified postprocedural states (ICD-10) History of cholecystectomy ?Z90.49 - Acquired absence of other specified parts of digestive tract (ICD-10) History of appendectomy ?Z90.49 - Acquired absence of other specified parts of digestive tract (ICD-10) Family History Father Alcohol dependence Paternal Grandmother Breast cancer Maternal Grandmother Heart disease Stroke Maternal Grandfather Heart disease Social History (Updated 08/12/24 @ 13:05 by Fannie Hubbard PA-C) Narrative: 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 Marital status: . Orthodox/cultural needs: no. Chemical or radiation exposure: no. Pre- tobacco use: no. Pre- alcohol use: no. Current tobacco use: no. Current alcohol use: no. Recreational drug use: no. Dietary restrictions: no. Blood transfusion acceptable in an emergency: yes. PSYCHOSOCIAL HISTORY: History of depression or currently depressed: no. Current or past physical, emotional, or sexual mistreatment: Denies. Problems that will make it hard to make it to appointments: Denies. What is your current living situation?: I presently have a place to live Problems where you live: no known problems In the past 12 months, utilities in danger of being shut off: no In past 12 months, lack of transportation kept you from medical appts, meetings, work, or getting things needed for daily living: no In the past 12 mos, have been you worried that your food would run out before you had money to buy more?: never true In the past 12 mos, the food you bought just didn't last and you didn't have money to buy more?: never true Smoking Status: Never smoker Do you use any of these nicotine containing products: None Second hand tobacco smoke exposure: No How often do you have a drink containing alcohol: never How often do you have six or more drinks on one occasion: Never AUDIT-C Alcohol total score: 0 Non-prescribed substance use: denies use Caffeine: No How often does anyone, including family, friends and others, physically hurt you: never How often does anyone, including family, friends and others, insult or talk down to you: never How often does anyone, including family, friends and others, threaten you with harm: never How often does anyone, including family, friends and others, scream or curse at you: never Are you using contraception or practicing any form of control: No service: No Meds Home Medications and Allergies Home Medications ?Medication ?Instructions ?Recorded ?Confirmed ?Type PNV no.63-iron,carbonyl 27 1 cap PO Q24H 05/11/24 03/01/25 History mg-folic acid 800 mcg-dha 200 mg capsule citalopram 20 mg tablet 20 mg PO QDAY #30 tabs 01/28/25 03/01/25 Rx hydroxyzine pamoate 25 mg capsule 25 - 50 mg PO QHS 02/23/25 03/01/25 History metronidazole 500 mg tablet 500 mg PO BID 7 days #14 tabs 02/23/25 03/01/25 Rx Allergies Allergy/AdvReac Type Severity Reaction Status Date / Time ketorolac (From Toradol) Allergy Mild Rash Verified 03/01/25 13:16 nitrofurantoin Allergy Mild throat Verified 03/01/25 13:16 swelling Results Labs Labs: Laboratory Results - last 24 hr 03/01/25 17:58 WBC 11.62 H RBC 4.61 Hgb 13.4 Hct 40.4 MCV 88 MCH 29 MCHC 33 RDW Coeff of John 13.0 Plt Count 239 Neut % (Auto) 73.1 H Lymph % (Auto) 20.1 Stewart % (Auto) 5.8 Eos % (Auto) 0.4 Baso % (Auto) 0.3 Neut # (Auto) 8.50 H Lymph # (Auto) 2.30 Stewart # (Auto) 0.70 Eos # (Auto) 0.00 Baso # (Auto) 0.00 Abs Immat Gran (auto) 0.00 Imm/Tot Granulo (auto) 0.3 Vital Signs Vital Signs: Last Vital Signs Temp 98.4 F 03/01/25 22:01 Pulse 90 03/01/25 23:14 Resp 16 03/01/25 18:15 BP 127/76 03/01/25 23:14 Pulse Ox 99 03/01/25 23:13 Weight: 69.853 kg Height: 165.1 cm Anesthesia Procedures Epidural Insertion Patient Location: OB Start Time: 22:55 Stop Time: 23:20 Start Date: 03/01/25 Stop Date: 03/01/25 Reason for Block: primary anesthetic Patient Position: sitting Performed By: Garcia Diallo Preanesthetic Checklist: IV checked, risks and benefits discussed, surgical consent, monitors and equipment checked, pre-op evaluation, timeout performed and anesthesia consent Prep: chlorhexidine gluconate Monitoring: blood pressure monitoring, school lunch monitor, continuous pulse oximetry and heart rate Approach: midline Vertebral Space: lumbar (1-5) Needle Type: Tuohy needle Injection Technique: continuous catheter (catheter) Needle gauge: 17 Needle Length (cm): 10 cm Needle Insertion Depth (cm): 4 Catheter Gauge: 19 Catheter Type: multi-orifice Catheter at skin depth (cm): 10 Test Dose Result: negative and lidocaine 1.5% with epinephrine 1 to 200,000
[2025-03-01] MEDS: ONDANSETRON 2 MG/ML inj 4 MG IV (23:57)
[2025-03-02] VITALS (47 sets, daily range): BP systolic 86–166; BP diastolic 50–120; PULSE 58–141; RESP 16–18; TEMP 36.4–37.2; O2SAT 97–98
[2025-03-02] MEDS: PHENYLEPHRINE 100 MCG/ML SYRINGE IVP ×3 (00:12→03:25)
[2025-03-02] MEDS: AMPICILLIN 1 GM in 0.9 % SODIUM CHLORIDE Mini-bag 100 ML IVPB ×2 (02:07→06:02)
[2025-03-02] MEDS: LACTATED RINGERS 1000 ML 1,000 ML 999 ML IV (03:58)
[2025-03-02] MEDS: ePHEDrine sulfate 5 MG/ML inj 10 MG IVP (04:27)
[2025-03-02] MEDS: ONDANSETRON 2 MG/ML inj 4 MG IV (04:41)
[2025-03-02] MEDS: OXYTOCIN 30 unit/500 ML in NS 30 UNIT/500 ML BAG IVPB (05:08)
[2025-03-02] MEDS: ROPIVACAINE 0.2% 100 ml 100 ML 12 MG EPIDURAL (06:13)
--- NOTE | 2025-03-02 06:51 | W.PM.OBVAGDE ---
OB Procedure Vag Delivery Mother Details Mother Details: The patient is a 34 year-old, 3, Para 1, admitted on 03/01/25 at 37 1/7 Days gestation. Patient admitted in labor for delivery. Eventually we needed to augment labor with AROM and a small dose of Oxytocin. Baby was asynclitic and she remained 9cm for 2 consecutive cervical checks, but with Oxytocin and position changes progressed to completed and pushed effectively. : 3 Para: 2 Weeks Gestation: 37.1 Admission Date: 03/01/25 Additional Details Amniotic Membrane Status: AROM Amniotic Membrane Rupture Date: 03/01/25 Amniotic Membrane Rupture Time: 22:43 Amniotic Membrane Fluid Description: Clear Analgesia/Anesthesia Type: Epidural Waterbirth: No Pitcoin: Yes Intrapartal Events: Labor Augmentation Delivery augmentation: rupture of membranes and pitocin Labor Onset: 19:00 Complete: 06:05 Pushin:07 Heart: heart tones during second stage were category 2, with recurrent deep variable decelerations, in between contractions FHR returned to baseline. Great maternal pushing efforts and delivery was expected to happen quickly. Delivery Details Delivery Date: 03/02/25 Delivery Time: 06:28 Route of delivery: Infant Gender: Female Infant Viability: Alive; Heart Rate Present Position at Delivery: OA Delivery Details: Delivered via spontaneous vaginal delivery. was placed on maternal abdomen.? Cord was clamped and cut after a 30-60 second delay. Nose and mouth were bulb suctioned.? Infant weight pending. 1 Minute Interval Total Score: 8 5 Minute Interval Total Score: 8 Additional Details Shoulder Dystocia: No Placenta Delivery Time: 06:39 Placental Delivery Description: Spontaneous Delivery repair: Vicryl Procedure Done: Global Blood Loss: 150 Laceration: Vaginal - 1st Degree Episiotomy Description: None Blood Loss Measurement Type: QBL Bakri Used: No Sponge/Need Count Correct: Yes Cord Vessel Description: 3 Vessels, Nuchal Cord and Reduced Event Summary Status: Mother and were stable after delivery. Disposition: floor
[2025-03-02] MEDS: IBUPROFEN 600 MG TABLET PO ×3 (08:30→23:33)
[2025-03-02] MEDS: ACETAMINOPHEN 500 MG TABLET 1000 MG PO ×3 (10:41→23:42)
[2025-03-02] MEDS: DOCUSATE SODIUM 100 MG CAPSULE PO (10:41)
--- NOTE | 2025-03-02 14:47 | PM.ANPOST ---
Post Anesthesia Note Post Anesthesia Note Patient seen: Inpatient Respiratory Status: adequate Cardiovascular Status: adequate Mental Status: baseline Pain: adequate Temp: baseline Anesthetic awareness: N/A Complications: none Follow care: none
[2025-03-02] MEDS: CITALOPRAM HYDROBROMIDE 20 MG TABLET PO (23:34)
[2025-03-03 04:05] VITALS: BP 115/75; PULSE 85; RESP 16; TEMP 37.2; O2SAT 97
[2025-03-03 07:19] LABS: Hemoglobin* 11.3 gm/dL (12.0-16.0)
--- NOTE | 2025-03-03 08:04 | P.DS_ITS ---
DS: Providers Provider Date Seen: 03/03/25 Date of admission: 03/01/25 17:34 Primary care physician: Terri Sullivan PA-C Admitting Clinician: Christy Vieyra MD Attending Physician on discharge: Blaze KITCHEN Date of Discharge: 03/03/25 DS: Diagnosis Discharge Diagnosis (1) care and examination of lactating mother: Status: Acute (2) (normal spontaneous vaginal delivery): Status: Acute (3) Anxiety: Status: Acute Problem details: Stable, continue home citalopram Exam Narrative: Exam Narrative: GENERAL APPEARANCE:? normal affect, alert, no distress MOOD:? appropriate CHEST:? clear to auscultation HEART:? regular rate and rhythm ABDOMEN:? soft, non-tender the uterine fundus is 3 finger breadths below Umbilicus, Midline and is appropriate for the stage of recovery. PERINEUM:? mild edema of the perineum, no abnormal erythema or discharge EXTREMITIES:? normal and minimal edema Const: Vital Signs, click to edit/add: Vital Signs - 24 hr 03/02/25 08:07 03/02/25 08:22 03/02/25 08:37 Temperature Pulse Rate 81 77 72 Pulse Rate [Pulse Oximeter] Respiratory Rate Blood Pressure 125/74 121/70 119/67 Blood Pressure [Ri ght Arm] Pulse Oximetry Oxygen Delivery Me thod 03/02/25 11:15 03/02/25 14:24 03/02/25 18:00 Temperature 99.0 F 98.5 F Pulse Rate Pulse Rate [Pulse Oximeter] 76 78 75 Respiratory Rate 16 16 16 Blood Pressure Blood Pressure [Ri ght Arm] 112/68 118/77 127/79 Pulse Oximetry 98 97 97 Oxygen Delivery Me thod Room Air Room Air Room Air 03/02/25 23:46 03/03/25 04:05 Temperature 97.7 F 99.0 F Pulse Rate Pulse Rate [Pulse Oximeter] 82 85 Respiratory Rate 18 16 Blood Pressure Blood Pressure [Ri ght Arm] 126/83 115/75 Pulse Oximetry 98 97 Oxygen Delivery Me thod Room Air Room Air OB - DS: Summary Hospital Course Hospital Course: Blayne is a 34 y.o. G 3 P 2009 who was admitted to [facility] for active labor.? She had a NVD that was uncomplicated. The patient feels well.? The pain is well controlled with current medications.? She has no new complaints.? She is breast feeding and reports things are going well. the patient has done well.? Vitals have been stable.? She has remained afebrile.? Has a good appetite, is tolerating a general diet.? She is voiding without difficulty.? She is passing gas and has had a bowel movement.? She is ambulating and denies any dizziness.? Has small amount of rubra lochia. She is planning uncertain of choice of agent for prevention.? ?? Problems: none? ?? plan:? Discharge?home with baby.? Follow up in 2 weeks and 6 weeks.? , may see if needed? Hgb 11.3. ? Call for signs/symptoms of preeclampsia? Peripartum Data delivery method: Vaginal Laceration description: Vaginal - 1st Degree Episiotomy description: None Infant Gender: Female Discharge Plan: Home Status at Discharge Functional status at discharge: independent ambulation Overall status at discharge: patient is progressing back to baseline Time Spent with Patient Time attestation: Total time spent providing and/or coordinating discharge services: Time spent: Less than 30 minutes Discharge Plan Discharge Disposition: Home, Self-Care Date of Admission: 03/01/25 17:34 Attending Provider on Discharge: Ailyn George Primary Care Provider: Terri Sullivan Condition: Stable Anticipated Discharge Date/Time: 03/03/25 08:11 Discharge Medications: Continued PNV no.63-iron,[id number] 27 mg iron- 800 mcg-200 mg capsule 1 cap PO Q24H citalopram 20 mg tablet 20 mg PO QDAY Qty: 30 3RF metronidazole 500 mg tablet 500 mg PO BID 7 Days Qty: 14 0RF Discontinued hydroxyzine pamoate 25 mg capsule 25 - 50 mg PO QHS Discharge Orders: Discharge Order (Routine); Ordered 03/03/25 Ordered By: Ailyn George Patient Education: OB Over the Counter Medication Information, OB Vaginal/Breast Feeding Additional Instructions: Discharge instructions were reviewed with the patient including signs and symptoms of infection and home going medications Nothing vaginally for 6 weeks: no tampons or intercourse Do not drive while taking narcotic pain medication(s) Off Work or School for 6 weeks Symptoms to report to doctor: * Bleeding that saturates more than one pad per hour * Passing clots larger than the size of a golf ball * Pain not relieved by prescribed medication * Fever above 100.4 degrees Fahrenheit * A foul vaginal odor * Difficulty in emotions, mood, and functions * Thoughts of hurting yourself and/or * Painful, reddened area in your breast * Any drainage, redness, or tenderness in your IV/epidural site * Severe headache that doesn't improve after taking medications * Changes in vision, including temporary loss of vision, blurred vision, and/or light sensitivity * Upper abdominal pain (usually under ribs on the right side) * Decrease in urination or painful, frequent urinating * Chest pain * Shortness of breath * Tenderness or pain with redness and/swelling in the calf(s) of your leg 2-week visit: discuss infant feeding concerns, review control options and screen for anxiety/depression. 6-week visit for an annual exam. consultation services are available to all mothers and babies for the first year after delivery.? To make an appointment, please call [phone]. Activity Level: Activity as Tolerated and No strenuous activity Discharge Diet: Regular Follow Up Appointments: [facility] [Provider Group] Forms: [employer] Info Instructions
[2025-03-03 08:30] VITALS: BP 126/86; PULSE 76; RESP 16; O2SAT 98
[2025-03-03] MEDS: IBUPROFEN 600 MG TABLET PO (09:14)
== END 2025-03-03 09:44 | disposition home or self-care (01) | DRG 560 ==
LOC: OB OUT 17:34 → OB 17:34
PROVIDERS: Admitting Provider Obstetrics & Gynecology; PCP Physician Assistant Medical; Visit Provider Obstetrics & Gynecology
DX: O99.824 Streptococcus B carrier state complicating childbirth (principal); O70.0 First degree perineal laceration during delivery; O99.344 Other mental disorders complicating childbirth; F41.9 Anxiety disorder, unspecified; Z3A.37 37 weeks gestation of pregnancy; Z37.0 Single live birth
CPT/HCPCS: 01967; 36415; 85018; 85025; A9270; J0290; J2405; J2795; J7120